=== PATIENT | female | born 1960 | race Caucasian/White ===

== ENCOUNTER → 2022-04-24 | Outpatient (CLI) | payer OTHER, SELFPAY ==
--- NOTE | 2022-04-24 14:03 | CT_ITS ---
EXAM: CT LEFT LOWER EXTREMITY WITHOUT INTRAVENOUS CONTRAST CLINICAL INDICATION: PREOP TECHNIQUE: Helically acquired images were obtained of the left lower extremity without intravenous contrast. 2-D reformats were performed by the technologist. CTDIvol = ( 18.76 ) mGy, DLP = ( 1151.41 ) mGycm This CT exam was performed using one or more of the following dose reduction techniques: automated exposure control, adjustment of the mA and/or kV according to patient size, and/or use of iterative reconstruction technique. This report was created using [employer] report [employer] technology. COMPARISON: None. FINDINGS: BONES/JOINTS: Moderate osteoarthrosis of the left hip joint. Small enthesophyte at the superior aspect of the greater trochanter. At least moderate tricompartmental osteoarthrosis of the knee, severe at the medial femorotibial compartment with 6 mm of lateral subluxation of the tibia relative to femur. Mild to moderate degenerative changes involving the hip joint. Large plantar posterior calcaneal enthesophytes. No acute or healing fracture or malalignment. No unusual lytic or sclerotic lesions of bone. SOFT TISSUES: Large suprapatellar joint effusion with note of a small intra-articular ossific body and note also a small Penaloza''s cyst. No soft tissue swelling or gas. No radiopaque foreign body. CT/Extremity Lower without Contra IMPRESSION: 1. Preoperative planning study. 2. At least moderate tricompartmental osteoarthrosis of the knee, severe at the medial femorotibial compartment with 6 mm of lateral subluxation of the tibia relative to femur. 3. Large suprapatellar joint effusion with note of a small intra-articular ossific body and note also a small Penaloza''s cyst. Electronically Signed: Yoel Saunders MD at 4:38 EST ,
== END | disposition home or self-care (01) ==
LOC: CT 14:01
PROVIDERS: PCP Family Medicine; Visit Provider Orthopaedic Surgery
DX: M17.12 Unilateral primary osteoarthritis, left knee (principal)
CPT/HCPCS: 73700

== ENCOUNTER 2022-05-04 15:08 | Observation (INO) | payer OTHER, SELFPAY ==
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
--- NOTE | 2022-04-24 14:00 | EKG12_ITS ---
Test Reason : PRE-OP Blood Pressure : / mmHG Vent. Rate : 086 BPM Atrial Rate : 086 BPM P-R Int : 178 ms QRS Dur : 090 ms QT Int : 368 ms P-R-T Axes : 048 -23 014 degrees QTc Int : 440 ms Normal sinus rhythm Inferior infarct , age undetermined Abnormal ECG Confirmed by SRINI REESE, KASIA ([id number]), makeup editor BONIFACIO GRACE ([id number]) on 04/27/2022 9:15:32 AM Referred By: VIPUL Confirmed By:KASIA MILLIGAN MD
[2022-04-24 16:03] LABS: Absolute Lymphocyte Count 1.77 X10^3/uL (0.83-4.51); Basophil# 0.04 X10^3/uL; Basophil% 0.6 % (0-1); Eosinophil# 0.14 X10^3/uL; Eosinophils% 2.2 % (0-5); Hematocrit 36.7 % (37-47); Hemoglobin 11.4 g/dL (12.0-15.0); Lymphocyte # 1.77 X10^3/ul (0.83-4.51); Lymphocyte % 27.4 % (19-41); Mean Corp Hgb Conc 31.1 g/dL (32-36); Mean Corpuscular Hgb 29.2 pg (27.0-32.0); Mean Corpuscular Volume 93.9 fL (81-99); Mean Platelet Vol. 10.4 fl (6.2-12.0); Monocyte% 7.7 % (0-10); NRBC Flagged by Analyzer 0 % (0-5); Neutrophil % 61.9 % (47-70); Platelet Count 236 K/mm3 (150-450); RBC Distribution Width SD 47.5 fl (35.1-43.9); Red Blood Count 3.91 M/mm3 (4.2-5.4); White Blood Count 6.5 K/mm3 (4.4-11.0)
[2022-04-24 16:27] LABS: Anion Gap 6 (5-15); BUN 16 mg/dL (7-18); BUN/Creat Ratio 17.1 RATIO (10-20); Calcium,Total 8.8 mg/dL (8.5-10.1); Chloride 107 mmol/L (98-107); Creatinine, Serum 0.93 mg/dL (0.55-1.02); EST Glomerular Filtration Rate 65 mL/min (>60); Est Glom Filt Rate - Afr Amer 78 mL/min (>60); Glucose 90 mg/dL (74-106); Potassium 3.8 mmol/L (3.5-5.1); Sodium Level 141 mmol/L (136-145)
[2022-04-24 16:40] LABS: Magnesium 1.9 mg/dL (1.6-2.6)
[2022-05-04] VITALS (13 sets, daily range): BP systolic 74–109; BP diastolic 44–64; PULSE 62–83; RESP 16–18; TEMP 36.2–37.2; O2SAT 93–99; BMI 35.0
--- NOTE | 2022-05-04 | KNEE_PTH ---
PATIENT: FREDERIC HERBERT LOC: MS3 U#:[id number] AGE/SX: 62/F ROOM: [facility] RE05/04/[address]: Dr. Madhav Grace DO : 1960 BED: 1 DIS: 05/06/2022 SPEC #: [id number] RECD: 05/04/22 13:43 STATUS: YNES REQ #: [id number] JONATHAN: 05/04/22 00:[address]: Madhav Grace DEPT: SURGICAL PATHOLOGY RECD BY: Ceasar Khoury ENTERED: 05/05/22 09:05 SP TYPE: TOTAL KNEE OTHR DR: Dr. Kate Espinoza, DO Tissues: Knee, NOS Procedures: Decalcification bone/plaque Surgery Specimen Level IV HEADER OPERATION: ERAS, total knee replacement robotic arm assist PRE-OP DIAGNOSIS: Severe left knee osteoarthritis with valgus deformity TISSUE SUBMITTED: Left knee bone and tissue MICROSCOPIC DIAGNOSIS Bone and soft tissue, left knee, total knee replacement/resection: Pieces of bone with degenerative osteoarthritic changes. Fibroadipose tissue, fibroconnective tissue and reactive synovial tissue. NILSON:silvana 05/08/2022 MICROSCOPIC DESCRIPTION Slides are reviewed. GROSS DESCRIPTION Received is one container designated bone and soft tissue left knee. The specimen consists of multiple fragments of sorenson-yellow bone measuring in aggregate 17 x 13 x 2 cm. Also in the specimen container are multiple fragments of yellow-white soft tissue measuring in aggregate 11 x 10 x 2.5 cm. A number of bony fragments contain articular surfaces consistent with tibial plateau and femoral condyle and displaying prominent osteophyte formation, eburnation, and bone erosion. Acid Cutter sections are submitted in two cassettes as follows: 1 - soft tissue, 2 - bone after decalcification. / AM:silvana 05/05/2022 TC:5 CPT: 96733, [id number]
[2022-05-04 06:55] LABS: Bedside Glucose 119 mg/dL (74-106)
[2022-05-04] MEDS: Ipratropium/Albuterol Sulfate 3 ML AMPUL.NEB INHALATION (07:06)
[2022-05-04] MEDS: Gabapentin 600 MG Tablet PO (07:24)
[2022-05-04] MEDS: Magnesium 2 GM for ERAS IV (07:24)
[2022-05-04] MEDS: Acetaminophen 500 MG Tablet 1000 MG PO ×3 (07:24→22:26)
[2022-05-04] MEDS: Lactated Ringers 1,000 ML 15 ML IV ×2 (07:40→09:31)
[2022-05-04] MEDS: Cefazolin 2 GM in 0.9% Normal Saline 100 ML IV (08:11)
[2022-05-04] MEDS: TXA 1000mg in NS100 100ml (IVPB at Closure) 660 MG IV (08:22)
[2022-05-04] MEDS: TXA 1000mg in NS100 100ml (IVPB at Incision) 660 MG IV (09:38)
--- NOTE | 2022-05-04 09:51 | PCM.OPRPT ---
Report of Operation Date of Procedure: 05/04/22 Pre-Operative Diagnosis: OA left knee Post-Operative Diagnosis: same Surgery/Procedure Performed:: L TKR Description of Surgical Findings:: Report of Operation Date of Procedure: 05/04/2022 Preoperative Diagnosis: [ left ] knee primary osteoarthritis Postoperative Diagnosis: [ left ] knee primary osteoarthritis Operation: Robotic Assisted Knee Total Arthroplasty, [left ] knee Surgeon: Dr Madhav Grace DO Lead Care Manager: Robbie Saleh PA-C Anesthesia: spinal Anesthesiologist: Franklin Kevin M.D. Findings: Stable knee with good patella tracking Specimen(s): Bony cuts Complications: No intraoperative complications Estimated Blood Loss: 20 cc IV Fluids: 1000 cc crystalloid Implants Used: 1. Dianna Triathlon press-fit CR size 3 femur 2. Nichols Triathlon size 4 tibia 3. 29 mm patella 4. 10 mm CS polyethylene Brief History Operative Indications: [ (62 y/o female) ] with history of [left ] knee osteoarthrosis with radiographic findings with loss of joint space, osteophyte formation and subchondral sclerosis. Failed conservative measures as mentioned in the H&P. Discussion of total knee arthroplasty as well as risk and benefits were discussed with the patient including but not limited to blood loss, DVTs, PEs, neurovascular damage, general risk of anesthesia including loss of life, and stiffness or instability were also discussed with the patient. Patient demonstrated understanding and was able to sign informed consent. Procedure: On the date of procedure, patient's [left ] lower extremity was marked in the preoperative area. The patient was then taken back to the operating room where that patient was placed on the table in the supine position. All bony prominences were identified and well-padded. Anesthesia assumed control of the C-spine and airway throughout the remainder of the procedure. A tourniquet was placed on the [left ] upper thigh and the leg was prepped in a sterile fashion. The surgeon then scrubbed at this time. Upon reentering the room, the [left ] lower extremity was draped in a standard orthopedic fashion. A timeout was then called and everyone agreed upon the side, the site, the procedure to be performed, patient's identity and antibiotics given. Esmarch bandage was used to exsanguinate the extremity and the tourniquet was placed up to 250 mmHg with the knee in flexion. A midline skin incision was made and a sharp dissection was taken down through skin, subcutaneous tissue and fat. The standard medial parapatellar incision was made and the patella was subluxed laterally. An appropriate deep MCL release was done and the fat pad was resected. Our attention was then directed to the patella. The patella was everted and a flat resection was made. The knee was then flexed up and 2 femoral pins were placed inside the incision and 2 tibial pins were placed outside the incision in the medial tibia bicortically. Once this was completed, the 2 checkpoints in the femur and tibia were placed. Knee was then flexed up and the bony landmarks were registered. Once the was completed, the knee taken through range of motion and manually stressed allowing us to plan for an appropriate tibial cut. The robotic arm was brought into the field sterilely and checkpoint and saw were registered. Based on the patient's deformity, the tibial cut was made in [neutral ]. At this time, the tensioner was then placed in the joint and ligament tension was checked at 90 degrees and full extension. Based on the patient's ligamentous tension, appropriate adjustments were made to the operative plan and ligament releases were done. Once we were happy with our operative plan with balanced flexion and extension gaps, our attention was directed to the femur. The robot was brought into the field sterilely and registered. Posterior condylar cuts, anterior chamfer cuts and anterior cuts were appropriately made for a [size 3 ] femur. When these were completed, the saws were switched out in the distal femoral and posterior chamfer cuts were made. Protecting the soft tissue throughout this time. A [ size 4 ] base plate was selected. The knee was flexed to 90 degrees and soft tissues and posterior osteophytes were removed from the joint. 40 cc of the periarticular injection was injected into the posterior medial corner of the joint. The appropriate trials were then placed on the femur and tibia. A trial polyethylene was trialed to ensure proper balancing and stability of the knee. The appropriate tibial internal rotation was then marked with a bovie. Our attention was then directed to the patella. The lug holes were drilled and the patella trial was placed. Patellar tracking was checked and deemed appropriate. Once we were happy, lug holes were drilled for the femur and trial components were removed. The tibia was subluxed and pinned into place and the keel was punched and drilled appropriately. Final components were verified and opened. The wound was copiously irrigated with normal saline. Cement was mixed under 3rd generation technique for cementation of the patella. The components were impacted into place with the tibia, and femur. Cement was applied to the patella. The patella was placed in the previously drilled holes. A patellar clamp was used to hold the patella in place until the cement cured. The trial poly component was placed and the knee was placed in full extension. The tracking, alignment and balance were verified and a [10 mm CS ] polyethylene component was placed. Once the final components were placed an Irrisept lavage was performed and the wound was copiously irrigated with normal saline solution and the periarticular injection was given. the wound was closed in a layer-mendoza fashion using #1 vicryl interrupted sutures for the arthrotomy, 2-0 interrupted vicryl suture for the subcuticular layer and leann for final skin closure. A sterile compressive dressing was then placed. The patient was then awakened from anesthesia, transferred to the [facility] and transferred to the PACU for recovery. My physician assistant chief nursing officer was a vital part of this case. He was important in appropriate retraction during the case, and protection of soft tissues during bony cuts. His intimate knowledge of the case and my steps aided in safe and expedient completion of the procedure as well as appropriate position of the leg during the case. He was also vital in assisting with closure under my direct supervision. Due to the complexity of this case, robotic arm was used to assist in the surgery to improve accuracy and clinical outcomes. Post-op Plan: DVT ppx; ASA 81 mg BID, thigh high compression stockings Follow up: in office in 2 weeks for wound check PT: to start POD #0 at hospital, outpatient PT should be arranged. Preoperative antibiotic: Ancef 2 grams IV Madhav Grace DO Surgeon: Madhav Grace pump servicer helper: Robbie Saleh Type of Anesthesia: Spinal Anesthesiologist: Franklin Kevin Estimated Blood Loss (mL): 20 cc Fluids Replaced: 1000 cc crystalloid Admit VTE Documentation VTE Present on Admission: No VTE Mechan Device Prophylaxis: SCD's and Thigh High YOSELIN Hose VTE Pharm Prophylaxis ordered?: Yes
--- NOTE | 2022-05-04 10:02 | RAD_ITS ---
STUDY: X-RAY - LEFT KNEE REASON FOR EXAM: Female, 62 years old. Post op -- AP and Lateral xray of operative knee in PACU TECHNIQUE: 2 view(s) of the knee. COMPARISON: None. FINDINGS: Normal visualized distal femur. Normal visualized proximal tibia and fibula. Normal proximal tibiofibular articulation. The patient is status post total knee replacement. There is good alignment. Postoperative soft tissue changes. RAD/Knee 1 or 2 Views IMPRESSION: Status post total knee replacement. There is good alignment. Postoperative soft tissue changes. Electronically Signed: Serafin Manrique MD at 11:20 EST ,
[2022-05-04] MEDS: Pantoprazole Sodium 40 MG Tablet PO (14:08)
[2022-05-04] MEDS: Venlafaxine XR 150 MG Capsule PO (14:09)
[2022-05-04] MEDS: oxyCODONE 5 MG Tablet PO ×2 (15:48→19:53)
[2022-05-04] MEDS: Cefazolin 1 GM/50 ML BAG IV (15:48)
[2022-05-04] MEDS: TICAGRELOR 90 MG TABLET PO (22:26)
[2022-05-04] MEDS: Zolpidem Tartrate 5 MG Tablet PO (22:26)
[2022-05-04] MEDS: traZODone 100 MG Tablet 150 MG PO (22:26)
[2022-05-04] MEDS: Atorvastatin Calcium 80 MG Tablet PO (22:27)
[2022-05-04] MEDS: Senna/Docusate Sodium 1 Tablet 2 TABLET PO (22:27)
[2022-05-05] MEDS: Cefazolin 1 GM/50 ML BAG IV (00:34)
[2022-05-05] MEDS: 0.9% NaCl Peripheral Flush Adult/Peds IV (00:34)
[2022-05-05 02:19] VITALS: BP 123/80; PULSE 81; RESP 18; TEMP 36.5; O2SAT 94
[2022-05-05] MEDS: oxyCODONE 5 MG Tablet PO ×5 (03:56→20:44)
[2022-05-05 04:51] LABS: Hematocrit 31.7 % (37-47); Hemoglobin 9.8 g/dL (12.0-15.0); Mean Corp Hgb Conc 30.9 g/dL (32-36); Mean Corpuscular Hgb 29.2 pg (27.0-32.0); Mean Corpuscular Volume 94.3 fL (81-99); Mean Platelet Vol. 10.3 fl (6.2-12.0); Platelet Count 180 K/mm3 (150-450); RBC Distribution Width CV 14.2 % (11.6-14.6); RBC Distribution Width SD 48.4 fl (35.1-43.9); Red Blood Count 3.36 M/mm3 (4.2-5.4); White Blood Count 4.6 K/mm3 (4.4-11.0)
[2022-05-05] MEDS: Acetaminophen 500 MG Tablet 1000 MG PO ×3 (05:06→22:35)
[2022-05-05 05:12] LABS: Anion Gap 9 (5-15); BUN 17 mg/dL (7-18); BUN/Creat Ratio 19.7 RATIO (10-20); Calcium,Total 8.5 mg/dL (8.5-10.1); Chloride 104 mmol/L (98-107); Creatinine, Serum 0.86 mg/dL (0.55-1.02); EST Glomerular Filtration Rate 71 mL/min (>60); Est Glom Filt Rate - Afr Amer 86 mL/min (>60); Estimated Creatinine Clearance 56.11 ml/min; Glucose 93 mg/dL (74-106); Potassium 4.1 mmol/L (3.5-5.1); Sodium Level 139 mmol/L (136-145)
--- NOTE | 2022-05-05 07:39 | PCM.PN.ORT ---
Subjective Subjective Patient sitting at the edge of bed. Is ambulating with his walker. Patient states pain has been well managed. Patient denies chest pain, shortness of breath, calf pain, nausea or vomiting. Patient states she would like to be admitted to [facility] for for rehab. Objective Data Objective Data Vital Signs: Vital Signs Temp Pulse Resp BP Pulse Ox O2 Del Method O2 Flow Rate 97.7 F L 81 18 123/80 H 94 Room Air 2 05/05/22 02:19 05/05/22 02:19 05/05/22 02:19 05/05/22 02:19 05/05/22 02:19 05/05/22 02:19 05/04/22 12:23 Oxygen Flow Rate (L/min) 2 Oxygen Delivery Method Room Air Weight: 92.1 kg Body Mass Index (BMI) 35.0 Intake & Output: Intake and Output for Last 24 Hours 05/03/22 05/04/22 05/05/22 23:59 23:59 23:59 Intake Total 2484 / 2484 1250 / 1250 Output Total 900 / 900 Balance 2484 / 2484 350 / 350 Lab / Micro Data Result Diagrams: 05/05/22 03:59 05/05/22 03:59 Labs: Laboratory Results - last 24 hr 05/05/22 03:59: WBC 4.6, RBC 3.36 L, Hgb 9.8 L, Hct 31.7 L, MCV 94.3, MCH 29.2, MCHC 30.9 L, RDW Std Deviation 48.4 H, RDW Coeff of Lory 14.2, Plt Count 180, MPV 10.3 05/05/22 03:59: Sodium 139, Potassium 4.1, Chloride 104, Carbon Dioxide 26.0, Anion Gap 9, BUN 17, Creatinine 0.86, Estim Creat Clear Calc 56.11, Est GFR (MDRD) Af Amer 86, Est GFR (MDRD) Non-Af 71, BUN/Creatinine Ratio 19.7, Glucose 93, Calcium 8.5 Micro: Microbiology 04/24/22 14:32 Swab (Method) Nasal Screen MRSA/MSSA - Final Radiography Diagnostic Testing: Radiology Impression Knee X-Ray 05/04/22 10:02 IMPRESSION: Status post total knee replacement. There is good alignment. Postoperative soft tissue changes. Electronically Signed: Serafin Manrique MD at 11:20 EST , Physical Exam Narrative Upon exam, I found patient sitting at the edge of the bed. Alert oriented. No respiratory distress, speaking in full sentences. Patient has full range of motion of the upper extremities with good muscle tone and strength. Dressing of the left knee is clean dry and intact. Patient has tenderness over the mid thigh in the area of the tourniquet. No calf tenderness. No pain with plantarflexion dorsiflexion of the foot. Strong posterior tibial and dorsalis pedis pulses. Neurovascular is otherwise intact. Const alert and oriented x3 General Appearance: cooperative HEENT normocephalic Eyes PERRL Resp normal respiratory effort Effort and Inspection: able to speak in complete sentences Extremity normal capillary refill Skin no rashes or lesions noted Neuro CN's II-XII intact bilaterally Motor Exam: strength 5/5 throughout Psych mental status grossly normal and affect normal Assessment & Plan Assessment/Plan (1) Status post total left knee replacement using cement: PLAN: 1. Continue all pain medications as prescribed 2. Continue aspirin 81 mg 1 p.o. every 12 hours x30 days for postop DVT prophylaxis 3. Continue physical therapy, weight-bear as tolerated with walker 4. Encourage incentive spirometry 5. Continue use of SCDs and bilateral thigh-high YOSELIN hose. 6. Polar Care to left knee when not ambulating 7. We will discharge and admit patient [facility] 4th floor rehab when approved.
[2022-05-05 08:26] VITALS: BP 96/66; PULSE 76; RESP 18; TEMP 36.8; O2SAT 94
[2022-05-05] MEDS: Senna/Docusate Sodium 1 Tablet 2 TABLET PO ×2 (08:34→22:35)
[2022-05-05] MEDS: Spironolactone 25 MG Tablet 12.5 MG PO (08:35)
[2022-05-05] MEDS: Allopurinol 100 MG Tablet 200 MG PO (08:35)
[2022-05-05] MEDS: Pantoprazole Sodium 40 MG Tablet PO (08:35)
[2022-05-05] MEDS: Venlafaxine XR 150 MG Capsule PO (08:35)
[2022-05-05] MEDS: Aspirin 81 MG TAB.CHEW PO (08:35)
[2022-05-05] MEDS: TICAGRELOR 90 MG TABLET PO ×2 (08:36→22:35)
[2022-05-05] MEDS: Isosorbide Mononitrate 30 MG Tablet PO (08:36)
--- NOTE | 2022-05-05 12:08 | CASEMGMT ---
Social Work Consult: Usp placement vs. Rehab Unit. Referral source: Ortho. This social welfare research worker met with patient in room. Introduced self and social welfare research worker role. Patient agreeable to speak with this social welfare research worker. This social welfare research worker broached topic of half-way placement for patient or a rehab unit, per PA note. Patient confirms to want to discharge to a rehab unit, specifically the Rehab Unit at [facility]. This social welfare research worker communicating that the Rehab Unit currently has no beds per a pervious conversation this social welfare research worker had with the community sports coordinator this morning. Patient inquired about TCU, this social welfare research worker communicating that TCU is also full. This social welfare research worker offered to provide patient with list of in-network nursing facilities that are local to patient geographical region, patient declined and request for this social welfare research worker to make a referral to the Transitional care Unit at [facility]. This social welfare research worker educating patient on pre-cert process with patient insurance and no guarantee of obtaining pre-cert but per therapy notes patient requires half-way placement, patient voiced understanding. This social welfare research worker sent referral to [facility] via [facility]. PLAN: residential facility pending acceptance and pre-cert. Social Work to continue to follow. Nigel Penaloza MSW, JONNY
[2022-05-05 12:41] VITALS: BP 117/62; PULSE 83; RESP 18; TEMP 37.3; O2SAT 94
[2022-05-05 12:42] VITALS: PULSE 83
[2022-05-05] MEDS: Metoprolol Tartrate 25 MG Tablet PO (12:42)
--- NOTE | 2022-05-05 13:25 | CASEMGMT ---
Addendum entered by Aliya Penaloza 05/05/22 13:30: Patient declined for this social services designee to speak with patient spouse and reports I am keeping him updated. Patient reports that plan will be for patient spouse to transport patient at time of discharge. Original Note: Social Work Updated via [facility] that patient has been accepted by [facility]. [facility] to start pre-cert. This social services designee updated patient on above information. Social Work to continue to follow. Nigel CORREA, NEERAJ-S
[2022-05-05 15:26] VITALS: BP 122/69; PULSE 72; RESP 18; TEMP 36.8; O2SAT 98
[2022-05-05 20:43] VITALS: BP 115/70; PULSE 76; RESP 18; TEMP 37.2; O2SAT 97
[2022-05-05] MEDS: Zolpidem Tartrate 5 MG Tablet PO (22:35)
[2022-05-05] MEDS: traZODone 100 MG Tablet 150 MG PO (22:35)
[2022-05-05] MEDS: Atorvastatin Calcium 80 MG Tablet PO (22:35)
[2022-05-06 03:00] VITALS: BP 109/75; PULSE 83; RESP 16; TEMP 36.9; O2SAT 96
[2022-05-06] MEDS: oxyCODONE 5 MG Tablet PO ×3 (03:34→13:01)
[2022-05-06 06:12] VITALS: BP 129/89; PULSE 85; RESP 18; TEMP 37.1; O2SAT 97
[2022-05-06] MEDS: 0.9% NaCl Peripheral Flush Adult/Peds IV (06:15)
[2022-05-06] MEDS: Acetaminophen 500 MG Tablet 1000 MG PO ×2 (06:17→13:01)
[2022-05-06 07:51] VITALS: BP 117/71; PULSE 86; RESP 18; TEMP 36.8; O2SAT 95
[2022-05-06] MEDS: Senna/Docusate Sodium 1 Tablet 2 TABLET PO (07:58)
[2022-05-06] MEDS: Spironolactone 25 MG Tablet 12.5 MG PO (07:58)
[2022-05-06] MEDS: Pantoprazole Sodium 40 MG Tablet PO (07:58)
[2022-05-06 07:59] VITALS: PULSE 86
[2022-05-06] MEDS: Allopurinol 100 MG Tablet 200 MG PO (07:59)
[2022-05-06] MEDS: Aspirin 81 MG TAB.CHEW PO (07:59)
[2022-05-06] MEDS: Metoprolol Tartrate 25 MG Tablet PO (07:59)
[2022-05-06] MEDS: Isosorbide Mononitrate 30 MG Tablet PO (07:59)
[2022-05-06] MEDS: Lisinopril 2.5 MG Tablet PO (07:59)
[2022-05-06] MEDS: TICAGRELOR 90 MG TABLET PO (08:00)
[2022-05-06] MEDS: Venlafaxine XR 150 MG Capsule PO (08:00)
--- NOTE | 2022-05-06 11:23 | NURSING ---
per Andreina Saleh, he states pt may perhaps be vaping in room. nurse to room, inquired as to if pt has a vape or is currently vaping- pt states that she is and is agreeable to have it locked in med drawer. states she understands risks/safety/medication interactions/goals.
--- NOTE | 2022-05-06 11:24 | PN.ORTHO_ITS ---
Subjective Subjective Patient sitting up in bed, states pain has been very well managed. Denies chest pain, shortness of breath, calf pain, nausea vomiting. Has no other complaints at this time. Patient states she is ready for discharge to the rehab center in [facility]. Objective Data Objective Data Vital Signs: Vital Signs Temp Pulse Resp BP Pulse Ox O2 Del Method O2 Flow Rate 98.2 F 86 18 117/71 95 Room Air 2 05/06/22 07:51 05/06/22 07:59 05/06/22 07:51 05/06/22 07:51 05/06/22 07:51 05/06/22 07:51 05/04/22 12:23 Oxygen Flow Rate (L/min) 2 Oxygen Delivery Method Room Air Weight: 92.1 kg Body Mass Index (BMI) 35.0 Intake & Output: Intake and Output for Last 24 Hours 05/04/22 05/05/22 05/06/22 23:59 23:59 23:59 Intake Total 2484 / 2484 1650 / 1650 200 / 200 Output Total 900 / 900 Balance 2484 / 2484 750 / 750 200 / 200 Lab / Micro Data Result Diagrams: 05/05/22 03:59 05/05/22 03:59 Micro: Microbiology 04/24/22 14:32 Swab (Method) Nasal Screen MRSA/MSSA - Final Physical Exam Narrative Upon exam I found patient sitting up in bed watching TV. Patient has no respiratory distress speaking in full sentences. Full range of motion of the upper extremities. Exam of the left knee, the dressing is dry, there is a small blood spot on the distal end of the dressing. The 2 stab incisions on the tibia the dressing is dry with 2 blood spots in the dressing. There is no calf tenderness. Patient was lacking 5 degrees full extension flexion to 90 degrees with reported pain. Neurovascular she is otherwise intact. Const alert and oriented x3 General Appearance: cooperative and well developed HEENT normocephalic Eyes PERRL Resp normal respiratory effort Effort and Inspection: able to speak in complete sentences Extremity normal capillary refill Skin no rashes or lesions noted Neuro CN's II-XII intact bilaterally Psych mental status grossly normal and affect normal Assessment & Plan Assessment/Plan (1) Status post total left knee replacement using cement: PLAN: 1. Continue all pain medications as prescribed 2. Continue aspirin 81 mg 1 p.o. every 12 hours x30 days for postop DVT prophylaxis 3. Continue physical therapy, weight-bear as tolerated with walker 4. Encourage incentive spirometry 5. Continue use of SCDs and bilateral thigh-high YOSELIN hose. 6. Polar Care to left knee when not ambulating 7. Change dressings on the knee arthroplasty incision, as well as stab incisions in midshaft tibia prior to discharge 8. Discharge to [facility] rehab center 9. Follow-up as scheduled in 2 weeks. 10. Shower on 05/08/2022
--- NOTE | 2022-05-06 11:30 | DCINST_ITS ---
Discharge Instructions Diet Discharge Diet: No restrictions Activity Discharge Activity: May Not Drive, May Not Shower and Use Walker May shower in (days): 3 May resume sexual activity in: No Restrictions Ice area for (Minutes): 30 Weight Bearing Status: Weight bearing as tolerated Keep extremity elevated above heart level: Operative Extremity Dressing / Incision Call your doctor if your incision/area has: Continuous Slow Oozing, Sudden Increased Bleeding, Increased Pain/ Swelling and Increased Redness Call your doctor if you observe: Fever of 101 or Higher Remove Dressing in: 1 week Additional Dressing/Incision Instructions:: Change dressing in 8 days, staple removal 05/26/2022 Follow Up Care Please Follow Up With: Robbie Saleh PA-C When: 2 weeks as scheduled Test Results: Test results from this visit will be discussed in further detail at your follow- up appointment, if applicable. Discharge Plan Admission Admit Date/Time: 05/04/22 15:08 Primary Reason for Your Visit: Left total knee arthroplasty Attending Provider: Madhav Grace Primary Care Provider: Kate Espinoza Discharge Orders/Prescriptions Prescriptions: New acetaminophen 500 mg Tablet 1,000 mg PO Q8 30 Days Qty: 180 0RF aspirin 81 mg Tablet,Chewable 81 mg PO Q12H 30 Days Qty: 60 0RF oxycodone 5 mg Tablet 5 - 10 mg PO Q4H PRN PRN (Reason: Pain Score 4-10) 7 Days Qty: 84 0RF sennosides-docusate sodium [Stool Softener-Stimulant Laxat] 8.6-50 mg Tablet 2 tab PO BID Qty: 20 0RF Continued celecoxib 200 mg capsule 200 mg PO DAILY Label Comments: TAKE 1 CAPSULE BY MOUTH DAILY WITH FOOD atorvastatin 80 mg tablet 80 mg PO QHS Label Comments: TAKE 1 TABLET BY MOUTH ONCE DAILY AT BEDTIME venlafaxine 75 mg capsule,extended release 24hr 75 mg PO DAILY Label Comments: Take 1 capsule by mouth once daily. Take with 150 mg capsule daily. isosorbide mononitrate 30 mg tablet extended release 24 hr 30 mg PO DAILY Label Comments: TAKE 1 TABLET BY MOUTH EVERY DAY venlafaxine 150 mg capsule,extended release 24hr 150 mg PO DAILY Label Comments: TAKE 1 CAPSULE BY MOUTH DAILY allopurinol 100 mg tablet 200 mg PO DAILY Label Comments: Take 2 tablets by mouth once daily. omeprazole 40 mg capsule,delayed release(DR/EC) 40 mg PO DAILY Label Comments: TAKE 1 CAPSULE BY MOUTH ONCE DAILY spironolactone 25 mg tablet 12.5 mg PO DAILY Label Comments: TAKE 1/2 (ONE-HALF) OF A TABLET BY MOUTH ONCE DAILY. trazodone 150 mg tablet 150 mg PO QHS Label Comments: Take 1 tablet by mouth daily at bedtime. zolpidem [Ambien] 5 mg tablet 5 mg PO QHS Label Comments: TAKE 1 TABLET BY MOUTH DAILY AT BEDTIME NEEDED lisinopril 2.5 mg tablet 2.5 mg PO DAILY Label Comments: Take 1 tablet by mouth once daily. metoprolol tartrate 25 mg tablet 25 mg PO DAILY Label Comments: Take 1 tablet by mouth twice daily. Brilinta 90 mg tablet 90 mg PO BID Label Comments: TAKE 1 TABLET BY MOUTH TWICE DAILY, LAST DOSE 5 DAYS PRIOR TO OR, 04/29/2022 Discontinued oxycodone-acetaminophen 5-325 mg tablet 1 tab PO BID Label Comments: TAKE 1 TABLET BY MOUTH up to TWICE DAILY NEEDED FOR PAIN aspirin 81 mg tablet,chewable 81 mg PO DAILY Label Comments: TAKE 1 TABLET BY MOUTH ONCE DAILY Referrals / Follow Up: Kate Espinzoa DO [Primary Care Provider] - Disposition Disposition (needs filled in before D/C Order can be placed): [facility]
--- NOTE | 2022-05-06 12:20 | CASEMGMT ---
Social Work Precert has been obtained. Physician updated and pt is ready for discharge today. Discharge orders and covid results sent to [facility] senior care via [facility]Port. SW met with pt and informed and she is agreeable to discharge to [facility] today. Pt states she will talk to her and he will provide transportation with [employer] picker around 4:30. [facility] and bedside nurse notified of discharge time. Disposition: [facility] SNF, skilled level of care JAIR Zhou
--- NOTE | 2022-05-06 12:24 | NURSING ---
attempted to call report to [facility] [phone] [facility]. facility unable to take nurse to nurse report at this time and requests said nurse phone back later.
--- NOTE | 2022-05-06 12:56 | CASEMGMT ---
Social Work Pt requesting to speak with SW. Pt stating spoke with and they do not feel pt can be transported by car and requesting transport be set up. SW explained cost of Wheelchair van and pt is agreeable. Transportation arranged with [facility] ambulance for [address] [employer] via Wheelchair van. Nursing, [facility] SNF and pt updated of discharge time. JAIR Zhou
[2022-05-06 13:00] VITALS: BP 107/68; PULSE 83; RESP 18; TEMP 36.8; O2SAT 94
== END 2022-05-06 13:55 | disposition skilled nursing facility (03) ==
LOC: SDC 15:14 → MS3 15:14
PROVIDERS: Anesthesiology; Admitting Provider Orthopaedic Surgery; PCP Family Medicine; Referring Provider Orthopaedic Surgery; Visit Provider Orthopaedic Surgery
PROC: 0SRD0JZ Replacement of Left Knee Joint with Synthetic Substitute, Open Approach (ICD-10-PCS; CPT 27447; principal; 2022-05-04 07:30)
DX: M17.12 Unilateral primary osteoarthritis, left knee (principal); J44.9 Chronic obstructive pulmonary disease, unspecified; M21.162 Varus deformity, not elsewhere classified, left knee; K21.9 Gastro-esophageal reflux disease without esophagitis; F17.210 Nicotine dependence, cigarettes, uncomplicated; G47.00 Insomnia, unspecified; Z79.82 Long term (current) use of aspirin; I25.2 Old myocardial infarction; Z79.899 Other long term (current) drug therapy
CPT/HCPCS: 27447; S2900; 01402; 64445; 36415; 73560; 80048; 82962; 83735; 85025; 85027; 87077; 87081; 87426; 88305; 88311; 93005; 94640; 94668; 96365; 96366; 97110; 97116; 97162; 97166; 97530; 97535; 99221; 99252; 99406; C1776; J7120; A4216; G0378; G0463; J2405; J3490

== ENCOUNTER → 2023-04-06 | Outpatient (CLI) | payer OTHER, SELFPAY ==
--- NOTE | 2023-04-06 14:25 | CT_ITS ---
CT RIGHT LOWER EXTREMITY WITH 3-D IMAGING CLINICAL INDICATION: OSTEOARTHRITIS OF RIGHT KNEE TECHNIQUE: Axial CT images of the right lower extremity (including right hip, right knee, and right ankle) was performed without IV contrast material. Coronal and sagittal reformats were provided. RADIATION DOSAGE (If Supplied By Facility): CTDIvol = ( 18.75 ) mGy, DLP = ( 1376.56 ) mGycm COMPARISON: No relevant prior comparison study available FINDINGS: Bones: Normal right hip joint. There is moderate tricompartment degenerative arthrosis with moderate joint space narrowing and marginal osteophyte formation. There are plantar and posterior calcaneal spurs. Osseous structures are otherwise normal without evidence of fracture or dislocation. No lytic or blastic osseous masses. Soft Tissues: There is a large right knee joint effusion. The deep soft tissue structures are unremarkable. The superficial soft tissues are unremarkable without evidence of edema, hematoma, or foreign body. CT/Extremity Lower without Contra IMPRESSION: Moderate tricompartment degenerative arthrosis. Large right knee joint effusion. Electronically Signed: Isai Lubin MD at 16:43 EST ,
== END | disposition home or self-care (01) ==
LOC: CT 14:07
PROVIDERS: PCP Family Medicine; Referring Provider Orthopaedic Surgery; Visit Provider Orthopaedic Surgery
DX: Z96.652 Presence of left artificial knee joint (principal)
CPT/HCPCS: 73700

== ENCOUNTER 2023-04-26 16:56 | Observation (INO) | payer OTHER, SELFPAY ==
--- NOTE | 2023-04-06 14:05 | EKG12_ITS ---
Test Reason : PRE OP Blood Pressure : / mmHG Vent. Rate : 078 BPM Atrial Rate : 078 BPM P-R Int : 178 ms QRS Dur : 096 ms QT Int : 406 ms P-R-T Axes : 051 -05 021 degrees QTc Int : 462 ms Normal sinus rhythm Inferior infarct , age undetermined Abnormal ECG Confirmed by SRINI REESE, KASIA ([id number]), editor at large BONIFACIO GRACE ([id number]) on 04/07/2023 5:56:08 AM Referred By: Madhav Grace Confirmed By:KASIA MILLIGAN MD
[2023-04-06 15:38] LABS: Absolute Lymphocyte Count 2.01 X10^3/uL (0.83-4.51); Absolute Neutrophil Count 1.9 X10^3/uL (2.0-7.7); Basophil# 0.05 X10^3/uL; Basophil% 1.1 % (0-1); Eosinophils% 2.2 % (0-5); Hematocrit 37.6 % (37-47); Hemoglobin 12.2 g/dL (12.0-15.0); Lymphocyte # 2.01 X10^3/ul (0.83-4.51); Lymphocyte % 44.8 % (19-41); Mean Corp Hgb Conc 32.4 g/dL (32-36); Mean Corpuscular Hgb 29.6 pg (27.0-32.0); Mean Corpuscular Volume 91.3 fL (81-99); Mean Platelet Vol. 9.8 fl (6.2-12.0); Monocyte# 0.38 X10^3/uL; Monocyte% 8.5 % (0-10); NRBC Flagged by Analyzer 0 % (0-5); Neutrophil # 1.94 X10^3/uL (2.7-7.7); Neutrophil % 43.2 % (47-70); Platelet Count 236 K/mm3 (150-450); RBC Distribution Width CV 14.5 % (11.6-14.6); RBC Distribution Width SD 48.9 fl (35.1-43.9); Red Blood Count 4.12 M/mm3 (4.2-5.4); White Blood Count 4.5 K/mm3 (4.4-11.0)
[2023-04-06 15:56] LABS: Hemoglobin A1c 5.3 % (3.8-5.6)
[2023-04-06 16:28] LABS: Magnesium 2.3 mg/dL (1.6-2.6)
[2023-04-06 16:32] LABS: Anion Gap 4 (5-15); BUN 19 mg/dL (7-18); BUN/Creat Ratio 23.8 RATIO (10-20); Calcium,Total 8.8 mg/dL (8.5-10.1); Chloride 108 mmol/L (98-107); EST Glomerular Filtration Rate 77 mL/min (>60); Est Glom Filt Rate - Afr Amer 93 mL/min (>60); Glucose 67 mg/dL (74-106); Potassium 3.7 mmol/L (3.5-5.1); Sodium Level 139 mmol/L (136-145)
[2023-04-26] VITALS (11 sets, daily range): BP systolic 106–150; BP diastolic 62–87; PULSE 48–77; RESP 12–20; TEMP 36.1–37.1; O2SAT 93–98; BMI 34.6
--- OUTSIDE RECORDS SUMMARY | 2023-04-26 08:33 | XMS RPT_ITS | CCD ---
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 ROOM ATTENDANT, Pennie Unavailable Sheets DOKate C Unavailable Knupp PT, Kush Unavailable Knupp PT, Kush Unavailable SHEETS, KATE C Primary Care Unavailable SHEETS, KATE C Attending Unavailable KNAPIC, JENNY S Referring Unavailable SHEETS, KATE C Primary Care Unavailable KNAPIC, JENNY S Referring Unavailable SHEETS, KATE C Primary Care Unavailable SHEETS, KATE C Primary Care Unavailable KNAPIC, JENNY S Referring Unavailable SHEETS, KATE C Primary Care Unavailable KNAPIC, JENNY S Referring Unavailable KNAPIC, JENNY S Referring Unavailable SHEETS, KATE C Primary Care Unavailable PRABHAKARANKOFI Admitting Unavaila ble HAZZI, RAMKaylie Attending Unavailable SHEETS, KATE C Primary Care Unavailable SHEETS, KATE C Primary Care Unavailable BRODIE GUEVARA Attending Unavailable KNAPIC, JENNY S Referring Unavailable SHEETS, KATE C Primary Care Unavailable SHEETS, KATE C Referring Unavailable SHEETS, KATE C Primary Care Unavailable SHEETS, KATE C Primary Care Unavailable SHEETS, KATE C Referring Unavailable SHEETS, KATE C Primary Care Unavailable SHEETS, KATE C Attending Unavailable SHEETS, KATE C Primary Care Unavailable KNAPIC, JENNY S Referring Unavailable SHEETS, KATE C Primary Care Unavailable HRHUGH GONZALEZ Attending Unavailable SHEETS, KATE JARA Primary Care Yuly AREN Antonio Attending Unavailable Medications Current Medications Medication Drug Class(es) Dates Sig (Normalized) Sig (Original) perflutren lipid microspheres 1.3 mL in NaCl (PF) 0.9% 10 mL injection (DEFINITY) (20 sources) Start: 04-09-2021 End: 07-09-2022 perflutren lipid microspheres 1.3 mL in NaCl (PF) 0.9% 10 mL injection (DEFINITY) Completed/Discontinued Medications Medication Drug Class(es) Dates Sig (Normalized) Sig (Original) acetaminophen 325 mg oral tablet (20 sources) Start: 03-26-2021 take 325-650 mg by mouth every six hours as needed acetaminophen (TYLENOL) 325 mg tablet Take 1-2 tablets by mouth every 6 hours as needed for pain. 30 tablet 0 03/26/2021 Active Problems Active Problems Problem Classification Problem Date Documented Da te Episodic/Chronic Acute and unspecified renal failure (11 sources) Acute injury of kidney; Translations: [Acute kidney failure, unspecified] Onset: 3 12-18-2022 Episodic Acute bronchitis (2 sources) Acute bronchitis, unspecified; Translations: [Acute bronchitis, unspecified] Onset: 3 Episodic Acute myocardial infarction (20 sources) Myocardial infarction; Translations: [ST elevation (STEMI) myocardial infarction involving right coronary artery] Onset: 1 02-08-2021 Chronic Congestive heart failure; nonhypertensive (20 sources) Acute systolic heart failure; Translations: [Acute systolic (congestive) heart failure] Onset: 3 Chronic Coronary atherosclerosis and other heart disease (20 sources) History of myocardial infarction; Translations: [Old myocardial infarction] Onset: 2 11-17-2018 Chronic Coronary atherosclerosis and other heart disease (1 source) Coronary angioplasty status; Translations: [Post PTCA] Onset: 3 Episodic Disorders of lipid metabolism (20 sources) Mixed hyperlipidemia; Translations: [Mixed hyperlipidemia] Onset: 2 04-09-2021 Chronic Esophageal disorders (20 sources) Gastroesophageal reflux disease without esophagitis; Translations: [Gastro-esophageal reflux disease without esophagitis] Onset: 7 08-21-2018 Chronic Essential hypertension (20 sources) Essential hypertension; Translations: [Essential (primary) hypertension] Onset: 2 04-09-2021 Chronic Fluid and electrolyte disorders (14 sources) Hypokalemia; Translations: [Hypokalemia] Onset: 3 12-18-2022 Episodic Genitourinary symptoms and ill-defined conditions (20 sources) Urge incontinence of urine; Translations: [Urge incontinence] Onset: 7 05-08-2016 Chronic Gout and other crystal arthropathies (20 sources) Chronic gouty arthritis; Translations: [Idiopathic chronic gout, unspecified ankle and foot, without tophus (tophi)] Onset: 9 11-17-2018 Chronic Inflammation; infection of eye (except that caused by tuberculosis or sexually transmitteddisease) (2 sources) Unspecified acute conjunctivitis, bilateral; Translations: [Unspecified acute conjunctivitis, bilateral] Onset: 3 Episodic Menopausal disorders (20 sources) Atrophy of vagina; Translations: [Postmenopausal atrophic vaginitis] Onset: 7 05-08-2016 Chronic Miscellaneous mental health disorders (20 sources) Primary insomnia; Translations: [Primary insomnia] Onset: 7 08-21-2018 Chronic Mood disorders (20 sources) Recurrent major depression in partial remission; Translations: [Major depressive disorder, recurrent, in partial remission] Onset: 7 05-08-2016 Chronic Nutritional deficiencies (20 sources) Malnutrition (calorie); Translations: [Moderate protein-calorie malnutrition] Onset: 3 05-08-2022 Chronic Osteoarthritis (20 sources) Degenerative joint disease involving multiple joints; Translations: [Polyosteoarthritis, unspecified] Onset: 8 08-21-2018 Chronic Other connective tissue disease (20 sources) History of total knee arthroplasty; Translations: [Presence of left artificial knee joint] Onset: 3 05-07-2022 Chronic Other connective tissue disease (4 sources) Presence of left artificial knee joint; Translations: [Presence of left artificial knee joint] Onset: 3 Chronic Other connective tissue disease (3 sources) H/O: gout; Translations: [Personal history of other diseases of the musculoskeletal system and connective tissue] Episodic Other female genital disorders (20 sources) Pain in female genitalia on intercourse; Translations: [Unspecified dyspareunia] Onset: 7 05-08-2016 Chronic Other gastrointestinal disorders (1 source) Diarrhea; Translations: [Diarrhea, unspecified] 12-18-2022 Episodic Other gastrointestinal disorders (2 sources) Diarrhea, unspecified; Translations: [Diarrhea, unspecified type] Onset: 3 Episodic Other nervous system disorders (1 source) Difficulty walking; Translations: [Difficulty in walking, not elsewhere classified] Chronic Other nervous system disorders (1 source) Difficulty in walking, not elsewhere classified; Translations: [Difficulty walking] Onset: 3 Chronic Other nervous system disorders (3 sources) Abnormal gait; Translations: [Unspecified abnormalities of gait and mobility] Episodic Other non-traumatic joint disorders (3 sources) Stiffness of left knee; Translations: [Stiffness of left knee, not elsewhere classified] Episodic Other nutritional; endocrine; and metabolic disorders (20 sources) Obese class II; Translations: [Obesity, unspecified] Onset: 9 04-18-2018 Chronic Other nutritional; endocrine; and metabolic disorders (20 sources) Body mass index 30+ - obesity; Translations: [Body mass index (BMI) 35.0-35.9, adult] Onset: 0 04-29-2019 Chronic Other nutritional; endocrine; and metabolic disorders (18 sources) Obese class I; Translations: [Obesity, unspecified] Onset: 3 Chronic Other nutritional; endocrine; and metabolic disorders (2 sources) Obesity, unspecified; Translations: [Obesity, Class I, BMI 30-34.9] Onset: 9 Chronic Other upper respiratory infections (2 sources) Bacterial sinusitis; Translations: [Chronic sinusitis, unspecified] Onset: 3 Chronic Lisbeth-; endo-; and myocarditis; cardiomyopathy (except that caused by tuberculosis or sexually transmitted disease) (1 source) Dilated cardiomyopathy; Translations: [Dilated cardiomyopathy] Chronic Residual codes; unclassified (1 source) Harmful pattern of use of nicotine; Translations: [Tobacco use] Episodic Substance-related disorders (20 sources) Tobacco user; Translations: [Nicotine dependence, unspecified, uncomplicated] Onset: 9 08-21-2018 Chronic Syncope (12 sources) Vasovagal syncope; Translations: [Syncope and collapse] Onset: 3 12-18-2022 Episodic Unclassified (1 source) Physical Therapy Onset: 3 Past or Other Problems Problem Classification Problem Date Documented Date Episodic/Chronic Allergic reactions (20 sources) Inflammatory dermatosis; Translations: [Dermatitis, unspecified] Onset: 10-19-2016 10-19-2016 Episodic Bacterial infection; unspecified site (1 source) Other specified bacterial agents as the cause of diseases classified elsewhere; Translations: [Bacterial sinusitis] Onset: 08-10-2022 Episodic Immunizations and screening for infectious disease (2 sources) Patient encounter status; Translations: [Encounter for immunization] Onset: 08-10-2022 Episodic Other aftercare (20 sources) Drug therapy finding; Translations: [Other superintendent [employer] (current) drug therapy] Onset: 07-09-2017 07-09-2017 Episodic Other aftercare (20 sources) Follow-up status; Translations: [Encounter for other specified aftercare] Onset: 05-06-2022 05-06-2022 Episodic Other nervous system disorders (1 source) Unspecified abnormalities of gait and mobility; Translations: [Abnormality of gait] Onset: 06-29-2022 Episodic Other non-traumatic joint disorders (1 source) Stiffness of left knee, not elsewhere classified; Translations: [Knee stiffness, left] Onset: 06-29-2022 Episodic Residual codes; unclassified (20 sources) Bilateral lower limb edema; Translations: [Localized edema] Onset: 06-11-2021 06-11-2021 Episodic Residual codes; unclassified (1 source) Tobacco use; Translations: [Nicotine abuse] Onset: 08-21-2018 Episodic Screening and history of mental health and substance abuse codes (20 sources) H/O: attempted suicide; Translations: [History of suicide attempt] Onset: 08-18-2018 11-17-2018 Episodic Results Test Name Value Interpretation Reference Range Facil ity Vital Signs Date Time Vital Sign Value Performing Clinician Tony fierro 01-06-2023 14:14-0400 Body height 162.6 cm Brodie Guevara MD Work Phone: [facility] 01-06-2023 14:14-0400 Body weight 93.44 kg Brodie Guevara MD Work Phone: [facility] 01-06-2023 14:14-0400 Diastolic blood pressure 72 mm[Hg] Brodie Guevara MD Work Phone: [facility] 01-06-2023 14:14-0400 Heart rate 83 /min Brodie Guevara MD Work Phone: [facility] 01-06-2023 14:14-0400 Respiratory rate 18 /min Brodie Guevara MD Work Phone: [facility] 01-06-2023 14:14-0400 SaO2% (BldA) [Mass fraction] 95 % Brodie Guevara MD Work Phone: [facility] 01-06-2023 14:14-0400 Systolic blood pressure 132 mm[Hg] Brodie Guevara MD Work Phone: [facility] 12-18-2022 09:52-0400 Body temperature 99.39 [degF] Kate Sheets DO Work Phone: [facility] 12-18-2022 09:52-0400 Body weight 89 kg Kate Sheets DO Work Phone: [facility] 12-18-2022 09:52-0400 Diastolic blood pressure 72 mm[Hg] Kate Sheets DO Work Phone: [facility] 12-18-2022 09:52-0400 Heart rate 85 /min Kate Sheets DO Work Phone: [facility] 12-18-2022 09:52-0400 Respiratory rate 16 /min Kate Sheets DO Work Phone: [facility] 12-18-2022 09:52-0400 SaO2% (BldA) [Mass fraction] 96 % Kate Sheets DO Work Phone: [facility] 12-18-2022 09:52-0400 Systolic blood pressure 114 mm[Hg] Kate Sheets DO Work Phone: [facility] 08-10-2022 13:50-0400 Body temperature 98.29 [degF] Kate Sheets DO Work Phone: [facility] 08-10-2022 13:50-0400 Body weight 87.18 kg Kate Sheets DO Work Phone: [facility] 08-10-2022 13:50-0400 Diastolic blood pressure 62 mm[Hg] Kate Sheets DO Work Phone: [facility] 08-10-2022 13:50-0400 Heart rate 96 /min Kate Sheets DO Work Phone: [facility] 08-10-2022 13:50-0400 Respiratory rate 16 /min Kate Sheets DO Work Phone: [facility] 08-10-2022 13:50-0400 SaO2% (BldA) [Mass fraction] 97 % Kate Sheets DO Work Phone: [facility] 08-10-2022 13:50-0400 Systolic blood pressure 110 mm[Hg] Ktae Sheets DO Work Phone: [facility] 05-29-2022 12:55-0500 Body temperature 97.5 [degF] Gonzales Blackert [employer] Work Phone: [facility] 05-29-2022 12:55-0500 Diastolic blood pressure 82 mm[Hg] Gonzales Blackert [employer] Work Phone: [facility] 05-29-2022 12:55-0500 Heart rate 88 /min Gonzales Blackert [employer] Work Phone: [facility] 05-29-2022 12:55-0500 Respiratory rate 17 /min Gonzales Blackert [employer] Work Phone: [facility] 05-29-2022 12:55-0500 SaO2% (BldA) [Mass fraction] 98 % Gonzales Blackert [employer] Work Phone: [facility] 05-29-2022 12:55-0500 Systolic blood pressure 120 mm[Hg] Gonzales Blackert [employer] Work Phone: [facility] 05-28-2022 13:41-0500 Body temperature 97.5 [degF] Gonzales Blackert [employer] Work Phone: [facility] 05-28-2022 13:41-0500 Diastolic blood pressure 80 mm[Hg] Gonzales Blackert [employer] Work Phone: [facility] 05-28-2022 13:41-0500 Heart rate 84 /min Gonzales Blackert [employer] Work Phone: [facility] 05-28-2022 13:41-0500 Respiratory rate 17 /min Gonzales Blackert [employer] Work Phone: [facility] 05-28-2022 13:41-0500 SaO2% (BldA) [Mass fraction] 96 % Gonzales Blackert [employer] Work Phone: [facility] 05-28-2022 13:41-0500 Systolic blood pressure 140 mm[Hg] Gonzales Blackert [employer] Work Phone: [facility] 05-22-2022 15:05-0500 Body temperature 97.59 [degF] Gonzales Blackert [employer] Work Phone: [facility] 05-22-2022 15:05-0500 Diastolic blood pressure 70 mm[Hg] Gonzales Blackert [employer] Work Phone: [facility] 05-22-2022 15:05-0500 Heart rate 53 /min Gonzales Blackert [employer] Work Phone: [facility] 05-22-2022 15:05-0500 Respiratory rate 17 /min Gonzales Blackert [employer] Work Phone: [facility] 05-22-2022 15:05-0500 SaO2% (BldA) [Mass fraction] 96 % Gonzales Blackert [employer] Work Phone: [facility] 05-22-2022 15:05-0500 Systolic blood pressure 118 mm[Hg] Gonzales Blackert [employer] Work Phone: [facility] 05-21-2022 08:14-0500 Body temperature 97.11 [degF] Gonzales Blackert [employer] Work Phone: [facility] 05-21-2022 08:14-0500 Diastolic blood pressure 80 mm[Hg] Gonzales Mnoroy [employer] Work Phone: [facility] 05-21-2022 08:14-0500 Heart rate 86 /min Gonzales Monroy [employer] Work Phone: [facility] 05-21-2022 08:14-0500 Respiratory rate 17 /min Gonzales Chairezert [employer] Work Phone: [facility] 05-21-2022 08:14-0500 SaO2% (BldA) [Mass fraction] 97 % Gonzales Monroy [employer] Work Phone: [facility] 05-21-2022 08:14-0500 Systolic blood pressure 126 mm[Hg] Gonzales Monroy [employer] Work Phone: [facility] 05-19-2022 13:19-0500 Body temperature 98.4 [degF] Toshia Iam OT/L Work Phone: [facility] 05-19-2022 13:19-0500 Body weight 86.18 kg Toshia Iam OT/L Work Phone: [facility] 05-19-2022 13:19-0500 Diastolic blood pressure 60 mm[Hg] Toshia Iam OT/L Work Phone: [facility] 05-19-2022 13:19-0500 Heart rate 52 /min Toshia Iam OT/L Work Phone: [facility] 05-19-2022 13:19-0500 Respiratory rate 18 /min Toshia Iam OT/L Work Phone: [facility] 05-19-2022 13:19-0500 SaO2% (BldA) [Mass fraction] 96 % Toshia Iam OT/L Work Phone: [facility] 05-19-2022 13:19-0500 Systolic blood pressure 98 mm[Hg] Toshia Iam OT/L Work Phone: [facility] 05-18-2022 15:36-0500 Body temperature 97.39 [degF] Ariela Muirton RN Work Phone: [facility] 05-18-2022 15:36-0500 Body weight 86.18 kg Ariela Guardado RN Work Phone: [facility] 05-18-2022 15:36-0500 Diastolic blood pressure 60 mm[Hg] Ariela [place] RN Work Phone: [facility] 05-18-2022 15:36-0500 Heart rate 76 /min Ariela [place] RN Work Phone: [facility] 05-18-2022 15:36-0500 Respiratory rate 18 /min Ariela [place] RN Work Phone: [facility] 05-18-2022 15:36-0500 SaO2% (BldA) [Mass fraction] 97 % Arielark MuirClarksville RN Work Phone: [facility] 05-18-2022 15:36-0500 Systolic blood pressure 96 mm[Hg] Ariela uMirton RN Work Phone: [facility] 05-18-2022 15:35-0500 Body temperature 97.39 [degF] Kush Knupp PT Work Phone: [facility] 05-18-2022 15:35-0500 Body weight 86.18 kg Kush Knupp PT Work Phone: [facility] 05-18-2022 15:35-0500 Diastolic blood pressure 60 mm[Hg] Kush Knupp PT Work Phone: [facility] 05-18-2022 15:35-0500 Heart rate 76 /min Kush Knupp PT Work Phone: [facility] 05-18-2022 15:35-0500 Respiratory rate 18 /min Kush Knupp PT Work Phone: [facility] 05-18-2022 15:35-0500 SaO2% (BldA) [Mass fraction] 97 % Kush Knupp PT Work Phone: [facility] 05-18-2022 15:35-0500 Systolic blood pressure 96 mm[Hg] Kush Knupp PT Work Phone: [facility] 12-31-2021 13:45-0400 Body height 162.6 cm Brodie Guevara MD Work Phone: [facility] 12-31-2021 13:45-0400 Body weight 96.16 kg Brodie Guevara MD Work Phone: [facility] 12-31-2021 13:45-0400 Diastolic blood pressure 73 mm[Hg] Brodie Guevara MD Work Phone: [facility] 12-31-2021 13:45-0400 Heart rate 90 /min Brodie Guevara MD Work Phone: [facility] 12-31-2021 13:45-0400 SaO2% (BldA) [Mass fraction] 97 % rBodie Guevara MD Work Phone: [facility] 12-31-2021 13:45-0400 Systolic blood pressure 110 mm[Hg] Brodie Guevara MD Work Phone: [facility] 07-18-2021 13:15-0400 Diastolic blood pressure 85 mm[Hg] Brodie Guevara MD Work Phone: [facility] 07-18-2021 13:15-0400 Heart rate 76 /min Brodie Guevara MD Work Phone: [facility] 07-18-2021 13:15-0400 Systolic blood pressure 127 mm[Hg] Brodie Guevara MD Work Phone: [facility] 07-18-2021 11:56-0400 Respiratory rate 13 /min Brodie Guevara MD Work Phone: [facility] 07-18-2021 08:14-0400 Body height 162.6 cm Brodie Guevara MD Work Phone: [facility] 07-18-2021 08:14-0400 Body temperature 97.9 [degF] Brodie Guevara MD Work Phone: [facility] 07-18-2021 08:14-0400 Body weight 99.16 kg Brodie Guevara MD Work Phone: [facility] 07-18-2021 08:14-0400 SaO2% (BldA) [Mass fraction] 96 % Brodie Guevara MD Work Phone: [facility] Encounters Encounter Date Encounter Type Care Provider Facility Start: 03-17-2023 Refill Kate Mendez She ets DO Work Phone: [facility] Procedures Date Procedure Procedure Detail Performing Clinician Start: 07-01-2021 Echo tthrc r-t 2d w/wom-mode compl spec&colr d Chelle Beasley APRN.DARK ROOM ATTENDANT Work Phone: Start: 04-21-2021 Lipid 1996 panel - S ernesto or Plasma Brodie Guevara MD Work Phone: Start: 02-13-2021 History of placement of stent for coronary artery disease Status post insertion of drug eluting coronary artery stent Chelle Beasley APRN.DARK ROOM ATTENDANT Work Phone: Start: 06-03-2016 Mammography Chelle nobles APRN.DARK ROOM ATTENDANT Work Phone: Start: 02-28-2009 [facility]oscopy [facility] Work Phone: History of placement of stent for coronary artery disease Status post insertion of drug eluting coronary artery stent Brodie Guevara MD Work Phone: Plan of Treatment Date Care Activity Detail Author Start: 04-21-2026 Lipid 1996 panel - S ernesto or Plasma Lipid Screening [facility] Start: 04-21-2026 Lipid panel Lipid Screening [facility] Start: 04-21-2026 LIPID SCREEN LIPID SCREEN [facility] Start: 12-25-2025 Diabetes Screening Diabetes Screenin [facility] Start: 12-17-2025 Diabetes Screening Diabetes Screenin [facility] Start: 05-08-2025 DIABETES SCREEN DIABETES SCREEN [facility] Start: 05-08-2025 Diabetes Screening Diabetes Screenin g [facility] Start: 06-30-2024 DIABETES SCREEN [facility]CRE[facility] Start: 06-23-2024 DIABETES SCREEN [facility]CRE[facility] Start: 12-19-2023 Annual PCP Team Sr. Manager Marketing jefferson Disease Visit Annual PCP Team Chronic Disease Visit [facility] Start: 12-19-2023 BP Controlled (<130/80) BP Controlle d (<130/80) [facility] Start: 08-11-2023 ANNUAL PCP TEAM HUMAN RESOURCES OPERATIONS COORDINATOR JEFFERSON DISEASE VISIT ANNUAL PCP TEAM CHRONIC DISEASE VISIT [facility] Start: 08-11-2023 BP CONTROLLED (<130/80) BP CONTROLLE D (<130/80) [facility] Start: 08-11-2023 COLORECTAL CANCER SCREENING COLORECTAL CANCER SCREENING [facility] Immunizations Immunization Date Immunization Notes Care Provider Padma portillo 08-10-2022 pneumococcal Conjuga te, unspecified formulation Kate Sheets DO Work Phone: [facility] Work Phone: 08-10-2022 pneumococcal (PCV20) vaccine, 20 valent (PREVNAR 20) Kate Sheets DO Work Phone: [facility] 08-10-2022 zoster RZV vaccine, PF, (SHINGRIX) 50 mcg/0.5 mL injection Kate Sheets DO Work Phone: [facility] Payers Date Payer Category Payer Unknown MMO MMO [employer] [id number] 2018-Present [phone] [address] [place] [address] PPO [id number] 2018 Unknown [id number] 2018 Unknown [id number] 1960 Unknown [id number] Social History Date Type Detail Facility Start: 03-29-1974 End: 12-31-2021 Tobacco smoking status NHIS Smokes tobacco daily [facility] Start: 03-29-1974 End: 05-04-2022 History of tobacco use Cigarette Smoker [facility] Start: 03-05-2020 End: 04-09-2021 Cigarettes smoked current (pack per day) - Reported 0.75 [facility] Start: 04-09-2021 End: 08-10-2022 Tobacco use and exposure [facility] Start: 06-11-2021 End: 01-06-2023 Alcohol intake Current drinker of alcohol (finding) [facility] Start: 08-18-2018 History SDOH Alcohol Comment occasionally (used to be daily) [facility] Start: 04-09-2021 Tobacco Comment 2 cigs a day [facility] Start: 1960 Sex Assigned At Not on file [facility] Start: 06-13-2021 End: 12-31-2021 Exposure to SARS-CoV-2 (event) Not sure [facility] Start: 05-07-2022 History SDOH Financial 4 [facility] Start: 05-07-2022 History SDOH Food Worry 1 [facility] Start: 05-07-2022 History SDOH Transpo rt Med 2 [facility] Start: 08-10-2022 Tobacco smoking stat us VTIS Ex-smoker [facility] Start: 03-29-1974 End: 05-04-2022 History of tobacco use Current smoker [facility] Start: 08-10-2022 Tobacco Comment Currently vapes [facility] Start: 03-05-2020 End: 08-10-2022 Tobacco use panel [facility] How hard is it for y ou to pay for the very basics like food, housing, medical care, and heating Not very hard [facility] Adult Depression Screening Assessment 0 [facility] (I/We) worried wheth er (my/our) food would run out before (I/we) got money to buy more. Never true [facility] In the past 12 month s, was there a time when you were not able to pay the mortgage or rent on time? No [facility] Clinical Notes 08-18-2018 to 03-18-2023 Telephone Encounter - Arabella Michaud MA - 03/18/2023 7:55 AM ESTTelephone Encounter - [place] Doherty MA - 02/15/2023 3:27 PM ESTTelephone Encounter - Arabella Michaud MA - 02/03/2023 3:39 PM EST Note Date & Type Note [facility] 03-18-2023 Miscellaneous Notes pharmacy electronically requesting refills as follows: Last seen 12/18/22 . Last refill 05/19/22 . Requested Prescriptions Pending Prescriptions Disp Refills lisinopril 2.5 mg tablet 90 tablet 0 Sig: take 1 tablet by mouth once daily Please review and advise. Arabella Michaud MA documented in this encounter [facility] 02-15-2023 Miscellaneous Notes Pharmacy requesting refills as follows: Last Office Visit 01/06/23. Last Refill 01/18/23. Requested Prescriptions Pending Prescriptions Disp Refills zolpidem (AMBIEN) 5 mg tablet [Pharmacy Med Name: zolpidem 5 mg tablet] 30 tablet 0 Sig: TAKE 1 TABLET BY MOUTH DAILY AT BEDTIME NEEDED Please review and advise. Serenity Doherty MA documented in this encounter [facility] 02-03-2023 Miscellaneous Notes pharmacy electronically requesting refills as follows: Last seen 12/18/22 . Last refill 12/01/22 . Requested Prescriptions Pending Prescriptions Disp Refills metoprolol tartrate, short acting, (LOPRESSOR) 25 mg tablet [Pharmacy Med Name: metoprolol tartrate 25 mg tablet] 30 tablet 0 Sig: take 1 tablet by mouth once daily. Please review and advise. Arabella Michaud MA documented in this encounter [facility] 01-20-2023 Miscellaneous Notes pharm requesting refills: Last office visit 12/18/22. Last refill 05/19/22. Requested Prescriptions Pending Prescriptions Disp Refills atorvastatin (LIPITOR) 80 mg tablet 90 tablet 0 Sig: Take 1 tablet by mouth daily at bedtime. Please review and advise. Kenna Cui MA documented in this encounter [facility] 01-18-2023 Miscellaneous Notes Pharmacy requesting refills as follows: Last Office Visit 12/18/22. Last Refill 12/21/22. Requested Prescriptions Pending Prescriptions Disp Refills zolpidem (AMBIEN) 5 mg tablet [Pharmacy Med Name: zolpidem 5 mg tablet] 30 tablet 0 Sig: TAKE 1 TABLET BY MOUTH DAILY AT BEDTIME NEEDED traZODone (DESYREL) 150 mg tablet [Pharmacy Med Name: trazodone 150 mg tablet] 30 tablet 3 Sig: Take 1 tablet by mouth daily at bedtime. Please review and advise. Serenity Doherty MA documented in this encounter [facility] 01-09-2023 Note HNO ID: [id number] Author: Note, Interface Service: ? Author Type: ? Type: Progress Notes Filed: 01/09/2023 2:58 AM Note Text: Epic Scheduled Downtime: 01/09/2023 1:00:00 AM to 01/09/2023 1:28:00 AM [facility] 01-06-2023 Note HNO ID: [id number] Author: Brodie Guevara MD Service: ? Author Type: Physician Type: Progress Notes Filed: 01/06/2023 2:42 PM Note Text: Brodie Guevaar MD Interventional Cardiology [address] [place] [id number] Chief Complaint Patient presents with: CARD Follow Up Annual: Yearly check up and clearance HISTORY OF PRESENT ILLNESS: Ms. Bain is a 63 year old female in my office today with prior history of coronary artery disease with acute ST segment elevation DE 2 years ago required drug-eluting stent to the distal right coronary artery Patient doing well from a cardiac point of view No Angina No symptoms or signs of congestive heart failure Tolerated medication very well Cardiac Risk Factors age (male over 45, female over 55), hyperlipidemia, hypertension, family history of CAD PAST MEDICAL HISTORY Diagnosis Date Coronary artery disease Depression Gout HLD (hyperlipidemia) Insomnia Left ventricular systolic dysfunction DE (myocardial infarction) (HCC) PMH - PAST MEDICAL HISTORY OF ULCER S/P drug eluting coronary stent placement 02/08/2021 RCA STEMI (ST elevation myocardial infarction) (HCC) PAST SURGICAL HISTORY Procedure Laterality Date ANKLE SURGERY HX Right DELIVERY ONLY , low cervical, X-3 LAPAROSCOPY SURG CHOLECYSTECTOMY Cholecystectomy, lap PAST SURGICAL HISTORY OF Abcess removed from finger. PAST SURGICAL HISTORY OF Heart Cath STENT PLACEMENT 02/08/2021 SAL RCA TONSILLECTOMY AND ADENOIDECTOMY HX TOTAL KNEE REPLACEMENT Left 04/2022 FAMILY HISTORY Problem Relation Age of Onset Thyroid Mother Heart Father COPD Father Cancer Other Paternal side of Family Social History Tobacco Use Smoking status: Former Packs/day: 0.25 Years: 40.00 Additional pack years: 0.00 Total pack years: 10.00 Types: Cigarettes Start date: 03/29/1974 Quit date: 05/04/2022 Years since quittin.6 Smokeless tobacco: Never Tobacco comments: Currently vapes Vaping Use Vaping Use: current everyday user Substances: Nicotine Substance Use Topics Alcohol use: Yes Comment: occasionally (used to be daily) Drug use: No ALLERGIES No Known Allergies Medications: Current Outpatient Medications Medication Sig Dispense Refill acetaminophen (TYLENOL) 325 mg tablet Take 1-2 tablets by mouth every 6 hours as needed for pain. 30 tablet 0 allopurinol (ZYLOPRIM) 100 mg tablet Take 2 tablets by mouth once daily. 60 tablet 1 aspirin 81 mg chewable tablet Take 1 tablet by mouth once daily. (Patient not taking: Reported on 12/18/2022) 90 tablet 3 atorvastatin (LIPITOR) 80 mg tablet TAKE 1 TABLET BY MOUTH ONCE DAILY AT BEDTIME 90 tablet 0 celecoxib (CELEBREX) 200 mg capsule Take 200 mg by mouth once daily. clobetasol (TEMOVATE) 0.05 % cream APPLY TO THE AFFECTED AREA(S) TWICE DAILY DIRECTED 15 g 2 diphenoxylate-atropine (LOMOTIL) 2.5-0.025 mg per tablet Take 1 tablet by mouth four times daily as needed for diarrhea for up to 5 days. 20 tablet 0 furosemide (LASIX) 20 mg tablet Take 1 tablet by mouth once daily. 90 tablet 3 HYDROcodone-acetaminophen (NORCO) 5-325 mg per tablet Take 1 tablet by mouth twice daily as needed for pain. isosorbide mononitrate ER (IMDUR) 30 mg 24 hr tablet Take 1 tablet by mouth once daily. 90 tablet 3 lisinopril 2.5 mg tablet Take 1 tablet by mouth once daily. 90 tablet 0 metoprolol tartrate, short acting, (LOPRESSOR) 25 mg tablet Take 1 tablet by mouth once daily. 30 tablet 0 omeprazole (PRILOSEC) 40 mg capsule Take 1 capsule by mouth once daily. 30 capsule 3 therapeutic multivitamin-minerals (THERA-M PLUS) 9 mg iron-400 mcg tablet Take 1 tablet by mouth once daily. 30 tablet 0 ticagrelor (BRILINTA) 90 mg tablet Take 1 tablet by mouth twice daily. 180 tablet 3 traZODone (DESYREL) 50 mg tablet take 2 tablets by mouth every day at bedtime 60 tablet 0 venlafaxine ER (EFFEXOR XR) 150 mg 24 hr capsule TAKE 1 CAPSULE BY MOUTH DAILY 30 capsule 1 venlafaxine ER (EFFEXOR XR) 75 mg 24 hr capsule Take 1 capsule by mouth once daily. Take with 150 mg capsule daily. 30 capsule 1 zolpidem (AMBIEN) 5 mg tablet TAKE 1 TABLET BY MOUTH EVERY DAY NEEDED AT BEDTIME 30 tablet 0 No current facility-administered medications for this visit. Review of Systems Constitutional: Negative for chills, diaphoresis, fever, malaise/fatigue and weight loss. HENT: Negative for congestion, ear discharge, ear pain, hearing loss, nosebleeds, sinus pain, sore throat and tinnitus. Eyes: Negative for blurred vision, double vision, photophobia, pain, discharge and redness. Respiratory: Negative for cough, hemoptysis, sputum production, shortness of breath, wheezing and stridor. Cardiovascular: Negative for chest pain, palpitations, orthopnea, claudication, leg swelling and PND. Gastrointestinal: Negative for abdominal pain, blood in stool, constipation, d (more content not included)... [facility] 01-06-2023 History of Presen t illness Narrative Images from the original note were not included. Brodie Guevara MD Interventional Cardiology [address] [place], [place] [id number] Chief Complaint Patient presents with: CARD Follow Up Annual: Yearly check up and clearance HISTORY OF PRESENT ILLNESS: Ms. Bain is a 63 year old female in my office today with prior history of coronary artery disease with acute ST segment elevation DE 2 years ago required drug-eluting stent to the distal right coronary artery Patient doing well from a cardiac point of view No Angina No symptoms or signs of congestive heart failure Tolerated medication very well Cardiac Risk Factors age (male over 45, female over 55), hyperlipidemia, hypertension, family history of CAD PAST MEDICAL HISTORY Diagnosis Date Coronary artery disease Depression Gout HLD (hyperlipidemia) Insomnia Left ventricular systolic dysfunction DE (myocardial infarction) (HCC) PMH - PAST MEDICAL HISTORY OF [facility]ER S/P drug eluting coronary stent placement 02/08/2021 RCA STEMI (ST elevation myocardial infarction) (HCC) PAST SURGICAL HISTORY Procedure Laterality Date ANKLE SURGERY HX Right DELIVERY ONLY , low cervical, X-3 LAPAROSCOPY SURG CHOLECYSTECTOMY Cholecystectomy, lap PAST SURGICAL HISTORY OF Abcess removed from finger. PAST SURGICAL HISTORY OF Heart Cath STENT PLACEMENT 02/08/2021 SAL RCA TONSILLECTOMY AND ADENOIDECTOMY HX TOTAL KNEE REPLACEMENT Left 04/2022 FAMILY HISTORY Problem Relation Age of Onset Thyroid Mother Heart Father COPD Father Cancer Other Paternal side of Family Social History Tobacco Use Smoking status: Former Packs/day: 0.25 Years: 40.00 Additional pack years: 0.00 Total pack years: 10.00 Types: Cigarettes Start date: 03/29/1974 Quit date: 05/04/2022 Years since quittin.6 Smokeless tobacco: Never Tobacco comments: Currently vapes Vaping Use Vaping Use: current everyday user Substances: Nicotine Substance Use Topics Alcohol use: Yes Comment: occasionally (used to be daily) Drug use: No ALLERGIES No Known Allergies Medications: Current Outpatient Medications Medication Sig Dispense Refill acetaminophen (TYLENOL) 325 mg tablet Take 1-2 tablets by mouth every 6 hours as needed for pain. 30 tablet 0 allopurinol (ZYLOPRIM) 100 mg tablet Take 2 tablets by mouth once daily. 60 tablet 1 aspirin 81 mg chewable tablet Take 1 tablet by mouth once daily. (Patient not taking: Reported on 12/18/2022) 90 tablet 3 atorvastatin (LIPITOR) 80 mg tablet TAKE 1 TABLET BY MOUTH ONCE DAILY AT BEDTIME 90 tablet 0 celecoxib (CELEBREX) 200 mg capsule Take 200 mg by mouth once daily. clobetasol (TEMOVATE) 0.05 % cream APPLY TO THE AFFECTED AREA(S) TWICE DAILY DIRECTED 15 g 2 diphenoxylate-atropine (LOMOTIL) 2.5-0.025 mg per tablet Take 1 tablet by mouth four times daily as needed for diarrhea for up to 5 days. 20 tablet 0 furosemide (LASIX) 20 mg tablet Take 1 tablet by mouth once daily. 90 tablet 3 HYDROcodone-acetaminophen (NORCO) 5-325 mg per tablet Take 1 tablet by mouth twice daily as needed for pain. isosorbide mononitrate ER (IMDUR) 30 mg 24 hr tablet Take 1 tablet by mouth once daily. 90 tablet 3 lisinopril 2.5 mg tablet Take 1 tablet by mouth once daily. 90 tablet 0 metoprolol tartrate, short acting, (LOPRESSOR) 25 mg tablet Take 1 tablet by mouth once daily. 30 tablet 0 omeprazole (PRILOSEC) 40 mg capsule Take 1 capsule by mouth once daily. 30 capsule 3 therapeutic multivitamin-minerals (THERA-M PLUS) 9 mg iron-400 mcg tablet Take 1 tablet by mouth once daily. 30 tablet 0 ticagrelor (BRILINTA) 90 mg tablet Take 1 tablet by mouth twice daily. 180 tablet 3 traZODone (DESYREL) 50 mg tablet take 2 tablets by mouth every day at bedtime 60 tablet 0 venlafaxine ER (EFFEXOR XR) 150 mg 24 hr capsule TAKE 1 CAPSULE BY MOUTH DAILY 30 capsule 1 venlafaxine ER (EFFEXOR XR) 75 mg 24 hr capsule Take 1 capsule by mouth once daily. Take with 150 mg capsule daily. 30 capsule 1 zolpidem (AMBIEN) 5 mg tablet TAKE 1 TABLET BY MOUTH EVERY DAY NEEDED AT BEDTIME 30 tablet 0 No current facility-administered medications for this visit. Review of Systems Constitutional: Negative for chills, diaphoresis, fever, malaise/fatigue and weight loss. HENT: Negative for congestion, ear discharge, ear pain, hearing loss, nosebleeds, sinus pain, sore throat and tinnitus. Eyes: Negative for blurred vision, double vision, photophobia, pain, discharge and redness. Respiratory: Negative for cough, hemoptysis, sputum production, shortness of breath, wheezing and stridor. Cardiovascular: Negative for chest pain, palpitations, orthopnea, claudication, leg swelling and PND. Gastrointestinal: Negative for abdominal pain, blood in stool, constipation, diarrhea, heartburn, melena, nausea and vomiting. Genitourinary: Negative for dysuria, flank pain, frequency, hematuria and urgency. Musculoskeletal: Negative for back pain, falls, joint pain, myalgias and neck pain. Skin: Negative for itching and rash. Neurological: Negative for dizziness, tingling, tremors, sensory change, speech change, focal weakness, seizures, loss of consciousness, weakness and headaches. Endo/Heme/Allergies: Negative for environmental allergies and polydipsia. Does not bruise/bleed easily. Psychiatric/Behavioral: Negative for depression, hallucinations, memory loss, substance abuse and suicidal ideas. The patient is not nervous/anxious and does not have insomnia. Physical Examination: Vitals:BP 132/72 Pulse 83 Resp 18 Ht 5' 4 (1.63m) Wt 206 lb (93.4kg) SpO2 95[room air]% LMP 03/29/2013 BMI 35.34 kg/(m^2). BP w/Orthostatic Vitals Date and Time Orthostatic BP Orthostatic Pulse BP Pulse BP Position BP Site BP Cuff Size 01/06/23 1414 -- -- 132/72 83 Sitting Left Arm Large Adult Peak Flow Date and Time PF Resp 01/06/23 1414 -- 18 Last 2 Encounter Wt Readings: Date: Wt: 01/06/2023 206 lb (93.4 kg) 12/18/2022 196 lb 3.2 oz (89 kg) Physical Exam Constitutional: General: She is not in acute distress. Appearance: She is not diaphoretic. HENT: Head: Normocephalic and atraumatic. Right Ear: External ear normal. Left Ear: External ear normal. Nose: Nose normal. Mouth/Throat: Pharynx: Oropharynx is clear. Eyes: General: Right eye: No discharge. Left eye: No discharge. Conjunctiva/sclera: Conjunctivae normal. Pupils: Pupils are equal, round, and reactive to light. Cardiovascular: Rate and Rhythm: Normal rate and regular rhythm. Heart sounds: Normal heart sounds, S1 normal and S2 normal. No murmur heard. No friction rub. No gallop. No S3 or S4 sounds. Pulmonary: Effort: Pulmonary effort is normal. No respiratory distress. Breath sounds: Normal breath sounds. No wheezing or rales. Chest: Chest wall: No tenderness. Musculoskeletal: General: Normal range of motion. Cervical back: Normal range of motion and neck supple. Skin: General: Skin is warm and dry. Neurological: Mental Status: She is alert and oriented to person, place, and time. Psychiatric: Mood and Affect: Mood normal. Thought Content: Thought content normal. Judgment: Judgment normal. Pertinent Labs: CBC: Hemoglobin (g/dL) Date Value 12/17/2022 12.3 02/08/2021 13.9 Hematocrit (%) Date Value 12/17/2022 36.6 02/08/2021 41.0 WBC (k/uL) Date Value 12/17/2022 4.70 02/08/2021 8.84 Platelet Count (k/uL) Date Value 12/17/2022 198 02/08/2021 306 BMP: Glucose (mg/dL) Date Value 12/25/2022 120 02/08/2021 153 Potassium (mmol/L) Date Value 12/25/2022 4.0 02/08/2021 3.9 Sodium (mmol/L) Date Value 12/25/2022 139 02/08/2021 139 Chloride (mmol/L) Date Value 12/25/2022 103 02/08/2021 102 CO2 (mmol/L) Date Value 12/25/2022 25 02/08/2021 23 Creatinine (mg/dL) Date Value 12/25/2022 0.88 02/08/2021 0.79 BUN (mg/dL) Date Value 12/25/2022 20 02/08/2021 25 Anion Gap (mmol/L) Date Value 12/25/2022 11 02/08/2021 14 Calcium (mg/dL) Date Value 02/08/2021 9.5 Calcium, Total (mg/dL) Date Value 12/25/2022 9.1 INR: Lipid Profile: Cholesterol, Total Date Value Ref Range Status 04/21/2021 165 <200 mg/dL Final Comment: <200 mg/dL, Desirable 200-239 mg/dL, Borderline high >239 mg/dL, High HDL Cholesterol Date Value Ref Range Status 04/21/2021 39 (L) >39 mg/dL Final Comment: 40-59 mg/dL, Acceptable >59 mg/dL, High: Negative risk factor for coronary heart disease <40 mg/dL, Low: Positive risk factor for coronary heart disease LDL Cholesterol Date Value Ref Range Status 04/21/2021 96 <100 mg/dL Final Comment: <100 mg/dL, Optimal 100-129 mg/dL, Near optimal/above optimal 130-159 mg/dL, Borderline high 160-189 mg/dL, High >189 mg/dL, Very high Secondary prevention optimal LDL Cholesterol levels are recommended to be < 70 mg/dL Triglyceride Date Value Ref Range Status 04/21/2021 149 <150 mg/dL Final Comment: <150 mg/dL, Normal 150-199 mg/dL, Borderline high 200-499 mg/dL, High >499 mg/dL, Very high Hemoglobin A1C: No results found for: HGBA1C TSH: TSH Date Value Ref Range Status 08/18/2018 2.030 0.358 - 3.740 uIU/mL Final Prior Cardiac Testing none Assessment and Plan: 63 years old female patient with mild LV systolic dysfunction status post RCA stent ASSESSMENT/PLAN: 1. Mixed hyperlipidemia - ICD9: 272.2, ICD10: E78.2 (primary diagnosis) - Controlled - Continue current medications - Counseled on healthy diet and regular exercise 2. Status post insertion of drug eluting coronary artery stent - ICD9: V45.82, ICD10: Z95.5 Echo with no angina continue same medical therapy 3. Primary hypertension - ICD9: 401.9, ICD10: I10 - Controlled - Continue current medications - Recommend home blood pressure monitoring, to bring results to next visit - Encouraged sodium restriction, DASH or Mediterranean diet - Recommend regular aerobic exercise 4. Preoperative clearance - ICD9: V72.84, ICD10: Z01.818 Cardiac condition stable she is cleared for her knee surgery with risk of cardiac events Brodie Guevara MD Follow up planning: One year Electronically signed by Brodie Guevara MD on January 06, 2023, 2:39 PM The above note was partially created using a dictation recognition software. A reasonable attempt has been made to correct any errors. documented in this encounter [facility] 01-06-2023 Nurse Note Patient denies any cardiac issues or symptoms. documented in this encounter [facility] 12-18-2022 Miscellaneous Notes Cherie Hansen Request for Surgery Clearance for Right total knee arthroplasty placed in Dr. Espinoza green folder to be signed. Arabella Michaud MA documented in this encounter [facility] 12-18-2022 Miscellaneous Notes The patient would like a work letter stating that she had an appointment today. She will need to take it in on Wednesday. Valerie Stuart documented in this encounter [facility] 12-18-2022 Note HNO ID: [id number] Author: Kate Espinoza, DO Service: ? Author Type: Physician Type: Progress Notes Filed: 01/03/2023 8:39 PM Note Text: Subjective Diarrhea Pertinent negatives include no chills, no headaches, no myalgias and no cough. 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 14 tablet 0 omeprazole (PRILOSEC) 40 mg capsule Take 1 capsule by mouth once daily. 30 capsule 3 clobetasol (TEMOVATE) 0.05 % cream APPLY TO THE AFFECTED AREA(S) TWICE DAILY DIRECTED 15 g 2 metoprolol tartrate, short acting, (LOPRESSOR) 25 mg tablet Take 1 tablet by mouth once daily. 30 tablet 0 traZODone (DESYREL) 50 mg tablet TAKE 2 TABLETS BY MOUTH EVERY DAY AT BEDTIME 60 tablet 0 zolpidem (AMBIEN) 5 mg tablet TAKE 1 TABLET BY MOUTH EVERY DAY NEEDED AT BEDTIME 30 tablet 0 venlafaxine ER (EFFEXOR XR) 150 mg 24 hr capsule TAKE 1 CAPSULE BY MOUTH DAILY 30 capsule 1 allopurinol (ZYLOPRIM) 100 mg tablet Take 2 tablets by mouth once daily. 60 tablet 1 celecoxib (CELEBREX) 200 mg capsule Take 200 mg by mouth once daily. venlafaxine ER (EFFEXOR XR) 75 mg 24 hr capsule Take 1 capsule by mouth once daily. Take with 150 mg capsule daily. 30 capsule 1 ticagrelor (BRILINTA) 90 mg tablet Take 1 tablet by mouth twice daily. 180 tablet 3 lisinopril 2.5 mg tablet Take 1 tablet by mouth once daily. 90 tablet 0 atorvastatin (LIPITOR) 80 mg tablet TAKE 1 TABLET BY MOUTH ONCE DAILY AT BEDTIME 90 tablet 0 HYDROcodone-acetaminophen (NORCO) 5-325 mg per tablet Take 1 tablet by mouth twice daily as needed for pain. therapeutic multivitamin-minerals (THERA-M PLUS) 9 mg iron-400 mcg tablet Take 1 tablet by mouth once daily. 30 tablet 0 isosorbide mononitrate ER (IMDUR) 30 mg 24 hr tablet Take 1 tablet by mouth once daily. 90 tablet 3 furosemide (LASIX) 20 mg tablet Take 1 tablet by mouth once daily. 90 tablet 3 acetaminophen (TYLENOL) 325 mg tablet Take 1-2 tablets by mouth every 6 hours as needed for pain. 30 tablet 0 aspirin, enteric coated (ASPIRIN, ENTERIC COATED) 81 mg EC tablet Take 81 mg by mouth once daily. (Patient not taking: Reported on 12/18/2022) pantoprazole DR (PROTONIX) 40 mg tablet Take 1 tablet by mouth DAILY (6 AM). (Patient not taking: Reported on 12/18/2022) 30 tablet 0 senna-docusate (SENNA-S) 8.6-50 mg per tablet Take 1 tablet by mouth twice daily. (Patient not taking: Reported on 08/10/2022) 60 tablet 0 lidocaine (LIDODERM) 5 % Apply 1 Patch as directed once daily. to affected area. Remove patch after 12 hours. (Patient not taking: Reported on 08/10/2022) 30 Patch 0 traZODone (DESYREL) 150 mg tablet Take 1 tablet by mouth daily at bedtime. (Patient not taking: Reported on 08/10/2022) 30 tablet 3 meloxicam (MOBIC) 15 mg tablet TAKE 1 TABLET BY MOUTH ONCE DAILY (Patient not taking: Reported on 08/10/2022) 30 tablet 3 spironolactone (ALDACTONE) 25 mg tablet Take 0.5 tablets by mouth once daily. (Patient not taking: Reported on 12/18/2022) 45 tablet 3 aspirin 81 mg chewable tablet Take 1 tablet by mouth once daily. (Patient not taking: Reported on 12/18/2022) 90 tablet 3 albuterol HFA (PROVENTIL HFA, VENTOLIN HFA) 90 mcg/actuation inhaler Inhale 2 Puffs as instructed every 4 hours as needed. (Patient not taking: Reported on 08/10/2022) 18 g 2 No current facility-administered medications for this visit. ACTIVE PROBLEM LIST Urge Incontinence of Urine Gastroesophageal Reflux Disease Without Esophagitis Female Dyspareunia Vaginal Atrophy Recurrent Major Depression in Partial Remission (Hcc) Primary Insomnia Dermatitis Primary Osteoarthritis Involving Multiple Joints On Tricyclic Antidepressant Therapy Obesity, Class II, Bmi 35-39.9 History of DE (Myocardial Infarction) History of Suicide Attempt Tobacco Use Disorder Chronic Gout of Foot Bmi 35.0-35.9,Adult Sun-Damaged Skin Stemi Involving Right Coronary Artery (Hcc) Status Post Insertion of Drug Eluting Coronary Artery Stent Mixed Hyperlipidemia Primary Hypertension Coronary Artery Disease Involving 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 Bilateral (more content not included)... [facility] 12-18-2022 Instructions Sheets, Kate Mendez DO - 12/18/2022 10:31 AM EDT BRAT DIET (may eat any of the following as tolerated) Bananas Applesauce [place] Saltine Crackers Animal Crackers Pretzels Oatmeal Unsweetened Dry Cereal (Rice Krispies, Cheerios) Plain Baked or Boiled Potato Plain White Rice Plain Noodles All clear liquid listed below CLEAR LIQUID DIET (need to drink 2 ounces total every half hour) Broth Jello Popsicles Pedialyte Gatorade NO Juices NO Milk NO Dairy Products Call if urine output is decreased or she develops dry mucous membranes, or lethargy. documented in this encounter [facility] 12-18-2022 History of Presen t illness Narrative Subjective Diarrhea Pertinent negatives include no chills, no headaches, no myalgias and no cough. 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 14 tablet 0 omeprazole (PRILOSEC) 40 mg capsule Take 1 capsule by mouth once daily. 30 capsule 3 clobetasol (TEMOVATE) 0.05 % cream APPLY TO THE AFFECTED AREA(S) TWICE DAILY DIRECTED 15 g 2 metoprolol tartrate, short acting, (LOPRESSOR) 25 mg tablet Take 1 tablet by mouth once daily. 30 tablet 0 traZODone (DESYREL) 50 mg tablet TAKE 2 TABLETS BY MOUTH EVERY DAY AT BEDTIME 60 tablet 0 zolpidem (AMBIEN) 5 mg tablet TAKE 1 TABLET BY MOUTH EVERY DAY NEEDED AT BEDTIME 30 tablet 0 venlafaxine ER (EFFEXOR XR) 150 mg 24 hr capsule TAKE 1 CAPSULE BY MOUTH DAILY 30 capsule 1 allopurinol (ZYLOPRIM) 100 mg tablet Take 2 tablets by mouth once daily. 60 tablet 1 celecoxib (CELEBREX) 200 mg capsule Take 200 mg by mouth once daily. venlafaxine ER (EFFEXOR XR) 75 mg 24 hr capsule Take 1 capsule by mouth once daily. Take with 150 mg capsule daily. 30 capsule 1 ticagrelor (BRILINTA) 90 mg tablet Take 1 tablet by mouth twice daily. 180 tablet 3 lisinopril 2.5 mg tablet Take 1 tablet by mouth once daily. 90 tablet 0 atorvastatin (LIPITOR) 80 mg tablet TAKE 1 TABLET BY MOUTH ONCE DAILY AT BEDTIME 90 tablet 0 HYDROcodone-acetaminophen (NORCO) 5-325 mg per tablet Take 1 tablet by mouth twice daily as needed for pain. therapeutic multivitamin-minerals (THERA-M PLUS) 9 mg iron-400 mcg tablet Take 1 tablet by mouth once daily. 30 tablet 0 isosorbide mononitrate ER (IMDUR) 30 mg 24 hr tablet Take 1 tablet by mouth once daily. 90 tablet 3 furosemide (LASIX) 20 mg tablet Take 1 tablet by mouth once daily. 90 tablet 3 acetaminophen (TYLENOL) 325 mg tablet Take 1-2 tablets by mouth every 6 hours as needed for pain. 30 tablet 0 aspirin, enteric coated (ASPIRIN, ENTERIC COATED) 81 mg EC tablet Take 81 mg by mouth once daily. (Patient not taking: Reported on 12/18/2022) pantoprazole DR (PROTONIX) 40 mg tablet Take 1 tablet by mouth DAILY (6 AM). (Patient not taking: Reported on 12/18/2022) 30 tablet 0 senna-docusate (SENNA-S) 8.6-50 mg per tablet Take 1 tablet by mouth twice daily. (Patient not taking: Reported on 08/10/2022) 60 tablet 0 lidocaine (LIDODERM) 5 % Apply 1 Patch as directed once daily. to affected area. Remove patch after 12 hours. (Patient not taking: Reported on 08/10/2022) 30 Patch 0 traZODone (DESYREL) 150 mg tablet Take 1 tablet by mouth daily at bedtime. (Patient not taking: Reported on 08/10/2022) 30 tablet 3 meloxicam (MOBIC) 15 mg tablet TAKE 1 TABLET BY MOUTH ONCE DAILY (Patient not taking: Reported on 08/10/2022) 30 tablet 3 spironolactone (ALDACTONE) 25 mg tablet Take 0.5 tablets by mouth once daily. (Patient not taking: Reported on 12/18/2022) 45 tablet 3 aspirin 81 mg chewable tablet Take 1 tablet by mouth once daily. (Patient not taking: Reported on 12/18/2022) 90 tablet 3 albuterol HFA (PROVENTIL HFA, VENTOLIN HFA) 90 mcg/actuation inhaler Inhale 2 Puffs as instructed every 4 hours as needed. (Patient not taking: Reported on 08/10/2022) 18 g 2 No current facility-administered medications for this visit. ACTIVE PROBLEM LIST Urge Incontinence of Urine Gastroesophageal Reflux Disease Without Esophagitis Female Dyspareunia Vaginal Atrophy Recurrent Major Depression in Partial Remission (Hcc) Primary Insomnia Dermatitis Primary Osteoarthritis Involving Multiple Joints On Tricyclic Antidepressant Therapy Obesity, Class II, Bmi 35-39.9 History of DE (Myocardial Infarction) History of Suicide Attempt Tobacco Use Disorder Chronic Gout of Foot Bmi 35.0-35.9,Adult Sun-Damaged Skin Stemi Involving Right Coronary Artery (Hcc) Status Post Insertion of Drug Eluting Coronary Artery Stent Mixed Hyperlipidemia Primary Hypertension Coronary Artery Disease Involving 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 Bilateral Leg Edema Aftercare Chronic Systolic Congestive Heart Failure (Hcc) S/P Total Knee Replacement, Left Malnutrition of Moderate Degree (Hcc) Obesity, Class I, Bmi 30-34.9 Social History Tobacco Use Smoking status: Former Packs/day: 0.25 Years: 40.00 Additional pack years: 0.00 Total pack years: 10.00 Types: Cigarettes Start date: 03/29/1974 Quit date: 05/04/2022 Years since quittin.6 Smokeless tobacco: Never Tobacco comments: Currently vapes Vaping Use Vaping Use: current everyday user Substances: Nicotine Substance Use Topics Alcohol use: Yes Comment: occasionally (used to be daily) Drug use: No Family History Problem Relation Age of Onset Thyroid Mother Heart Father COPD Father Cancer Other Paternal side of Family Reviewed past medical history, family history and surgeries. All medications and supplements were reviewed with the patient. ' Review of Systems Constitutional: Negative for chills, diaphoresis, fever, malaise/fatigue and weight loss. HENT: Negative for ear pain and hearing loss. Eyes: Negative for blurred vision and double vision. Respiratory: Negative for cough and shortness of breath. Cardiovascular: Negative for chest pain, palpitations and leg swelling. Gastrointestinal: Positive for diarrhea. Negative for constipation and heartburn. Genitourinary: Negative for dysuria and frequency. Musculoskeletal: Negative for back pain, falls, joint pain and myalgias. Skin: Negative for itching and rash. Neurological: Negative for dizziness, weakness and headaches. Endo/Heme/Allergies: Does not bruise/bleed easily. Psychiatric/Behavioral: Negative for depression and substance abuse. The patient does not have insomnia. Objective BP 114/72 Pulse 85 Temp 37.4 C (99.4 F) Resp 16 Wt 89 kg (196 lb 3.2 oz) LMP 03/29/2013 SpO2 96% BMI 34.76 kg/m Physical Exam Constitutional: Appearance: Normal appearance. She is obese. HENT: Head: Normocephalic and atraumatic. Nose: Nose normal. Mouth/Throat: Mouth: Mucous membranes are moist. Dentition: Normal dentition. Eyes: General: Lids are normal. Extraocular Movements: Extraocular movements intact. Conjunctiva/sclera: Conjunctivae normal. Pupils: Pupils are equal, round, and reactive to light. Neck: Thyroid: No thyroid mass or thyromegaly. Vascular: No carotid bruit. Trachea: Phonation normal. Cardiovascular: Rate and Rhythm: Normal rate and regular rhythm. Heart sounds: Normal heart sounds. No murmur heard. No friction rub. No gallop. Pulmonary: Effort: Pulmonary effort is normal. Breath sounds: Normal breath sounds. No wheezing or rales. Abdominal: General: Bowel sounds are normal. There is no distension. Palpations: Abdomen is soft. There is no mass. Tenderness: There is no abdominal tenderness. Musculoskeletal: General: No swelling or tenderness. Normal range of motion. Cervical back: Normal range of motion and neck supple. No edema. Lymphadenopathy: Cervical: No cervical adenopathy. Skin: General: Skin is warm and dry. Findings: No erythema or rash. Nails: There is no clubbing. Neurological: Mental Status: She is alert and oriented to person, place, and time. Cranial Nerves: No cranial nerve deficit. Motor: Motor function is intact. Coordination: Coordination normal. Gait: Gait is intact. Psychiatric: Attention and Perception: Attention normal. Mood and Affect: Mood and affect normal. Speech: Speech normal. Behavior: Behavior normal. Behavior is cooperative. Thought Content: Thought content normal. Cognition and Memory: Cognition and memory normal. Judgment: Judgment normal. ASSESSMENT/PLAN: 1. Diarrhea, unspecified type - ICD9: 787.91, ICD10: R19.7 (primary diagnosis) - CRYPTOSPORIDIUM AND GIARDIA ANTIGENS BY EIA - STOOL CULTURE/EIA - C. DIFFICILE PCR - DIPHENOXYLATE-ATROPINE 2.5 MG-0.025 MG TABLET 2. Vasovagal syncope - ICD9: 780.2, ICD10: R55 resolved 3. LISA (acute kidney injury) (HCC) - ICD9: 584.9, ICD10: N17.9 resolved 4. Hypokalemia - ICD9: 276.8, ICD10: E87.6 - BASIC METABOLIC PNL 5. Dehydration - ICD9: 276.51, ICD10: E86.0 resolved 6. 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 Obesity, Class I, BMI 30-34.9 - ICD9: 278.00, ICD10: E66.9 Lifestyle modification recommended Kate Espinoza DO PDMP website checked and validated. All prescriptions have been APPROPRIATELY filled. No suspicious activity was identified. 12/18/2022 by Kate Espinoza DO documented in this encounter [facility] 12-16-2022 Miscellaneous Notes Cardiac clearance received from [facility] for r total knee arthroplasty, date TBD. Clearance scanned in for shanique w/ Dr. Guevara on 01/06/23 @2 pm in [place]. Cass Avalos December 16, 2022 10:24 AM documented in this encounter [facility] 12-01-2022 Miscellaneous Notes pharmacy faxes requesting refills as follows: Last seen 08/10/22 . Last refill 05/16/22 . Requested Prescriptions Pending Prescriptions Disp Refills metoprolol tartrate, short acting, (LOPRESSOR) 25 mg tablet 30 tablet 0 Sig: Take 1 tablet by mouth once daily. Please review and advise. Arabella Michaud MA documented in this encounter [facility] 11-27-2022 Miscellaneous Notes This was D/C 05/15/22, patient now has pantoprazole on current med list. Arabella Michaud MA documented in this encounter [facility] 11-20-2022 Miscellaneous Notes pharmacy electronically requesting refills as follows: Last seen 08/10/22 . Last refill both 10/20/22 . Requested Prescriptions Pending Prescriptions Disp Refills traZODone (DESYREL) 50 mg tablet [Pharmacy Med Name: trazodone 50 mg tablet] 60 tablet 0 Sig: TAKE 2 TABLETS BY MOUTH EVERY DAY AT BEDTIME zolpidem (AMBIEN) 5 mg tablet [Pharmacy Med Name: zolpidem 5 mg tablet] 30 tablet 0 Sig: TAKE 1 TABLET BY MOUTH EVERY DAY NEEDED AT BEDTIME Please review and advise. Arabella Michaud MA documented in this encounter [facility] 11-18-2022 Miscellaneous Notes Medication clearance received from [facility] to hold Brilinta for a pain management procedure, date TBD. Clearance scanned in and in Chelle Beasley's box to be reviewed. Cass Avalos November 18, 2022 9:44 AM documented in this encounter [facility] 09-21-2022 Miscellaneous Notes pharmacy electronically requesting refills as follows: Last seen 08/10/22 . Last refill trazodone, zolpidem 08/21/22, allopurinol 01/22/22. Requested Prescriptions Pending Prescriptions Disp Refills traZODone (DESYREL) 50 mg tablet [Pharmacy Med Name: trazodone 50 mg tablet] 60 tablet 0 Sig: TAKE 2 TABLETS BY MOUTH EVERY DAY AT BEDTIME zolpidem (AMBIEN) 5 mg tablet [Pharmacy Med Name: zolpidem 5 mg tablet] 30 tablet 0 Sig: TAKE 1 TABLET BY MOUTH EVERY DAY NEEDED AT BEDTIME allopurinol (ZYLOPRIM) 100 mg tablet [Pharmacy Med Name: allopurinol 100 mg tablet] 60 tablet 1 Sig: Take 2 tablets by mouth once daily. Please review and advise. Arabella Michaud MA documented in this encounter [facility] 08-10-2022 Note HNO ID: [id number] Author: Kate Espinoza, DO Service: ? Author Type: Physician Type: Progress Notes Filed: 08/24/2022 8:44 PM Note Text: Subjective HPI Pt is here for f/u for insomnia She has not been seen in over one year She had left knee replacement surgery on 05/04/22 She has had cough and sinus drainage for 3 weeks She has green sinus drainage and is coughing up green sputum She vapes, quit smoking on 05/04/22 ALLERGIES No Known Allergies Current Outpatient Medications Medication Sig Dispense Refill celecoxib (CELEBREX) 200 mg capsule Take 200 mg by mouth once daily. zolpidem (AMBIEN) 5 mg tablet TAKE 1 TABLET BY MOUTH ONCE DAILY AT BEDTIME NEEDED 30 tablet 0 traZODone (DESYREL) 50 mg tablet TAKE 2 TABLETS BY MOUTH ONCE DAILY AT BEDTIME 60 tablet 0 venlafaxine ER (EFFEXOR XR) 75 mg 24 hr capsule Take 1 capsule by mouth once daily. Take with 150 mg capsule daily. 30 capsule 1 venlafaxine ER (EFFEXOR XR) 150 mg 24 hr capsule TAKE 1 CAPSULE BY MOUTH DAILY 30 capsule 1 ticagrelor (BRILINTA) 90 mg tablet Take 1 tablet by mouth twice daily. 180 tablet 3 lisinopril 2.5 mg tablet Take 1 tablet by mouth once daily. 90 tablet 0 atorvastatin (LIPITOR) 80 mg tablet TAKE 1 TABLET BY MOUTH ONCE DAILY AT BEDTIME 90 tablet 0 HYDROcodone-acetaminophen (NORCO) 5-325 mg per tablet Take 1 tablet by mouth twice daily as needed for pain. aspirin, enteric coated (ASPIRIN, ENTERIC COATED) 81 mg EC tablet Take 81 mg by mouth once daily. metoprolol tartrate, short acting, (LOPRESSOR) 25 mg tablet Take 1 tablet by mouth once daily. [address] (PROTONIX) 40 mg tablet Take 1 tablet by mouth DAILY (6 AM). 30 tablet 0 therapeutic multivitamin-minerals (THERA-M PLUS) 9 mg iron-400 mcg tablet Take 1 tablet by mouth once daily. 30 tablet 0 isosorbide mononitrate ER (IMDUR) 30 mg 24 hr tablet Take 1 tablet by mouth once daily. 90 tablet 3 allopurinol (ZYLOPRIM) 100 mg tablet Take 2 tablets by mouth once daily. 60 tablet 1 furosemide (LASIX) 20 mg tablet Take 1 tablet by mouth once daily. 90 tablet 3 spironolactone (ALDACTONE) 25 mg tablet Take 0.5 tablets by mouth once daily. 45 tablet 3 aspirin 81 mg chewable tablet Take 1 tablet by mouth once daily. 90 tablet 3 acetaminophen (TYLENOL) 325 mg tablet Take 1-2 tablets by mouth every 6 hours as needed for pain. 30 tablet 0 zoster RZV vaccine, PF, (SHINGRIX) 50 mcg/0.5 mL injection Inject 0.5 mL intramuscularly one time only. Repeat 2nd dose in 2-6 months. senna-docusate (SENNA-S) 8.6-50 mg per tablet Take 1 tablet by mouth twice daily. (Patient not taking: Reported on 08/10/2022) 60 tablet 0 lidocaine (LIDODERM) 5 % Apply 1 Patch as directed once daily. to affected area. Remove patch after 12 hours. (Patient not taking: Reported on 08/10/2022) 30 Patch 0 traZODone (DESYREL) 150 mg tablet Take 1 tablet by mouth daily at bedtime. (Patient not taking: Reported on 08/10/2022) 30 tablet 3 meloxicam (MOBIC) 15 mg tablet TAKE 1 TABLET BY MOUTH ONCE DAILY (Patient not taking: Reported on 08/10/2022) 30 tablet 3 albuterol HFA (PROVENTIL HFA, VENTOLIN HFA) 90 mcg/actuation inhaler Inhale 2 Puffs as instructed every 4 hours as needed. (Patient not taking: Reported on 08/10/2022) 18 g 2 No current facility-administered medications for this visit. ACTIVE PROBLEM LIST Urge Incontinence of Urine Gastroesophageal Reflux Disease Without Esophagitis Female Dyspareunia Vaginal Atrophy Recurrent Major Depression in Partial Remission (Hcc) Primary Insomnia Dermatitis Primary Osteoarthritis Involving Multiple Joints On Tricyclic Antidepressant Therapy Obesity, Class II, Bmi 35-39.9 History of DE (Myocardial Infarction) History of Suicide Attempt Tobacco Use Disorder Chronic Gout of Foot Bmi 35.0-35.9,Adult Sun-Damaged Skin Stemi Involving Right Coronary Artery (Hcc) Status Post Insertion of Drug Eluting Coronary Artery Stent Mixed Hyperlipidemia Primary Hypertension Coronary Artery Disease Involving 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 Bilateral Leg Edema Aftercare Chronic Systolic Congestive Heart Failure (Hcc) S/P Total Knee Replacement, Left Malnutrition of Moderate Degree (Hcc) Social History Tobacco Use Smoking status: Former Packs/day: 0.25 Years: 40.00 Pack years: 10.00 Types: Cigarettes Start date: 03/29/1974 Quit date: 05/04/2022 Years since quittin.2 Smokeless tobacco: Never Tobacco comments: Currently vapes Vaping Use Vaping Use: current everyday user Substances: Nicotine Substance Use Topics Alcohol use: Yes Comment: occasionally (used to be daily) Drug use: No Family History Problem Relation Age of Onset Thyroid Mother Heart Father COPD Father Cancer Other Paternal side of Family Reviewed past medical history, family history and surgeries. All medications and supplements were reviewed with the patient. Max (more content not included)... [facility] 08-10-2022 Nurse Note Immunizations were given as ordered. Vaccination information sheet(s) given. Arabella Michaud MA documented in this encounter [facility] 08-10-2022 History of Presen t illness Narrative Subjective HPI Pt is here for f/u for insomnia She has not been seen in over one year She had left knee replacement surgery on 05/04/22 She has had cough and sinus drainage for 3 weeks She has green sinus drainage and is coughing up green sputum She vapes, quit smoking on 05/04/22 ALLERGIES No Known Allergies Current Outpatient Medications Medication Sig Dispense Refill celecoxib (CELEBREX) 200 mg capsule Take 200 mg by mouth once daily. zolpidem (AMBIEN) 5 mg tablet TAKE 1 TABLET BY MOUTH ONCE DAILY AT BEDTIME NEEDED 30 tablet 0 traZODone (DESYREL) 50 mg tablet TAKE 2 TABLETS BY MOUTH ONCE DAILY AT BEDTIME 60 tablet 0 venlafaxine ER (EFFEXOR XR) 75 mg 24 hr capsule Take 1 capsule by mouth once daily. Take with 150 mg capsule daily. 30 capsule 1 venlafaxine ER (EFFEXOR XR) 150 mg 24 hr capsule TAKE 1 CAPSULE BY MOUTH DAILY 30 capsule 1 ticagrelor (BRILINTA) 90 mg tablet Take 1 tablet by mouth twice daily. 180 tablet 3 lisinopril 2.5 mg tablet Take 1 tablet by mouth once daily. 90 tablet 0 atorvastatin (LIPITOR) 80 mg tablet TAKE 1 TABLET BY MOUTH ONCE DAILY AT BEDTIME 90 tablet 0 HYDROcodone-acetaminophen (NORCO) 5-325 mg per tablet Take 1 tablet by mouth twice daily as needed for pain. aspirin, enteric coated (ASPIRIN, ENTERIC COATED) 81 mg EC tablet Take 81 mg by mouth once daily. metoprolol tartrate, short acting, (LOPRESSOR) 25 mg tablet Take 1 tablet by mouth once daily. [address] (PROTONIX) 40 mg tablet Take 1 tablet by mouth DAILY (6 AM). 30 tablet 0 therapeutic multivitamin-minerals (THERA-M PLUS) 9 mg iron-400 mcg tablet Take 1 tablet by mouth once daily. 30 tablet 0 isosorbide mononitrate ER (IMDUR) 30 mg 24 hr tablet Take 1 tablet by mouth once daily. 90 tablet 3 allopurinol (ZYLOPRIM) 100 mg tablet Take 2 tablets by mouth once daily. 60 tablet 1 furosemide (LASIX) 20 mg tablet Take 1 tablet by mouth once daily. 90 tablet 3 spironolactone (ALDACTONE) 25 mg tablet Take 0.5 tablets by mouth once daily. 45 tablet 3 aspirin 81 mg chewable tablet Take 1 tablet by mouth once daily. 90 tablet 3 acetaminophen (TYLENOL) 325 mg tablet Take 1-2 tablets by mouth every 6 hours as needed for pain. 30 tablet 0 zoster RZV vaccine, PF, (SHINGRIX) 50 mcg/0.5 mL injection Inject 0.5 mL intramuscularly one time only. Repeat 2nd dose in 2-6 months. senna-docusate (SENNA-S) 8.6-50 mg per tablet Take 1 tablet by mouth twice daily. (Patient not taking: Reported on 08/10/2022) 60 tablet 0 lidocaine (LIDODERM) 5 % Apply 1 Patch as directed once daily. to affected area. Remove patch after 12 hours. (Patient not taking: Reported on 08/10/2022) 30 Patch 0 traZODone (DESYREL) 150 mg tablet Take 1 tablet by mouth daily at bedtime. (Patient not taking: Reported on 08/10/2022) 30 tablet 3 meloxicam (MOBIC) 15 mg tablet TAKE 1 TABLET BY MOUTH ONCE DAILY (Patient not taking: Reported on 08/10/2022) 30 tablet 3 albuterol HFA (PROVENTIL HFA, VENTOLIN HFA) 90 mcg/actuation inhaler Inhale 2 Puffs as instructed every 4 hours as needed. (Patient not taking: Reported on 08/10/2022) 18 g 2 No current facility-administered medications for this visit. ACTIVE PROBLEM LIST Urge Incontinence of Urine Gastroesophageal Reflux Disease Without Esophagitis Female Dyspareunia Vaginal Atrophy Recurrent Major Depression in Partial Remission (Hcc) Primary Insomnia Dermatitis Primary Osteoarthritis Involving Multiple Joints On Tricyclic Antidepressant Therapy Obesity, Class II, Bmi 35-39.9 History of DE (Myocardial Infarction) History of Suicide Attempt Tobacco Use Disorder Chronic Gout of Foot Bmi 35.0-35.9,Adult Sun-Damaged Skin Stemi Involving Right Coronary Artery (Hcc) Status Post Insertion of Drug Eluting Coronary Artery Stent Mixed Hyperlipidemia Primary Hypertension Coronary Artery Disease Involving 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 Bilateral Leg Edema Aftercare Chronic Systolic Congestive Heart Failure (Hcc) S/P Total Knee Replacement, Left Malnutrition of Moderate Degree (Hcc) Social History Tobacco Use Smoking status: Former Packs/day: 0.25 Years: 40.00 Pack years: 10.00 Types: Cigarettes Start date: 03/29/1974 Quit date: 05/04/2022 Years since quittin.2 Smokeless tobacco: Never Tobacco comments: Currently vapes Vaping Use Vaping Use: current everyday user Substances: Nicotine Substance Use Topics Alcohol use: Yes Comment: occasionally (used to be daily) Drug use: No Family History Problem Relation Age of Onset Thyroid Mother Heart Father COPD Father Cancer Other Paternal side of Family Reviewed past medical history, family history and surgeries. All medications and supplements were reviewed with the patient. Review of Systems Constitutional: Negative for chills, diaphoresis, fever, malaise/fatigue and weight loss. HENT: Positive for congestion. Negative for ear pain and hearing loss. Eyes: Negative for blurred vision and double vision. Respiratory: Positive for cough and sputum production. Negative for shortness of breath. Cardiovascular: Negative for chest pain, palpitations and leg swelling. Gastrointestinal: Negative for constipation, diarrhea and heartburn. Genitourinary: Negative for dysuria and frequency. Musculoskeletal: Negative for back pain, falls, joint pain and myalgias. Skin: Negative for itching and rash. Neurological: Negative for dizziness, weakness and headaches. Endo/Heme/Allergies: Does not bruise/bleed easily. Psychiatric/Behavioral: Negative for depression and substance abuse. The patient has insomnia. Objective BP 110/62 Pulse 96 Temp 36.8 C (98.3 F) Resp 16 Wt 87.2 kg (192 lb 3.2 oz) LMP 03/29/2013 SpO2 97% BMI 34.05 kg/m Physical Exam Constitutional: Appearance: Normal appearance. She is obese. HENT: Head: Normocephalic and atraumatic. Right Ear: Tympanic membrane, ear canal and external ear normal. There is no impacted cerumen. Left Ear: Tympanic membrane, ear canal and external ear normal. There is no impacted cerumen. Nose: Rhinorrhea present. Mouth/Throat: Mouth: Mucous membranes are moist. Dentition: Normal dentition. Eyes: General: Lids are normal. Extraocular Movements: Extraocular movements intact. Conjunctiva/sclera: Conjunctivae normal. Pupils: Pupils are equal, round, and reactive to light. Neck: Thyroid: No thyroid mass or thyromegaly. Vascular: No carotid bruit. Trachea: Phonation normal. Cardiovascular: Rate and Rhythm: Normal rate and regular rhythm. Heart sounds: Normal heart sounds. No murmur heard. No friction rub. No gallop. Pulmonary: Effort: Pulmonary effort is normal. Breath sounds: No rales. Wheezes: faint wheeze in bases b/l on expiration. Abdominal: General: Bowel sounds are normal. There is no distension. Palpations: Abdomen is soft. There is no mass. Tenderness: There is no abdominal tenderness. Musculoskeletal: General: No swelling or tenderness. Normal range of motion. Cervical back: Normal range of motion and neck supple. No edema. Lymphadenopathy: Cervical: No cervical adenopathy. Skin: General: Skin is warm and dry. Findings: No erythema or rash. Nails: There is no clubbing. Neurological: Mental Status: She is alert and oriented to person, place, and time. Cranial Nerves: No cranial nerve deficit. Motor: Motor function is intact. Coordination: Coordination normal. Gait: Gait is intact. Psychiatric: Attention and Perception: Attention normal. Mood and Affect: Mood and affect normal. Speech: Speech normal. Behavior: Behavior normal. Behavior is cooperative. Thought Content: Thought content normal. Cognition and Memory: Cognition and memory normal. Judgment: Judgment normal. ASSESSMENT/PLAN: 1. Primary insomnia - ICD9: 307.42, ICD10: F51.01 (primary diagnosis) Continue ambien as needed 2. Bacterial sinusitis - ICD9: 473.9, 041.9, ICD10: J32.9, B96. - Will begin treatment with Amoxicillin for 10 days 3. Primary hypertension - ICD9: 401.9, ICD10: I10 - good control - Recommended regular aerobic exercise. - Recommend home blood pressure monitoring, to bring results in on next visit - Goal of BP <130/80 4. Mixed hyperlipidemia - ICD9: 272.2, ICD10: E78.2 - good control - Continue current medication. - LIPID PANEL BASIC 5. S/P total knee replacement, left - ICD9: V43.65, ICD10: Z96.652 6. Nicotine abuse - ICD9: 305.1, ICD10: Z72.0 - Cessation encouraged. - Physiologic and physical aspects of tobacco addiction as well as strategies for quitting were discussed. - Counseling was given focusing on the harmful effects of this addiction especially given the patient's medical condition(s) which will be worsened because of the chemicals in tobacco. 7. Obesity, Class II, BMI 35-39.9 - ICD9: 278.00, ICD10: E66.9 Lifestyle modification recommended 8. Encounter for immunization - ICD9: V03.89, ICD10: Z23 - PNEUMOCOCCAL VACCINE (PREVNAR 20) - IMADM PRQ ID SUBQ/IM NJXS 1 VACC - VARICELLA-ZOSTER GLYCOE VACC-AS01B ADJ(PF) 50 MCG/0.5 ML IM SUSP, KIT Kate Espinoza DO PDMP website checked and validated. All prescriptions have been APPROPRIATELY filled. No suspicious activity was identified. 08/22/2022 by Kate Espinoza DO documented in this encounter [facility] 07-27-2022 Note HNO ID: [id number] Author: Harvey Rivera PT Service: ? Author Type: Physical Therapist Type: Progress Notes Filed: 07/27/2022 5:12 PM Note Text: Episode Visit Count: 6 Therapist That Will Accept/Oversee The Plan Of Care: Vanessa Gomez Start of Care Date: 06/12/22 Onset Date: 05/04/22 (for DOS, ~ 10 years for onset of pain) Patient Identified by Name and Date of : Yes REHABILITATION AND SPORTS THERAPY PHYSICAL THERAPY DISCONTINUANCE OF CARE PLAN OF CARE UPDATE: Assessment: Nusrat Bain is discontinued from Physical Therapy services due to maximal benefit.. Patient was seen for 6 visits from Start of Care Date: 06/12/22 to 07/27/2022 and treatment included: Therapeutic exercise, Manual therapy, and Gait training. Pt is now back to work and able to work. The R knee is actually more limiting to the patient at this time and she is ready to be done with therapy. Goals for Episode of Care: created on 06/12/22 through 08/11/22 [place] in home exercise program.M Patient will decrease pain rating by 2 points to meet minimal clinical important difference for numeric pain rating scale.M Patient will increase active ROM of L knee to 0-125 degrees to allow pt to to improve postural alignment, to improve performance of ADLs, and to improve gait mechanics / gait pattern .PM Patient will demonstrate increase in B LE strength to 5/5 during manual muscle testing in order to improve function for prior functional tasks and work tasks.PM Patient will Improve Timed Up and Go to 7 seconds to demonstrate decreased risk of falling.PM Patient will improve 5 time sit to stand to demonstrate improvement in functional lower extremity strength.M Normal gait.M Reciprocal stair negotiation.M Patient Goals: relieve pain, decrease stiffness M=Met PM=Partially Met SUBJECTIVE: Patient Reason for Visit: Pt was doing well then last week the patient started having Knee pain when she lays down the knee from the knee to foot starts to throb. Pt no known reason.. Pt has met or is really close to meeting all of her goals at this time. She is not currently having any pain in the knee except for when she lies down which is most likely coming from her back and not the knee. Pain: Pain Pain Level: 4 Pain Location: Knee - Left Description: Sore PROMIS Scales T-scores: mean of general population = 50. 5 points is clinically meaningfully difference Percentiles provide an indication of how the patient's score ranks in relation to the general population. Higher percentile rankings indicate better function/quality of life. 50th percentile is the average of the general population and indicates half of respondents had a worse score. OBJECTIVE MEASURES WITH LEVEL OF FUNCTION: LE AROM L Knee Extension: -3 Degrees L Knee Flexion: 122 Degrees LE Strength R Ankle Plantar Flexion: 4+/5 L Hip Extension: 4+/5 L Hip Flexion (L2): 4+/5 L Hip ABduction: 4-/5 L Knee Extension (L3): 4+/5 L Knee Flexion: 4+/5 L Ankle Plantar Flexion: 4+/5 Gait Gait Deviations: Right Lower Extremity Gait Deviations Right Lower Extremity: Push off during terminal stance decreased Stairs: 2 flight reciprocal up one step coming down leading with L due to L knee pain. Pt now using R to descend stairs because it is stronger than L. Functional Performance Test Results 5 Times Sit to Stand Test : 10.65 sec Timed Up and Go (sec): 10.18 sec TREATMENT: Therapeutic Exercise: 1: supine knee flexion 2: *prone SLR 3: *prone Hip ABD 4: Supine SLR 6: Suggested pt being consistent with HEP for at least another month Skilled Intervention: Patient was educated in proper exercise technique and purpose for exercises. Reviewed and educated patient on additions/changes for home exercise program as above (*). Skilled judgment was provided in selection of appropriate interventions. Gait Trainin: Taped the R foot to help with gait and improve push off Skilled Intervention: Facilitated proper gait cycle with the use of tape to the R foot to help with decreasing toe out on R for correction of gait deviations identified in the objective section above. Billing Therapeutic Exercise Treatment Minutes: 30 Gait Training Treatment Minutes: 10 Total Treatment Time Minutes (timed/untimed): 40 Harvey Rivera PT [facility] 07-27-2022 History of Presen t illness Narrative Episode Visit Count: 6 Therapist That Will Accept/Oversee The Plan Of Care: Vanessa Gomez Start of Care Date: 06/12/22 Onset Date: 05/04/22 (for DOS, ~ 10 years for onset of pain) Patient Identified by Name and Date of : Yes REHABILITATION AND SPORTS THERAPY PHYSICAL THERAPY DISCONTINUANCE OF CARE PLAN OF CARE UPDATE: Assessment: Nusrat Bain is discontinued from Physical Therapy services due to maximal benefit.. Patient was seen for 6 visits from Start of Care Date: 06/12/22 to 07/27/2022 and treatment included: Therapeutic exercise, Manual therapy, and Gait training. Pt is now back to work and able to work. The R knee is actually more limiting to the patient at this time and she is ready to be done with therapy. Goals for Episode of Care: created on 06/12/22 through 08/11/22 [place] in home exercise program.M Patient will decrease pain rating by 2 points to meet minimal clinical important difference for numeric pain rating scale.M Patient will increase active ROM of L knee to 0-125 degrees to allow pt to to improve postural alignment, to improve performance of ADLs, and to improve gait mechanics / gait pattern .PM Patient will demonstrate increase in B LE strength to 5/5 during manual muscle testing in order to improve function for prior functional tasks and work tasks.PM Patient will Improve Timed Up and Go to 7 seconds to demonstrate decreased risk of falling.PM Patient will improve 5 time sit to stand to demonstrate improvement in functional lower extremity strength.M Normal gait.M Reciprocal stair negotiation.M Patient Goals: relieve pain, decrease stiffness M=Met PM=Partially Met SUBJECTIVE: Patient Reason for Visit: Pt was doing well then last week the patient started having Knee pain when she lays down the knee from the knee to foot starts to throb. Pt no known reason.. Pt has met or is really close to meeting all of her goals at this time. She is not currently having any pain in the knee except for when she lies down which is most likely coming from her back and not the knee. Pain: Pain Pain Level: 4 Pain Location: Knee - Left Description: Sore PROMIS Scales T-scores: mean of general population = 50. 5 points is clinically meaningfully difference Percentiles provide an indication of how the patient's score ranks in relation to the general population. Higher percentile rankings indicate better function/quality of life. 50th percentile is the average of the general population and indicates half of respondents had a worse score. OBJECTIVE MEASURES WITH LEVEL OF FUNCTION: LE AROM L Knee Extension: -3 Degrees L Knee Flexion: 122 Degrees LE Strength R Ankle Plantar Flexion: 4+/5 L Hip Extension: 4+/5 L Hip Flexion (L2): 4+/5 L Hip ABduction: 4-/5 L Knee Extension (L3): 4+/5 L Knee Flexion: 4+/5 L Ankle Plantar Flexion: 4+/5 Gait Gait Deviations: Right Lower Extremity Gait Deviations Right Lower Extremity: Push off during terminal stance decreased Stairs: 2 flight reciprocal up one step coming down leading with L due to L knee pain. Pt now using R to descend stairs because it is stronger than L. Functional Performance Test Results 5 Times Sit to Stand Test : 10.65 sec Timed Up and Go (sec): 10.18 sec TREATMENT: Therapeutic Exercise: 1: supine knee flexion 2: *prone SLR 3: *prone Hip ABD 4: Supine SLR 6: Suggested pt being consistent with HEP for at least another month Skilled Intervention: Patient was educated in proper exercise technique and purpose for exercises. Reviewed and educated patient on additions/changes for home exercise program as above (*). Skilled judgment was provided in selection of appropriate interventions. Gait Trainin: Taped the R foot to help with gait and improve push off Skilled Intervention: Facilitated proper gait cycle with the use of tape to the R foot to help with decreasing toe out on R for correction of gait deviations identified in the objective section above. Billing Therapeutic Exercise Treatment Minutes: 30 Gait Training Treatment Minutes: 10 Total Treatment Time Minutes (timed/untimed): 40 Harvey Rivera PT documented in this encounter [facility] 07-23-2022 Miscellaneous Notes Patient has appointment scheduled for 08/10/22. Arabella Michaud MA Pt due for appt Kate Espinoza DO pharmacy electronically requesting refills as follows: Last seen 06/26/21 . Last refill both 06/22/22 . Patient informed she is due for office visit and transferred to schedule. Requested Prescriptions Pending Prescriptions Disp Refills zolpidem (AMBIEN) 5 mg tablet [Pharmacy Med Name: zolpidem 5 mg tablet] 30 tablet 0 Sig: TAKE 1 TABLET BY MOUTH ONCE DAILY AT BEDTIME NEEDED traZODone (DESYREL) 50 mg tablet [Pharmacy Med Name: trazodone 50 mg tablet] 60 tablet 0 Sig: TAKE 2 TABLETS BY MOUTH ONCE DAILY AT BEDTIME Please review and advise. Arabella Michaud MA documented in this encounter [facility] 07-08-2022 Miscellaneous Notes Clearance form received from [facility]. Form placed in Dr. Guevara's door box. Lizzie Mcfadden RN documented in this encounter [facility] 06-29-2022 Note HNO ID: [id number] Author: Kelli Gomez PT Service: ? Author Type: Physical Therapist Type: Progress Notes Filed: 06/29/2022 5:41 PM Note Text: Episode Visit Count: 5 Therapist That Will Accept/Oversee The Plan Of Care: Vanessa Gomez Start of Care Date: 06/12/22 Onset Date: 05/04/22 (for DOS, ~ 10 years for onset of pain) REHABILITATION AND SPORTS THERAPY PHYSICAL THERAPY TREATMENT NOTE ASSESSMENT: Nusrat Bain tolerated the session with fatigue (coming into PT after work). She demonstrated improvements in gait and activity tolerance, difficulty with reciprocal stair descent due to R knee pain. The patient will continue to benefit from ongoing skilled physical therapy to progress toward set goals. PLAN FOR NEXT VISIT: continue 1x/wk to progress R knee ROM AND LE strength - do leg press on shuttle SUBJECTIVE: Patient Reason for Visit: doing ok. RTW is getting a little easier. has been having some hip pain/discomfort with standing more at work along with LBP - sees her spine/pain management Dr tomorrow Pt reports issues with R knee pain/OA, says Dr wouldn't do both knees at same time and her insurance wouldn't pay for it either. She thinks she's almost ready to be done with PT. Pain: Pain Pain Level: 4 Pain Location: Knee - Left Description: Sore OBJECTIVE MEASURES WITH LEVEL OF FUNCTION: LE AROM L Knee Extension: -3 Degrees L Knee Flexion: 120 Degrees Gait Stairs: 10 steps with 1 HR: reciprocal ascent, non-reciprocal descent leading with R (non-operative LE) d/t R knee pain TREATMENT: Therapeutic Exercise: 1: Bike L pedal 115, L2x10' seat 4-1 2: B calf stretch on slant board x1' 3: supine heel slides 10xAROM 4: supine HS stretch Skilled Intervention: Patient was educated in proper exercise technique and purpose for exercises. Skilled judgment was provided in selection of appropriate interventions. Correct performance of therapeutic exercises was facilitated with verbal, visual, and tactile cuing. Education in use of heat and ice and parameters for each. Patient education as noted. Manual Therapy: 1: patella mobilization, scar tissue massage 2: STM to HS AND calf in prone Skilled Intervention: Manual skills to improve joint mobility, ROM, and decrease pain. Utilized anatomy knowledge of the therapist, and assessment of patient's response to intervention. Gait Training: Stair Trainin steps with 1 HR: reciprocal ascent, non-reciprocal descent leading with R LE 1: gait activities Skilled Intervention: Patient was provided supervision, independence during pre-gait/gait training to prevent falls and insure safety. Education provided to patient regarding the proper sequence for stair negotiation. Billing Therapeutic Exercise Treatment Minutes: 20 Manual TherapyTreatment Minutes: 10 Gait Training Treatment Minutes: 10 Total Treatment Time Minutes (timed/untimed): 40 Kelli Gomez, PT [facility] 06-29-2022 History of Presen t illness Narrative Episode Visit Count: 5 Therapist That Will Accept/Oversee The Plan Of Care: Vanessa Gomez Start of Care Date: 06/12/22 Onset Date: 05/04/22 (for DOS, ~ 10 years for onset of pain) REHABILITATION AND SPORTS THERAPY PHYSICAL THERAPY TREATMENT NOTE ASSESSMENT: Nusrat Bain tolerated the session with fatigue (coming into PT after work). She demonstrated improvements in gait and activity tolerance, difficulty with reciprocal stair descent due to R knee pain. The patient will continue to benefit from ongoing skilled physical therapy to progress toward set goals. PLAN FOR NEXT VISIT: continue 1x/wk to progress R knee ROM & LE strength - do leg press on shuttle SUBJECTIVE: Patient Reason for Visit: doing ok. RTW is getting a little easier. has been having some hip pain/discomfort with standing more at work along with LBP - sees her spine/pain management Dr tomorrow Pt reports issues with R knee pain/OA, says Dr wouldn't do both knees at same time and her insurance wouldn't pay for it either. She thinks she's almost ready to be done with PT. Pain: Pain Pain Level: 4 Pain Location: Knee - Left Description: Sore OBJECTIVE MEASURES WITH LEVEL OF FUNCTION: LE AROM L Knee Extension: -3 Degrees L Knee Flexion: 120 Degrees Gait Stairs: 10 steps with 1 HR: reciprocal ascent, non-reciprocal descent leading with R (non-operative LE) d/t R knee pain TREATMENT: Therapeutic Exercise: 1: Bike L pedal 115, L2x10' seat 4-1 2: B calf stretch on slant board x1' 3: supine heel slides 10xAROM 4: supine HS stretch Skilled Intervention: Patient was educated in proper exercise technique and purpose for exercises. Skilled judgment was provided in selection of appropriate interventions. Correct performance of therapeutic exercises was facilitated with verbal, visual, and tactile cuing. Education in use of heat and ice and parameters for each. Patient education as noted. Manual Therapy: 1: patella mobilization, scar tissue massage 2: STM to HS & calf in prone Skilled Intervention: Manual skills to improve joint mobility, ROM, and decrease pain. Utilized anatomy knowledge of the therapist, and assessment of patient's response to intervention. Gait Training: Stair Trainin steps with 1 HR: reciprocal ascent, non-reciprocal descent leading with R LE 1: gait activities Skilled Intervention: Patient was provided supervision, independence during pre-gait/gait training to prevent falls and insure safety. Education provided to patient regarding the proper sequence for stair negotiation. Billing Therapeutic Exercise Treatment Minutes: 20 Manual TherapyTreatment Minutes: 10 Gait Training Treatment Minutes: 10 Total Treatment Time Minutes (timed/untimed): 40 Kelli Gomez PT documented in this encounter [facility] 06-23-2022 Note HNO ID: [id number] Author: Mert Queen PTA Service: ? Author Type: Irrigation Flume Layer Type: Progress Notes Filed: 06/23/2022 5:54 PM Note Text: Episode Visit Count: 4 Therapist That Will Accept/Oversee The Plan Of Care: Vanessa Gomez Start of Care Date: 06/12/22 Onset Date: 05/04/22 (for DOS, ~ 10 years for onset of pain) Patient Identified by Name and Date of : Yes REHABILITATION AND SPORTS THERAPY PHYSICAL THERAPY TREATMENT NOTE ASSESSMENT: Nusrat Bain tolerated the session with fatigue and expected muscle soreness. She demonstrated difficulty with ROM left knee flexion due to increased swelling left knee, and improvements in left swing phase of gait due to decreased swelling left knee post game ready . The patient will continue to benefit from ongoing skilled physical therapy to progress toward set goals. PLAN FOR NEXT VISIT: assess use of game ready , progress strength in left gluts, and check calf strength SUBJECTIVE: Patient Reason for Visit: patient reports soreness in left knee laterally and anterior, return to work has been a little tough Pain: Pain Pain Level: 5 Pain Location: Knee - Left Description: Sore (hot) Frequency: Continuous Post Treatment Pain Post Treatment Pain Level: 4 Post Treatment Pain Location: Knee - Left OBJECTIVE MEASURES WITH LEVEL OF FUNCTION: TREATMENT: Therapeutic Exercise: 1: nu step seat 9 level 2 7 min 2: supine AAROM left knee and hip flexion 10 x 2 3: supine EOB left hip flexor stretch , 2 min 4: right sidelying , left slr 10 x Skilled Intervention: Patient was educated in proper exercise technique and purpose for exercises. Skilled judgment was provided in selection of appropriate interventions. Manual Therapy: 1: seated a/p, p/a of proximal left fibula , followed by self mobs of left proximal fibula Skilled Intervention: Manual skills to improve joint mobility, ROM, and decrease pain. Utilized anatomy knowledge of the therapist, and assessment of patient's response to intervention. Modalities: Vasopneumatic Treatment Body Region Treated - Vasopneumatic Treatment: left le Patient Position: supine with legs elevated on wedge Compression mmHg: medium Cycle: continuous Minutes: 10 Skilled Intervention: Proper administration and selection of modality based on clinical presentation, deficits, and needs. Patient response monitored throughout treatment. Billing Therapeutic Exercise Treatment Minutes: 25 Manual TherapyTreatment Minutes: 10 * Vasopneumatic Treatment: 1 unit Total Treatment Time Minutes (timed/untimed): 45 Mert QueenSOSA [facility] 06-23-2022 History of Presen t illness Narrative Episode Visit Count: 4 Therapist That Will Accept/Oversee The Plan Of Care: Vanessa Gomez Start of Care Date: 06/12/22 Onset Date: 05/04/22 (for DOS, ~ 10 years for onset of pain) Patient Identified by Name and Date of : Yes REHABILITATION AND SPORTS THERAPY PHYSICAL THERAPY TREATMENT NOTE ASSESSMENT: Nusrat Bain tolerated the session with fatigue and expected muscle soreness. She demonstrated difficulty with ROM left knee flexion due to increased swelling left knee, and improvements in left swing phase of gait due to decreased swelling left knee post game ready . The patient will continue to benefit from ongoing skilled physical therapy to progress toward set goals. PLAN FOR NEXT VISIT: assess use of game ready , progress strength in left gluts, and check calf strength SUBJECTIVE: Patient Reason for Visit: patient reports soreness in left knee laterally and anterior, return to work has been a little tough Pain: Pain Pain Level: 5 Pain Location: Knee - Left Description: Sore (hot) Frequency: Continuous Post Treatment Pain Post Treatment Pain Level: 4 Post Treatment Pain Location: Knee - Left OBJECTIVE MEASURES WITH LEVEL OF FUNCTION: TREATMENT: Therapeutic Exercise: 1: nu step seat 9 level 2 7 min 2: supine AAROM left knee and hip flexion 10 x 2 3: supine EOB left hip flexor stretch , 2 min 4: right sidelying , left slr 10 x Skilled Intervention: Patient was educated in proper exercise technique and purpose for exercises. Skilled judgment was provided in selection of appropriate interventions. Manual Therapy: 1: seated a/p, p/a of proximal left fibula , followed by self mobs of left proximal fibula Skilled Intervention: Manual skills to improve joint mobility, ROM, and decrease pain. Utilized anatomy knowledge of the therapist, and assessment of patient's response to intervention. Modalities: Vasopneumatic Treatment Body Region Treated - Vasopneumatic Treatment: left le Patient Position: supine with legs elevated on wedge Compression mmHg: medium Cycle: continuous Minutes: 10 Skilled Intervention: Proper administration and selection of modality based on clinical presentation, deficits, and needs. Patient response monitored throughout treatment. Billing Therapeutic Exercise Treatment Minutes: 25 Manual TherapyTreatment Minutes: 10 * Vasopneumatic Treatment: 1 unit Total Treatment Time Minutes (timed/untimed): 45 Mert Queen PTA documented in this encounter [facility] 06-22-2022 Miscellaneous Notes pharmacy electronically requesting refills as follows: Last seen 06/26/21 . Last refill both 05/25/22 . No future appointments. Requested Prescriptions Pending Prescriptions Disp Refills zolpidem (AMBIEN) 5 mg tablet [Pharmacy Med Name: zolpidem 5 mg tablet] 30 tablet 0 Sig: TAKE 1 TABLET BY MOUTH ONCE DAILY AT BEDTIME NEEDED traZODone (DESYREL) 50 mg tablet [Pharmacy Med Name: trazodone 50 mg tablet] 60 tablet 0 Sig: TAKE 2 TABLETS BY MOUTH ONCE DAILY AT BEDTIME Please review and advise. Arabella Michaud MA documented in this encounter [facility] 06-17-2022 Note HNO ID: [id number] Author: Mert Queen PTA Service: ? Author Type: Irrigation Flume Layer Type: Progress Notes Filed: 06/17/2022 11:40 AM Note Text: Episode Visit Count: 3 Therapist That Will Accept/Oversee The Plan Of Care: Vanessa Gomez Start of Care Date: 06/12/22 Onset Date: 05/04/22 (for DOS, ~ 10 years for onset of pain) Patient Identified by Name and Date of : Yes REHABILITATION AND SPORTS THERAPY PHYSICAL THERAPY TREATMENT NOTE ASSESSMENT: Nusrat Bain tolerated the session with decreased symptoms and expected muscle soreness. She demonstrated improvements in AROM left knee flexion and extension and terminal knee and hip extension left stance. The patient will continue to benefit from ongoing skilled physical therapy to progress toward set goals. PLAN FOR NEXT VISIT: assess RTW , progress left hip and knee extension address left knee ROM and progress gait with increase left hip and knee extension SUBJECTIVE: Patient Reason for Visit: patient taking norco and tylenol for pain relief for back but it does help left knee, Pain: Pain Pain Level: 4 Pain Location: Knee - Left Description: Aching Frequency: Continuous Post Treatment Pain Post Treatment Pain Level: Better Post Treatment Pain Location: Knee - Left Post Treatment Pain Description: (looser) OBJECTIVE MEASURES WITH LEVEL OF FUNCTION: LE AROM L Knee Extension: -3 Degrees L Knee Flexion: 117 Degrees TREATMENT: Therapeutic Exercise: 1: nu step seat 8 level 3 6 min 2: bike pedals 80 dewgrees level 2 7 min 3: semi reclined heel slides 10 x 4: semireclined EOB left hip flexor stretch 2 min 5: long sitting left quad set 5 second hold x 5 x 2 6: hooklying bridging 10 x 7: *prone leg hang 5 min with stm of medial and lateral hamstring and medial left calf 8: prone LAQ green tb 10 x 2 9: *standing left hip extension pink tb 10 x 2 , followed by right slr pink tb10 x 2 10: educated patient on how left quad and left hip extnsor straighten left leg in left stance Skilled Intervention: Patient was educated in proper exercise technique and purpose for exercises. Reviewed and educated patient on additions/changes for home exercise program as above (*). Skilled judgment was provided in selection of appropriate interventions. Provided written instruction for home exercise program to facilitate proper performance and compliance. Patient education as noted. Manual Therapy: 1: stm with cupping device, distal left scar , followed by inferior patellar glides Skilled Intervention: Manual skills to improve joint mobility, ROM, and decrease pain. Utilized anatomy knowledge of the therapist, and assessment of patient's response to intervention. Gait Trainin: gait without assistive device to ncrease right stride and heel strike to improve left hip extension and knee extension Skilled Intervention: verbal cues for heel strike right Billing Therapeutic Exercise Treatment Minutes: 45 Manual TherapyTreatment Minutes: 10 Gait Training Treatment Minutes: 6 Total Treatment Time Minutes (timed/untimed): 61 Mert Queen PTA [facility] 06-17-2022 History of Presen t illness Narrative Episode Visit Count: 3 Therapist That Will Accept/Oversee The Plan Of Care: Vanessa Gomez Start of Care Date: 06/12/22 Onset Date: 05/04/22 (for DOS, ~ 10 years for onset of pain) Patient Identified by Name and Date of : Yes REHABILITATION AND SPORTS THERAPY PHYSICAL THERAPY TREATMENT NOTE ASSESSMENT: Nusrat Bain tolerated the session with decreased symptoms and expected muscle soreness. She demonstrated improvements in AROM left knee flexion and extension and terminal knee and hip extension left stance. The patient will continue to benefit from ongoing skilled physical therapy to progress toward set goals. PLAN FOR NEXT VISIT: assess RTW , progress left hip and knee extension address left knee ROM and progress gait with increase left hip and knee extension SUBJECTIVE: Patient Reason for Visit: patient taking norco and tylenol for pain relief for back but it does help left knee, Pain: Pain Pain Level: 4 Pain Location: Knee - Left Description: Aching Frequency: Continuous Post Treatment Pain Post Treatment Pain Level: Better Post Treatment Pain Location: Knee - Left Post Treatment Pain Description: (looser) OBJECTIVE MEASURES WITH LEVEL OF FUNCTION: LE AROM L Knee Extension: -3 Degrees L Knee Flexion: 117 Degrees TREATMENT: Therapeutic Exercise: 1: nu step seat 8 level 3 6 min 2: bike pedals 80 dewgrees level 2 7 min 3: semi reclined heel slides 10 x 4: semireclined EOB left hip flexor stretch 2 min 5: long sitting left quad set 5 second hold x 5 x 2 6: hooklying bridging 10 x 7: *prone leg hang 5 min with stm of medial and lateral hamstring and medial left calf 8: prone LAQ green tb 10 x 2 9: *standing left hip extension pink tb 10 x 2 , followed by right slr pink tb10 x 2 10: educated patient on how left quad and left hip extnsor straighten left leg in left stance Skilled Intervention: Patient was educated in proper exercise technique and purpose for exercises. Reviewed and educated patient on additions/changes for home exercise program as above (*). Skilled judgment was provided in selection of appropriate interventions. Provided written instruction for home exercise program to facilitate proper performance and compliance. Patient education as noted. Manual Therapy: 1: stm with cupping device, distal left scar , followed by inferior patellar glides Skilled Intervention: Manual skills to improve joint mobility, ROM, and decrease pain. Utilized anatomy knowledge of the therapist, and assessment of patient's response to intervention. Gait Trainin: gait without assistive device to ncrease right stride and heel strike to improve left hip extension and knee extension Skilled Intervention: verbal cues for heel strike right Billing Therapeutic Exercise Treatment Minutes: 45 Manual TherapyTreatment Minutes: 10 Gait Training Treatment Minutes: 6 Total Treatment Time Minutes (timed/untimed): 61 Mert Queen PTA documented in this encounter [facility] 06-15-2022 Note HNO ID: [id number] Author: Kelli Gomez, PT Service: ? Author Type: Physical Therapist Type: Progress Notes Filed: 06/15/2022 12:25 PM Note Text: Episode Visit Count: 2 Therapist That Will Accept/Oversee The Plan Of Care: Vanessa Gomez Start of Care Date: 06/12/22 Onset Date: 05/04/22 (for DOS, ~ 10 years for onset of pain) REHABILITATION AND SPORTS THERAPY PHYSICAL THERAPY TREATMENT NOTE ASSESSMENT: Nusrat Bain tolerated the session with no issues. She demonstrated difficulty with knee pain AND stiffness as well as current LLD (L LE longer) which likely contributes to L knee lacking TKE, thus pt may benefit from lift in R shoe. The patient will continue to benefit from ongoing skilled physical therapy to progress toward set goals. PLAN FOR NEXT VISIT: progress R knee ROM, LE strength AND activity tolerance SUBJECTIVE: Patient Reason for Visit: reports L knee pain AND stiffness. says R knee hurts a little too but not that bad. she plans to RTW next Wednesday - she's gonna try it AND see how it goes Pain: Pain Pain Level: 5 Pain Location: Knee - Left Description: Aching, Sore OBJECTIVE MEASURES WITH LEVEL OF FUNCTION: Posture / Alignment Lumbo - Pelvic Alignment: L IC elevated in stance LE Observations: L knee flexed in stance, lacking TKE TREATMENT: Therapeutic Exercise: 1: Bike L pedal 80 L3x12' seat 4-1 2: shuttle leg press [id number], SL [id number], [id number] 3: shuttle heel raises [id number], [id number] 4: B calf stretch on slant board x1' 5: *standing TKE with blue TB 10x2 6: *retro TKE stretch with blue TB x1' 7: *demonstrated/recommended prone leg hang 8: HS stretch long-sit Skilled Intervention: Patient was educated in proper exercise technique and purpose for exercises. Reviewed and educated patient on additions/changes for home exercise program as above (*). Correct performance of therapeutic exercises was facilitated with verbal, visual, and tactile cuing. Educated patient on rationale for performing exercises in regards to increase ease of ADL and ROM and function. Patient education as noted. Billing Therapeutic Exercise Treatment Minutes: 45 Total Treatment Time Minutes (timed/untimed): 45 Kelli Gomez PT [facility] 06-12-2022 Note HNO ID: [id number] Author: Kelli Gomez PT Service: ? Author Type: Physical Therapist Type: Progress Notes Filed: 06/12/2022 9:13 AM Note Text: Episode Visit Count: 1 Therapist That Will Accept/Oversee The Plan Of Care: Vanessa Gomez Start of Care Date: 06/12/22 Onset Date: 05/04/22 (for DOS, ~ 10 years for onset of pain) Patient Identified by Name and Date of : Yes Rehab Precautions: TKR Precaution/Activity Restriction Comments: L TKA/ WBAT, fall risk Current Surgical Procedure : L TKA Current Surgical Procedure Date: 05/04/22 Mechanism of Injury: Disease Process REHABILITATION AND SPORTS THERAPY PHYSICAL THERAPY EVALUATION PLAN OF CARE: Assessment: Nusrat Bain presents 6 weeks s/p L TKA with post-op deficits of pain, swelling AND stiffness that interferes with stair negotiation, sleeping, physical activities, recreational activities . She presents with impairments in ADL's, edema management, flexibility, gait, independence in exercise, joint mobility, overall function, range of motion, soft tissue healing, and strength. Patient did not complete the PROMIS? (Patient Reported Outcome Measures Information System). Prognosis for therapy is Good due to: current objective clinical presentation, good overall health status, acuteness of condition, positive past response to therapy, good support system/ coping skills . Pt had inpatient rehab here for 1 week then HH PT for 2-3 weeks. She will benefit from skilled therapy services to meet the goals established for this plan of care as noted below. Goals for Episode of Care: created on 06/12/22 through 08/11/22 [place] in home exercise program. Patient will decrease pain rating by 2 points to meet minimal clinical important difference for numeric pain rating scale. Patient will increase active ROM of L knee to 0-125 degrees to allow pt to to improve postural alignment, to improve performance of ADLs, and to improve gait mechanics / gait pattern . Patient will demonstrate increase in B LE strength to 5/5 during manual muscle testing in order to improve function for prior functional tasks and work tasks. Patient will Improve Timed Up and Go to 7 seconds to demonstrate decreased risk of falling. Patient will improve 5 time sit to stand to demonstrate improvement in functional lower extremity strength. Normal gait. Reciprocal stair negotiation. Patient Goals: relieve pain, decrease stiffness Planned Interventions, Frequency, and Duration: Current Frequency: 2x/week Duration: 8 weeks Total Number of Visits Planned: 12 Planned Treatment Interventions: Therapeutic exercise (27967), Manual therapy (18639), Therapeutic activities (99932), Neuromuscular re-education (73028), Gait Training (28340), Patient/Family/Caregiver Education, Body Mechanics Training PLAN FOR NEXT VISIT: address L knee ROM, gait Patient demonstrates good understanding of plan of care and treatment. The above goals and plan of care were discussed and agreed upon by patient/family. SUBJECTIVE: Nusrat Bain is a 62 year old female seen today for PT eval for post-op rehab s/p L TKA. pt reports R knee pain/OA as well, will likely need R TKA also. Pt takes hydrocodone for back issues, taking tylenol AND/or aleve for knee prn and using ice ~ 2x/day. She initially used WW after surgery then progressed to cane now walking without AD again. Pt says she had been limping for awhile prior to surgery. 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 Home Environment Patient Lives With: Spouse Assistance Available: Part-Time Equipment Owned: Shower Chair, Walker- Wheeled, Grab Bars- Shower, Elevated Toilet Seat, Cane Intake Information: Prescription present Previous Treatment: Injections , Surgery , Heat , Ice , Home Therapy Falls Interview: No positive findings with falls interview Pain: Pain Pain Level: 5 Pain Location: Knee - Left Description: Aching, Sore, Stiffness, Sharp Frequency: Continuous, Intermittent Detailed Pain Score: Yes Worst Pain Level: 6 Best Pain Level: 3 Post Treatment Pain Post Treatment Pain Level: No Change OBJECTIVE MEASURES WITH LEVEL OF FUNCTION: Posture / Alignment Lumbo - Pelvic Alignment: L IC elevated in stance LE Observations: L LE lacking TKE Leg Length Discrepency: L LE longer in supine Knee Observations L Knee Presents with: Swelling, Warmth, Incision L Incision: closed AND healed L Knee Palpation Tenderness: Medial Hamstring, Lateral Hamstring Sensation - Lower Extremity LE Light Touch Sensation: Grossly Intact (more content not included)... [facility] 06-12-2022 History of Presen t illness Narrative Episode Visit Count: 1 Therapist That Will Accept/Oversee The Plan Of Care: Vanessa Gomez Start of Care Date: 06/12/22 Onset Date: 05/04/22 (for DOS, ~ 10 years for onset of pain) Patient Identified by Name and Date of : Yes Rehab Precautions: TKR Precaution/Activity Restriction Comments: L TKA/ WBAT, fall risk Current Surgical Procedure : L TKA Current Surgical Procedure Date: 05/04/22 Mechanism of Injury: Disease Process REHABILITATION AND SPORTS THERAPY PHYSICAL THERAPY EVALUATION PLAN OF CARE: Assessment: Nusrat Bain presents 6 weeks s/p L TKA with post-op deficits of pain, swelling & stiffness that interferes with stair negotiation, sleeping, physical activities, recreational activities . She presents with impairments in ADL's, edema management, flexibility, gait, independence in exercise, joint mobility, overall function, range of motion, soft tissue healing, and strength. Patient did not complete the PROMIS (Patient Reported Outcome Measures Information System). Prognosis for therapy is Good due to: current objective clinical presentation, good overall health status, acuteness of condition, positive past response to therapy, good support system/ coping skills . Pt had inpatient rehab here for 1 week then HH PT for 2-3 weeks. She will benefit from skilled therapy services to meet the goals established for this plan of care as noted below. Goals for Episode of Care: created on 06/12/22 through 08/11/22 [place] in home exercise program. Patient will decrease pain rating by 2 points to meet minimal clinical important difference for numeric pain rating scale. Patient will increase active ROM of L knee to 0-125 degrees to allow pt to to improve postural alignment, to improve performance of ADLs, and to improve gait mechanics / gait pattern . Patient will demonstrate increase in B LE strength to 5/5 during manual muscle testing in order to improve function for prior functional tasks and work tasks. Patient will Improve Timed Up and Go to 7 seconds to demonstrate decreased risk of falling. Patient will improve 5 time sit to stand to demonstrate improvement in functional lower extremity strength. Normal gait. Reciprocal stair negotiation. Patient Goals: relieve pain, decrease stiffness Planned Interventions, Frequency, and Duration: Current Frequency: 2x/week Duration: 8 weeks Total Number of Visits Planned: 12 Planned Treatment Interventions: Therapeutic exercise (29727), Manual therapy (53664), Therapeutic activities (96330), Neuromuscular re-education (11703), Gait Training (80235), Patient/Family/Caregiver Education, Body Mechanics Training PLAN FOR NEXT VISIT: address L knee ROM, gait Patient demonstrates good understanding of plan of care and treatment. The above goals and plan of care were discussed and agreed upon by patient/family. SUBJECTIVE: Nusrat Bain is a 62 year old female seen today for PT eval for post-op rehab s/p L TKA. pt reports R knee pain/OA as well, will likely need R TKA also. Pt takes hydrocodone for back issues, taking tylenol &/or aleve for knee prn and using ice ~ 2x/day. She initially used WW after surgery then progressed to cane now walking without AD again. Pt says she had been limping for awhile prior to surgery. 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 Home Environment Patient Lives With: Spouse Assistance Available: Part-Time Equipment Owned: Shower Chair, Walker- Wheeled, Grab Bars- Shower, Elevated Toilet Seat, Cane Intake Information: Prescription present Previous Treatment: Injections , Surgery , Heat , Ice , Home Therapy Falls Interview: No positive findings with falls interview Pain: Pain Pain Level: 5 Pain Location: Knee - Left Description: Aching, Sore, Stiffness, Sharp Frequency: Continuous, Intermittent Detailed Pain Score: Yes Worst Pain Level: 6 Best Pain Level: 3 Post Treatment Pain Post Treatment Pain Level: No Change OBJECTIVE MEASURES WITH LEVEL OF FUNCTION: Posture / Alignment Lumbo - Pelvic Alignment: L IC elevated in stance LE Observations: L LE lacking TKE Leg Length Discrepency: L LE longer in supine Knee Observations L Knee Presents with: Swelling, Warmth, Incision L Incision: closed & healed L Knee Palpation Tenderness: Medial Hamstring, Lateral Hamstring Sensation - Lower Extremity LE Light Touch Sensation: Grossly Intact LE AROM R Knee Extension: -1 Degrees R Knee Flexion: 135 Degrees L Knee Extension: -6 Degrees L Knee Flexion: 110 Degrees LE Flexibility Flexibility: Hamstring Flexibility L Hamstring Flexibility: palpable tightness espt distal HS tendons LE Joint Mobility R Patellar Mobility: Hypomobile L Patellar Mobility: Hypomobile LE Strength R LE Strength: grossly 4+ to 5/5 except calf weakness as noted below R Ankle Plantar Flexion: 3-/5 (increased weakness R vs L, pt reports previous R Achilles issues) L Hip Extension: 4+/5 L Hip Flexion (L2): 4/5 L Hip ABduction: 4+/5 L Knee Extension (L3): 4/5 L Knee Flexion: 4+/5 L Ankle Dorsiflexion (L4): 5/5 L Ankle Plantar Flexion: 3+/5 Gait Gait: Independent Gait Device: None Gait Deviations: Left Lower Extremity Gait Deviations Left Lower Extremity: Lacks full knee extension during terminal swing, Knee flexion during stance increased Gait Observation: mild antalgia d/t L LE lacking TKE Stairs: Supervision Stairs: 10 steps with 1 HR mostly non-reciprocal: ascends with R or L, usually descends with L (operative leg) (able to do reciprocal ascent, but non-reciprocal descent) Functional Performance Test Results Assistive Device: None 5 Times Sit to Stand Test : 14 sec (from 17 chair with UE assist) Timed Up and Go (sec): 12 sec Education: Education Barriers: None Learning/educational needs: Procedure / Surgery, Home exercise program, Plan of Care, Gait Training Education Provided: Yes, see treatment interventions for education provided Education Provided To: Patient Education Mode/Type: Demonstration, Explanation/Discussion, Performance Response to Education/Teach Back: States/Identifies, Return Demonstration, Requires Review/Additional Education TREATMENT: PT Treatment Interventions: Therapeutic Exercise, Manual Therapy, Gait Training Evaluation Therapeutic Exercise: 1: *QS long-sit 10xB 2: *HS stretch long-sit/standing L 3: *L calf stretch standing 4: Nu-step L4x5' seat 10-8 Skilled Intervention: Patient was educated in proper exercise technique and purpose for exercises. Reviewed and educated patient on additions/changes for home exercise program as above (*). Skilled judgment was provided in selection of appropriate interventions. Correct performance of therapeutic exercises was facilitated with verbal, visual, and tactile cuing. Education in use of heat and ice and parameters for each. Educated patient on rationale for performing exercises in regards to increase ease of ADL and ROM and function . Patient education as noted. Manual Therapy: 1: patella mobilization, scar tissue massage 2: STM/DTM to distal HS in prone Skilled Intervention: Manual skills to improve joint mobility, ROM, and decrease pain. Utilized anatomy knowledge of the therapist, and assessment of patient's response to intervention. Gait Training: Stair Trainin steps with 1 HR: able to do reciprocal ascent, mostly non-reciprocal descent leads with R LE 1: gait activities without AD. recommended using SPC prn for alot of walking d/t lacking TKE. discussed possible need for heel/shoe lift on R Skilled Intervention: Facilitated proper gait cycle with the use of verbal and visual cues for correction of gait deviations identified in the objective section above. Skilled judgment used to assess selection of assistive device. Education provided to patient regarding the proper sequence for stair negotiation. Billing * Evaluation Low Complexity: 1 Unit Therapeutic Exercise Treatment Minutes: 20 Manual TherapyTreatment Minutes: 5 Gait Training Treatment Minutes: 5 Total Treatment Time Minutes (timed/untimed): 50 Kelli Gomez PT documented in this encounter [facility] 05-29-2022 Miscellaneous Notes SITUATION: MOLDER PUNCH routine visit. only patient present during today's visit. patient reports the following since the last homecare visit: medications/allergies--no changes, no fall. patient reports cont'd back pain. BACKGROUND: Diagnoses (reason for Home Care): L TKA Weight Bearing/Precaution Changes: no changes ASSESSMENT: Pt reports cont'd back pain during today's PT tx. Pt's incision appears clean, dry, and intact with no S/S of infection. L Knee ROM: 0 to 114 degrees Focus of visit: Improve knee strength and ROM. Plan of care, goals, and visit frequency reviewed and agreed upon with patient and/or caregiver. Current Discharge Plan: outpatient rehab Anticipate discharge by 06/03/22 RECOMMENDATION: Pt is scheduled for PT re-eval on 06/03/22. Pt status and D/C plans discussed with pt and PT ( Keyonna ). See intervention summary for intervention/education details. documented in this encounter [facility] 05-28-2022 Miscellaneous Notes SITUATION: MOL[facility] [place]UNCH routine visit. only patient present during today's visit. patient reports the following since the last homecare visit: medications/allergies--no changes, no fall. patient reports [place] I've had had back issues for years and my back more of an issue now then my knee. I'm going to take care of my back issues next. BACKGROUND: Diagnoses (reason for Home Care): L TKA Weight Bearing/Precaution Changes: no changes ASSESSMENT: Pt reports increased back pain. Pt's incision appears clean, dry, and intact with no S/S of infection. L Knee ROM: 2 to 113 degrees Focus of visit: Improve knee strength and ROM. Plan of care, goals, and visit frequency reviewed and agreed upon with patient and/or caregiver. Current Discharge Plan: outpatient rehab Anticipate discharge by 05/29/22 RECOMMENDATION: Pt would cont to benefit from further PT tx to improve knee strength/ ROM and balance in order to improve mobility/ stability so pt can safely ambulate through out her home and in the community. Next visit to focus on: Improve knee strength and ROM. See intervention summary for intervention/education details. documented in this encounter [facility] 05-25-2022 Miscellaneous Notes pharmacy electronically requesting refills as follows: Last seen 06/26/21 . Last refill trazodone 01/20/22, zolpidem 04/24/22 . Requested Prescriptions Pending Prescriptions Disp Refills traZODone (DESYREL) 50 mg tablet [Pharmacy Med Name: trazodone 50 mg tablet] 60 tablet 0 Sig: TAKE 2 TABLETS BY MOUTH ONCE DAILY AT BEDTIME zolpidem (AMBIEN) 5 mg tablet [Pharmacy Med Name: zolpidem 5 mg tablet] 30 tablet 0 Sig: TAKE 1 TABLET BY MOUTH ONCE DAILY AT BEDTIME NEEDED Please review and advise. Arabella Michaud MA documented in this encounter [facility] 05-25-2022 Miscellaneous Notes 05/25/22 10:31 AM - 10:33 AM TOB[employer]HER called the pt. regarding if she received the Living Will and Medical POA forms in the mail. She stated that someone has to go to the [employer] for her and she only gets her mail so often. The pt. to call TOBAC[employer] WEIGHER if she does not receive the Advanced Directive foirms in the mail. documented in this encounter [facility] 05-22-2022 Miscellaneous Notes SITUATION: MOLDER PUNCH routine visit. only patient present during today's visit. patient reports the following since the last homecare visit: medications/allergies--no changes, no fall. patient reports BACKGROUND: Diagnoses (reason for Home Care): L TKA Weight Bearing/Precaution Changes: no changes ASSESSMENT: Pt reports no increased pain during today's PT tx. Pt's incision appears clean, dry, and intact with no S/S of infection. L Knee ROM: 4 to 106 degrees Focus of visit: Stair training Plan of care, goals, and visit frequency reviewed and agreed upon with patient and/or caregiver. Current Discharge Plan: outpatient rehab Anticipate discharge by 06/03/22 RECOMMENDATION: Pt would cont to benefit from further PT tx to improve knee strength/ ROM and balance in order to improve mobility/ stability so pt can safely ambulate through out her home and in the community. Next visit to focus on: LE/ UE ther ex and stretching program. See intervention summary for intervention/education details. documented in this encounter [facility] 05-21-2022 Miscellaneous Notes SITUATION: MOLDER PUNCH routine visit. only patient present during today's visit. patient reports the following since the last homecare visit: medications/allergies--no changes, no fall. patient reports BACKGROUND: Diagnoses (reason for Home Care): L TKA Weight Bearing/Precaution Changes: no changes ASSESSMENT: Pt reports no increased pain during today's PT tx. Pt's incision appears clean, dry, and intact with no S/S of infection. L Knee ROM: Focus of visit: Improve knee strength and ROM. Plan of care, goals, and visit frequency reviewed and agreed upon with patient and/or caregiver. Current Discharge Plan: outpatient rehab Anticipate discharge by 06/03/22 RECOMMENDATION: Pt would cont to benefit from further PT tx to improve knee strength/ ROM and balance in order to improve mobility/ stability so pt can safely ambulate through out her home and in the community. Next visit to focus on: Improve knee strength and ROM. See intervention summary for intervention/education details. documented in this encounter [facility] 05-19-2022 Miscellaneous Notes Patient informed of fasting blood work order, she states it will be awhile before she is able to come up since she just had her left knee replaced. Arabella Michaud MA Please notify pt she is due for fasting lipid panel - order attached Kate Espinoza DO Pharmacy requesting refills: Last office visit 06/26/2021. Last refill lisinopril last filled 05/13/2021 atorvastatin last filled 04/25/2021 nov none Requested Prescriptions Pending Prescriptions Disp Refills lisinopril 2.5 mg tablet 90 tablet 3 Sig: Take 1 tablet by mouth once daily. atorvastatin (LIPITOR) 80 mg tablet [Pharmacy Med Name: atorvastatin 80 mg tablet] 90 tablet 3 Sig: TAKE 1 TABLET BY MOUTH ONCE DAILY AT BEDTIME Please review and advise. Kenna Cui MA documented in this encounter [facility] 05-19-2022 Miscellaneous Notes SITUATION: OT evaluation only patient present during today's visit. patient reports the following since the last homecare visit: medications/allergies--no changes, no fall. BACKGROUND: Diagnoses (reason for Home Care): Aftercare following joint replacement surgery Unilateral primary osteoarthritis, left knee Chronic sys tolic (congestive) heart failure Past Medical History: Gastroesophageal Reflux Disease Without Esophagitis Recurrent Major Depression in Partial Remission (Hcc) Primary Insomnia Primary Osteoarthritis Involving Multiple Joints On Tricyclic Antidepressant The rapy Obesity, Class II, Bmi 35-39.9 History of DE (Myocardial Infarction) History of Suicide Attempt Tobacco Use Disorder Chronic Gout of Foot Bmi 35.0-35.9,Adult Status Post Insertion of Drug Eluting Coronary Artery Stent Mixed Hyperlipidemia Primary Hypertension Coronary Artery Disease Involving 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 Weight Bearing or Surgical Precautions: WBAT, fall risk ASSESSMENT: Patient evaluated by [facility] occupational therapy. Reviewed and explained homecare services. Plan of care, goals and visit frequency developed, reviewed, and agreed upon with patient and/or caregiver. Current Discharge Plan:remain in community with/without caregiver support. Anticipate discharge by 05/19/22 RECOMMENDATION: See intervention summary for intervention/education details. documented in this encounter [facility] 05-18-2022 Miscellaneous Notes SITUATION: Halfway Eval completed today. PT also present during today's visit. The patient reports the following: Allergies--reviewed Medications--Full medication reconciliation completed and Accurate medication list present in home Falls--none DME-Reviewed and changes added to chart BACKGROUND: Reason for SN eval: Staple/suture removal ASSESSMENT: SN greeted at door by patient yelling for SN to enter home. Patient is alert and oriented x4. Patient appears in no acute distress. Patient lives at home with . Home environment is clean and uncluttered. Patient/CG concerns verbalized today: Feeling nervious, anxious about staple removal today Vitals (see flow sheet for details):stable SN findings today: Pt sitting up in recliner chair, cooperative for visit. Pt verbalized having decreased appetite since surgery - SN educated pt regarding nutrition - protein intake, small/frequent meals, staying hydrated. BP low this visit but pt denies dizziness. Pt reports she has been sleeping on the couch currently and needs SBA for transfers. Using rollator to ambulate throughout home, verbalizes compliance. LSCOA. Edema noted to LLE, encouraged use of ice. Pt reports 7/10 pain relieved by rest/medications. L knee incision leann removed per orders and sutures removed in LLE without issues or concerns. Steristrips applied to L knee incision. Minimal drainage noted. SN educated regarding s/s infection and when to report, pt verbalized understanding. She does require assistance with transfers/dressing/bathing. installed grab bar in shower and she has shower chair. SN educated pt not to shower unless someone is home with her, she verbalized understanding. SN discussed plan of care with pt and agree only necessary for 1w1. See intervention summary for education details. SN Plan of Care developed and reviewed with patient and agreed with plan of care. Patient demonstrated a need for further skilled SN services for chronic disease management & education, medication education, wound/skin care and safety. RECOMMENDATION: Visit Frequency: 1w1 Patient has need for additional services: PT referrals discussed with patient/caregiver andpatient/caregiver agreeable and referral added to POC. Additional concerns to be followed up on: none Next visit to focus on (be specific): n/a EVAL only documented in this encounter [facility] 05-18-2022 Note HNO ID: [id number] Author: Estephania Crawford LPN Service: ? Author Type: LICENSED NURSE Type: Progress Notes Filed: 05/19/2022 12:39 PM Note Text: TRANSITIONAL CARE MANAGEMENT (TCM) COMMUNITY MONITORING PROGRAM - [place] Provider Action/FYI: SUMMARY: Pt discharged from [facility] on 05/15/2022. Admitted for: Total L knee Risk score: 15 Contact made with patient: No - 2nd unsuccessful attempt - end outreach and close encounter Outreach ended Unable to contact patient via telephone. Outreach ended. Estephania Crawford LPN TRANSITIONAL CARE MANAGEMENT (TCM) COMMUNITY MONITORING PROGRAM - [place] Provider Action/FYI: SUMMARY: [facility] from [facility]. Admitted for: Total L knee Risk score: 15 Contact made with patient: No - next outreach attempt will be on next business day Outreach ended Next attempt will be made on 05/19/2022. Estephania Crawford LPN [facility] 05-18-2022 Note Patient Outreach (AG INTMLW) NUSRAT BAIN ([id number]) 1960 F Date Time Provider Department 05/18/22 ESTEPHANIA CRAWFORD AGINTMLW During your visit today, we recorded the following information about you: Estephania Crawford LPN 05/19/2022 12:39 PM Signed TRANSITIONAL CARE MANAGEMENT (TCM) COMMUNITY MONITORING PROGRAM - [place] Provider Action/FYI: SUMMARY: Pt discharged from [facility] on 05[facility]2022. Admitted for: Total L knee Risk score: 15 Contact made with patient: No - 2nd unsuccessful attempt - end outreach and close encounter Outreach ended Unable to contact patient via telephone. Outreach ended. Estephania Crawford LPN TRANSITIONAL CARE MANAGEMENT (TCM) COMMUNITY MONITORING PROGRAM - [place] Provider Action/FYI: SUMMARY: Pt discharged from [facility] on 05[facility]22. Admitted for: Total L knee Risk score: 15 Contact made with patient: No - next outreach attempt will be on next business day Outreach ended Next attempt will be made on 05/19/2022. Estephania Crawford LPN Allergies As of Date: 05/18/2022 (No Known Allergies) Date Reviewed: 05/15/2022 Reviewed by: Ashley Roy RN - Fully Assessed Reason for Visit: Transition Of Care [4074] Cmt: [facility] discharge 05/15/2022 TCM encounter Prescriptions as of 05/19/2022 - HYDROcodone-acetaminophen (NORCO) 5-325 mg per tablet Take 1 tablet by mouth twice daily as needed for pain. - atorvastatin (LIPITOR) 80 mg tablet Take 80 mg by mouth once daily. - aspirin, enteric coated (ASPIR-LOW) 81 mg EC tablet Take 81 mg by mouth once daily. - lisinopril (ZESTRIL) 2.5 mg tablet Take 2.5 mg by mouth once daily. - ticagrelor (BRILINTA) 90 mg tablet Take 90 mg by mouth once daily. - metoprolol tartrate, short acting, (LOPRESSOR) 25 mg tablet Take 1 tablet by mouth once daily. - pantoprazole DR (PROTONIX) 40 mg tablet Take 1 tablet by mouth DAILY (6 AM). - senna-docusate (SENNA-S) 8.6-50 mg per tablet Take 1 tablet by mouth twice daily. - therapeutic multivitamin-minerals (THERA-M PLUS) 9 mg iron-400 mcg tablet Take 1 tablet by mouth once daily. - lidocaine (LIDODERM) 5 % Apply 1 Patch as directed once daily. to affected area. Remove patch after 12 hours. - zolpidem (AMBIEN) 5 mg tablet TAKE 1 TABLET BY MOUTH DAILY AT BEDTIME NEEDED - isosorbide mononitrate ER (IMDUR) 30 mg 24 hr tablet Take 1 tablet by mouth once daily. - allopurinol (ZYLOPRIM) 100 mg tablet Take 2 tablets by mouth once daily. - traZODone (DESYREL) 150 mg tablet Take 1 tablet by mouth daily at bedtime. - venlafaxine ER (EFFEXOR XR) 150 mg 24 hr capsule Take 1 capsule by mouth once daily. - venlafaxine ER (EFFEXOR XR) 75 mg 24 hr capsule Take 1 capsule by mouth once daily. Take with 150 mg capsule daily. - meloxicam (MOBIC) 15 mg tablet TAKE 1 TABLET BY MOUTH ONCE DAILY - furosemide (LASIX) 20 mg tablet Take 1 tablet by mouth once daily. - spironolactone (ALDACTONE) 25 mg tablet Take 0.5 tablets by mouth once daily. - lisinopril 2.5 mg tablet Take 1 tablet by mouth once daily. - atorvastatin (LIPITOR) 80 mg tablet Take 1 tablet by mouth daily at bedtime. - aspirin 81 mg chewable tablet Take 1 tablet by mouth once daily. - acetaminophen (TYLENOL) 325 mg tablet Take 1-2 tablets by mouth every 6 hours as needed for pain. - ticagrelor (BRILINTA) 90 mg tablet Take 1 tablet by mouth twice daily. - albuterol HFA (PROVENTIL HFA, VENTOLIN HFA) 90 mcg/actuation inhaler Inhale 2 Puffs as instructed every 4 hours as needed. Facility-Administered Medications as of 05/19/2022 - perflutren lipid microspheres 1.3 mL in NaCl (PF) 0.9% 10 mL injection (DEFINITY) - sodium chloride 0.9 % (flush) 10 mL (BD POSIFLUSH) Meds Comments as of 02/25/2007: All medications have been reviewed todayFebruary 02, 2007 Maria A Bell Lpn All medications have been reviewed today/February 25, 2007 Maria A eBll Lpn Problem List As Of Date 05/18/2022 Noted Resolved Urge incontinence of urine [N39.41] 05/08/2016 Gastroesophageal reflux disease without esophag*05/08/2016 Female dyspareunia [N94.10] 05/08/2016 Vaginal atrophy [N95.2] 05/08/2016 Recurrent major depression in partial remission*05/08/2016 Primary insomnia [F51.01] 05/08/2016 Dermatitis [L30.9] 10/19/2016 Primary osteoarthritis involving multiple joint*04/26/2017 On tricyclic antidepressant therapy [Z79.899] 07/09/2017 Obesity, Class II, BMI 35-39.9 [E66.9] 04/18/2018 History of DE (myocardial infarction) [I25.2] Polysubstance overdose [T50.901A] 08/18/2018 08/20/2018 History of suicide attempt [Z91.51] 08/18/2018 Altered mental status [R41.82] 08/18/2018 08/20/2018 Alcohol intoxication (HCC) [F10.929] 08/18/2018 08/20/2018 Tobacco use disorder [F17.200] 08/21/2018 Chronic gout of foot [M1A.0790] 11/17/2018 BMI 35.0-35.9,adult [Z68.35] 04/29/2019 Sun-damaged skin [L57. (more content not included)... [facility] 05-18-2022 History of Presen t illness Narrative TRANSITIONAL CARE MANAGEMENT (TCM) COMMUNITY MONITORING PROGRAM - [place] Provider Action/FYI: SUMMARY: Pt discharged from [facility] on 05/15/2022. Admitted for: Total L knee Risk score: 15 Contact made with patient: No - 2nd unsuccessful attempt - end outreach and close encounter Outreach ended Unable to contact patient via telephone. Outreach ended. Estephania Crawford LPN TRANSITIONAL CARE MANAGEMENT (TCM) COMMUNITY MONITORING PROGRAM - [facility] Provider Action/FYI: SUMMARY: Pt discharged from [facility] on 05/15/2022. Admitted for: Total L knee Risk score: 15 Contact made with patient: No - next outreach attempt will be on next business day Outreach ended Next attempt will be made on 05/19/2022. Estephania Crawford LPN documented in this encounter [facility] 05-18-2022 Miscellaneous Notes 05/18/22 TOBACCO WEIGHER spoke to the patient today regarding wanting Living Will and Medical POA forms mailed to her. TOBACCO WEIGHER discussed with the patient how she was managing and regarding more help in the home. She stated she was managing and did not need more assist. TOBACCO WEIGHER mailed the patient the Living Will and Medical POA forms and About Advanced Directives pamphlet. TOBACCO WEIGHER provided the patient with her name and phone number and attached my card with information mailed. Thank You, documented in this encounter [facility] 05-18-2022 Miscellaneous Notes 05/18/22 In Ryanne Newby PT - Patient requesting living will and DPOA packet mailed to her. 05/18/22 10:22 AM - 10:25 AM TOBACCO WEIGHER called the pt. regarding wanting the Living Will and Medical POA forms mailed to her and she stated that she did. TOBACCO WEIGHER asked the pt. how she was managing and regarding if more help needed in the home. She stated she was doing fine. TOBACCO WEIGHER provided the pt. with her name and phone number. TOBACCO WEIGHER informed the pt. TOBACCO WEIGHER will attach her card with information mailed to her. 05/18/22 TOBACCO WEIGHER mailed the patient the Living Will and Medical POA forms and About Advanced Directives pamphlet. TOBACCO WEIGHER attached her card with information mailed. 05/18/[address] Kate Espinoza - TOBACCO WEIGHER spoke to the patient today regarding wanting Living Will and Medical POA forms mailed to her. TOBACCO WEIGHER discussed with the patient how she was managing and regarding more help in the home. She stated she was managing and did not need more assist. TOBACCO WEIGHER mailed the patient the Living Will and Medical POA forms and About Advanced Directives pamphlet. TOBACCO WEIGHER provided the patient with her name and phone number and attached my card with information mailed. Thank You, documented in this encounter [facility] 05-15-2022 Miscellaneous Notes Welcome Home Call: a. Date and Time: 8:46 AM 05/15/2022 b. Contact name/relationship: NUSRAT BAIN PATIENT c. Have you been active with any Home Care company in the last 60 days(such as help with bathing, filling medications, checking your blood pressure) ? No. d. Was patient given Flu shot this Season (After Nov,): Yes: Location: [facility] , Date received: 02/17 e. [facility] will be providing your care, are you agreeable to starting these services? YES (yes or no) f. Do you have any upcoming appointments in the next few days, or restrictions to your schedule? NO g. Caregiver: Patient is able to manage care independently h. Confirmed Visited Location and preferred #: YES Please keep our your medications both over the counter and prescribed out for the home care to review, your hospital discharge instructions and write down any questions you might have. In order to maintain a safe environment for our caregivers, [facility] requires any animals or weapons present in the home be located in a secured location. Our clinicians will call you the night before or the morning of the appointment. Their # may come up restricted but they'll leave a VM for you. In case you have any questions or concerns in the meantime, our # is [phone], option 5 Thank you for your time and have a great day. Lara Francois, Route [employer] documented in this encounter [facility] 05-12-2022 Note HNO ID: [id number] Author: John Rivera APRN.DARK ROOM ATTENDANT Service: Hospital Medicine Author Type: Nurse Practitioner Type: Progress Notes Filed: 05/12/2022 11:29 AM Note Text: DEPARTMENT OF HOSPITAL MEDICINE PROGRESS NOTE SERVICE DATE: 05/12/2022 SERVICE TIME: 11:01 AM Hospital Medicine/Primary Attending: Kofi Batista, * NIGHT AND WEEKEND COVERAGE: [facility] medicine coverage Subjective INTERVAL HPI: Patient seen at bedside. Just completed working with physical therapy. She is still surprised by how much pain she is in. Post op dressing removed. Incision clean, dry, intact with leann in place. Plan for staple removal 10 days post op per ortho recs. Current Facility-Administered Medications Medication Dose Route Frequency acetaminophen 1,000 mg tab(s) (TYLENOL) 1,000 mg ORAL q 8 H allopurinol 200 mg tab(s) (ZYLOPRIM) 200 mg ORAL DAILY aspirin 81 mg chewable tab(s) 81 mg ORAL DAILY atorvastatin 80 mg tab(s) (LIPITOR) 80 mg ORAL AT BEDTIME isosorbide mononitrate ER 30 mg tab(s) (IMDUR) 30 mg ORAL DAILY lisinopril 2.5 mg tab(s) (ZESTRIL, PRINIVIL) 2.5 mg ORAL DAILY metoprolol tartrate (short acting) 25 mg tab(s) (LOPRESSOR) 25 mg ORAL DAILY ondansetron orally disintegrating 4 mg tab(s) (ZOFRAN ODT) 4 mg ORAL q 6 H PRN oxyCODONE IR 5-10 mg tab(s) (ROXICODONE) 5-10 mg ORAL q [address] 40 mg tab(s) (PROTONIX) 40 mg ORAL DAILY (6 AM) senna-docusate 8.6-50 mg 1 tablet (SENNA-S) 1 tablet ORAL BID spironolactone 12.5 mg tab(s) (ALDACTONE) 12.5 mg ORAL DAILY ticagrelor 90 mg tab(s) (BRILINTA) 90 mg ORAL BID traZODone 150 mg tab(s) (DESYREL) 150 mg ORAL AT BEDTIME venlafaxine ER 150 mg cap(s) (EFFEXOR XR) 150 mg ORAL DAILY WITH BREAKFAST zolpidem 5 mg tab(s) (AMBIEN) 5 mg ORAL AT BEDTIME PRN therapeutic multivitamin-minerals tablet (THERA-M PLUS) 1 tablet ORAL DAILY Objective PHYSICAL EXAM: BP 103/70 Pulse 98 Temp (Src) 98.4 (Oral) Resp 16 Ht 5' 3 (1.60m) Wt 205 lb 3.2 oz (93.1kg) SpO2 97% LMP 03/29/2013 BMI 36.36 kg/(m2). O2 Therapy: Room Air Physical Exam Performed GENERAL: Alert, no distress, cooperative. Sitting up in chair eating SKIN: Skin color, texture, turgor normal. No rashes or lesions. HEAD/SINUSES: No significant findings. AT/NC EYES: Anicteric sclera, EOMI OROPHARYNX: MMM LUNGS: Lungs clear to auscultation, good diaphragmatic excursion CARDIAC: Normal S1 and S2; no rubs, murmurs, or gallops ABDOMEN: Abdomen soft, non-tender, BS present EXTREMITIES: Left knee with incision clean dry and leann intact. There is generalized edema to the LLE. Good neurovascular check Lines, Drains, and Airways None Patient does not currently have any lines, drains or airways. DATA: Diagnostic tests reviewed for today's visit: Most recent labs Most recent imaging Assessment/Plan Problem List Aftercare POA: Yes History of suicide attempt POA: Yes Gastroesophageal reflux disease without esophagitis POA: Yes History of DE (myocardial infarction) POA: Yes STEMI involving right coronary artery (HCC) POA: Yes Status post insertion of drug eluting coronary artery stent POA: Yes Primary hypertension POA: Yes Coronary artery disease involving false pass coronary artery of false pass heart without angina pectoris POA: Yes Chronic systolic congestive heart failure (HCC) POA: Yes S/P total knee replacement, left POA: Yes Malnutrition of moderate degree (HCC) POA: Yes HOSPITAL COURSE: Nusrat Bain is a 62 year old female with a past medical history of HTN, HLD, CAD s/p ASL in 2020, HFrEF of 43%, GERD, anxiety/depression, and left knee osteoarthritis who presented to [facility] following hospitalization at [facility] for left TKA Problem List: Aftercare - Discharged from [facility] on 05/06/22 following left TKA - Hospital course uncomplicated - At [facility] for rehab - Consult PT/OT - Case management for discharge planning - Nutrition consult - Pain control - DVT prevention with ASA, Brillinta, compression stockings and early ambulation Osteoarthritis of the left knee S/P total knee replacement, left - Continue to progress PT/OT - TTWB to LLE - Pain control with scheduled Tylenol and PRN oxycodone - DVT prevention with ASA, Brillinta, compression stockings and early ambulation - Ice machine to L knee - Follow up with Ortho outpatient as scheduled in may History of CAD/STEMI - Status post insertion of drug eluting coronary artery stent in January 2021 - Denies chest pain or exertional dyspnea - Continue ASA, Brillinta, BB, imdur, and statin Chronic systolic congestive heart failure - TTE June 2021 with EF 43% - Appears compensated on exam - Continue guideline directed therapy - Monitor volume status - Follow up with cardiology as scheduled Primary hypertension - Stable on Lisinopril, metoprolol and spironolactone - Continue and monitor Gastroesophageal reflux disease (more content not included)... [facility] 05-06-2022 Note HNO ID: [id number] Author: Bhumika Black RN Service: Nursing Author Type: Registered Nurse Type: Nursing Progress Note Filed: 05/06/2022 5:57 PM Note Text: Himanshu Jaeger APRN.CNP made aware of moderate risk on suicide assessment. [facility] 05-06-2022 Note HNO ID: [id number] Author: Pennie Jaeger APRN.CNP Service: Hospital Medicine Author Type: Nurse Practitioner Type: Plan of Care Filed: 05/06/2022 3:22 PM Note Text: DEPARTMENT OF HOSPITAL MEDICINE PLAN OF CARE NOTE SERVICE DATE: 05/06/2022 SERVICE TIME: 3:19 PM Hospital Medicine/Primary Attending: Kofi Batista, * NIGHT AND WEEKEND COVERAGE: Sounds physician after 1900 Transferred to [facility] from [facility] for aftercare following L TKA Full HANDP to follow Aftercare - Discharge facility: [facility] - Diagnosis: OA s/p L TKA - PT/OT consult - Nutrition consult - manager information for discharge disposition - Pain management - DVT prophylaxis SIGNATURE: Pennie Jaeger APRN.JANET PATIENT NAME: Nusrat Bain DATE: May 06, 2022 TIME: 3:19 PM [facility] 04-24-2022 Miscellaneous Notes Pharmacy requesting refills as follows: Last Office Visit 06/26/21. Last Refill 03/24/22. Requested Prescriptions Pending Prescriptions Disp Refills zolpidem (AMBIEN) 5 mg tablet [Pharmacy Med Name: zolpidem 5 mg tablet] 30 tablet 0 Sig: TAKE 1 TABLET BY MOUTH DAILY AT BEDTIME NEEDED Please review and advise. Serenity Doherty MA documented in this encounter [facility] 04-03-2022 Miscellaneous Notes Cardiac clearance form received from [facility]. Placed in Chelle Beasley APRN door box. Maria D Mcmillan RN documented in this encounter [facility] 03-24-2022 Miscellaneous Notes Pharmacy requesting refills: Last office visit 06/26/2021. Last refill ambien last filled 02/23/2022 omeprazole last filled 10/10/2021 nov none Requested Prescriptions Pending Prescriptions Disp Refills zolpidem (AMBIEN) 5 mg tablet [Pharmacy Med Name: zolpidem 5 mg tablet] 30 tablet 0 Sig: TAKE 1 TABLET BY MOUTH DAILY AT BEDTIME NEEDED omeprazole (PRILOSEC) 40 mg capsule [Pharmacy Med Name: omeprazole 40 mg capsule,delayed release] 30 capsule 3 Sig: TAKE 1 CAPSULE BY MOUTH ONCE DAILY Please review and advise. Kenna Cui MA ph documented in this encounter [facility] 03-11-2022 Miscellaneous Notes Patient's request for medication is as follows: Requested Prescriptions Pending Prescriptions Disp Refills isosorbide mononitrate ER (IMDUR) 30 mg 24 hr tablet 90 tablet 3 Sig: Take 1 tablet by mouth once daily. Last seen 12/31/2021. Next visit 01/06/2023. Prescription(s) as above. Please process accordingly. Alana Avalos LPN documented in this encounter [facility] 02-23-2022 Miscellaneous Notes Pharmacy requesting refills as follows: Last Office Visit 06/26/21. Last Refill 01/20/22. Requested Prescriptions Pending Prescriptions Disp Refills zolpidem (AMBIEN) 5 mg tablet [Pharmacy Med Name: zolpidem 5 mg tablet] 30 tablet 0 Sig: TAKE 1 TABLET BY MOUTH DAILY AT BEDTIME NEEDED Please review and advise. Serenity Doherty MA documented in this encounter [facility] 02-16-2022 Miscellaneous Notes Received a form from [facility] to hold the brilinta. Placed in Chelle Gale's door box for completion. Maria D Mcmillan RN documented in this encounter [facility] 01-22-2022 Miscellaneous Notes pharm requesting refills: Last office visit 06/26/2021. Last refill 09/16/2021 nov none Requested Prescriptions Pending Prescriptions Disp Refills allopurinol (ZYLOPRIM) 100 mg tablet [Pharmacy Med Name: allopurinol 100 mg tablet] 60 tablet 1 Sig: Take 2 tablets by mouth once daily. Please review and advise. Kenna Cui MA documented in this [facility] [facility] Miscellaneous Notes pharmacy electronically requesting refills as follows: Last seen 06/26/21 . Last refill trazodone 09/03/21, zolpidem 12/23/21 . Requested Prescriptions Pending Prescriptions Disp Refills zolpidem (AMBIEN) 5 mg tablet [Pharmacy Med Name: zolpidem 5 mg tablet] 30 tablet 0 Sig: TAKE 1 TABLET BY MOUTH DAILY AT BEDTIME NEEDED traZODone (DESYREL) 150 mg tablet [Pharmacy Med Name: trazodone 150 mg tablet] 30 tablet 3 Sig: Take 1 tablet by mouth daily at bedtime. Please review and advise. Arabella Michaud MA documented in this encounter [facility] 01-15-2022 Miscellaneous Notes pharmacy faxes requesting refills as follows: Last seen 06/26/21 . Last refill 08/05/21 . Requested Prescriptions Pending Prescriptions Disp Refills venlafaxine ER (EFFEXOR XR) 150 mg 24 hr capsule 30 capsule 1 Sig: Take 1 capsule by mouth once daily. Please review and advise. Arabella Michaud MA documented in this encounter [facility] 01-02-2022 Miscellaneous Notes Clearance form received from [facility], [facility]. Requesting patient stop Brilinta 5 days prior to pain management procedure. Form placed in Chelle Beasley APRN.DARK ROOM ATTENDANT door box, form also scanned in. Alana Avalos LPN documented in this encounter [facility] 12-31-2021 History of Presen t illness Narrative Images from the original note were not included. Brodie Guevara MD Interventional Cardiology [address] [place], [place] [id number] Chief Complaint Patient presents with: CARD Follow Up 6 Month: Chronic heart failure HISTORY OF PRESENT ILLNESS: Ms. Bain is a 61 year old female seen in my office today for assessment management of coronary artery disease patient had prior history of drug-eluting stent to the proximal right coronary artery with diffuse mild coronary artery disease. And mild LVD Patient had repeat cardiac catheterization shows false pass vessels both stents are open mild diffuse coronary artery disease She still experiencing few episodes of chest pain not exertional Cardiac Risk Factors age (male over 45, female over 55), hyperlipidemia, history of smoking, hypertension, family history of CAD PAST MEDICAL HISTORY Diagnosis Date Coronary artery disease Depression Gout HLD (hyperlipidemia) Insomnia Left ventricular systolic dysfunction DE (myocardial infarction) (HCC) PMH - PAST MEDICAL HISTORY OF ULCER S/P drug eluting coronary stent placement 02/08/2021 RCA STEMI (ST elevation myocardial infarction) [facility] PAST SURGICAL HISTORY Procedure Laterality Date ANKLE SURGERY HX Right DELIVERY ONLY , low cervical, X-3 LAPAROSCOPY SURG CHOLECYSTECTOMY Cholecystectomy, lap PAST SURGICAL HISTORY OF Abcess removed from finger. PAST SURGICAL HISTORY OF Heart Cath STENT PLACEMENT 02/08/2021 SAL RCA TONSILLECTOMY AND ADENOIDECTOMY HX FAMILY HISTORY Problem Relation Age of Onset Thyroid Mother Heart Father COPD Father Cancer Other Paternal side of Family Social History Tobacco Use Smoking status: Every Day Packs/day: 0.25 Years: 40.00 Pack years: 10.00 Types: Cigarettes Start date: 03/29/1974 Smokeless tobacco: Never Substance Use Topics Alcohol use: Yes Comment: occasionally (used to be daily) Drug use: No ALLERGIES No Known Allergies Medications: Current Outpatient Medications Medication Sig Dispense Refill zolpidem (AMBIEN) 5 mg tablet TAKE 1 TABLET BY MOUTH ONCE DAILY AT BEDTIME NEEDED 30 tablet 0 venlafaxine ER (EFFEXOR XR) 75 mg 24 hr capsule Take 1 capsule by mouth once daily. Take with 150 mg capsule daily. 30 capsule 1 omeprazole (PRILOSEC) 40 mg capsule TAKE 1 CAPSULE BY MOUTH ONCE DAILY 30 capsule 3 meloxicam (MOBIC) 15 mg tablet TAKE 1 TABLET BY MOUTH ONCE DAILY 30 tablet 3 allopurinol (ZYLOPRIM) 100 mg tablet Take 2 tablets by mouth once daily. 60 tablet 1 traZODone (DESYREL) 150 mg tablet Take 1 tablet by mouth daily at bedtime. 30 tablet 3 venlafaxine ER (EFFEXOR XR) 150 mg 24 hr capsule Take 1 capsule by mouth once daily. 30 capsule 1 doxycycline (VIBRA-TABS) 100 mg tablet Take 1 tablet by mouth twice daily. 20 tablet 0 celecoxib (CELEBREX) 200 mg capsule Take 200 mg by mouth once daily. spironolactone (ALDACTONE) 25 mg tablet Take 0.5 tablets by mouth once daily. 45 tablet 3 benzonatate (TESSALON PERLES) 100 mg capsule Take 1 capsule by mouth three times daily as needed. 21 capsule 0 clobetasol (TEMOVATE) 0.05 % cream APPLY TO THE AFFECTED AREA(S) TWICE DAILY DIRECTED 15 g 2 metoprolol tartrate, short acting, (LOPRESSOR) 25 mg tablet Take 1 tablet by mouth twice daily. 180 tablet 3 lisinopril 2.5 mg tablet Take 1 tablet by mouth once daily. 90 tablet 3 atorvastatin (LIPITOR) 80 mg tablet Take 1 tablet by mouth daily at bedtime. 90 tablet 3 aspirin 81 mg chewable tablet Take 1 tablet by mouth once daily. 90 tablet 3 acetaminophen (TYLENOL) 325 mg tablet Take 1-2 tablets by mouth every 6 hours as needed for pain. 30 tablet 0 ticagrelor (BRILINTA) 90 mg tablet Take 1 tablet by mouth twice daily. 180 tablet 3 albuterol HFA (PROVENTIL HFA, VENTOLIN HFA) 90 mcg/actuation inhaler Inhale 2 Puffs as instructed every 4 hours as needed. 18 g 2 gabapentin (NEURONTIN) 300 mg capsule Take 300 mg by mouth three times daily. HYDROcodone-acetaminophen (NORCO) 5-325 mg per tablet TAKE 1 TABLET BY MOUTH TWICE DAILY to THREE TIMES DAILY NEEDED FOR PAIN isosorbide mononitrate ER (IMDUR) 30 mg 24 hr tablet Take 1 tablet by mouth once daily. 30 tablet 1 zoster vaccine, recombinant, adjuvanted, (SHINGRIX) 50 mcg/0.5 mL injection Repeat 2nd dose in 2-6 months. 1 Each 0 predniSONE (DELTASONE) 20 mg tablet Take 3 pills by mouth daily for 3 days, then 2 pills by mouth daily for 3 days, then 1 pill by mouth daily for 3 days 18 tablet 0 furosemide (LASIX) 20 mg tablet Take 1 tablet by mouth once daily. 90 tablet 3 traMADol (ULTRAM) 50 mg tablet Take 1 tablet by mouth twice daily as needed for pain. (Patient not taking: Reported on 06/26/2021) 60 tablet 0 varenicline (CHANTIX) 1 mg tablet Take 1 tablet by mouth twice daily. (Patient not taking: Reported on 06/25/2021 ) 60 tablet 2 Current Facility-Administered Medications Medication Dose Route Frequency Provider Last Rate Last Admin perflutren lipid microspheres 1.3 mL in NaCl (PF) 0.9% 10 mL injection (DEFINITY) INTRAVENOUS DIRECTED PRN Chelle Beasley APRN.DARK ROOM ATTENDANT sodium chloride 0.9 % (flush) 10 mL (BD POSIFLUSH) 10 mL INTRAVENOUS DIRECTED PRN Chelle Beasley APRN.DARK ROOM ATTENDANT perflutren lipid microspheres 1.3 mL in NaCl (PF) 0.9% 10 mL injection (DEFINITY) INTRAVENOUS DIRECTED PRN Kiley Joes MD sodium chloride 0.9 % (flush) 10 mL (BD POSIFLUSH) 10 mL INTRAVENOUS DIRECTED PRN Kiley Jose MD Review of Systems Constitutional: Negative for chills, diaphoresis, fever, malaise/fatigue and weight loss. HENT: Negative for congestion, ear discharge, ear pain, hearing loss, nosebleeds, sinus pain, sore throat and tinnitus. Eyes: Negative for blurred vision, double vision, photophobia, pain, discharge and redness. Respiratory: Negative for cough, hemoptysis, sputum production, shortness of breath, wheezing and stridor. Cardiovascular: Negative for chest pain, palpitations, orthopnea, claudication, leg swelling and PND. Gastrointestinal: Negative for abdominal pain, blood in stool, constipation, diarrhea, heartburn, melena, nausea and vomiting. Genitourinary: Negative for dysuria, flank pain, frequency, hematuria and urgency. Musculoskeletal: Negative for back pain, falls, joint pain, myalgias and neck pain. Skin: Negative for itching and rash. Neurological: Negative for dizziness, tingling, tremors, sensory change, speech change, focal weakness, seizures, loss of consciousness, weakness and headaches. Endo/Heme/Allergies: Negative for environmental allergies and polydipsia. Does not bruise/bleed easily. Psychiatric/Behavioral: Negative for depression, hallucinations, memory loss, substance abuse and suicidal ideas. The patient is not nervous/anxious and does not have insomnia. Physical Examination: Vitals:BP 110/73 Pulse 90 Ht 5' 4 (1.63m) Wt 212 lb (96.2kg) SpO2 97% LMP 03/29/2013 BMI 36.37 kg/(m^2). BP w/Orthostatic Vitals Date and Time Orthostatic BP Orthostatic Pulse BP Pulse BP Position BP Site BP Cuff Size 12/31/21 1345 -- -- 110/73 90 Sitting Left Arm Regular Adult Last 2 Encounter Wt Readings: Date: Wt: 12/31/2021 212 lb (96.2 kg) 07/02/2021 218 lb 9.6 oz (99.2 kg) Physical Exam Constitutional: General: She is not in acute distress. Appearance: She is not diaphoretic. HENT: Head: Normocephalic and atraumatic. Right Ear: External ear normal. Left Ear: External ear normal. Nose: Nose normal. Eyes: General: Right eye: No discharge. Left eye: No discharge. Conjunctiva/sclera: Conjunctivae normal. Pupils: Pupils are equal, round, and reactive to light. Cardiovascular: Rate and Rhythm: Normal rate and regular rhythm. Heart sounds: Normal heart sounds, S1 normal and S2 normal. No murmur heard. No friction rub. No gallop. No S3 or S4 sounds. Pulmonary: Effort: Pulmonary effort is normal. No respiratory distress. Breath sounds: Normal breath sounds. No wheezing or rales. Chest: Chest wall: No tenderness. Musculoskeletal: General: Normal range of motion. Cervical back: Normal range of motion and neck supple. Skin: General: Skin is warm and dry. Neurological: Mental Status: She is alert and oriented to person, place, and time. Psychiatric: Mood and Affect: Mood normal. Thought Content: Thought content normal. Judgment: Judgment normal. Pertinent Labs: CBC: Hemoglobin (g/dL) Date Value 07/03/2021 11.9 02/08/2021 13.9 Hematocrit (%) Date Value 07/03/2021 37.7 02/08/2021 41.0 WBC (k/uL) Date Value 07/03/2021 7.63 02/08/2021 8.84 Platelet Count (k/uL) Date Value 07/03/2021 272 02/08/2021 306 BMP: Glucose (mg/dL) Date Value 06/30/2021 130 02/08/2021 153 Potassium (mmol/L) Date Value 06/30/2021 4.0 02/08/2021 3.9 Sodium (mmol/L) Date Value 06/30/2021 137 02/08/2021 139 Chloride (mmol/L) Date Value 06/30/2021 102 02/08/2021 102 CO2 (mmol/L) Date Value 06/30/2021 22 02/08/2021 23 Creatinine (mg/dL) Date Value 06/30/2021 0.94 02/08/2021 0.79 BUN (mg/dL) Date Value 06/30/2021 26 02/08/2021 25 Anion Gap (mmol/L) Date Value 06/30/2021 13 02/08/2021 14 Calcium (mg/dL) Date Value 02/08/2021 9.5 Calcium, Total (mg/dL) Date Value 06/30/2021 9.6 INR: Lipid Profile: Cholesterol, Total Date Value Ref Range Status 04/21/2021 165 <200 mg/dL Final Comment: <200 mg/dL, Desirable 200-239 mg/dL, Borderline high >239 mg/dL, High HDL Cholesterol Date Value Ref Range Status 04/21/2021 39 (L) >39 mg/dL Final Comment: 40-59 mg/dL, Acceptable >59 mg/dL, High: Negative risk factor for coronary heart disease <40 mg/dL, Low: Positive risk factor for coronary heart disease LDL Cholesterol Date Value Ref Range Status 04/21/2021 96 <100 mg/dL Final Comment: <100 mg/dL, Optimal 100-129 mg/dL, Near optimal/above optimal 130-159 mg/dL, Borderline high 160-189 mg/dL, High >189 mg/dL, Very high Secondary prevention optimal LDL Cholesterol levels are recommended to be < 70 mg/dL Triglyceride Date Value Ref Range Status 04/21/2021 149 <150 mg/dL Final Comment: <150 mg/dL, Normal 150-199 mg/dL, Borderline high 200-499 mg/dL, High >499 mg/dL, Very high Hemoglobin A1C: No results found for: HGBA1C TSH: TSH Date Value Ref Range Status 08/18/2018 2.030 0.358 - 3.740 uIU/mL Final Prior Cardiac Testing none Assessment and Plan: 61 years old female patient one -vessel angioplasty with drug-eluting stent doing well from the cardiac point of view we will get add Imdur to her regimen Follow-up on yearly basis Follow up planning: One year Electronically signed by Brodie Guevara MD on December 31, 2021, 3:42 PM The above note was partially created using a dictation recognition software. A reasonable attempt has been made to correct any errors. documented in this encounter [facility] 12-31-2021 Nurse Note No cardiac concerns today documented in this encounter [facility] 12-23-2021 Miscellaneous Notes pharm requesting refills: Last office visit 06/26/2021. Last refill 11/24/2021 nov none Requested Prescriptions Pending Prescriptions Disp Refills zolpidem (AMBIEN) 5 mg tablet [Pharmacy Med Name: zolpidem 5 mg tablet] 30 tablet 0 Sig: TAKE 1 TABLET BY MOUTH ONCE DAILY AT BEDTIME NEEDED Please review and advise. Kenna Cui MA documented in this encounter [facility] 11-28-2021 Miscellaneous Notes Clearance form received from [facility] [place]. Form placed in Chelle Beasley APRN.[facility] door box. Alana Avalos LPN documented in this encounter [facility] 11-24-2021 Miscellaneous Notes pharmacy electronically requesting refills as follows: Last seen 06/26/21 . Last refill 10/23/21 . Requested Prescriptions Pending Prescriptions Disp Refills zolpidem (AMBIEN) 5 mg tablet [Pharmacy Med Name: zolpidem 5 mg tablet] 30 tablet 0 Sig: TAKE 1 TABLET BY MOUTH ONCE DAILY AT BEDTIME NEEDED Please review and advise. Arabella Michaud MA documented in this encounter [facility] 10-28-2021 Miscellaneous Notes Clearance form received from [facility] [place], [facility]. Form placed in Chelle Beasley APRN.DARK ROOM ATTENDANT door box. Alana Avalos LPN documented in this encounter [facility] 10-23-2021 Miscellaneous Notes pharmacy electronically requesting refills as follows: Last seen 06/26/21 . Last refill venlafaxine 08/05/21, zolpidem 09/23/21 . Pending Prescriptions Disp Refills VENLAFAXINE ER 75 MG CAPSULE,EXTENDED RELEASE 24 HR 30 capsule 1 Sig: Take 1 capsule by mouth once daily. Take with 150 mg capsule daily. CLEO: Yes ZOLPIDEM 5 MG TABLET 30 tablet 0 Sig: TAKE 1 TABLET BY MOUTH ONCE DAILY AT BEDTIME NEEDED JAMEY Class: C-IV CLEO: Yes Please review and advise. Arabella Michaud MA documented in this encounter [facility] 10-15-2021 Miscellaneous Notes Images from the original note were not included. Spoke with patient, notified of Chelle's message and recommendations. Patient did confirm she is taking the aldactone as well. Will repeat labs in one week. CLARA Brasher APRN.DARK ROOM ATTENDANT You 8 minutes ago (10:19 AM) She should restart 20 mg of lasix. Please make sure she is taking 12.5 of aldactone as well. Please ask her to have BMP and BNP drawn in 1 week. Thank you! Message text Received a call from patient who is stated her legs are bilaterally swollen to the point her toes are bruised. Has been eating processed foods lately. Stopped taking the Lasix since she was doing better. Has a prescription for the Lasix 20 mg and 40 mg patient is asking for your recommendations regarding should she take it daily and if so, what does. Did ask patient to start weighing herself each morning. Maria D Mcmillan RN documented in this encounter [facility] 10-10-2021 Miscellaneous Notes Pharmacy requesting refills: Last office visit 06/26/2021. Last refill omeprazole last filled 04/03/2021 meloxciam last filled 05/29/2021 nov none Pending Prescriptions Disp Refills OMEPRAZOLE 40 MG CAPSULE,DELAYED RELEASE 30 capsule 3 Sig: TAKE 1 CAPSULE BY MOUTH ONCE DAILY CLEO: Yes MELOXICAM 15 MG TABLET 30 tablet 3 Sig: TAKE 1 TABLET BY MOUTH ONCE DAILY CLEO: Yes Please review and advise. REMI Leso documented in this encounter [facility] 09-23-2021 Miscellaneous Notes pharmacy electronically requesting refills as follows: Last seen 06/26/21 . Last refill 08/22/21 . Pending Prescriptions Disp Refills ZOLPIDEM 5 MG TABLET 30 tablet 0 Sig: TAKE 1 TABLET BY MOUTH ONCE DAILY AT BEDTIME NEEDED JAMEY Class: C-IV CLEO: Yes Please review and advise. Arabella Michaud MA documented in this encounter [facility] 09-16-2021 Miscellaneous Notes Pharmacy requesting refills as follows: Last Office Visit 06/26/21. Last Refill 06/16/21. Pending Prescriptions Disp Refills ALLOPURINOL 100 MG TABLET 60 tablet 1 Sig: Take 2 tablets by mouth once daily. CLEO: Yes Please review and advise. Serenity Doherty MA documented in this encounter [facility] 09-08-2021 Miscellaneous Notes Clearance form received from [facility]. Form placed in Chelle Beasley's door box. Alana Avalos LPN documented in this encounter [facility] 09-03-2021 Miscellaneous Notes Pharmacy requesting refills: Last office visit 06/26/2021. Last refill 04/03/2021 nov none Pending Prescriptions Disp Refills TRAZODONE 150 MG TABLET 30 tablet 3 Sig: Take 1 tablet by mouth daily at bedtime. CLEO: Yes Please review and advise. Kenna Cui MA documented in this encounter [facility] 08-22-2021 Miscellaneous Notes pharmacy electronically requesting refills as follows: Last seen 06/26/21 . Last refill 07/25/21 . Pending Prescriptions Disp Refills ZOLPIDEM 5 MG TABLET 30 tablet 0 Sig: TAKE 1 TABLET BY MOUTH ONCE DAILY AT BEDTIME NEEDED. JAMEY Class: C-IV CLEO: Yes Please review and advise. Arabella Michaud MA documented in this encounter [facility] 08-05-2021 Miscellaneous Notes Pharmacy requesting refills as follows: Last Office Visit 06/26/21. Last Refill 04/03/21. Pending Prescriptions Disp Refills VENLAFAXINE ER 150 MG CAPSULE,EXTENDED RELEASE 24 HR 30 capsule 1 Sig: Take 1 capsule by mouth once daily. CLEO: Yes Please review and advise. Eryn Vallejo MA documented in this encounter [facility] 08-04-2021 Miscellaneous Notes Patient informed and transferred to schedule appointment. Arabella Michaud MA Images from the original note were not included. Ktae Espinoza, DO You 6 days ago Pt will need office visit with one of the java consultant, since I will not be in for a while Kate Espinoza DO Message text [facility] Request for Surgery Clearance for left knee replacement placed in Dr. Alexis romero folder to be filled out. Last office visit 06/26/21. Placed in Dr. Espinoza green folder to be filled out. Please advise if patient needs an office visit for the surgery clearance. Arabella Michaud MA documented in this encounter [facility] 07-29-2021 Miscellaneous Notes Clearance form received from [facility]. Form placed in Dr. Guevara's door box. Micaela Veloz LPN documented in this encounter [facility] 07-25-2021 Miscellaneous Notes pharmacy requesting refills as follows: Last Office Visit 06/26/2021. Last Refill 06/26/21. Pending Prescriptions Disp Refills ZOLPIDEM 5 MG TABLET 30 tablet 0 Sig: TAKE 1 TABLET BY MOUTH ONCE DAILY AT BEDTIME NEEDED JAMEY Class: C-IV CLEO: Yes Please review and advise. Eryn Vallejo MA documented in this encounter [facility] 07-18-2021 Nurse Note Nursing Progress Note Patient Name: Nusrat Bain Patient [place] ____ When patient went to the restroom she began to bleed on right wrist, pressure held for 5 minutes. Site dry and no hematoma present. This note was completed by: Teresa Carney Nursing Progress Note Patient Name: Nusrat Bain Patient Location: [place] ____ Radial band removed and no hematoma noted dressing applied.Discharged to home. This note was completed by: Teresa Carney documented in this encounter [facility] 07-18-2021 Procedure note LEFT HEART CATHETERIZATION PROCEDURE NOTE Surgery/Procedure Date: 07/18/2021 Referring Physician: Paola Clinical History: This is a 61 year old female with coronary artery disease with cardiomyopathy for coronary angiography. Consent: Informed consent was obtained after the risks, benefits, and alternatives to and of this procedure were discussed in detail with the patient. Procedure in Detail: The patient was brought to the cardiac catheterization laboratory, prepped and draped in the usual sterile fashion. Anxiolysis was achieved with intravenous and intravenous benadryl. Local anesthesia was achieved over the Wrist with 1% lidocaine. A pre-flushed 6-Upper Sorbian sheath was inserted into the Right radial artery via the Seldinger technique without complications. Retrograde percutaneous diagnostic coronary angiography and left ventriculography were performed using a Brandie left 4 catheter, a 3-D RC catheter, and an angled pigtail catheter. There were no complications of the procedure. Findings: Angiography: LEFT MAIN: Normal. LEFT CIRCUMFLEX: Normal . LEFT ANTERIOR DESCENDING: Mild LAD segment disease. RIGHT CORONARY ARTERY: Large dominant with patent Stents to PDA and PLB. LEFT VENTRICULOGRAPHY: Normal LV with Mild LV systolic dysfunction LVEF= 45% Impression: 1. Patent RCA Stents . 2. Mild LV systolic dysfunction LVEF= 45%. At this point, the procedure was terminated. All diagnostic wires and catheters were removed. Recommendations: 1. Daily aspirin indefinitely 2. Medical therapy. 3. Statin use 4. Secondary cardiac prevention measures. SIGNATURE: Brodie Guevara MD PATIENT NAME: Nusrat Bain DATE: July 18, 2021 TIME: 11:49 AM documented in this encounter [facility] 07-18-2021 History and physical note UPDATED H&P PRE-CARDIAC CATHETERIZATION SERVICE DATE: 07/18/2021 SERVICE TIME: 10:57 PHYSICAL EXAM MUST BE COMPLETED ON ADMISSION The History and Physical (completed in the past 30 days) has been reviewed and the patient has been examined. The contents accurately reflect the patient's condition with the following additions or revisions since the H&P was completed. Examination indicates no changes. Planned Procedure: Right and Left Heart Cath + Possible PCI Primary Indication for Procedure: Angina Equivalent High Risk Features: History of Prior CABG: No History of Prior PCI: Yes: > 12 months Cardiomyopathy: Yes Anti-ischemic Meds in Past 2 Weeks: Beta blockers Ejection Fraction: 40% from Previous Echo Risk Appropriateness: Angina Class in Past 2 Weeks: Class III - Marked limitation of ordinary physical activity Cardiogenic Shock: NoHeart Failure: None Stress Test Performed: None EKG Assessment: Normal Family History of Premature CAD: Father, age 60 Evaluation for Preop Clearance: Non-Cardiac Surgery, Functional Capacity; >= 4 METS with symptoms, Surgical Risk; Low HISTORY OF BLEEDING: No This H&P can be found in the attached. SIGNATURE: Brodie Guevara MD PATIENT NAME: Nusrat Bain DATE: July 18, 2021 TIME: 10:57 AM documented in this encounter [facility] 07-04-2021 Miscellaneous Notes Clearance form received from [facility] [place], [facility]. Form placed in Chelle Beasley's door box. Alana Avalos LPN documented in this encounter [facility] 07-02-2021 Miscellaneous Notes Attempted to call pt and spouse. Both lines ring busy. Lizzie Mcfadden RN Echocardiogram reveals a decrease in EF. Reviewed with Dr. Guevara he would like a left and right cath for further evaluation. Attempted to call patents listed number and spouse. Call not going through. Please let the patient know our recommendations and let me know if she is agreeable. I can talk to her in detail if there is another number provided. Thank you! Chelle Beasley APRN.DARK ROOM ATTENDANT documented in this encounter [facility] 06-24-2021 Miscellaneous Notes Spoke with pt about test results and medication recommendations. Verbalizes understanding and is agreeable. Phone number for centralized scheduling provided to schedule echo. Alana Avalos LPN Left message on voicemail requesting return call regarding Chelle's recommendations. Office phone number provided. Maria D Mcmillan RN ----- Message from Chelle Beasley APRN.DARK ROOM ATTENDANT sent at 06/24/2021 10:34 AM EDT ----- Please call patient and notify her BNP elevated suggesting volume overload. Potassium is below normal limits at 3.2. Decrease lasix to 20 mg and ask her to start 12.5 of aldactone once daily in addition to her 20 mg of lasix. Please provider her central scheduling # to schedule pending echo. I see her in office tomorrow. Thank you! documented in this encounter [facility] documented as of this encounter (statuses as of 06/24/2021) [facility] History of Past illness Narrative* Problem Noted Date Resolved Date Polysubstance overdose 08/18/2018 9 Altered mental status 08/18/2018 08/20/2018 Alcohol intoxication 08/18/2018 08/20/2018 documented as of this encounter (statuses as of 07/02/2021) [facility] History of Past illness Narrative* Problem Noted Date Resolved Date Polysubstance overdose 08/18/2018 9 Altered mental status 08/18/2018 08/20/2018 Alcohol intoxication 08/18/2018 08/20/2018 documented as of this encounter (statuses as of 07/02/2021) [facility] History of Past illness Narrative* Problem Noted Date Resolved Date Polysubstance overdose 08/18/2018 9 Altered mental status 08/18/2018 08/20/2018 Alcohol intoxication 08/18/2018 08/20/2018 documented as of this encounter (statuses as of 07/04/2021) [facility] History of Past illness Narrative* Problem Noted Date Resolved Date Polysubstance overdose 08/18/2018 9 Altered mental status 08/18/2018 08/20/2018 Alcohol intoxication 08/18/2018 08/20/2018 documented as of this encounter (statuses as of 07/19/2021) [facility] History of Past illness Narrative* Problem Noted Date Resolved Date Polysubstance overdose 08/18/2018 9 Altered mental status 08/18/2018 08/20/2018 Alcohol intoxication 08/18/2018 08/20/2018 documented as of this encounter (statuses as of 07/25/2021) [facility] History of Past illness Narrative* Problem Noted Date Resolved Date Polysubstance overdose 08/18/2018 9 Altered mental status 08/18/2018 08/20/2018 Alcohol intoxication 08/18/2018 08/20/2018 documented as of this encounter (statuses as of 07/29/2021) [facility] History of Past illness Narrative* Problem Noted Date Resolved Date Polysubstance overdose 08/18/2018 9 Altered mental status 08/18/2018 08/20/2018 Alcohol intoxication 08/18/2018 08/20/2018 documented as of this encounter (statuses as of 08/04/2021) [facility] History of Past illness Narrative* Problem Noted Date Resolved Date Polysubstance overdose 08/18/2018 9 Altered mental status 08/18/2018 08/20/2018 Alcohol intoxication 08/18/2018 08/20/2018 documented as of this encounter (statuses as of 08/05/2021) [facility] History of Past illness Narrative* Problem Noted Date Resolved Date Polysubstance overdose 08/18/2018 9 Altered mental status 08/18/2018 08/20/2018 Alcohol intoxication 08/18/2018 08/20/2018 documented as of this encounter (statuses as of 08/20/2021) [facility] History of Past illness Narrative* Problem Noted Date Resolved Date Polysubstance overdose 08/18/2018 9 Altered mental status 08/18/2018 08/20/2018 Alcohol intoxication 08/18/2018 08/20/2018 documented as of this encounter (statuses as of 08/22/2021) [facility] History of Past illness Narrative* Problem Noted Date Resolved Date Polysubstance overdose 08/18/2018 9 Altered mental status 08/18/2018 08/20/2018 Alcohol intoxication 08/18/2018 08/20/2018 documented as of this encounter (statuses as of 09/03/2021) [facility] History of Past illness Narrative* Problem Noted Date Resolved Date Polysubstance overdose 08/18/2018 9 Altered mental status 08/18/2018 08/20/2018 Alcohol intoxication 08/18/2018 08/20/2018 documented as of this encounter (statuses as of 09/08/2021) [facility] History of Past illness Narrative* Problem Noted Date Resolved Date Polysubstance overdose 08/18/2018 9 Altered mental status 08/18/2018 08/20/2018 Alcohol intoxication 08/18/2018 08/20/2018 documented as of this encounter (statuses as of 09/16/2021) [facility] History of Past illness Narrative* Problem Noted Date Resolved Date Polysubstance overdose 08/18/2018 9 Altered mental status 08/18/2018 08/20/2018 Alcohol intoxication 08/18/2018 08/20/2018 documented as of this encounter (statuses as of 09/23/2021) [facility] History of Past illness Narrative* Problem Noted Date Resolved Date Polysubstance overdose 08/18/2018 9 Altered mental status 08/18/2018 08/20/2018 Alcohol intoxication 08/18/2018 08/20/2018 documented as of this encounter (statuses as of 10/10/2021) [facility] History of Past illness Narrative* Problem Noted Date Resolved Date Polysubstance overdose 08/18/2018 9 Altered mental status 08/18/2018 08/20/2018 Alcohol intoxication 08/18/2018 08/20/2018 documented as of this encounter (statuses as of 10/15/2021) [facility] History of Past illness Narrative* Problem Noted Date Resolved Date Polysubstance overdose 08/18/2018 9 Altered mental status 08/18/2018 08/20/2018 Alcohol intoxication 08/18/2018 08/20/2018 documented as of this encounter (statuses as of 10/23/2021) [facility] History of Past illness Narrative* Problem Noted Date Resolved Date Polysubstance overdose 08/18/2018 9 Altered mental status 08/18/2018 08/20/2018 Alcohol intoxication 08/18/2018 08/20/2018 documented as of this encounter (statuses as of 10/28/2021) [facility] History of Past illness Narrative* Problem Noted Date Resolved Date Polysubstance overdose 08/18/2018 9 Altered mental status 08/18/2018 08/20/2018 Alcohol intoxication 08/18/2018 08/20/2018 documented as of this encounter (statuses as of 11/24/2021) [facility] History of Past illness Narrative* Problem Noted Date Resolved Date Polysubstance overdose 08/18/2018 9 Altered mental status 08/18/2018 08/20/2018 Alcohol intoxication 08/18/2018 08/20/2018 documented as of this encounter (statuses as of 11/28/2021) [facility] History of Past illness Narrative* Problem Noted Date Resolved Date Polysubstance overdose 08/18/2018 9 Altered mental status 08/18/2018 08/20/2018 Alcohol intoxication 08/18/2018 08/20/2018 documented as of this encounter (statuses as of 12/24/2021) [facility] History of Past illness Narrative* Problem Noted Date Resolved Date Polysubstance overdose 08/18/2018 9 Altered mental status 08/18/2018 08/20/2018 Alcohol intoxication 08/18/2018 08/20/2018 documented as of this encounter (statuses as of 12/31/2021) [facility] History of Past illness Narrative* Problem Noted Date Resolved Date Polysubstance overdose 08/18/2018 9 Altered mental status 08/18/2018 08/20/2018 Alcohol intoxication 08/18/2018 08/20/2018 documented as of this encounter (statuses as of 01/02/2022) [facility] History of Past illness Narrative* Problem Noted Date Resolved Date Polysubstance overdose 08/18/2018 9 Altered mental status 08/18/2018 08/20/2018 Alcohol intoxication 08/18/2018 08/20/2018 documented as of this encounter (statuses as of 01/15/2022) [facility] History of Past illness Narrative* Problem Noted Date Resolved Date Polysubstance overdose 08/18/2018 9 Altered mental status 08/18/2018 08/20/2018 Alcohol intoxication 08/18/2018 08/20/2018 documented as of this encounter (statuses as of 01/20/2022) [facility] History of Past illness Narrative* Problem Noted Date Resolved Date Polysubstance overdose 08/18/2018 9 Altered mental status 08/18/2018 08/20/2018 Alcohol intoxication 08/18/2018 08/20/2018 documented as of this encounter (statuses as of 01/22/2022) [facility] History of Past illness Narrative* Problem Noted Date Resolved Date Polysubstance overdose 08/18/2018 9 Altered mental status 08/18/2018 08/20/2018 Alcohol intoxication 08/18/2018 08/20/2018 documented as of this encounter (statuses as of 02/16/2022) [facility] History of Past illness Narrative* Problem Noted Date Resolved Date Polysubstance overdose 08/18/2018 9 Altered mental status 08/18/2018 08/20/2018 Alcohol intoxication 08/18/2018 08/20/2018 documented as of this encounter (statuses as of 02/23/2022) [facility] History of Past illness Narrative* Problem Noted Date Resolved Date Polysubstance overdose 08/18/2018 9 Altered mental status 08/18/2018 08/20/2018 Alcohol intoxication 08/18/2018 08/20/2018 documented as of this encounter (statuses as of 03/16/2022) [facility] History of Past illness Narrative* Problem Noted Date Resolved Date Polysubstance overdose 08/18/2018 9 Altered mental status 08/18/2018 08/20/2018 Alcohol intoxication 08/18/2018 08/20/2018 documented as of this encounter (statuses as of 03/30/2022) [facility] History of Past illness Narrative* Problem Noted Date Resolved Date Polysubstance overdose 08/18/2018 9 Altered mental status 08/18/2018 08/20/2018 Alcohol intoxication 08/18/2018 08/20/2018 documented as of this encounter (statuses as of 04/03/2022) [facility] History of Past illness Narrative* Problem Noted Date Resolved Date Polysubstance overdose 08/18/2018 9 Altered mental status 08/18/2018 08/20/2018 Alcohol intoxication 08/18/2018 08/20/2018 documented as of this encounter (statuses as of 04/24/2022) [facility] History of Past illness Narrative* Problem Noted Date Resolved Date Polysubstance overdose 08/18/2018 9 Altered mental status 08/18/2018 08/20/2018 Alcohol intoxication 08/18/2018 08/20/2018 documented as of this encounter (statuses as of 05/15/2022) [facility] History of Past illness Narrative* Problem Noted Date Resolved Date Polysubstance overdose 08/18/2018 9 Altered mental status 08/18/2018 08/20/2018 Alcohol intoxication 08/18/2018 08/20/2018 documented as of this encounter (statuses as of 05/18/2022) [facility] History of Past illness Narrative* Problem Noted Date Resolved Date Polysubstance overdose 08/18/2018 9 Altered mental status 08/18/2018 08/20/2018 Alcohol intoxication 08/18/2018 08/20/2018 documented as of this encounter (statuses as of 05/18/2022) [facility] History of Past illness Narrative* Problem Noted Date Resolved Date Polysubstance overdose 08/18/2018 9 Altered mental status 08/18/2018 08/20/2018 Alcohol intoxication 08/18/2018 08/20/2018 documented as of this encounter (statuses as of 05/19/2022) [facility] History of Past illness Narrative* Problem Noted Date Resolved Date Polysubstance overdose 08/18/2018 9 Altered mental status 08/18/2018 08/20/2018 Alcohol intoxication 08/18/2018 08/20/2018 documented as of this encounter (statuses as of 05/19/2022) [facility] History of Past illness Narrative* Problem Noted Date Resolved Date Polysubstance overdose 08/18/2018 9 Altered mental status 08/18/2018 08/20/2018 Alcohol intoxication 08/18/2018 08/20/2018 documented as of this encounter (statuses as of 05/19/2022) [facility] History of Past illness Narrative* Problem Noted Date Resolved Date Polysubstance overdose 08/18/2018 9 Altered mental status 08/18/2018 08/20/2018 Alcohol intoxication 08/18/2018 08/20/2018 documented as of this encounter (statuses as of 05/21/2022) [facility] History of Past illness Narrative* Problem Noted Date Resolved Date Polysubstance overdose 08/18/2018 9 Altered mental status 08/18/2018 08/20/2018 Alcohol intoxication 08/18/2018 08/20/2018 documented as of this encounter (statuses as of 05/22/2022) [facility] History of Past illness Narrative* Problem Noted Date Resolved Date Polysubstance overdose 08/18/2018 9 Altered mental status 08/18/2018 08/20/2018 Alcohol intoxication 08/18/2018 08/20/2018 documented as of this encounter (statuses as of 05/25/2022) [facility] History of Past illness Narrative* Problem Noted Date Resolved Date Polysubstance overdose 08/18/2018 9 Altered mental status 08/18/2018 08/20/2018 Alcohol intoxication 08/18/2018 08/20/2018 documented as of this encounter (statuses as of 05/25/2022) [facility] History of Past illness Narrative* Problem Noted Date Resolved Date Polysubstance overdose 08/18/2018 9 Altered mental status 08/18/2018 08/20/2018 Alcohol intoxication 08/18/2018 08/20/2018 documented as of this encounter (statuses as of 05/29/2022) [facility] History of Past illness Narrative* Problem Noted Date Resolved Date Polysubstance overdose 08/18/2018 9 Altered mental status 08/18/2018 08/20/2018 Alcohol intoxication 08/18/2018 08/20/2018 documented as of this encounter (statuses as of 05/29/2022) [facility] History of Past illness Narrative* Problem Noted Date Resolved Date Polysubstance overdose 08/18/2018 9 Altered mental status 08/18/2018 08/20/2018 Alcohol intoxication 08/18/2018 08/20/2018 documented as of this encounter (statuses as of 06/12/2022) [facility] History of Past illness Narrative* Problem Noted Date Resolved Date Polysubstance overdose 08/18/2018 9 Altered mental status 08/18/2018 08/20/2018 Alcohol intoxication 08/18/2018 08/20/2018 documented as of this encounter (statuses as of 06/17/2022) [facility] History of Past illness Narrative* Problem Noted Date Resolved Date Polysubstance overdose 08/18/2018 9 Altered mental status 08/18/2018 08/20/2018 Alcohol intoxication 08/18/2018 08/20/2018 documented as of this encounter (statuses as of 06/22/2022) [facility] History of Past illness Narrative* Problem Noted Date Resolved Date Polysubstance overdose 08/18/2018 9 Altered mental status 08/18/2018 08/20/2018 Alcohol intoxication 08/18/2018 08/20/2018 documented as of this encounter (statuses as of 06/24/2022) [facility] History of Past illness Narrative* Problem Noted Date Resolved Date Polysubstance overdose 08/18/2018 9 Altered mental status 08/18/2018 08/20/2018 Alcohol intoxication 08/18/2018 08/20/2018 documented as of this encounter (statuses as of 06/30/2022) [facility] History of Past illness Narrative* Problem Noted Date Resolved Date Polysubstance overdose 08/18/2018 9 Altered mental status 08/18/2018 08/20/2018 Alcohol intoxication 08/18/2018 08/20/2018 documented as of this encounter (statuses as of 07/09/2022) [facility] History of Past illness Narrative* Problem Noted Date Resolved Date Polysubstance overdose 08/18/2018 9 Altered mental status 08/18/2018 08/20/2018 Alcohol intoxication 08/18/2018 08/20/2018 documented as of this encounter (statuses as of 07/23/2022) [facility] History of Past illness Narrative* Problem Noted Date Resolved Date Polysubstance overdose 08/18/2018 9 Altered mental status 08/18/2018 08/20/2018 Alcohol intoxication 08/18/2018 08/20/2018 documented as of this encounter (statuses as of 07/28/2022) [facility] History of Past illness Narrative* Problem Noted Date Resolved Date Polysubstance overdose 08/18/2018 9 Altered mental status 08/18/2018 08/20/2018 Alcohol intoxication 08/18/2018 08/20/2018 documented as of this encounter (statuses as of 08/25/2022) [facility] History of Past illness Narrative* Problem Noted Date Resolved Date Polysubstance overdose 08/18/2018 9 Altered mental status 08/18/2018 08/20/2018 Alcohol intoxication 08/18/2018 08/20/2018 documented as of this encounter (statuses as of 09/22/2022) [facility] History of Past illness Narrative* Problem Noted Date Diagnosed Date Resolved Date Polysubstance overdose 08/18/201808/20 Altered mental status 08/18/20182018 Alcohol intoxication 08/18/2018 019 documented as of this encounter (statuses as of 11/18/2022) [facility] History of Past illness Narrative* Problem Noted Date Diagnosed Date Resolved Date Polysubstance overdose 08/18/201808/20 Altered mental status 08/18/20182018 Alcohol intoxication 08/18/2018 019 documented as of this encounter (statuses as of 11/20/2022) [facility] History of Past illness Narrative* Problem Noted Date Diagnosed Date Resolved Date Polysubstance overdose 08/18/201808/20 Altered mental status 08/18/20182018 Alcohol intoxication 08/18/2018 019 documented as of this encounter (statuses as of 11/27/2022) [facility] History of Past illness Narrative* Problem Noted Date Diagnosed Date Resolved Date Polysubstance overdose 08/18/201808/20 Altered mental status 08/18/20182018 Alcohol intoxication 08/18/2018 019 documented as of this encounter (statuses as of 12/01/2022) [facility] History [facility] Past illness Narrative* Problem Noted Date Diagnosed Date Resolved Date Polysubstance overdose 08/18/201808/20 Altered mental status 08/18/20182018 Alcohol intoxication 08/18/2018 019 documented as of this encounter (statuses as of 12/16/2022) [facility] History [facility] Past illness Narrative* Problem Noted Date Diagnosed Date Resolved Date Polysubstance overdose 08/18/201808/20 Altered mental status 08/18/20182018 Alcohol intoxication 08/18/2018 019 documented as of this encounter (statuses as of 12/18/2022) [facility] Past [facility] Narrative* Problem Noted Date Diagnosed Date Resolved Date Polysubstance overdose 08/18/201808/20 Altered mental status 08/18/20182018 Alcohol intoxication 08/18/2018 019 documented as of this encounter (statuses as of 12/19/2022) [facility] Past [facility]arrative* Problem Noted Date Diagnosed Date Resolved Date Polysubstance overdose 08/18/201808/20 Altered mental status 08/18/20182018 Alcohol intoxication 08/18/2018 019 documented as of this encounter (statuses as of 2023) [facility] Past [facility]arrative* Problem Noted Date Diagnosed Date Resolved Date Polysubstance overdose 08/18/201808/20 Altered mental status 08/18/20182018 Alcohol intoxication 08/18/2018 019 documented as of this encounter (statuses as of 01/06/2023) [facility] Past [facility]arrative* Problem Noted Date Diagnosed Date Resolved Date Polysubstance overdose 08/18/201808/20 Altered mental status 08/18/20182018 Alcohol intoxication 08/18/2018 019 documented as of this encounter (statuses as of 01/19/2023) [facility] Past [facility]arrative* Problem Noted Date Diagnosed Date Resolved Date Polysubstance overdose 08/18/201808/20 Altered mental status 08/18/20182018 Alcohol intoxication 08/18/2018 019 documented as of this encounter (statuses as of 01/20/2023) [facility]arrative* Problem Noted Date Diagnosed Date Resolved Date Polysubstance overdose 08/18/201808/20 Altered mental status 08/18/20182018 Alcohol intoxication 08/18/2018 019 documented as of this encounter (statuses as of 02/04/2023) [facility] Past [facility]arrative* Problem Noted Date Diagnosed Date Resolved Date Polysubstance overdose 08/18/201808/20 Altered mental status 08/18/20182018 Alcohol intoxication 08/18/2018 019 documented as of this encounter (statuses as of 02/16/2023) [facility] History [facility] Past illness Narrative* Problem Noted Date Diagnosed Date Resolved Date Polysubstance overdose 08/18/201808/20 Altered mental status 08/18/20182018 Alcohol intoxication 08/18/2018 019 documented as of this encounter (statuses as of 03/19/2023) [facility] Diagnosis Coronary artery disease involving false pass coronary artery of false pass heart without angina pectoris [facility] Diagnosis Acute systolic CHF (congestive heart failure) (HCC)- Primary Acute systolic heart failure Coronary artery disease involving false pass coronary artery of false pass heart, unspecified whether angina present Acute systolic CHF (congestive heart failure) (HCC) Acute systolic heart failure Coronary artery disease involving false pass coronary artery of false pass heart, unspecified whether angina present [facility] Dilated [facility] (H[facility]) Other primary cardiomyopathies [facility] Diagnosis Primary insomnia Persistent disorder of initiating or maintaining sleep [facility] Diagnosis Recurrent major depression in partial remission (HCC) Major depressive disorder, recurrent episode, in partial or unspecified remission [facility] Diagnosis Primary insomnia Persistent disorder of initiating or maintaining sleep [facility] Diagnosis Primary insomnia Persistent disorder of initiating or maintaining sleep [facility] Diagnosis History of gout Personal history of other endocrine, metabolic, and immunity disorders [facility] Primary insomnia Persistent disorder of initiating or maintaining sleep [facility] Diagnosis Gastroesophageal reflux disease without esophagitis Esophageal reflux Primary osteoarthritis involving multiple joints [facility] Diagnosis Chronic diastolic congestive heart failure (HCC)- Primary Chronic diastolic heart failure [facility] Diagnosis Major depressive disorder, recurrent, in partial remission (HCC) Major depressive disorder, recurrent episode, in partial or unspecified remission Primary insomnia Persistent disorder of initiating or maintaining sleep [facility] Diagnosis Primary insomnia Persistent disorder of initiating or maintaining sleep [facility] Diagnosis STEMI involving right coronary artery (HCC)- Primary History of DE (myocardial infarction) Old myocardial infarction Mixed hyperlipidemia Coronary artery disease involving false pass coronary artery of false pass heart without angina pectoris [facility] Diagnosis Recurrent major depression in partial remission (HCC) Major depressive disorder, recurrent episode, in partial or unspecified remission [facility] Diagnosis Primary insomnia Persistent disorder of initiating or maintaining sleep [facility] Diagnosis Primary insomnia Persistent disorder of initiating or maintaining sleep [facility] Diagnosis Primary insomnia Persistent disorder of initiating or maintaining sleep Gastroesophageal reflux disease without esophagitis Esophageal reflux [facility] Diagnosis Primary insomnia Persistent disorder of initiating or maintaining sleep documented in this encounter [facility]* Diagnosis Mixed hyperlipidemia- Primary Primary hypertension Unspecified essential hypertension documented in this encounter [facility] note* Diagnosis Primary insomnia Persistent disorder of initiating or maintaining sleep documented in this encounter [facility] note* Diagnosis S/P total knee arthroplasty, left- Primary Knee stiffness, left Abnormality of gait documented in this encounter [facility] note* Diagnosis S/P total knee arthroplasty, left- Primary Abnormality of gait documented in this encounter [facility] note* Diagnosis Primary insomnia Persistent disorder of initiating or maintaining sleep documented in this encounter [facility] note* Diagnosis S/P total knee arthroplasty, left- Primary Knee stiffness, left documented in this encounter [facility] note* Diagnosis S/P total knee arthroplasty, left- Primary Knee stiffness, left Abnormality of gait documented in this encounter [facility] note* Diagnosis Primary insomnia Persistent disorder of initiating or maintaining sleep documented in this encounter [facility] note* Diagnosis Total knee replacement status, left- Primary Difficulty walking Difficulty in walking documented in this encounter [facility] note* Diagnosis Primary insomnia- Primary Persistent disorder of initiating or maintaining sleep Bacterial sinusitis Unspecified sinusitis (chronic) Primary hypertension Unspecified essential hypertension Mixed hyperlipidemia S/P total knee replacement, left Nicotine abuse Tobacco use disorder Obesity, Class II, BMI 35-39.9 Obesity, unspecified Encounter for immunization Need for other specified prophylactic vaccination against single bacterial disease Obesity, Class I, BMI 30-34.9 Obesity, unspecified documented in this encounter [facility] note* Diagnosis Primary insomnia Persistent disorder of initiating or maintaining sleep History of gout Personal history of other endocrine, metabolic, and immunity disorders documented in this encounter [facility] note* Diagnosis Gastroesophageal reflux disease without esophagitis Esophageal reflux [facility] Diagnosis Diarrhea, unspecified type- Primary Vasovagal syncope Syncope and collapse LISA (acute kidney injury) (HCC) Acute kidney failure, unspecified Hypokalemia Hypopotassemia Dehydration Primary osteoarthritis of right knee Primary localized osteoarthrosis, lower leg Obesity, Class I, BMI 30-34.9 Obesity, unspecified [facility] Diagnosis Mixed hyperlipidemia- Primary Status post insertion of drug eluting coronary artery stent Postsurgical percutaneous transluminal coronary angioplasty status Primary hypertension Unspecified essential hypertension Preoperative clearance Preoperative examination, unspecified [facility] Mixed [facility] Diagnosis Primary hypertension Unspecified essential hypertension documented in this encounter [facility] home Plan of care note* Visit Details Visit Type -SN EVAL Discipline -Halfway Problems Problem Description Start Date Status Goals Interve ntions Medication Education Disciplines: Skilled Services 05/16/2022 Active 1 goal linked to scheduled/document ed intervention 1 goal intervention scheduled/document ed in this visit Sepsis Disciplines: Skilled Services 05/16/2022 Active 1 goal linked to scheduled/document ed intervention 1 goal intervention scheduled/document ed in this visit Physician Specific Parameters Disciplines: Skilled Services 05/16/2022 Active 1 goal linked to scheduled/document ed intervention 2 goal interventions scheduled/document ed in this visit Pain Disciplines: Skilled Services 05/16/2022 Active 1 goal linked to scheduled/document ed intervention 1 goal intervention scheduled/document ed in this visit High Risk Medications Disciplines: Skilled Services 05/16/2022 Active 1 goal linked to scheduled/document ed intervention 1 goal intervention scheduled/document ed in this visit SN Referral Disciplines: Skilled Services 05/18/2022 Resolved on 05/18/2022 1 goal linked to scheduled/document ed intervention 1 goal intervention scheduled/document ed in this visit SN Integumentary/ Wounds Disciplines: SN 05/18/2022 Active 1 goal linked to scheduled/document ed intervention 2 goal interventions scheduled/document ed in this visit Goals Goal Associated Problem Outcome Goal Met? Visit Notes Patient/caregiver will demonstrate ability to obtain, store, identify and administer ordered medications, keep accurate medication list in home, and adhere to medication schedule Description: Patient/caregiver will demonstrate ability to obtain, store, identify and administer ordered medications, keep accurate medication list in home, and adhere to medication schedule by 06/06/22. Medication Education No Patient/caregiver will be able to identify and report symptoms of sepsis Description: Patient/caregiver will be able to identify signs/symptoms of sepsis infection and will verbalize actions to take if suspected by 06/06/22. Sepsis No Patient to maintain parameters within physician-specified ranges throughout certification period Physician Specific Parameters No Manage Pain Description: Patient/caregiver will verbalize knowledge and understanding of appropriate techniques to control pain, including non-pharmacological techniques. Patient will verbalize or demonstrate an acceptable level of pain as evidenced by a pain score of 0-2/10 and improvement in ability to perform activities of daily living to be achieved by 06/06/22. Pain No Patient/caregiver will teach back high risk medication side effect and precaution education High Risk Medications No Patient will be referred to additional discipline as needed SN Referral No Patient/Caregiver will have improved healing and be free of signs and symptoms of complications Description: Patient/caregiver will verbalize management strategies to promote wound healing & prevent complications as evidenced by improved healing & no complications by 05/18/22. SN Integumentary/Wounds No Interventions Intervention Associated Problem/Goal Status Variance Visit Notes Medication Education Description: Evaluate/instruct patient/caregiver on obtaining, storing, identifying and administering ordered medications as well as keeping accurate medication list in the home and adhereing to medication schedule Problem:Medication Education Goal:Patient/caregive r will demonstrate ability to obtain, store, identify and administer ordered medications, keep accurate medication list in home, and adhere to medication schedule Completed Patient instructed on importance of keeping accurate medication list in home and adhering to medication schedule. Risk of Sepsis Description: Patient is at risk for sepsis. Monitor closely for s/s of sepsis. Problem:Sepsis Goal:Patient/caregive r will be able to identify and report symptoms of sepsis Completed Weight Description: Notify Dr. Espinoza of weight change of 3lbs overnight or 5 lbs in two days. Problem:Physician Specific Parameters Goal:Patient to maintain parameters within physician-specified ranges throughout certification period Completed SPO2 Description: Notify Dr. Espinoza if pulse ox is <92% at rest. Problem:Physician Specific Parameters Goal:Patient to maintain parameters within physician-specified ranges throughout certification period Completed Instruct on pain and instruct on strategies to control pain Problem:Pain Goal:Manage Pain Completed patient and caregiver instructed on techniques to control pain including Pharmacological measures and Non-Pharmacological measures; rest, distraction and breathing/relaxation. Opioids- educated on high risk medication Problem:High Risk Medications Goal:Patient/caregive r will teach back high risk medication side effect and precaution education Completed patient educated on taking medication(s) as prescribed by provider. Do not stop medication or alter doses without speaking with your provider. Discuss medication effectiveness or side effect concerns with your provider and home care team. Only take opioids as prescribed, do not share your medications, and take proper precautions in storing and properly disposing of opioids once no longer needed. Possible side effects of opioid medication including sedation, decreased rate of breathing, and constipation. Report over sedation to prescribing provider and practice deep breathing techniques every hour while awake. Prevent constipation by increasing water and fiber intake, increasing activity as tolerated, and use stool softener(s) as prescribed. SN evaluation and treatment Description: Evaluate and treat for wound/skin management & education. Problem:SN Referral Goal:Patient will be referred to additional discipline as needed Completed Remove sutures as ordered by physician Description: Remove sutures from LLE on 05/18/22. Apply steri-strips to incision, if needed. Problem:SN Integumentary/Wounds Goal:Patient/Caregive r will have improved healing and be free of signs and symptoms of complications Completed Completed. Patient did tolerate well. Remove leann as ordered by physician Description: Remove all leann from L knee incision on 05/18/22. Apply steri-strips to incision. Problem:SN Integumentary/Wounds Goal:Patient/Caregive r will have improved healing and be free of signs and symptoms of complications Completed Completed. Patient did tolerate well. documented in this encounter [facility] home Plan of care note* Visit Details Visit Type -PT ROUTINE Discipline -Physical Therapy Problems Problem Description Start Date Status Goals Interve ntions Medication Education Disciplines: Skilled Services 05/16/2022 Active 1 goal linked to scheduled/document ed intervention 1 goal intervention scheduled/documen mj in this visit Sepsis Disciplines: Skilled Services 05/16/2022 Active 1 goal linked to scheduled/document ed intervention 1 goal intervention scheduled/documen mj in this visit Physician Specific Parameters Disciplines: Skilled Services 05/16/2022 Active 1 goal linked to scheduled/document ed intervention 2 goal interventions scheduled/documen mj in this visit Risk for Falls Disciplines: Skilled Services 05/16/2022 Active 1 goal linked to scheduled/document ed intervention 1 goal intervention scheduled/documen mj in this visit Pain Disciplines: Skilled Services 05/16/2022 Active 1 goal linked to scheduled/document ed intervention 1 goal intervention scheduled/documen mj in this visit High Risk Medications Disciplines: Skilled Services 05/16/2022 Active 1 goal linked to scheduled/document ed intervention 1 goal intervention scheduled/documen mj in this visit Discharge Disciplines: Skilled Services 05/16/2022 Active 1 goal linked to scheduled/document ed intervention 1 goal intervention scheduled/documen mj in this visit PT Impaired Aerobic Capacity Disciplines: PT 05/16/2022 Active 1 goal linked to scheduled/document ed intervention 1 goal intervention scheduled/documen mj in this visit PT Impaired muscle performance and/or ROM Disciplines: PT 05/16/2022 Active 1 goal linked to scheduled/document ed intervention 1 goal intervention scheduled/documen mj in this visit PT Impaired mobility Disciplines: PT 05/16/2022 Active 2 goals linked to scheduled/document ed interventions 2 goal interventions scheduled/documen mj in this visit PT Impaired gait Disciplines: PT 05/16/2022 Active 1 goal linked to scheduled/document ed intervention 1 goal intervention scheduled/documen mj in this visit PT Impaired balance Disciplines: PT 05/16/2022 Active 1 goal linked to scheduled/document ed intervention 1 goal intervention scheduled/documen mj in this visit PT Orthopedic Condition Disciplines: PT 05/16/2022 Active 1 goal linked to scheduled/document ed intervention 3 goal interventions scheduled/documen mj in this visit PT Learning Assessment Disciplines: PT 05/16/2022 Active 1 goal linked to scheduled/document ed intervention 1 goal intervention scheduled/documen mj in this visit PT Cardiovascular Disease Disciplines: PT 05/16/2022 Active 2 goals linked to scheduled/document ed interventions 2 goal interventions scheduled/documen mj in this visit Goals Goal Associated Problem Outcome Goal Met? Visit Notes Patient/caregiver will demonstrate ability to obtain, store, identify and administer ordered medications, keep accurate medication list in home, and adhere to medication schedule Description: Patient/caregiver will demonstrate ability to obtain, store, identify and administer ordered medications, keep accurate medication list in home, and adhere to medication schedule by 06/06/22. Medication Education No Patient/caregiver will be able to identify and report symptoms of sepsis Description: Patient/caregiver will be able to identify signs/symptoms of sepsis infection and will verbalize actions to take if suspected by 06/06/22. Sepsis No Patient to maintain parameters within physician-specified ranges throughout certification period Physician Specific Parameters No Manage Risk for falls Description: Patient/caregiver will verbalize knowledge of individualized fall prevention strategies by 06/06/22. Risk for Falls No Manage Pain Description: Patient/caregiver will verbalize knowledge and understanding of appropriate techniques to control pain, including non-pharmacological techniques. Patient will verbalize or demonstrate an acceptable level of pain as evidenced by a pain score of 0-2/10 and improvement in ability to perform activities of daily living to be achieved by 06/06/22. Pain No Patient/caregiver will teach back high risk medication side effect and precaution education High Risk Medications No Manage discharge planning Description: Patient/caregiver will verbalize understanding of ongoing discharge plan provided related to disease management, arrangements for outpatient and/or community services, obtaining medications, supplies, and DME, as needed throughout certification period. Discharge No Improved Aerobic Capacity Description: LTG: Patient will demonstrate improved aerobic capacity to meet functional goals as evidenced by Rate of Percieved Exertion (RPE) of 0-2/10 during standing activity, to be achieved by 06/06/22. PT Impaired Aerobic Capacity No Improved Muscle Performance and/or ROM Description: LTG: Patient will demonstrate improved muscle performance to meet functional goals as evidenced by ability to tolerate 8 mins of standing activity, to be achieved by 06/06/22. LTG: Patient and/or caregiver will verbalize/demonstrate independence with home exercise program, to improve functional mobility, to be achieved by 06/06/22. LTG: Patient will demonstrate improved left knee passive range of motion to 0-100 degrees, to meet functional goals, to be achieved by 06/06/22. PT Impaired muscle performance and/or ROM No Improved Transfers Description: LTG: Patient will demonstrate safe transfers to/from bed, chair and toilet independently with AD, to be achieved by 06/06/22. PT Impaired mobility No Improved Bed Mobility Description: STG: Patient will demonstrate improved ability to position self independently to be achieved by 05/30/22. PT Impaired mobility No Improved Gait Description: LTG: Patient will demonstrate improved gait ability as evidenced by ambulation 200 feet with front wheeled walker independently, to return to safe household ambulation, in order to reach car in the driveway, to be achieved by 06/06/22. PT Impaired gait No Improved Balance Description: LTG: Patient will demonstrate improved standing balance to meet functional goals as evidenced by TUG score of 20 to be achieved by 06/06/22. PT Impaired balance No Manage Orthopedic Condition Description: Improve patient and/or caregiver understanding of post surgical and/or non-surgical orthopedic intervention management as evidenced by patient and/or caregiver able to verbalize, demonstrate, and teach back instruction, to be achieved by 06/06/22. PT Orthopedic Condition No Demonstrate understanding of education Description: Patient and/or caregiver will understand educational instruction to be achieved by 06/06/22. PT Learning Assessment No Manage Secondary Cardiovascular disease Description: Improve patient and/or caregiver understanding of secondary cardiovascular disease management as evidenced by patient and/or caregiver able to verbalize, demonstrate, and teach back instruction, to be achieved by 06/06/22. PT Cardiovascular Disease No Manage Primary Cardiovascular Disease Description: Improve patient and/or caregiver understanding of primary cardiovascular disease management as evidenced by patient and/or caregiver able to verbalize, demonstrate, and teach back instruction, to be achieved by 06/06/22. PT Cardiovascular Disease No Interventions Intervention Associated Problem/Goal Status Variance Visit Notes Medication Education Description: Evaluate/instruct patient/caregiver on obtaining, storing, identifying and administering ordered medications as well as keeping accurate medication list in the home and adhereing to medication schedule Problem:Medication Education Goal:Patient/caregiver will demonstrate ability to obtain, store, identify and administer ordered medications, keep accurate medication list in home, and adhere to medication schedule Completed Patient instructed on importance of keeping accurate medication list in home. Risk of Sepsis Description: Patient is at risk for sepsis. Monitor closely for s/s of sepsis. Problem:Sepsis Goal:Patient/caregiver will be able to identify and report symptoms of sepsis Completed Weight Description: Notify Dr. Espinoza of weight change of 3lbs overnight or 5 lbs in two days. Problem:Physician Specific Parameters Goal:Patient to maintain parameters within physician-specified ranges throughout certification period Completed SPO2 Description: Notify Dr. Espinoza if pulse ox is <92% at rest. Problem:Physician Specific Parameters Goal:Patient to maintain parameters within physician-specified ranges throughout certification period Completed Instruct on individual fall risk factors and strategies to prevent falls and injuries caused by falls. Problem:Risk for Falls Goal:Manage Risk for falls Completed PT: Patient instructed on Managing Impaired Functional Mobility: Use assistive device(s): rollator walker Managing Pain Instruct on pain and instruct on strategies to control pain Problem:Pain Goal:Manage Pain Completed patient instructed on techniques to control pain including Non-Pharmacological measures; rest, positioning/elevatio n and mobility/therapeutic exercise. Opioids- educated on high risk medication Problem:High Risk Medications Goal:Patient/caregiver will teach back high risk medication side effect and precaution education Completed patient educated on taking medication(s) as prescribed by provider. Do not stop medication or alter doses without speaking with your provider. Discuss medication effectiveness or side effect concerns with your provider and home care team. Only take opioids as prescribed, do not share your medications, and take proper precautions in storing and properly disposing of opioids once no longer needed. Possible side effects of opioid medication including sedation, decreased rate of breathing, and constipation. Report over sedation to prescribing provider and practice deep breathing techniques every hour while awake. Prevent constipation by increasing water and fiber intake, increasing activity as tolerated, and use stool softener(s) as prescribed. Instruct on ongoing discharge plan Problem:Discharge Goal:Manage discharge planning Completed Ongoing Discharge plan: Discharge plan discussed with patient including frequency and duration for home PT and plan for transition to: outpatient therapy. Physical Therapy Aerobic Capacity Training Problem:PT Impaired Aerobic Capacity Goal:Improved Aerobic Capacity Completed patient instructed on utilization of the Rate of Percieved Exertion (RPE) scale, to not exceed 3-6/10 indicating moderate to heavy intensity of activity. Developed, implemented, and instructed patient on physical therapy interventions completing 5 minutes of continuous activity. Physical Therapy Therapeutic Exercises Problem:PT Impaired muscle performance and/or ROM Goal:Improved Muscle Performance and/or ROM Completed patient instructed on strengthening and range of motion exercises including ankle pumps, quad sets, glut sets, slr, heel slides horizontal hip abd, seated chair scoots with verbal cues for sequence. patient instructed to perform home exercise program twice a day Physical Therapy Transfer Training Problem:PT Impaired mobility Goal:Improved Transfers Completed Transfer training and instruction to patient on safe transfers to and from bed, chair and toilet with supervision and verbal cues for sequence. Physical Therapy Bed Mobility Training Problem:PT Impaired mobility Goal:Improved Bed Mobility Completed Bed mobility training and instruction to patient, including rolling, supine<>sit and repositioning self with supervision and verbal cues for sequence. Physical Therapy Gait Training Problem:PT Impaired gait Goal:Improved Gait Completed Gait training and instruction to patient on safe ambulation with rollator walker for 75 feet with supervision, with verbal cues for corrections of gait deviations including lateral lean, unsteady on feet. Physical Therapy Balance Training Problem:PT Impaired balance Goal:Improved Balance Completed Developed, implemented, and instructed patient on standing balance exercises including ambulation with rollator. Instruct on orthopedic precautions and weight bearing restrictions Description: Orthopedic precautions including left total knee: no knee flexed over pillow at rest, no kneeling, no squatting and no twisting. Weight bearing restrictions include: WBAT of involved extremity. Problem:PT Orthopedic Condition Goal:Manage Orthopedic Condition Completed patient instructed on orthopedic precautions and weight bearing restrictions. Instruct on management of edema Problem:PT Orthopedic Condition Goal:Manage Orthopedic Condition Completed Instruct patient on management of edema including elevation of bilat LE above the level of the heart. Instruct on self-management of post surgical and/or non-surgical orthopedic intervention Problem:PT Orthopedic Condition Goal:Manage Orthopedic Condition Completed patient instructed on managagement of orthopedic condition, eating foods with high protein, signs and symptoms of infection, signs and symptoms of DVT/PE and follow provider guidance for showering . Instruct and educate on knowledge deficits Problem:PT Learning Assessment Goal:Demonstrate understanding of education Completed patient verbalize and/or demonstrate understanding of physical therapy education including orthopedic condition management, weight bearing precautions, surgical precautions, pain management, fall prevention strategies, home safety, functional activity and home exercise program. Education methods include: verbal cues. Further education required to improve knowledge and compliance with surgical precautions, pain management, fall prevention strategies, home safety, functional activity and home exercise program. Instruct on signs, symptoms, and management of secondary cardiovascular disease Problem:PT Cardiovascular Disease Goal:Manage Secondary Cardiovascular disease Completed Instructed patient on use of zone sheet and use of RPE. Instruct on signs, symptoms, and management of primary cardiovascular disease Problem:PT Cardiovascular Disease Goal:Manage Primary Cardiovascular Disease Completed Instructed patient on use of RPE. documented in this encounter [facility] home Plan of care note* Visit Details Visit Type -OT EVAL Discipline -Occupational Therapy Problems Problem Description Start Date Status Goals Interve ntions OT Referral Disciplines: Skilled Services 05/16/2022 Resolved on 05/19/2022 1 goal linked to scheduled/document ed intervention 1 goal intervention scheduled/document ed in this visit Physician Specific Parameters Disciplines: Skilled Services 05/16/2022 Active 1 goal linked to scheduled/document ed intervention 2 goal interventions scheduled/document ed in this visit Pain Disciplines: Skilled Services 05/16/2022 Active 1 goal linked to scheduled/document ed intervention 1 goal intervention scheduled/document ed in this visit Discharge Disciplines: Skilled Services 05/16/2022 Active 1 goal linked to scheduled/document ed intervention 1 goal intervention scheduled/document ed in this visit OT Learning Assessment Disciplines: OT 05/19/2022 Resolved on 05/19/2022 1 goal linked to scheduled/document ed intervention 1 goal intervention scheduled/document ed in this visit Goals Goal Associated Problem Outcome Goal Met? Visit Notes Patient will be referred to additional discipline as needed OT Referral Completed Yes ot eval completed Patient to maintain parameters within physician-specified ranges throughout certification period Physician Specific Parameters No Manage Pain Description: Patient/caregiver will verbalize knowledge and understanding of appropriate techniques to control pain, including non-pharmacological techniques. Patient will verbalize or demonstrate an acceptable level of pain as evidenced by a pain score of 0-2/10 and improvement in ability to perform activities of daily living to be achieved by 06/06/22. Pain No Manage discharge planning Description: Patient/caregiver will verbalize understanding of ongoing discharge plan provided related to disease management, arrangements for outpatient and/or community services, obtaining medications, supplies, and DME, as needed throughout certification period. Discharge No Demonstrate understanding of education Description: Patient and/or caregiver will understand educational instruction to be achieved by 05/19/22. OT Learning Assessment Completed Yes goal met Interventions Intervention Associated Problem/Goal Status Variance Visit Notes OT evaluation and treatment Description: Evaluate and treat for the assessment of functional deficits and establishment of appropriate interventions and education to address: I/ADL training, functional transfers, DME/adaptive equipment recommendations, safety awareness, energy conservation and home safety and falls prevention recommendations. Problem:OT Referral Goal:Patient will be referred to additional discipline as needed Completed Weight Description: Notify Dr. Espinoza of weight change of 3lbs overnight or 5 lbs in two days. Problem:Physician Specific Parameters Goal:Patient to maintain parameters within physician-specified ranges throughout certification period Completed SPO2 Description: Notify Dr. Espinoza if pulse ox is <92% at rest. Problem:Physician Specific Parameters Goal:Patient to maintain parameters within physician-specified ranges throughout certification period Completed Instruct on pain and instruct on strategies to control pain Problem:Pain Goal:Manage Pain Completed patient instructed on techniques to control pain including Pharmacological measures and Non-Pharmacological measures; rest and positioning/elevation. Instruct on ongoing discharge plan Problem:Discharge Goal:Manage discharge planning Completed Ongoing Discharge plan: Discharge plan discussed with patient including frequency and duration for home OT and plan for transition to: live independently at home without ongoing services. pt in agreement with OT dc on eval Instruct and educate on knowledge deficits Problem:OT Learning Assessment Goal:Demonstrate understanding of education Completed Education methods include: verbal cues. Patient/Caregiver require further education to improve knowledge and compliance with fall prevention strategies, pain management and post surgical precautions. [facility] Visit Details Visit Type -[facility] ROUTINE Discipline -Physical Therapy Problems Problem Description Start Date Status Goals Interve ntions Physician Specific Parameters Disciplines: Skilled Services 05/16/2022 Active 1 goal linked to scheduled/document ed intervention 1 goal intervention scheduled/document ed in this visit Risk for Falls Disciplines: Skilled Services 05/16/2022 Active 1 goal linked to scheduled/document ed intervention 1 goal intervention scheduled/document ed in this visit Pain Disciplines: Skilled Services 05/16/2022 Active 1 goal linked to scheduled/document ed intervention 1 goal intervention scheduled/document ed in this visit PT Impaired Aerobic Capacity Disciplines: PT 05/16/2022 Active 1 goal linked to scheduled/document ed intervention 1 goal intervention scheduled/document ed in this visit PT Impaired muscle performance and/or ROM Disciplines: PT 05/16/2022 Active 1 goal linked to scheduled/document ed intervention 1 goal intervention scheduled/document ed in this visit PT Impaired mobility Disciplines: PT 05/16/2022 Active 1 goal linked to scheduled/document ed intervention 1 goal intervention scheduled/document ed in this visit PT Impaired gait Disciplines: PT 05/16/2022 Active 1 goal linked to scheduled/document ed intervention 1 goal intervention scheduled/document ed in this visit PT Orthopedic Condition Disciplines: PT 05/16/2022 Active 1 goal linked to scheduled/document ed intervention 2 goal interventions scheduled/document ed in this visit Goals Goal Associated Problem Outcome Goal Met? Visit Notes Patient to maintain parameters within physician-specified ranges throughout certification period Physician Specific Parameters No Manage Risk for falls Description: Patient/caregiver will verbalize knowledge of individualized fall prevention strategies by 06/06/22. Risk for Falls No Manage Pain Description: Patient/caregiver will verbalize knowledge and understanding of appropriate techniques to control pain, including non-pharmacological techniques. Patient will verbalize or demonstrate an acceptable level of pain as evidenced by a pain score of 0-2/10 and improvement in ability to perform activities of daily living to be achieved by 06/06/22. Pain No Improved Aerobic Capacity Description: LTG: Patient will demonstrate improved aerobic capacity to meet functional goals as evidenced by Rate of Percieved Exertion (RPE) of 0-2/10 during standing activity, to be achieved by 06/06/22. PT Impaired Aerobic Capacity No Improved Muscle Performance and/or ROM Description: LTG: Patient will demonstrate improved muscle performance to meet functional goals as evidenced by ability to tolerate 8 mins of standing activity, to be achieved by 06/06/22. LTG: Patient and/or caregiver will verbalize/demonstrate independence with home exercise program, to improve functional mobility, to be achieved by 06/06/22. LTG: Patient will demonstrate improved left knee passive range of motion to 0-100 degrees, to meet functional goals, to be achieved by 06/06/22. PT Impaired muscle performance and/or ROM No Improved Transfers Description: LTG: Patient will demonstrate safe transfers to/from bed, chair and toilet independently with AD, to be achieved by 06/06/22. PT Impaired mobility No Improved Gait Description: LTG: Patient will demonstrate improved gait ability as evidenced by ambulation 200 feet with front wheeled walker independently, to return to safe household ambulation, in order to reach car in the driveway, to be achieved by 06/06/22. PT Impaired gait No Manage Orthopedic Condition Description: Improve patient and/or caregiver understanding of post surgical and/or non-surgical orthopedic intervention management as evidenced by patient and/or caregiver able to verbalize, demonstrate, and teach back instruction, to be achieved by 06/06/22. PT Orthopedic Condition No Interventions Intervention Associated Problem/Goal Status Variance Visit Notes SPO2 Description: Notify Dr. Espinoza if pulse ox is <92% at rest. Problem:Physician Specific Parameters Goal:Patient to maintain parameters within physician-specified ranges throughout certification period Completed Instruct on individual fall risk factors and strategies to prevent falls and injuries caused by falls. Problem:Risk for Falls Goal:Manage Risk for falls Completed PT: Patient instructed on Managing Impaired Functional Mobility: Use assistive device(s): front wheeled walker and Caregiver to provide assist with: Ambulation, Steps, Transfers and ADL/IADLs Managing Pain Instruct on pain and instruct on strategies to control pain Problem:Pain Goal:Manage Pain Completed patient instructed on techniques to control pain including Pharmacological measures and Non-Pharmacological measures; positioning/elevation, mobility/therapeutic exercise, distraction, use of DME/assistive devices and use of thermal modalities, apply ice to affected area. Physical Therapy Aerobic Capacity Training Problem:PT Impaired Aerobic Capacity Goal:Improved Aerobic Capacity Completed patient instructed on utilization of the Rate of Percieved Exertion (RPE) scale, to not exceed 3-6/10 indicating moderate to heavy intensity of activity. Developed, implemented, and instructed patient on physical therapy interventions completing: Pt advised to follow LE HEP ( 2-3 x a day ) and walking program ( Hourly walking during the day ). Physical Therapy Therapeutic Exercises Problem:PT Impaired muscle performance and/or ROM Goal:Improved Muscle Performance and/or ROM Completed patient instructed on strengthening and range of motion exercises including: L LE ex's ( heel slides, hip abd/ add, gluet sets, quad sets, SAQ, SLR, LAQ, seated knee flexion ) with verbal and visual cues Physical Therapy Transfer Training Problem:PT Impaired mobility Goal:Improved Transfers Completed Transfer training and instruction to patient on safe transfers to and from bed and chair with supervision. Physical Therapy Gait Training Problem:PT Impaired gait Goal:Improved Gait Completed Gait training and instruction to patient on safe ambulation with front wheeled walker for 100 feet with supervision, with verbal cues to facilitate improved heel to toe gt pattern. Instruct on management of edema Problem:PT Orthopedic Condition Goal:Manage Orthopedic Condition Completed Instruct patient on management of edema including elevation of L LE above the level of the heart, ice and benefits of activity. Instruct on self-management of post surgical and/or non-surgical orthopedic intervention Problem:PT Orthopedic Condition Goal:Manage Orthopedic Condition Completed patient instructed on signs and symptoms of infection, signs and symptoms of DVT/PE, instructed on when to call provider and instructed on when to call 911. [facility] Visit Details Visit Type -[facility] ROUTINE Discipline -Physical Therapy Problems Problem Description Start Date Status Goals Interve ntions Physician Specific Parameters Disciplines: Skilled Services 05/16/2022 Active 1 goal linked to scheduled/document ed intervention 1 goal intervention scheduled/document ed in this visit Risk for Falls Disciplines: Skilled Services 05/16/2022 Active 1 goal linked to scheduled/document ed intervention 1 goal intervention scheduled/document ed in this visit Pain Disciplines: Skilled Services 05/16/2022 Active 1 goal linked to scheduled/document ed intervention 1 goal intervention scheduled/document ed in this visit PT Impaired Aerobic Capacity Disciplines: PT 05/16/2022 Active 1 goal linked to scheduled/document ed intervention 1 goal intervention scheduled/document ed in this visit PT Impaired muscle performance and/or ROM Disciplines: PT 05/16/2022 Active 1 goal linked to scheduled/document ed intervention 1 goal intervention scheduled/document ed in this visit PT Impaired mobility Disciplines: PT 05/16/2022 Active 1 goal linked to scheduled/document ed intervention 1 goal intervention scheduled/document ed in this visit PT Impaired gait Disciplines: PT 05/16/2022 Active 2 goals linked to scheduled/document ed interventions 2 goal interventions scheduled/document ed in this visit PT Orthopedic Condition Disciplines: PT 05/16/2022 Active 1 goal linked to scheduled/document ed intervention 1 goal intervention scheduled/document ed in this visit Goals Goal Associated Problem Outcome Goal Met? Visit Notes Patient to maintain parameters within physician-specified ranges throughout certification period Physician Specific Parameters No Manage Risk for falls Description: Patient/caregiver will verbalize knowledge of individualized fall prevention strategies by 06/06/22. Risk for Falls No Manage Pain Description: Patient/caregiver will verbalize knowledge and understanding of appropriate techniques to control pain, including non-pharmacological techniques. Patient will verbalize or demonstrate an acceptable level of pain as evidenced by a pain score of 0-2/10 and improvement in ability to perform activities of daily living to be achieved by 06/06/22. Pain No Improved Aerobic Capacity Description: LTG: Patient will demonstrate improved aerobic capacity to meet functional goals as evidenced by Rate of Percieved Exertion (RPE) of 0-2/10 during standing activity, to be achieved by 06/06/22. PT Impaired Aerobic Capacity No Improved Muscle Performance and/or ROM Description: LTG: Patient will demonstrate improved muscle performance to meet functional goals as evidenced by ability to tolerate 8 mins of standing activity, to be achieved by 06/06/22. LTG: Patient and/or caregiver will verbalize/demonstrate independence with home exercise program, to improve functional mobility, to be achieved by 06/06/22. LTG: Patient will demonstrate improved left knee passive range of motion to 0-100 degrees, to meet functional goals, to be achieved by 06/06/22. PT Impaired muscle performance and/or ROM No Improved Transfers Description: LTG: Patient will demonstrate safe transfers to/from bed, chair and toilet independently with AD, to be achieved by 06/06/22. PT Impaired mobility No Improved Stair Climbing Description: LTG: Patient will demonstrate improved stair negotiation as evidenced by ascend/descend 13 steps with railing independently, to safely access all areas of the home, to be achieved by 06/06/22. PT Impaired gait No Improved Gait Description: LTG: Patient will demonstrate improved gait ability as evidenced by ambulation 200 feet with front wheeled walker independently, to return to safe household ambulation, in order to reach car in the driveway, to be achieved by 06/06/22. PT Impaired gait No Manage Orthopedic Condition Description: Improve patient and/or caregiver understanding of post surgical and/or non-surgical orthopedic intervention management as evidenced by patient and/or caregiver able to verbalize, demonstrate, and teach back instruction, to be achieved by 06/06/22. PT Orthopedic Condition No Interventions Intervention Associated Problem/Goal Status Variance Visit Notes SPO2 Description: Notify Dr. Espinoza if pulse ox is <92% at rest. Problem:Physician Specific Parameters Goal:Patient to maintain parameters within physician-specified ranges throughout certification period Completed Instruct on individual fall risk factors and strategies to prevent falls and injuries caused by falls. Problem:Risk for Falls Goal:Manage Risk for falls Completed PT: Patient instructed on Managing Impaired Functional Mobility: Use assistive device(s): front wheeled walker and single point cane and Caregiver to provide assist with: Ambulation and Steps Managing Pain Instruct on pain and instruct on strategies to control pain Problem:Pain Goal:Manage Pain Completed patient instructed on techniques to control pain including Non-Pharmacological measures; positioning/elevation , mobility/therapeutic exercise, distraction, use of DME/assistive devices and use of thermal modalities, apply ice to affected area. Physical Therapy Aerobic Capacity Training Problem:PT Impaired Aerobic Capacity Goal:Improved Aerobic Capacity Completed patient instructed on utilization of the Rate of Percieved Exertion (RPE) scale, to not exceed 3-6/10 indicating moderate to heavy intensity of activity. Developed, implemented, and instructed patient on physical therapy interventions completing: Pt advised to follow LE HEP ( 2-3 x a day ) and walking program ( Hourly walking during the day ). Physical Therapy Therapeutic Exercises Problem:PT Impaired muscle performance and/or ROM Goal:Improved Muscle Performance and/or ROM Completed patient instructed on strengthening and range of motion exercises including: LE ex's ( heel slides, hip abd/ add, gluet sets, quad sets, SAQ, SLR, LAQ, seated knee flexion ) x 15/ 1 set. Vc's to slow down and to facilitate full ROM. patient instructed to perform home exercise program twice a day which included Above exercises. Physical Therapy Transfer Training Problem:PT Impaired mobility Goal:Improved Transfers Completed Transfer training and instruction to patient on safe transfers to and from chair independent. Physical Therapy Stair Training Problem:PT Impaired gait Goal:Improved Stair Climbing Completed Stair training and instruction to patient on safe stair climbing, ascend/descend 4 steps, with railing and with std cane with stand by assist and verbal cues for sequencing. Physical Therapy Gait Training Problem:PT Impaired gait Goal:Improved Gait Completed Gait training and instruction to patient on safe ambulation with front wheeled walker for 200 feet independent. Pt also amb with std cane up to 50 ft x 2 with SBA with verbal and visual cues for sequencing. Instruct on self-management of post surgical and/or non-surgical orthopedic intervention Problem:PT Orthopedic Condition Goal:Manage Orthopedic Condition Completed patient instructed on eating foods with high protein, signs and symptoms of infection, signs and symptoms of DVT/PE, instructed on when to call provider and instructed on when to call 911. documented in this encounter [facility] Plan of care note* Visit Details Visit Type -[facility] ROUTINE Discipline -Physical Therapy Problems Problem Description Start Date Status Goals Interve ntions Physician Specific Parameters Disciplines: Skilled Services 05/16/2022 Active 1 goal linked to scheduled/document ed intervention 1 goal intervention scheduled/document ed in this visit PT Impaired muscle performance and/or ROM Disciplines: PT 05/16/2022 Active 1 goal linked to scheduled/document ed intervention 1 goal intervention scheduled/document ed in this visit PT Impaired gait Disciplines: PT 05/16/2022 Active 1 goal linked to scheduled/document ed intervention 1 goal intervention scheduled/document ed in this visit PT Orthopedic Condition Disciplines: PT 05/16/2022 Active 1 goal linked to scheduled/document ed intervention 1 goal intervention scheduled/document ed in this visit Goals Goal Associated Problem Outcome Goal Met? Visit Notes Patient to maintain parameters within physician-specified ranges throughout certification period Physician Specific Parameters No Improved Muscle Performance and/or ROM Description: LTG: Patient will demonstrate improved muscle performance to meet functional goals as evidenced by ability to tolerate 8 mins of standing activity, to be achieved by 06/06/22. LTG: Patient and/or caregiver will verbalize/demonstrate independence with home exercise program, to improve functional mobility, to be achieved by 06/06/22. LTG: Patient will demonstrate improved left knee passive range of motion to 0-100 degrees, to meet functional goals, to be achieved by 06/06/22. PT Impaired muscle performance and/or ROM No Improved Gait Description: LTG: Patient will demonstrate improved gait ability as evidenced by ambulation 200 feet with front wheeled walker independently, to return to safe household ambulation, in order to reach car in the driveway, to be achieved by 06/06/22. PT Impaired gait No Manage Orthopedic Condition Description: Improve patient and/or caregiver understanding of post surgical and/or non-surgical orthopedic intervention management as evidenced by patient and/or caregiver able to verbalize, demonstrate, and teach back instruction, to be achieved by 06/06/22. PT Orthopedic Condition No Interventions Intervention Associated Problem/Goal Status Variance Visit Notes SPO2 Description: Notify Dr. Espinoza if pulse ox is <92% at rest. Problem:Physician Specific Parameters Goal:Patient to maintain parameters within physician-specified ranges throughout certification period Completed Physical Therapy Therapeutic Exercises Problem:PT Impaired muscle performance and/or ROM Goal:Improved Muscle Performance and/or ROM Completed patient instructed on strengthening and range of motion exercises including: L LE ex's ( heel slides, hip abd/ add, gluet sets, quad sets, SAQ, SLR, LAQ, seated knee flexion ) x 15/ 1 set. with verbal cues to slow down . patient instructed to perform home exercise program twice a day which included: Above exercises. Physical Therapy Gait Training Problem:PT Impaired gait Goal:Improved Gait Completed Gait training and instruction to patient on safe ambulation with rollator walker for 100 feet with supervision, with verbal cues to facilitate upright posture and improved heel to toe Gt pattern. Instruct on self-management of post surgical and/or non-surgical orthopedic intervention Problem:PT Orthopedic Condition Goal:Manage Orthopedic Condition Completed patient instructed on signs and symptoms of infection, signs and symptoms of DVT/PE, instructed on when to call provider and instructed on when to call 911. [facility] Visit Details Visit Type -[facility] ROUTINE Discipline -Physical Therapy Problems Problem Description Start Date Status Goals Interve ntions Physician Specific Parameters Disciplines: Skilled Services 05/16/2022 Active 1 goal linked to scheduled/document ed intervention 1 goal intervention scheduled/document ed in this visit Risk for Falls Disciplines: Skilled Services 05/16/2022 Active 1 goal linked to scheduled/document ed intervention 1 goal intervention scheduled/document ed in this visit Pain Disciplines: Skilled Services 05/16/2022 Active 1 goal linked to scheduled/document ed intervention 1 goal intervention scheduled/document ed in this visit PT Impaired muscle performance and/or ROM Disciplines: PT 05/16/2022 Active 1 goal linked to scheduled/document ed intervention 1 goal intervention scheduled/document ed in this visit PT Impaired gait Disciplines: PT 05/16/2022 Active 1 goal linked to scheduled/document ed intervention 1 goal intervention scheduled/document ed in this visit Goals Goal Associated Problem Outcome Goal Met? Visit Notes Patient to maintain parameters within physician-specified ranges throughout certification period Physician Specific Parameters No Manage Risk for falls Description: Patient/caregiver will verbalize knowledge of individualized fall prevention strategies by 06/06/22. Risk for Falls No Manage Pain Description: Patient/caregiver will verbalize knowledge and understanding of appropriate techniques to control pain, including non-pharmacological techniques. Patient will verbalize or demonstrate an acceptable level of pain as evidenced by a pain score of 0-2/10 and improvement in ability to perform activities of daily living to be achieved by 06/06/22. Pain No Improved Muscle Performance and/or ROM Description: LTG: Patient will demonstrate improved muscle performance to meet functional goals as evidenced by ability to tolerate 8 mins of standing activity, to be achieved by 06/06/22. LTG: Patient and/or caregiver will verbalize/demonstrate independence with home exercise program, to improve functional mobility, to be achieved by 06/06/22. LTG: Patient will demonstrate improved left knee passive range of motion to 0-100 degrees, to meet functional goals, to be achieved by 06/06/22. PT Impaired muscle performance and/or ROM No Improved Gait Description: LTG: Patient will demonstrate improved gait ability as evidenced by ambulation 200 feet with front wheeled walker independently, to return to safe household ambulation, in order to reach car in the driveway, to be achieved by 06/06/22. PT Impaired gait No Interventions Intervention Associated Problem/Goal Status Variance Visit Notes SPO2 Description: Notify Dr. Espinoza if pulse ox is <92% at rest. Problem:Physician Specific Parameters Goal:Patient to maintain parameters within physician-specified ranges throughout certification period Completed Instruct on individual fall risk factors and strategies to prevent falls and injuries caused by falls. Problem:Risk for Falls Goal:Manage Risk for falls Completed PT: Patient instructed on Managing Impaired Functional Mobility: Use assistive device(s): rollator walker and Caregiver to provide assist with: Ambulation and Steps Managing Pain Instruct on pain and instruct on strategies to control pain Problem:Pain Goal:Manage Pain Completed patient instructed on techniques to control pain including Non-Pharmacological measures; positioning/elevation , mobility/therapeutic exercise, distraction, use of DME/assistive devices and use of thermal modalities, apply ice to affected area. Physical Therapy Therapeutic Exercises Problem:PT Impaired muscle performance and/or ROM Goal:Improved Muscle Performance and/or ROM Completed patient instructed on strengthening and range of motion exercises including: LE ex's ( heel slides, hip abd/ add, gluet sets, quad sets, SAQ, SLR, LAQ, seated knee flexion ) x 15/ 1 set. Vc's to slow down and to facilitate full ROM. patient instructed to perform home exercise program twice a day which included: Above exercises. Physical Therapy Gait Training Problem:PT Impaired gait Goal:Improved Gait Completed Gait training and instruction to patient on safe ambulation with rollator walker Independent. Pt also amb with out AD 50 feet x 2 with supervision with verbal cues to facilitate improved heel to toe Gt pattern. documented in this encounter [facility] for referral (narrative)* Outpatient Procedure (Routine) - Closed Specialty Diagnoses / Procedures Referred By Steven davis Referred To Contact [facility] Diagnoses Coronary artery disease involving false pass coronary artery of false pass heart without angina pectoris Procedures ECHO TTE W/DOPPLER, Chelle Sung APRN.CNP [address] [place] [address] Fax: [facility] [place] [address] [place] [address] Referral ID Status Reason Start Date Expiration Date V isits Requested Visits Authorized Closed Auto-Generate d Referral 05/10/2021 04/09/2022 1 1 [facility] for visit Narrative* Outpatient Procedure (Routine) - Closed Specialty Diagnoses / Procedures Referred By Contherson davis Referred To Contact [facility] Diagnoses Coronary artery disease involving false pass coronary artery of false pass heart without angina pectoris Procedures ECHO TTE W/DOPPLER, Chelle Sung APRN.CNP [address] [place] [address] Fax: [facility] [address] [place] [address] Referral ID Status Reason Start Date Expiration Date V isits Requested Visits Authorized [id number] Closed Auto-Generate d Referral 05/10/2021 04/09/2022 [facility]Cert Specialty Diagnoses / Procedures Referred By Steven t Referred To Contact Diagnoses Acute systolic CHF (congestive heart failure) (HCC) Coronary artery disease involving false pass coronary artery of false pass heart, unspecified whether angina present Procedures R & L HRT CATH WINJX HRT ART& L VENTR IMG CORONARY CATH RIGHT/LEFT HEART ANGIO INTRAPROCEDURAL INJECT IMAGING SUPERVISIO/INTERPRETATION [address] [employer] [place] [address] Referral ID Status Reason Start Date Expiration Date Visits Re quested Visits Authorized [id number] 1 1 [facility] Summary Purpose Family History No Family History Records FoundNo Family History Records FoundNo Family History Records FoundNo Family History Records FoundNo Family History Records FoundNo Family History Records FoundNo Family History Records Found Advance Directives Documents on File Type Date Recorded 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 Advance Directive(s) 03/26/2021 9:50 AM Advance Directive(s) 02/08/2021 6:56 AM Advance Directive(s) 08/19/2018 12:33 PM Advance Directive(s) 08/18/2018 1:44 PM Advance Directive(s) 07/25/2018 12:36 PM Documents on File Type Date Recorded 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 Advance Directive(s) 03/26/2021 9:50 AM Advance Directive(s) 02/08/2021 6:56 AM Advance Directive(s) 08/19/2018 12:33 PM Advance Directive(s) 08/18/2018 1:44 PM Advance Directive(s) 07/25/2018 12:36 PM Documents on File Type Date Recorded 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 Advance Directive(s) 07/18/2021 7:51 AM Advance Directive(s) 03/26/2021 9:50 AM Advance Directive(s) 02/08/2021 6:56 AM Advance Directive(s) 08/19/2018 12:33 PM Advance Directive(s) 08/18/2018 1:44 PM Advance Directive(s) 07/25/2018 12:36 PM Documents on File Type Date 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 Advance Directive(s) 07/18/2021 7:51 AM Advance Directive(s) 03/26/2021 9:50 AM Advance Directive(s) 02/08/2021 6:56 AM Advance Directive(s) 08/19/2018 12:33 PM Advance Directive(s) 08/18/2018 1:44 PM Advance Directive(s) 07/25/2018 12:36 PM Latest Code Status on File Code Status Date Activated Date Inactivated Comments Full Code 05/16/2022 11:52 AM Latest Code Status on File Code Status Date Activated Date Inactivated Comments Full Code 05/16/2022 11:52 AM Latest Code Status on File Code Status Date Activated Date Inactivated Comments Full Code 05/16/2022 11:52 AM 12/17/2022 11:34 AM Medications Administered Section Inactive Administered Medications - up to 3 most recent administrations Medication Order MAR Action Action Date Dose Rate Site fentaNYL 50 mcg/mL injection (SUBLIMAZE) INTRAVENOUS, NEEDED, Starting on Wed07/18/21 at 1124, Until 07/19/21 at 0303 Given 07/18/2021 11:24 AM EDT 25 mcg heparin 1,000 Units in D5W 250 mL 1,000 Units, INTRA-ARTERIAL, ONE TIME, 1 dose, Starting on Wed07/18/21 at 0800, Until 07/19/21 at 0303, NOW (EMERGENT PROCEDURE) FOR RN LPN LVN USE ONLY, Intraprocedure heparin 3,000 Units in NaCl 0.9% 500 mL irrigation 3,000 Units, IRRIGATION, ONE TIME, 1 dose, Starting on Wed07/18/21 at 0800, Until 07/19/21 at 0303, NOW (EMERGENT PROCEDURE) FOR RN LPN LVN USE ONLY For Irrigation Use Only, Intraprocedure midazolam (PF) injection (VERSED) INTRAVENOUS, NEEDED, Starting on Wed07/18/21 at 1124, Until 07/19/21 at 0303 Given 07/18/2021 11:24 AM EDT 1 mg Additional Source Comments INFORMATION SOURCE (unrecogn ized section and content) DATE CREATED AUTHOR AUTHOR'S ORGANIZ ATION 12/01/2019 [facility] DATE CREATED AUTHOR AUTHOR'S ORGANIZ ATION 04/06/2020 [facility] DATE CREATED AUTHOR AUTHOR'S ORGANIZ ATION 09/04/2022 [facility] DATE CREATED AUTHOR AUTHOR'S ORGANIZ ATION 01/08/2023 [facility] DATE CREATED AUTHOR AUTHOR'S ORGANIZ ATION 01/10/2023 [facility] DATE CREATED AUTHOR AUTHOR'S ORGANIZ ATION 03/05/2023 [facility] Source Comments (unrecognize d section and content) In the event this informatio n is protected by the Federal Confidentiality of Alcohol and Drug Abuse Patient Records regulations: The Federal rules restrict any use of the information to criminally investigate or prosecute any alcohol or drug abuse patient.[facility] the event this information is protected by the Federal Confidentiality of Alcohol and Drug Abuse Patient Records regulations: The Federal rules restrict any use of the information to criminally investigate or prosecute any alcohol or drug abuse patient.[facility] the event this information is protected by the Federal Confidentiality of Alcohol and Drug Abuse Patient Records regulations: The Federal rules restrict any use of the information to criminally investigate or prosecute any alcohol or drug abuse patient.[facility] the event this information is protected by the Federal Confidentiality of Alcohol and Drug Abuse Patient Records regulations: The Federal rules restrict any use of the information to criminally investigate or prosecute any alcohol or drug abuse patient.[facility] the event this information is protected by the Federal Confidentiality of Alcohol and Drug Abuse Patient Records regulations: The Federal rules restrict any use of the information to criminally investigate or prosecute any alcohol or drug abuse patient.[facility] the event this information is protected by the Federal Confidentiality of Alcohol and Drug Abuse Patient Records regulations: The Federal rules restrict any use of the information to criminally investigate or prosecute any alcohol or drug abuse patient.[facility]In the event this information is protected by the Federal Confidentiality of Alcohol and Drug Abuse Patient Records regulations: The Federal rules restrict any use of the information to criminally investigate or prosecute any alcohol or drug abuse patient.[facility] the event this information is protected by the Federal Confidentiality of Alcohol and Drug Abuse Patient Records regulations: The Federal rules restrict any use of the information to criminally investigate or prosecute any alcohol or drug abuse patient.[facility] the event this information is protected by the Federal Confidentiality of Alcohol and Drug Abuse Patient Records regulations: The Federal rules restrict any use of the information to criminally investigate or prosecute any alcohol or drug abuse patient.[facility] the event this information is protected by the Federal Confidentiality of Alcohol and Drug Abuse Patient Records regulations: The Federal rules restrict any use of the information to criminally investigate or prosecute any alcohol or drug abuse patient.[facility] the event this information is protected by the Federal Confidentiality of Alcohol and Drug Abuse Patient Records regulations: The Federal rules restrict any use of the information to criminally investigate or prosecute any alcohol or drug abuse patient.[facility] the event this information is protected by the Federal Confidentiality of Alcohol and Drug Abuse Patient Records regulations: The Federal rules restrict any use of the information to criminally investigate or prosecute any alcohol or drug abuse patient.[facility]In the event this information is protected by the Federal Confidentiality of Alcohol and Drug Abuse Patient Records regulations: The Federal rules restrict any use of the information to criminally investigate or prosecute any alcohol or drug abuse patient.[facility]In the event this information is protected by the Federal Confidentiality of Alcohol and Drug Abuse Patient Records regulations: The Federal rules restrict any use of the information to criminally investigate or prosecute any alcohol or drug abuse patient.[facility]In the event this information is protected by the Federal Confidentiality of Alcohol and Drug Abuse Patient Records regulations: The Federal rules restrict any use of the information to criminally investigate or prosecute any alcohol or drug abuse patient.[facility]In the event this information is protected by the Federal Confidentiality of Alcohol and Drug Abuse Patient Records regulations: The Federal rules restrict any use of the information to criminally investigate or prosecute any alcohol or drug abuse patient.[facility]In the event this information is protected by the Federal Confidentiality of Alcohol and Drug Abuse Patient Records regulations: The Federal rules restrict any use of the information to criminally investigate or prosecute any alcohol or drug abuse patient.[facility]In the event this information is protected by the Federal Confidentiality of Alcohol and Drug Abuse Patient Records regulations: The Federal rules restrict any use of the information to criminally investigate or prosecute any alcohol or drug abuse patient.[facility]In the event this information is protected by the Federal Confidentiality of Alcohol and Drug Abuse Patient Records regulations: The Federal rules restrict any use of the information to criminally investigate or prosecute any alcohol or drug abuse patient.[facility]In the event this information is protected by the Federal Confidentiality of Alcohol and Drug Abuse Patient Records regulations: The Federal rules restrict any use of the information to criminally investigate or prosecute any alcohol or drug abuse patient.[facility] HospitalIn the event this information is protected by the Federal Confidentiality of Alcohol and Drug Abuse Patient Records regulations: The Federal rules restrict any use of the information to criminally investigate or prosecute any alcohol or drug abuse patient.[facility] HospitalIn the event this information is protected by the Federal Confidentiality of Alcohol and Drug Abuse Patient Records regulations: The Federal rules restrict any use of the information to criminally investigate or prosecute any alcohol or drug abuse patient.[facility]In the event this information is protected by the Federal Confidentiality of Alcohol and Drug Abuse Patient Records regulations: The Federal rules restrict any use of the information to criminally investigate or prosecute any alcohol or drug abuse patient.[facility] HospitalIn the event this information is protected by the Federal Confidentiality of Alcohol and Drug Abuse Patient Records regulations: The Federal rules restrict any use of the information to criminally investigate or prosecute any alcohol or drug abuse patient.[facility] HospitalIn the event this information is protected by the Federal Confidentiality of Alcohol and Drug Abuse Patient Records regulations: The Federal rules restrict any use of the information to criminally investigate or prosecute any alcohol or drug abuse patient.[facility] HospitalIn the event this information is protected by the Federal Confidentiality of Alcohol and Drug Abuse Patient Records regulations: The Federal rules restrict any use of the information to criminally investigate or prosecute any alcohol or drug abuse patient.[facility]In the event this information is protected by the Federal Confidentiality of Alcohol and Drug Abuse Patient Records regulations: The Federal rules restrict any use of the information to criminally investigate or prosecute any alcohol or drug abuse patient.[facility]In the event this information is protected by the Federal Confidentiality of Alcohol and Drug Abuse Patient Records regulations: The Federal rules restrict any use of the information to criminally investigate or prosecute any alcohol or drug abuse patient.[facility]In the event this information is protected by the Federal Confidentiality of Alcohol and Drug Abuse Patient Records regulations: The Federal rules restrict any use of the information to criminally investigate or prosecute any alcohol or drug abuse patient.[facility]In the event this information is protected by the Federal Confidentiality of Alcohol and Drug Abuse Patient Records regulations: The Federal rules restrict any use of the information to criminally investigate or prosecute any alcohol or drug abuse patient.[facility]In the event this information is protected by the Federal Confidentiality of Alcohol and Drug Abuse Patient Records regulations: The Federal rules restrict any use of the information to criminally investigate or prosecute any alcohol or drug abuse patient.[facility]In the event this information is protected by the Federal Confidentiality of Alcohol and Drug Abuse Patient Records regulations: The Federal rules restrict any use of the information to criminally investigate or prosecute any alcohol or drug abuse patient.[facility]In the event this information is protected by the Federal Confidentiality of Alcohol and Drug Abuse Patient Records regulations: The Federal rules restrict any use of the information to criminally investigate or prosecute any alcohol or drug abuse patient.[facility]In the event this information is protected by the Federal Confidentiality of Alcohol and Drug Abuse Patient Records regulations: The Federal rules restrict any use of the information to criminally investigate or prosecute any alcohol or drug abuse patient.[facility]In the event this information is protected by the Federal Confidentiality of Alcohol and Drug Abuse Patient Records regulations: The Federal rules restrict any use of the information to criminally investigate or prosecute any alcohol or drug abuse patient.[facility]In the event this information is protected by the Federal Confidentiality of Alcohol and Drug Abuse Patient Records regulations: The Federal rules restrict any use of the information to criminally investigate or prosecute any alcohol or drug abuse patient.[facility]In the event this information is protected by the Federal Confidentiality of Alcohol and Drug Abuse Patient Records regulations: The Federal rules restrict any use of the information to criminally investigate or prosecute any alcohol or drug abuse patient.[facility]In the event this information is protected by the Federal Confidentiality of Alcohol and Drug Abuse Patient Records regulations: The Federal rules restrict any use of the information to criminally investigate or prosecute any alcohol or drug abuse patient.[facility]In the event this information is protected by the Federal Confidentiality of Alcohol and Drug Abuse Patient Records regulations: The Federal rules restrict any use of the information to criminally investigate or prosecute any alcohol or drug abuse patient.[facility]In the event this information is protected by the Federal Confidentiality of Alcohol and Drug Abuse Patient Records regulations: The Federal rules restrict any use of the information to criminally investigate or prosecute any alcohol or drug abuse patient.[facility] HospitalIn the event this information is protected by the Federal Confidentiality of Alcohol and Drug Abuse Patient Records regulations: The Federal rules restrict any use of the information to criminally investigate or prosecute any alcohol or drug abuse patient.[facility] HospitalIn the event this information is protected by the Federal Confidentiality of Alcohol and Drug Abuse Patient Records regulations: The Federal rules restrict any use of the information to criminally investigate or prosecute any alcohol or drug abuse patient.[facility] HospitalIn the event this information is protected by the Federal Confidentiality of Alcohol and Drug Abuse Patient Records regulations: The Federal rules restrict any use of the information to criminally investigate or prosecute any alcohol or drug abuse patient.[facility]In the event this information is protected by the Federal Confidentiality of Alcohol and Drug Abuse Patient Records regulations: The Federal rules restrict any use of the information to criminally investigate or prosecute any alcohol or drug abuse patient.[facility]In the event this information is protected by the Federal Confidentiality of Alcohol and Drug Abuse Patient Records regulations: The Federal rules restrict any use of the information to criminally investigate or prosecute any alcohol or drug abuse patient.[facility] HospitalIn the event this information is protected by the Federal Confidentiality of Alcohol and Drug Abuse Patient Records regulations: The Federal rules restrict any use of the information to criminally investigate or prosecute any alcohol or drug abuse patient.[facility] HospitalIn the event this information is protected by the Federal Confidentiality of Alcohol and Drug Abuse Patient Records regulations: The Federal rules restrict any use of the information to criminally investigate or prosecute any alcohol or drug abuse patient.[facility] HospitalIn the event this information is protected by the Federal Confidentiality of Alcohol and Drug Abuse Patient Records regulations: The Federal rules restrict any use of the information to criminally investigate or prosecute any alcohol or drug abuse patient.[facility] HospitalIn the event this information is protected by the Federal Confidentiality of Alcohol and Drug Abuse Patient Records regulations: The Federal rules restrict any use of the information to criminally investigate or prosecute any alcohol or drug abuse patient.[facility]In the event this information is protected by the Federal Confidentiality of Alcohol and Drug Abuse Patient Records regulations: The Federal rules restrict any use of the information to criminally investigate or prosecute any alcohol or drug abuse patient.[facility]In the event this information is protected by the Federal Confidentiality of Alcohol and Drug Abuse Patient Records regulations: The Federal rules restrict any use of the information to criminally investigate or prosecute any alcohol or drug abuse patient.[facility]In the event this information is protected by the Federal Confidentiality of Alcohol and Drug Abuse Patient Records regulations: The Federal rules restrict any use of the information to criminally investigate or prosecute any alcohol or drug abuse patient.[facility]In the event this information is protected by the Federal Confidentiality of Alcohol and Drug Abuse Patient Records regulations: The Federal rules restrict any use of the information to criminally investigate or prosecute any alcohol or drug abuse patient.[facility]In the event this information is protected by the Federal Confidentiality of Alcohol and Drug Abuse Patient Records regulations: The Federal rules restrict any use of the information to criminally investigate or prosecute any alcohol or drug abuse patient.[facility]In the event this information is protected by the Federal Confidentiality of Alcohol and Drug Abuse Patient Records regulations: The Federal rules restrict any use of the information to criminally investigate or prosecute any alcohol or drug abuse patient.[facility]In the event this information is protected by the Federal Confidentiality of Alcohol and Drug Abuse Patient Records regulations: The Federal rules restrict any use of the information to criminally investigate or prosecute any alcohol or drug abuse patient.[facility]In the event this information is protected by the Federal Confidentiality of Alcohol and Drug Abuse Patient Records regulations: The Federal rules restrict any use of the information to criminally investigate or prosecute any alcohol or drug abuse patient.[facility] HospitalIn the event this information is protected by the Federal Confidentiality of Alcohol and Drug Abuse Patient Records regulations: The Federal rules restrict any use of the information to criminally investigate or prosecute any alcohol or drug abuse patient.[facility] the event this information is protected by the Federal Confidentiality of Alcohol and Drug Abuse Patient Records regulations: The Federal rules restrict any use of the information to criminally investigate or prosecute any alcohol or drug abuse patient.[facility] HospitalIn the event this information is protected by the Federal Confidentiality of Alcohol and Drug Abuse Patient Records regulations: The Federal rules restrict any use of the information to criminally investigate or prosecute any alcohol or drug abuse patient.[facility] HospitalIn the event this information is protected by the Federal Confidentiality of Alcohol and Drug Abuse Patient Records regulations: The Federal rules restrict any use of the information to criminally investigate or prosecute any alcohol or drug abuse patient.[facility] HospitalIn the event this information is protected by the Federal Confidentiality of Alcohol and Drug Abuse Patient Records regulations: The Federal rules restrict any use of the information to criminally investigate or prosecute any alcohol or drug abuse patient.[facility] HospitalIn the event this information is protected by the Federal Confidentiality of Alcohol and Drug Abuse Patient Records regulations: The Federal rules restrict any use of the information to criminally investigate or prosecute any alcohol or drug abuse patient.[facility] HospitalIn the event this information is protected by the Federal Confidentiality of Alcohol and Drug Abuse Patient Records regulations: The Federal rules restrict any use of the information to criminally investigate or prosecute any alcohol or drug abuse patient.[facility] HospitalIn the event this information is protected by the Federal Confidentiality of Alcohol and Drug Abuse Patient Records regulations: The Federal rules restrict any use of the information to criminally investigate or prosecute any alcohol or drug abuse patient.[facility] HospitalIn the event this information is protected by the Federal Confidentiality of Alcohol and Drug Abuse Patient Records regulations: The Federal rules restrict any use of the information to criminally investigate or prosecute any alcohol or drug abuse patient.[facility] HospitalIn the event this information is protected by the Federal Confidentiality of Alcohol and Drug Abuse Patient Records regulations: The Federal rules restrict any use of the information to criminally investigate or prosecute any alcohol or drug abuse patient.[facility] HospitalIn the event this information is protected by the Federal Confidentiality of Alcohol and Drug Abuse Patient Records regulations: The Federal rules restrict any use of the information to criminally investigate or prosecute any alcohol or drug abuse patient.[facility] HospitalIn the event this information is protected by the Federal Confidentiality of Alcohol and Drug Abuse Patient Records regulations: The Federal rules restrict any use of the information to criminally investigate or prosecute any alcohol or drug abuse patient.[facility] HospitalIn the event this information is protected by the Federal Confidentiality of Alcohol and Drug Abuse Patient Records regulations: The Federal rules restrict any use of the information to criminally investigate or prosecute any alcohol or drug abuse patient.[facility] HospitalIn the event this information is protected by the Federal Confidentiality of Alcohol and Drug Abuse Patient Records regulations: The Federal rules restrict any use of the information to criminally investigate or prosecute any alcohol or drug abuse patient.[facility] Reason for Visit (unrecogniz ed section and content) Specialty Diagnoses / Procedures Referred By Steven davis Referred To Contact Physical Therapy / PHYSICAL THERAPY Diagnoses Lt TKR Procedures NEW RS PT ORTH Jenny Bangura [address] [facility] [address] [place] [address] Kelli Gomez, PT [address] [place] [address] Referral ID Status Reason Start Date Expiration Date V isits Requested Visits Authorized [id number] Authorized 06/12/2022 03/28/2023 40 Reason Comments Physical Therapy Reason Comments Results Reason Onset Date Comments Results 07/02/2021 Reason Comments Cardiac Clearance Reason Comments Refill Request Reason Comments Forms [facility] Request for Surgery Clearance for left knee replacement Reason Comments Patient Update Reason Comments CARD Follow Up 6 Month Chronic heart moon lure Reason Onset Date Comments Refill Request 01/15/2022 Reason Comments Statistics Intern - Other Clearance form to hold the brilinta. Reason Onset Date Comments Refill Request 03/11/2022 Reason Comments Statistics Intern - Other Cardiac clearan ce Reason Comments Home Care Confirmation call Reason Comments Home Care Reason Onset Date Comments Transition Of Care 05/18/2022 [facility] disc harge 05/15/2022 TCM encounter Reason Comments PT Eval Reason Comments Rx Refills Runny nose, producti ve cough with green mucous for the last 3 weeks Reason Onset Date Comments Refill Request 12/01/2022 Reason Comments Letter Work note for appoin tment today. Reason Comments Forms [facility] Re[facility] t for Surgery Clearance for Right total knee arthroplasty Reason Comments Diarrhea Dizzy and syncope ye sterday, was in ER in [place] and told her it was not a seizure she had yesterday BP was 60/34. Has not had anymore episodes since the ER. Is still having diarrhea has had it for the last 3 days and has lost 6 pounds. States before her episode yesterday she would get really hot and sweaty. Reason Comments CARD Follow Up Annual Yearly check up an d clearance Reason Onset Date Comments Refill Request 01/20/2023 Care Teams (unrecognized sec tion and content) Corporation Secretary Relationship Specialty Start Date End Date Kate Espinoza DO PCP - General 02/02/07 Corporation Secretary Relationship Specialty Start Date End Date Kate Espinoza DO PCP - General 02/02/07 Corporation Secretary Relationship Specialty Start Date End Date Kate Espinoza DO PCP - General 02/02/07 Corporation Secretary Relationship Specialty Start Date End Date Kate Espinoza DO PCP - General 02/02/07 Corporation Secretary Relationship Specialty Start Date End Date Kate Espinoza DO PCP - General 02/02/07 Corporation Secretary Relationship Specialty Start Date End Date Kate Espinoza DO PCP - General 02/02/07 Corporation Secretary Relationship Specialty Start Date End Date Sheets, Kate Mendez, DO PCP - General 02/02/07 Corporation Secretary Relationship Specialty Start Date End Date Sheets, Kate Mendez, DO PCP - General 02/02/07 Corporation Secretary Relationship Specialty Start Date End Date Sheets, Kate Mendez, DO PCP - General 02/02/07 Corporation Secretary Relationship Specialty Start Date End Date Sheets, Kate Mendez, DO PCP - General 02/02/07 Corporation Secretary Relationship Specialty Start Date End Date Sheets, Kate Mendez, DO PCP - General 02/02/07 Corporation Secretary Relationship Specialty Start Date End Date Sheets, Kate Mendez, DO PCP - General 02/02/07 Corporation Secretary Relationship Specialty Start Date End Date Sheets, Kate Mendez, DO PCP - General 02/02/07 Corporation Secretary Relationship Specialty Start Date End Date Sheets, Kate Mendez, DO PCP - General 02/02/07 Corporation Secretary Relationship Specialty Start Date End Date Sheets, Kate Mendez, DO PCP - General 02/02/07 Pennie Jaeger, METAL CASTING TRADES WORKER.DARK ROOM ATTENDANT [address] [place] [address] Referring Admitting 05/15/22 Corporation Secretary Relationship Specialty Start Date End Date Sheets, Kate Mendez DO PCP - General 02/02/07 Pennie Jaeger APRN.DARK ROOM ATTENDANT [address] [place] [address] Referring Admitting 05/15/22 Kate Espinoza, DO [address] [facility] [place] [address] Home Care Provider Family Medicine 05/15/22 Kush Newby, PT [address] [place] [address] Vending Technician Post Acute Care 05/15/22 Corporation Secretary Relationship Specialty Start Date End Date Kate Espinoza DO PCP - General 02/02/07 Pennie Jaeger APRN.DARK ROOM ATTENDANT [address] [place] [address] Referring Admitting 05/15/22 Kate Espinoza DO [address] [place] [address] Home Care Provider Family Medicine 05/15/22 Kush Newby, PT [address] [place] [address] Vending Technician Post Acute Care 05/15/22 Corporation Secretary Relationship Specialty Start Date End Date Kate Espinoza DO PCP - General 02/02/07 Pennie Jaeger APRN.DARK ROOM ATTENDANT [address] [place] [address] Referring Admitting 05/15/22 Kate Espinoza, DO [address] [facility] [place] [address] Home Care Provider Family Medicine 05/15/22 Kush Newby, PT [address] [place] [address] Vending Technician Post Acute Care 05/15/22 Corporation Secretary Relationship Specialty Start Date End Date Kate Espinoza DO PCP - General 02/02/07 Pennie Jaeger APRN.DARK ROOM ATTENDANT [address] [place] [address] Referring Admitting 05/15/22 Kate Espinoza, DO [address] [place] [address] Home Care Provider Family Medicine 05/15/22 Kush Newby, PT [address] [place] [address] Vending Technician Post Acute Care 05/15/22 Corporation Secretary Relationship Specialty Start Date End Date Kate Espinoza DO PCP - General 02/02/07 Pennie Jaeger APRN.DARK ROOM ATTENDANT [address] [place] [address] Referring Admitting 05/15/22 Kate Espinoza DO [address] [place] [address] Home Care Provider Family Medicine 05/15/22 Kush Newby, PT [address] [place] [address] Vending Technician Post Acute Care 05/15/22 Corporation Secretary Relationship Specialty Start Date End Date Kate Espinoza DO PCP - General 02/02/07 Pennie Jaeger, RUIZ.DARK ROOM ATTENDANT [address] [place] [address] Referring Admitting 05/15/22 Kate Espinoza, DO [address] [place] [address] Home Care Provider Family Medicine 05/15/22 Kush Newby, PT [address] [place] [address] Vending Technician Post Acute Care 05/15/22 Corporation Secretary Relationship Specialty Start Date End Date Kate Espinoza DO PCP - General 02/02/07 Pennie Jaeger, METAL CASTING TRADES WORKER.DARK ROOM ATTENDANT [address] [place] [address] Referring Admitting 05/15/22 Kate Espinoza DO [address] [place] [address] Home Care Provider Family Medicine 05/15/22 Kush Newby, PT [address] [place] [address] Vending Technician Post Acute Care 05/15/22 Corporation Secretary Relationship Specialty Start Date End Date Kate Espinoza DO PCP - General 02/02/07 Pennie Jaeger, METAL CASTING TRADES WORKER.DARK ROOM ATTENDANT [address] [place] [address] Referring Admitting 05/15/22 Kate Espinoza, DO [address] [place] [address] Home Care Provider Family Medicine 05/15/22 Kush Newby, PT [address] [place] [address] Vending Technician Post Acute Care 05/15/22 Corporation Secretary Relationship Specialty Start Date End Date Kate Espinoza DO PCP - General 02/02/07 Pennie Jaeger, METAL CASTING TRADES WORKER.DARK ROOM ATTENDANT [address] [place] [address] Referring Admitting 05/15/22 Kate Espinoza, DO [address] [place] [address] Home Care Provider Family Medicine 05/15/22 Kush Newby, PT [address] [place] [address] Vending Technician Post Acute Care 05/15/22 Corporation Secretary Relationship Specialty Start Date End Date Kate Espinoza DO PCP - General 02/02/07 Pennie Jaeger, METAL CASTING TRADES WORKER.DARK ROOM ATTENDANT [address] [place] [address] Referring Admitting 05/15/22 Kate Espinoza, DO [address] [place] [address] Home Care Provider Family Medicine 05/15/22 Kush Newby, PT [address] [place] [address] Vending Technician Post Acute Care 05/15/22 Corporation Secretary Relationship Specialty Start Date End Date Kate Espinoza DO PCP - General 02/02/07 Pennie Jaeger, METAL CASTING TRADES WORKER.DARK ROOM ATTENDANT [address] [place] [address] Referring Admitting 05/15/22 Kate Espinoza, DO [address] [place] [address] Home Care Provider Family Medicine 05/15/22 Kush Newby, PT [address] [place] [address] Vending Technician Post Acute Care 05/15/22 Corporation Secretary Relationship Specialty Start Date End Date Kate Espinoza DO PCP - General 02/02/07 Pennie Jaeger APRN.DARK ROOM ATTENDANT [address] [place] [address] Referring Admitting 05/15/22 Kate Espinoza, DO [address] [place] [address] Home Care Provider Family Medicine 05/15/22 Kush Newby, PT [address] [place] [address] Vending Technician Post Acute Care 05/15/22 Corporation Secretary Relationship Specialty Start Date End Date Kate Espinoza DO PCP - General 02/02/07 Pennie Jaeger APRN.DARK ROOM ATTENDANT [address] [place] [address] Referring Admitting 05/15/22 Kate Espinoza, DO [address] [place] [address] Home Care Provider Family Medicine 05/15/22 Kush Newby, PT [address] [place] [address] Vending Technician Post Acute Care 05/15/22 Corporation Secretary Relationship Specialty Start Date End Date Kate Espinoza DO PCP - General 02/02/07 Pennie Jaeger APRN.DARK ROOM ATTENDANT [address] [place] [address] Referring Admitting 05/15/22 Kate Espinoza DO [address] [place] [address] Home Care Provider Family Medicine 05/15/22 Kush Newby, PT [address] [place] [address] Vending Technician Post Acute Care 05/15/22 Corporation Secretary Relationship Specialty Start Date End Date Kate Espinoza DO PCP - General 02/02/07 Pennie Jaeger, METAL CASTING TRADES WORKER.DARK ROOM ATTENDANT [address] [place] [address] Referring Admitting 05/15/22 Kate Espinoza DO [address] [place] [address] Home Care Provider Family Medicine 05/15/22 Kush Newby, PT [address] [place] [address] Vending Technician Post Acute Care 05/15/22 Corporation Secretary Relationship Specialty Start Date End Date Kate Espinoza DO PCP - General 02/02/07 Pennie Jaeger, METAL CASTING TRADES WORKER.DARK ROOM ATTENDANT [address] [place] [address] Referring Admitting 05/15/22 Kate Espinoza DO [address] [place] [address] Home Care Provider Family Medicine 05/15/22 Kush Newby, PT [address] [place] [address] Vending Technician Post Acute Care 05/15/22 Corporation Secretary Relationship Specialty Start Date End Date Kate Espinoza DO PCP - General 02/02/07 Pennie Jaeger APRN.DARK ROOM ATTENDANT [address] [place] [address] Referring Admitting 05/15/22 Kate Espinoza DO [address] [place] [address] Home Care Provider Family Medicine 05/15/22 Kush Newby, PT [address] [place] [address] Vending Technician Post Acute Care 05/15/22 Corporation Secretary Relationship Specialty Start Date End Date Kate Espinoza DO PCP - General 02/02/07 Pennie Jaeger APRN.DARK ROOM ATTENDANT [address] [place] [address] Referring Admitting 05/15/22 Kate Espinoza DO [address] [place] [address] Home Care Provider Family Medicine 05/15/22 Kush Newby, PT [address] [place] [address] Vending Technician Post Acute Care 05/15/22 Corporation Secretary Relationship Specialty Start Date End Date Kate Espinoza DO PCP - General 02/02/07 Pennie Jaeger APRN.DARK ROOM ATTENDANT [address] [place] [address] Referring Admitting 05/15/22 Kate Espinoza DO [address] [place] [address] Home Care Provider Family Medicine 05/15/22 Kush Newby, PT [address] [place] [address] Vending Technician Post Acute Care 05/15/22 Corporation Secretary Relationship Specialty Start Date End Date Kate Espinoza DO PCP - General 02/02/07 Pennie Jaeger, RUIZ.DARK ROOM ATTENDANT [address] [place] [address] Referring Admitting 05/15/22 Kate Espinoza DO [address] [place] [address] Home Care Provider Family Medicine 05/15/22 Kush Newby, PT [address] [place] [address] Vending Technician Post Acute Care 05/15/22 Corporation Secretary Relationship Specialty Start Date End Date Kate Espinoza DO PCP - General 02/02/07 Pennie Jaeger, METAL CASTING TRADES WORKER.DARK ROOM ATTENDANT [address] [place] [address] Referring Admitting 05/15/22 Kate Espinoza DO [address] [place] [address] Home Care Provider Family Medicine 05/15/22 Kush Newby, PT [address] [facility], [place] [id number] Vending Technician Post Acute Care 05/15/22 Corporation Secretary Relationship Specialty Start Date End Date Kate Espinoza DO PCP - General 02/02/07 Pennie Jaeger, METAL CASTING TRADES WORKER.DARK ROOM ATTENDANT [address] [place] [address] Referring Admitting 05/15/22 Kate Espinoza DO [address] [place] [address] Home Care Provider Family Medicine 05/15/22 Kush Newby, PT [address] [place] [address] Vending Technician Post Acute Care 05/15/22 Corporation Secretary Relationship Specialty Start Date End Date Kate Espinoza DO PCP - General 02/02/07 Pennie Jaeger, METAL CASTING TRADES WORKER.DARK ROOM ATTENDANT [address] [place] [address] Referring Admitting 05/15/22 Kate Espinoza DO [address] [place] [address] Home Care Provider Family Medicine 05/15/22 Kush Newby, PT [address] [facility], [place] [address] Vending Technician Post Acute Care 05/15/22 Scheduled Active and Recently Administ ered Medications (unrecognized section and content) PRN Medication Order 07/16/2021 07/17/2021 07/18/2021 fentaNYL 50 mcg/mL injection (SUBLIMAZE) INTRAVENOUS, NEEDED, Starting on 07/18/21 at 1124, Until 07/19/21 at 0303 1124 (Given - Provid er: Steffanie Sanchez RN) midazolam (PF) injection (VERSED) INTRAVENOUS, NEEDED, Starting on 07/18/21 at 1124, Until 07/19/21 at 0303 1124 (Given - Provid er: Steffanie Sanchez RN) FOR RECORDS PERTAINING TO PATIENTS WHO ARE OR HAVE BEEN ENROLLED IN A CHEMICAL DEPENDENCY/SUBSTANCEABUSE PROGRAM, SOME INFORMATION MAY BE OMITTED. This clinical summary was aggregated from multiple sources. Caution should be exercised in using it in the provision of clinical care. This summary normalizes information from multiple sources, and as a consequence, information in this document may materially change the coding, format and clinical context of patient data. In addition, data may be omitted in some cases. CLINICAL DECISIONS SHOULD BE BASED ON THE PRIMARY CLINICAL RECORDS. [employer] [facility]. provides no warranty or guarantee of the accuracy or completeness of information in this document.
[2023-04-26] MEDS: Lactated Ringers 1,000 ML 999 ML IV ×2 (08:42→12:43)
[2023-04-26] MEDS: Magnesium 1 GM over 15 mins IV (08:43)
[2023-04-26] MEDS: Gabapentin 600 MG Tablet PO (08:56)
[2023-04-26] MEDS: Acetaminophen 500 MG Tablet 1000 MG PO ×2 (08:56→21:04)
[2023-04-26 09:16] LABS: Bedside Glucose 105 mg/dL (74-106)
--- NOTE | 2023-04-26 10:45 | KNEE_PTH ---
PATHOLOGY RESULTS PATIENT: FREDERIC HERBERT LOC: MS3 U#:[id number] AGE/SX: 63/F ROOM: NY314 RE04/26/[address]: Dr. Madhav Grace DO : 1960 BED: 1 DIS: 04/28/2023 SPEC #: [id number] RECD: 04/26/23 14:51 STATUS: YNES REShaun #: [id number] JONATHAN: 04/26/23 10:[address]: Madhav Grace DEPT: SURGICAL PATHOLOGY RECD BY: Camelia Abad ENTERED: 04/27/23 11:58 SP TYPE: TOTAL KNEE OTHR DR: Dr. Kate Espinoza, DO Tissues: Knee, NOS Procedures: Decalcification bone/plaque Surgery Specimen Level IV HEADER OPERATION: BRITTANI, robotic assisted right total knee arthroplasty PRE-OP DIAGNOSIS: Osteoarthritis right knee TISSUE SUBMITTED: Debrided bone and tissue right knee MICROSCOPIC DIAGNOSIS Bone and tissue, right knee, total knee replacement/resection: Pieces of bone with degenerative osteoarthritic changes. Fibroadipose tissue and fibroconnective tissue. NILSON:silvana 04/29/2023 MICROSCOPIC DESCRIPTION Slides are reviewed. GROSS DESCRIPTION Received is one container designated bone and soft tissue right knee. The specimen consists of multiple fragments of sorenson-yellow bone measuring in aggregate 9.0 x 7.5 x 3.0 cm. A piece of soft tissue is noted attached to the piece of bone measuring 4.0 x 3.0 x 0.5 cm. A number of bony fragments contain articular surfaces consistent with tibial plateau and femoral condyle and displaying prominent osteophyte formation, eburnation and bone erosion. Cathode Ray Tube Assembler sections are submitted in two cassettes as follows: 1 - soft tissue, 2 - bone after decalcification. / NILSON:silvana 04/27/2023 :5 [facility]: [id number], [id number]
[2023-04-26] MEDS: Cefazolin 2 GM in 0.9% Normal Saline (100mL Bag) 100 ML IV (10:50)
[2023-04-26] MEDS: JPS (Morphine 10mg/ml) OPERA.SITE (11:45)
--- NOTE | 2023-04-26 11:52 | PCM.OPRPT ---
Report of Operation Date of Procedure: 04/26/23 Pre-Operative Diagnosis: OA Right knee Post-Operative Diagnosis: same Surgery/Procedure Performed:: Right TKR Description of Surgical Findings:: Report of Operation Date of Procedure: 04/23/2023 Preoperative Diagnosis: [ Right ] knee primary osteoarthritis Postoperative Diagnosis: [Right ] knee primary osteoarthritis Operation: Robotic Assisted Knee Total Arthroplasty, [Right ] knee Surgeon: Dr Madhav Grace DO Machine Shorthand Reporter: Robbie Saleh PA-C Anesthesia: spinal Anesthesiologist: Franklin Kevin M.D. Findings: Stable knee with good patella tracking Specimen(s): Bony cuts Complications: No intraoperative complications Estimated Blood Loss: 20 cc IV Fluids: 1000 cc crystalloid Implants Used: 1. [employer]ianna Triathlon press fit CR size 3 femur 2. [place] Tri[employer] size 3 tibia 3. 29 mm patella 4. 9 mm CS polyethylene Brief History Operative Indications: [ (63 y/o female) ] with history of [ right ] knee osteoarthrosis with radiographic findings with loss of joint space, osteophyte formation and subchondral sclerosis. Failed conservative measures as mentioned in the H&P. Discussion of total knee arthroplasty as well as risk and benefits were discussed with the patient including but not limited to blood loss, DVTs, PEs, neurovascular damage, general risk of anesthesia including loss of life, and stiffness or instability were also discussed with the patient. Patient demonstrated understanding and was able to sign informed consent. Procedure: On the date of procedure, patient's [ right ] lower extremity was marked in the preoperative area. The patient was then taken back to the operating room where that patient was placed on the table in the supine position. All bony prominences were identified and well-padded. Anesthesia assumed control of the C-spine and airway throughout the remainder of the procedure. A tourniquet was placed on the [ right ] upper thigh and the leg was prepped in a sterile fashion. The surgeon then scrubbed at this time. Upon reentering the room, the [ right ] lower extremity was draped in a standard orthopedic fashion. A timeout was then called and everyone agreed upon the side, the site, the procedure to be performed, patient's identity and antibiotics given. Esmarch bandage was used to exsanguinate the extremity and the tourniquet was placed up to 250 mmHg with the knee in flexion. A midline skin incision was made and a sharp dissection was taken down through skin, subcutaneous tissue and fat. The standard medial parapatellar incision was made and the patella was subluxed laterally. An appropriate deep MCL release was done and the fat pad was resected. Our attention was then directed to the patella. The patella was everted and a flat resection was made. The knee was then flexed up and 2 femoral pins were placed inside the incision and 2 tibial pins were placed outside the incision in the medial tibia bicortically. Once this was completed, the 2 checkpoints in the femur and tibia were placed. Knee was then flexed up and the bony landmarks were registered. Once the was completed, the knee taken through range of motion and manually stressed allowing us to plan for an appropriate tibial cut. The robotic arm was brought into the field sterilely and checkpoint and saw were registered. Based on the patient's deformity, the tibial cut was made in [neutral ]. At this time, the tensioner was then placed in the joint and ligament tension was checked at 90 degrees and full extension. Based on the patient's ligamentous tension, appropriate adjustments were made to the operative plan and ligament releases were done. Once we were happy with our operative plan with balanced flexion and extension gaps, our attention was directed to the femur. The robot was brought into the field sterilely and registered. Posterior condylar cuts, anterior chamfer cuts and anterior cuts were appropriately made for a [size 3 ] femur. When these were completed, the saws were switched out in the distal femoral and posterior chamfer cuts were made. Protecting the soft tissue throughout this time. A [ size 3 ] base plate was selected. The knee was flexed to 90 degrees and soft tissues and posterior osteophytes were removed from the joint. 40 cc of the periarticular injection was injected into the posterior medial corner of the joint. The appropriate trials were then placed on the femur and tibia. A trial polyethylene was trialed to ensure proper balancing and stability of the knee. The appropriate tibial internal rotation was then marked with a bovie. Our attention was then directed to the patella. The lug holes were drilled and the patella trial was placed. Patellar tracking was checked and deemed appropriate. Once we were happy, lug holes were drilled for the femur and trial components were removed. The tibia was subluxed and pinned into place and the keel was punched and drilled appropriately. Final components were verified and opened. The wound was copiously irrigated with normal saline. The components were impacted into place with the tibia, femur and finally the patella. The trial poly component was placed and the knee was placed in full extension. The tracking, alignment and balance were verified and a [ 9 mm CS ] polyethylene component was placed. Once the final components were placed an Irrisept lavage was performed and the wound was copiously irrigated with normal saline solution and the periarticular injection was given. the wound was closed in a layer-mendoza fashion using #1 vicryl interrupted sutures for the arthrotomy, 2-0 interrupted vicryl suture for the subcuticular layer and leann for final skin closure. A sterile compressive dressing was then placed. The patient was then awakened from anesthesia, transferred to the ralma and transferred to the PACU for recovery. My physician mortgage loan assistant was a vital part of this case. He was important in appropriate retraction during the case, and protection of soft tissues during bony cuts. His intimate knowledge of the case and my steps aided in safe and expedient completion of the procedure as well as appropriate position of the leg during the case. He was also vital in assisting with closure under my direct supervision. Due to the complexity of this case, robotic arm was used to assist in the surgery to improve accuracy and clinical outcomes. Post-op Plan: DVT ppx; ASA 81 mg BID, thigh high compression stockings Follow up: in office in 2 weeks for wound check PT: to start POD #0 at hospital, outpatient PT should be arranged. Preoperative antibiotic: Ancef 2 grams IV Madhav Grace DO Surgeon: Madhav Grace scholastic aptitude test grader: Robbie Saleh Type of Anesthesia: Spinal Anesthesiologist: Franklin Kevin Estimated Blood Loss (mL): 20 cc Fluids Replaced: 1000 cc crystalloid Admit VTE Documentation VTE Present on Admission: No VTE Mechan Device Prophylaxis: SCD's and Thigh High YOSELIN Hose VTE Pharm Prophylaxis ordered?: Yes
[2023-04-26] MEDS: TXA in NS 100ml (Placed in Wound) OPERA.SITE (11:57)
--- NOTE | 2023-04-26 12:50 | RAD_ITS ---
STUDY: X-RAY - RIGHT KNEE REASON FOR EXAM: Female, 63 years old. Post op -- AP and Lateral x-ray of operative knee in PACU TECHNIQUE: 2 view(s) of the knee. COMPARISON: None. FINDINGS: Normal visualized distal femur. Normal visualized proximal tibia and fibula. Normal proximal tibiofibular articulation. The patient is status post total knee replacement. There is good alignment. Postoperative soft tissue changes. RAD/Knee 1 or 2 Views IMPRESSION: Status post total knee replacement. Postoperative soft tissue changes. Electronically Signed: Serafin Manrique MD at 13:48 EST ,
[2023-04-26] MEDS: Lactated Ringers 1,000 ML 125 ML IV (13:05)
[2023-04-26] MEDS: oxyCODONE 5 MG Tablet PO ×2 (16:36→21:04)
[2023-04-26] MEDS: Allopurinol 100 MG Tablet 200 MG PO (17:07)
[2023-04-26] MEDS: Senna/Docusate Sodium 1 Tablet 2 TABLET PO ×2 (17:07→21:03)
--- OUTSIDE RECORDS SUMMARY | 2023-04-26 17:30 | XMS RPT_ITS | CCD ---
Author Name Unknown Address [address] [place] [address] Organization [facility] Care Team Providers Care Sanitary Landfill Operator Name Role Phone Sheets DOKate C Primary Care Provider [phone] Sheets DOKate C Primary Care Provider Mil EMERGENCY SERVICE RESTORER.MEDIA SPECIALIST, Pennie Unavailable Sheets DOKate C Unavailable Knupp [...] Unavailable SHEETS, KATE C Primary Care Unavailable HRUHGH GONZALEZ Attending Unavailable SHEETS, KATE JARA Primary [...] (20 sources) Drug therapy finding; Translations: [Other long term care pharmacist (current) drug therapy] Onset: 07-09-2017 07-09-2017 Episodic [...] 162.6 cm Brodie Guevara MD Work Phone: [facility] 01-06-2023 14:14-0400 Body weight 93.44 kg Brodie Guevara MD Work Phone: [facility] 01-06-2023 14:14-0400 Diastolic blood pressure 72 mm[Hg] Brodie Guevara MD Work Phone: [facility] 01-06-2023 14:14-0400 Heart rate 83 /min Brodie Guevara MD Work Phone: [facility] 01-06-2023 14:14-0400 Respiratory rate 18 /min Brodie Guevara MD Work Phone: [facility] 01-06-2023 14:14-0400 SaO2% (BldA) [Mass fraction] 95 % Brodie Guevara MD Work Phone: [facility] 01-06-2023 14:14-0400 Systolic blood pressure 132 mm[Hg] Brodie Guevara MD Work Phone: [facility] 12-18-2022 09:52-0400 Body temperature 99.39 [degF] Kate Sheets DO Work Phone: [facility] 12-18-2022 09:52-0400 Body weight 89 kg Kate Sheets DO Work Phone: [facility] 12-18-2022 09:52-0400 Diastolic blood pressure 72 mm[Hg] Kate Sheets DO Work Phone: [facility] 12-18-2022 09:52-0400 Heart rate 85 /min Kate Sheets DO Work Phone: [facility] 12-18-2022 09:52-0400 Respiratory rate 16 /min Kate Sheets DO Work Phone: [facility] 12-18-2022 09:52-0400 SaO2% (BldA) [Mass fraction] 96 % Kate Sheets DO Work Phone: [facility] 12-18-2022 09:52-0400 Systolic blood pressure 114 mm[Hg] Kate Sheets DO Work Phone: [facility] 08-10-2022 13:50-0400 Body temperature 98.29 [degF] Kate Sheets DO Work Phone: [facility] 08-10-2022 13:50-0400 Body weight 87.18 kg Kate Sheets DO Work Phone: [facility] 08-10-2022 13:50-0400 Diastolic blood pressure 62 mm[Hg] Kate Sheets DO Work Phone: [facility] 08-10-2022 13:50-0400 Heart rate 96 /min Kate Sheets DO Work Phone: [facility] 08-10-2022 13:50-0400 Respiratory rate 16 /min Kate Sheets DO Work Phone: [facility] 08-10-2022 13:50-0400 SaO2% (BldA) [Mass fraction] 97 % Kate Sheets DO Work Phone: [facility] 08-10-2022 13:50-0400 Systolic blood pressure 110 mm[Hg] Kate Sheets DO Work Phone: [facility] 05-29-2022 12:55-0500 Body temperature 97.5 [degF] Gonzales Blackert ASSET PROTECTION PROFESSIONAL Work Phone: [facility] 05-29-2022 12:55-0500 Diastolic blood pressure 82 mm[Hg] Gonzales Blackert ASSET PROTECTION PROFESSIONAL Work Phone: [facility] 05-29-2022 12:55-0500 Heart rate 88 /min Gonzales Blackert ASSET PROTECTION PROFESSIONAL Work Phone: [facility] 05-29-2022 12:55-0500 Respiratory rate 17 /min Gonzales Blackert ASSET PROTECTION PROFESSIONAL Work Phone: [facility] 05-29-2022 12:55-0500 SaO2% (BldA) [Mass fraction] 98 % Gonzales Blackert ASSET PROTECTION PROFESSIONAL Work Phone: [facility] 05-29-2022 12:55-0500 Systolic blood pressure 120 mm[Hg] Gonzales Blackert ASSET PROTECTION PROFESSIONAL Work Phone: [facility] 05-28-2022 13:41-0500 Body temperature 97.5 [degF] Gonzales Blackert ASSET PROTECTION PROFESSIONAL Work Phone: [facility] 05-28-2022 13:41-0500 Diastolic blood pressure 80 mm[Hg] Gonzales Blackert ASSET PROTECTION PROFESSIONAL Work Phone: [facility] 05-28-2022 13:41-0500 Heart rate 84 /min Gonzales Blackert ASSET PROTECTION PROFESSIONAL Work Phone: [facility] 05-28-2022 13:41-0500 Respiratory rate 17 /min Gonzales Blackert ASSET PROTECTION PROFESSIONAL Work Phone: [facility] 05-28-2022 13:41-0500 SaO2% (BldA) [Mass fraction] 96 % Gonzales Blackert ASSET PROTECTION PROFESSIONAL Work Phone: [facility] 05-28-2022 13:41-0500 Systolic blood pressure 140 mm[Hg] Gonzales Blackert ASSET PROTECTION PROFESSIONAL Work Phone: [facility] 05-22-2022 15:05-0500 Body temperature 97.59 [degF] Gonzales Blackert ASSET PROTECTION PROFESSIONAL Work Phone: [facility] 05-22-2022 15:05-0500 Diastolic blood pressure 70 mm[Hg] Gonzales Blackert ASSET PROTECTION PROFESSIONAL Work Phone: [facility] 05-22-2022 15:05-0500 Heart rate 53 /min Gonzales Blackert ASSET PROTECTION PROFESSIONAL Work Phone: [facility] 05-22-2022 15:05-0500 Respiratory rate 17 /min Gonzales Blackert ASSET PROTECTION PROFESSIONAL Work Phone: [facility] 05-22-2022 15:05-0500 SaO2% (BldA) [Mass fraction] 96 % Gonzales Blackert ASSET PROTECTION PROFESSIONAL Work Phone: [facility] 05-22-2022 15:05-0500 Systolic blood pressure 118 mm[Hg] Gonzales Blackert ASSET PROTECTION PROFESSIONAL Work Phone: [facility] 05-21-2022 08:14-0500 Body temperature 97.11 [degF] Gonzales Blackert ASSET PROTECTION PROFESSIONAL Work Phone: [facility] 05-21-2022 08:14-0500 Diastolic blood pressure 80 mm[Hg] Gonzales Monroy ASSET PROTECTION PROFESSIONAL Work Phone: [facility] 05-21-2022 08:14-0500 Heart rate 86 /min Gonzales Monroy ASSET PROTECTION PROFESSIONAL Work Phone: [facility] 05-21-2022 08:14-0500 Respiratory rate 17 /min Gonzales Chairezert ASSET PROTECTION PROFESSIONAL Work Phone: [facility] 05-21-2022 08:14-0500 SaO2% (BldA) [Mass fraction] 97 % Gonzales Monroy ASSET PROTECTION PROFESSIONAL Work Phone: [facility] 05-21-2022 08:14-0500 Systolic blood pressure 126 mm[Hg] Gonzales Monroy ASSET PROTECTION PROFESSIONAL Work Phone: [facility] 05-19-2022 13:19-0500 Body temperature 98.4 [degF] Toshia Iam OT/L Work Phone: [facility] 05-19-2022 13:19-0500 Body weight 86.18 kg Toshia Iam OT/L Work Phone: [facility] 05-19-2022 13:19-0500 Diastolic blood pressure 60 mm[Hg] Toshia Iam OT/L Work Phone: [facility] 05-19-2022 13:19-0500 Heart rate 52 /min Toshia Iam OT/L Work Phone: [facility] 05-19-2022 13:19-0500 Respiratory rate 18 /min Toshia Iam OT/L Work Phone: [facility] 05-19-2022 13:19-0500 SaO2% (BldA) [Mass fraction] 96 % Toshia Iam OT/L Work Phone: [facility] 05-19-2022 13:19-0500 Systolic blood pressure 98 mm[Hg] Toshia Iam OT/L Work Phone: [facility] 05-18-2022 15:36-0500 Body temperature 97.39 [degF] Ariela Muirton RN Work Phone: [facility] 05-18-2022 15:36-0500 Body weight 86.18 kg Ariela Guardado RN Work Phone: [facility] 05-18-2022 15:36-0500 Diastolic blood pressure 60 mm[Hg] Ariela Redmond RN Work Phone: [facility] 05-18-2022 15:36-0500 Heart rate 76 /min Ariela Redmond RN Work Phone: [facility] 05-18-2022 15:36-0500 Respiratory rate 18 /min Ariela Redmond RN Work Phone: [facility] 05-18-2022 15:36-0500 SaO2% (BldA) [Mass fraction] 97 % Arielark MuirRedmond RN Work Phone: [facility] 05-18-2022 15:36-0500 Systolic blood pressure 96 mm[Hg] Ariela Muirton RN Work Phone: [facility] 05-18-2022 15:35-0500 Body temperature 97.39 [degF] Kush Knupp PT Work Phone: [facility] 05-18-2022 15:35-0500 Body weight 86.18 kg Kush Knupp PT Work Phone: [facility] 05-18-2022 15:35-0500 Diastolic blood pressure 60 mm[Hg] Kush Knupp PT Work Phone: [facility] 05-18-2022 15:35-0500 Heart rate 76 /min Kush Knupp PT Work Phone: [facility] 05-18-2022 15:35-0500 Respiratory rate 18 /min Kush Knupp PT Work Phone: [facility] 05-18-2022 15:35-0500 SaO2% (BldA) [Mass fraction] 97 % Kush Knupp PT Work Phone: [facility] 05-18-2022 15:35-0500 Systolic blood pressure 96 mm[Hg] Kush Knupp PT Work Phone: [facility] 12-31-2021 13:45-0400 Body height 162.6 cm Brodie Guevara MD Work Phone: [facility] 12-31-2021 13:45-0400 Body weight 96.16 kg Brodie Guevara MD Work Phone: [facility] 12-31-2021 13:45-0400 Diastolic blood pressure 73 mm[Hg] Brodie Guevara MD Work Phone: [facility] 12-31-2021 13:45-0400 Heart rate 90 /min Brodie Guevara MD Work Phone: [facility] 12-31-2021 13:45-0400 SaO2% (BldA) [Mass fraction] 97 % Brodie Guevara MD Work Phone: [facility] 12-31-2021 13:45-0400 Systolic blood pressure 110 mm[Hg] Brodie Guevara MD Work Phone: [facility] 07-18-2021 13:15-0400 Diastolic blood pressure 85 mm[Hg] Brodie Guevara MD Work Phone: [facility] 07-18-2021 13:15-0400 Heart rate 76 /min Brodie Guevara MD Work Phone: [facility] 07-18-2021 13:15-0400 Systolic blood pressure 127 mm[Hg] Brodie Guevara MD Work Phone: [facility] 07-18-2021 11:56-0400 Respiratory rate 13 /min Brodie Guevara MD Work Phone: [facility] 07-18-2021 08:14-0400 Body height 162.6 cm Brodie Guevara MD Work Phone: [facility] 07-18-2021 08:14-0400 Body temperature 97.9 [degF] Brodie Guevara MD Work Phone: [facility] 07-18-2021 08:14-0400 Body weight 99.16 kg Brodie Guevara MD Work Phone: [facility] 07-18-2021 08:14-0400 SaO2% (BldA) [Mass fraction] 96 % Brodie Guevara MD Work Phone: [facility] Encounters Encounter Date Encounter Type Care Provider Facility Start: 03-17-2023 Refill Kate Mendez She ets DO Work Phone: [facility] [place] Procedures Date Procedure Procedure Detail Performing Clinician Start: 07-01-2021 Echo tthrc r-t 2d w/wom-mode compl spec&colr d Chelle Beasley APRN.MEDIA SPECIALIST Work Phone: Start: 04-21-2021 Lipid 1996 panel - S ernesto or Plasma Brodie Guevara MD Work Phone: Start: 02-13-2021 History of placement of stent for coronary artery disease Status post insertion of drug eluting coronary artery stent Chelle Beasley APRN.MEDIA SPECIALIST Work Phone: Start: 06-03-2016 Mammography Chelle nobles APRN.MEDIA SPECIALIST Work Phone: Start: 02-28-2009 [facility]oscopy [facility] Work Phone: History of placement of stent for coronary artery disease Status post insertion of drug eluting coronary artery stent Brodie Guevara MD Work Phone: Plan of Treatment Date Care Activity Detail Author Start: 04-21-2026 Lipid 1996 panel - S ernseto or Plasma Lipid Screening [facility] Start: 04-21-2026 Lipid panel Lipid Screening [facility] Start: 04-21-2026 LIPID SCREEN LIPID SCREEN [facility] Start: 12-25-2025 Diabetes Screening Diabetes Screenin [facility] Start: 12-17-2025 Diabetes Screening Diabetes Screenin [facility] Start: 05-08-2025 DIABETES SCREEN DIABETES SCREEN [facility] Start: 05-08-2025 Diabetes Screening Diabetes Screenin g [facility] Start: 06-30-2024 [facility] Start: 06-23-2024 DIABETES SCREEN [facility] Start: 12-19-2023 Annual PCP Team Utility Engineer jefferson Disease Visit Annual PCP Team Chronic Disease Visit [facility] Start: 12-19-2023 BP Controlled (<130/80) BP Controlle d (<130/80) [facility] Start: 08-11-2023 ANNUAL PCP TEAM DRILLING FIELD PROFESSIONAL JEFFERSON DISEASE VISIT ANNUAL PCP TEAM CHRONIC DISEASE VISIT [facility] Start: 08-11-2023 BP CONTROLLED (<130/80) BP CONTROLLE D (<130/80) [facility] Start: 08-11-2023 COLORECTAL CANCER SCREENING COLORECTAL CANCER SCREENING [facility] Immunizations Immunization Date Immunization Notes Care Provider Padma portillo 08-10-2022 pneumococcal Conjuga te, unspecified formulation Kate Sheets DO Work Phone: [facility] Work Phone: 08-10-2022 pneumococcal (PCV20) vaccine, 20 valent (PREVNAR 20) Kate Sheets DO Work Phone: [facility] 08-10-2022 zoster RZV vaccine, PF, (SHINGRIX) 50 mcg/0.5 mL injection Kate Sheets DO Work Phone: [facility] Payers Date Payer Category Payer Unknown MMO MMO [employer] [id number] 2018-Present [phone] [address] [place] [address] PPO [id number] 2018 Unknown [id number] 2018 Unknown [id number] 1960 Unknown [id number] Social History Date Type Detail Facility Start: 03-29-1974 End: 12-31-2021 Tobacco smoking status NHIS Smokes tobacco daily [facility] Start: 03-29-1974 End: 05-04-2022 History of tobacco use Cigarette Smoker [facility] Start: 03-05-2020 End: 04-09-2021 Cigarettes smoked current (pack per day) - Reported 0.75 [facility] Start: 04-09-2021 End: 08-10-2022 Tobacco use and exposure [facility] Start: 06-11-2021 End: 01-06-2023 Alcohol intake Current drinker of alcohol (finding) [facility] Start: 08-18-2018 History SDOH Alcohol Comment occasionally (used to be daily) [facility] Start: 04-09-2021 Tobacco Comment 2 cigs a day [facility] Start: 1960 Sex Assigned At Not on file C [facility] Start: 06-13-2021 End: 12-31-2021 Exposure to SARS-CoV-2 (event) Not sure [facility] Start: 05-07-2022 History SDOH Financial 4 [facility] Start: 05-07-2022 History SDOH Food Worry 1 [facility] Start: 05-07-2022 History SDOH Transpo rt Med 2 [facility] Start: 08-10-2022 Tobacco smoking stat us NVIS Ex-smoker [facility] Start: 03-29-1974 End: 05-04-2022 History of tobacco use Current smoker [facility] Start: 08-10-2022 Tobacco Comment Currently vapes [facility] Start: 03-05-2020 End: 08-10-2022 Tobacco use panel [facility] How hard is it for y ou to pay for the very basics like food, housing, medical care, and heating Not very hard [facility] Adult Depression Screening Assessment 0 [facility] (I/We) worried wheth er (my/our) food would run out before (I/we) got money to buy more. Never true [facility] In the past 12 month s, was there a time when you were not able to pay the mortgage or rent on time? No [facility] Clinical Notes 08-18-2018 to 03-18-2023 Telephone Encounter - Arabella Michaud MA - 03/18/2023 7:55 AM ESTTelephone Encounter - Serenity Doherty MA - 02/15/2023 3:27 PM ESTTelephone Encounter - Arabella Michaud MA - 02/03/2023 3:39 PM EST Note Date & Type Note [facility] 03-18-2023 Miscellaneous Notes pharmacy electronically requesting refills as follows: Last seen 12/18/22 . Last refill 05/19/22 . Requested Prescriptions Pending Prescriptions Disp Refills lisinopril 2.5 mg tablet 90 tablet 0 Sig: take 1 tablet by mouth once daily Please review and advise. Arabella Michaud MA documented in this encounter [facility] 02-15-2023 Miscellaneous Notes Pharmacy requesting refills as follows: Last Office Visit 01/06/23. Last Refill 01/18/23. Requested Prescriptions Pending Prescriptions Disp Refills zolpidem (AMBIEN) 5 mg tablet [Pharmacy Med Name: zolpidem 5 mg tablet] 30 tablet 0 Sig: TAKE 1 TABLET BY MOUTH DAILY AT BEDTIME NEEDED Please review and advise. Serenity Doherty MA documented in this encounter [facility] 02-03-2023 Miscellaneous Notes pharmacy electronically requesting refills as follows: Last seen 12/18/22 . Last refill 12/01/22 . Requested Prescriptions Pending Prescriptions Disp Refills metoprolol tartrate, short acting, (LOPRESSOR) 25 mg tablet [Pharmacy Med Name: metoprolol tartrate 25 mg tablet] 30 tablet 0 Sig: take 1 tablet by mouth once daily. Please review and advise. Arabella Michaud MA documented in this encounter [facility] 01-20-2023 Miscellaneous Notes pharm requesting refills: Last office visit 12/18/22. Last refill 05/19/22. Requested Prescriptions Pending Prescriptions Disp Refills atorvastatin (LIPITOR) 80 mg tablet 90 tablet 0 Sig: Take 1 tablet by mouth daily at bedtime. Please review and advise. Kenna Cui MA documented in this encounter [facility] 01-18-2023 Miscellaneous Notes Pharmacy requesting refills [...] Serenity Doherty MA documented in this encounter [facility] 01-09-2023 Note HNO ID: [id number] Author: Note, Interface Service: ? Author Type: ? Type: Progress Notes Filed: 01/09/2023 2:58 AM Note Text: Epic Scheduled Downtime: 01/09/2023 1:00:00 AM to 01/09/2023 1:28:00 AM [facility] 01-06-2023 Note HNO ID: [id number] Author: Brodie Guevara MD Service: ? Author Type: Physician Type: Progress Notes Filed: 01/06/2023 2:42 PM Note Text: Brodie Guevara MD Interventional Cardiology [address] [place] [id number] Chief Complaint Patient presents with: CARD Follow Up Annual: Yearly check up and clearance HISTORY OF PRESENT ILLNESS: Ms. Bain is a 63 year old female in my office today with prior history of coronary artery disease with acute ST segment elevation ND 2 years ago required drug-eluting stent to [...] HLD (hyperlipidemia) Insomnia Left ventricular systolic dysfunction ND (myocardial infarction) (HCC) PMH - PAST MEDICAL [...] constipation, d (more content not included)... [facility] 01-06-2023 History of Presen t illness Narrative Images from the original note were not included. Brodie Guevara MD Interventional Cardiology [address] [place], [place] [id number] Chief Complaint Patient presents with: CARD Follow Up Annual: Yearly check up and clearance HISTORY OF PRESENT ILLNESS: Ms. Bain is a 63 year old female in my office today with prior history of coronary artery disease with acute ST segment elevation ND 2 years ago required drug-eluting stent to [...] HLD (hyperlipidemia) Insomnia Left ventricular systolic dysfunction ND (myocardial infarction) (HCC) PMH - PAST MEDICAL [...] correct any errors. documented in this encounter [facility] 01-06-2023 Nurse Note Patient denies any cardiac issues or symptoms. documented in this encounter [facility] 12-18-2022 Miscellaneous Notes Cherie Hansen Request for Surgery Clearance for Right total knee arthroplasty placed in Dr. Espinoza green folder to be signed. Arabella Michaud MA documented in this encounter [facility] 12-18-2022 Miscellaneous Notes The patient would like a work letter stating that she had an appointment today. She will need to take it in on Wednesday. Valerie Stuart documented in this encounter [facility] 12-18-2022 Note HNO ID: [id number] Author: Kate Espinoza, DO Service: ? 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 [facility] 12-18-2022 Instructions Sheets, Kate Mendez DO - 12/18/2022 10:31 AM EDT BRAT DIET (may eat any of the following as tolerated) Bananas Applesauce Nichols Saltine Crackers Animal Crackers Pretzels Oatmeal Unsweetened [...] membranes, or lethargy. 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 Obesity, Class I, BMI 30-34.9 - ICD9: 278.00, ICD10: E66.9 Lifestyle modification recommended Kate Espinoza DO PDMP website checked and validated. All prescriptions have been APPROPRIATELY filled. No suspicious activity was identified. 12/18/2022 by Kate Espinoza DO documented in this encounter [facility] 12-16-2022 Miscellaneous Notes Cardiac clearance received from [facility] for r total knee arthroplasty, date TBD. Clearance scanned in for shanique w/ Dr. Guevara on 01/06/23 @2 pm in [place]. Cass Avalos December 16, 2022 10:24 AM documented in this encounter [facility] 12-01-2022 Miscellaneous Notes pharmacy faxes requesting refills as follows: Last seen 08/10/22 . Last refill 05/16/22 . Requested Prescriptions Pending Prescriptions Disp Refills metoprolol tartrate, short acting, (LOPRESSOR) 25 mg tablet 30 tablet 0 Sig: Take 1 tablet by mouth once daily. Please review and advise. Arabella Michaud MA documented in this encounter [facility] 11-27-2022 Miscellaneous Notes This was D/C 05/15/22, patient now has pantoprazole on current med list. Arabella Michaud MA documented in this encounter [facility] 11-20-2022 Miscellaneous Notes pharmacy electronically requesting [...] Arabella Michaud MA documented in this encounter [facility] 11-18-2022 Miscellaneous Notes Medication clearance received from [facility] to hold Brilinta for a pain management procedure, date TBD. Clearance scanned in and in Chelle Beasley's box to be reviewed. Cass Avalos November 18, 2022 9:44 AM documented in this encounter [facility] 09-21-2022 Miscellaneous Notes pharmacy electronically requesting [...] Arabella Michaud MA documented in this encounter [facility] 08-10-2022 Note HNO ID: [id number] Author: Kate Espinoza, DO Service: ? 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 Max (more content not included)... [facility] 08-10-2022 Nurse Note Immunizations were given as ordered. Vaccination information sheet(s) given. 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 Author [...] of Care: created on 06/12/22 through 08/11/22 [place] in home exercise program.M Patient will decrease [...] Minutes (timed/untimed): 40 Harvey Rivera PT [facility] 07-27-2022 History of Presen [...] of Care: created on 06/12/22 through 08/11/22 [place] in home exercise program.M Patient will decrease [...] Harvey Rivera PT documented in this encounter [facility] 07-23-2022 Miscellaneous Notes Patient has appointment [...] Arabella Michaud MA documented in this encounter [facility] 07-08-2022 Miscellaneous Notes Clearance form received from [facility]. Form placed in Dr. Guevara's door box. Lizzie Mcfadden RN documented in this encounter [facility] 06-29-2022 Note HNO ID: [id number] Author: Kelli Gomez PT Service: ? Author [...] Minutes (timed/untimed): 40 Kelli Gomez, PT [facility] 06-29-2022 History of Presen [...] Kelli Gomez PT documented in this encounter [facility] 06-23-2022 Note HNO ID: [id number] Author: Mert Queen PTA Service: ? Author Type: Shell Reprint Operator Type: Progress Notes Filed: 06/23/2022 5:54 PM [...] Time Minutes (timed/untimed): 45 Mert QueenSOSA [facility] 06-23-2022 History of Presen [...] Mert Queen PTA documented in this encounter [facility] 06-22-2022 Miscellaneous Notes pharmacy electronically requesting [...] Arabella Michaud MA documented in this encounter [facility] 06-17-2022 Note HNO ID: [id number] Author: Mert Queen PTA Service: ? Author Type: Shell Reprint Operator Type: Progress Notes Filed: 06/17/2022 11:40 AM [...] Minutes (timed/untimed): 61 Mert Queen PTA [facility] 06-17-2022 History of Presen [...] Mert Queen PTA documented in this encounter [facility] 06-15-2022 Note HNO ID: [id number] Author: Kelli Gomez, PT Service: ? Author [...] L3x12' seat 4-1 2: shuttle leg press [id number], SL [id number], 1ssrbsT46x2 3: shuttle heel raises 1lwigpV6k, 7hwgugD73k 4: B calf stretch on slant board [...] Minutes (timed/untimed): 45 Kelli Gomez PT [facility] 06-12-2022 Note HNO ID: [id number] Author: Kelli Gomez PT Service: ? Author [...] of Care: created on 06/12/22 through 08/11/22 [place] in home exercise program. 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 [facility] 06-12-2022 History of Presen [...] of Care: created on 06/12/22 through 08/11/22 [place] in home exercise program. 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 only patient present during today's [...] for intervention/education details. documented in this encounter [facility] 05-28-2022 Miscellaneous Notes SITUATION: ASSET PROTECTION PROFESSIONAL routine visit. only patient present during today's [...] for intervention/education details. documented in this encounter [facility] 05-25-2022 Miscellaneous Notes pharmacy electronically requesting [...] Arabella Michaud MA documented in this encounter [facility] 05-25-2022 Miscellaneous Notes 05/25/22 10:31 AM - 10:33 AM ABRASIVE WHEEL MOLDER called the pt. regarding if she received the Living Will and Medical POA forms in the mail. She stated that someone has to go to the Post Office for her and she only gets her mail so often. The pt. to call ABRASIVE WHEEL MOLDER if she does not receive the Advanced Directive foirms in the mail. documented in this encounter [facility] 05-22-2022 Miscellaneous Notes SITUATION: ASSET PROTECTION PROFESSIONAL routine visit. only patient present during today's [...] for intervention/education details. documented in this encounter [facility] 05-21-2022 Miscellaneous Notes SITUATION: ASSET PROTECTION PROFESSIONAL routine visit. only patient present during today's [...] for intervention/education details. documented in this encounter [facility] 05-19-2022 Miscellaneous Notes Patient informed of [...] Kenna Cui MA documented in this encounter [facility] 05-19-2022 Miscellaneous Notes SITUATION: OT evaluation [...] Obesity, Class II, Bmi 35-39.9 History of ND (Myocardial Infarction) History of Suicide Attempt Tobacco Use Disorder Chronic Gout of Foot Bmi 35.0-35.9,Adult Status Post Insertion of Drug Eluting Coronary Artery Stent Mixed Hyperlipidemia Primary Hypertension Coronary Artery Disease Involving [place] Coronary Artery of [place] Heart Without Angina Pectoris Weight Bearing or Surgical Precautions: WBAT, fall risk ASSESSMENT: Patient evaluated by [facility] occupational therapy. Reviewed and explained homecare services. Plan of care, goals and visit frequency developed, reviewed, and agreed upon with patient and/or caregiver. Current Discharge Plan:remain in community with/without caregiver support. Anticipate discharge by 05/19/22 RECOMMENDATION: See intervention summary for intervention/education details. documented in this encounter [facility] 05-18-2022 Miscellaneous Notes SITUATION: Senior Care Eval completed today. PT also present during [...] n/a EVAL only documented in this encounter [facility] 05-18-2022 Note HNO ID: [id number] Author: Estephania Crawford LPN Service: ? Author Type: LICENSED NURSE Type: Progress Notes Filed: 05/19/2022 12:39 PM Note Text: TRANSITIONAL CARE MANAGEMENT (TCM) COMMUNITY MONITORING PROGRAM - [place] Provider Action/FYI: SUMMARY: Pt discharged from [facility] on 05/15/2022. Admitted for: Total L knee Risk score: 15 Contact made with patient: No - 2nd unsuccessful attempt - end outreach and close encounter Outreach ended Unable to contact patient via telephone. Outreach ended. Estephania Crawford LPN TRANSITIONAL CARE MANAGEMENT (TCM) COMMUNITY MONITORING PROGRAM - [place] Provider Action/FYI: SUMMARY: [facility]. Admitted for: Total L knee Risk score: 15 Contact made with patient: No - next outreach attempt will be on next business day Outreach ended Next attempt will be made on 05/19/2022. Estephania Crawford LPN [facility] 05-18-2022 Note Patient Outreach (AG INTMLW) NUSRAT BAIN ([id number]) 1960 F Date Time Provider Department 05/18/22 ESTEPHANIA CRAWFORD AGINTMLW During your visit today, we recorded the following information about you: Estephania Crawford LPN 05/19/2022 12:39 PM Signed TRANSITIONAL CARE MANAGEMENT (TCM) COMMUNITY MONITORING PROGRAM - [place] Provider Action/FYI: SUMMARY: [facility]. Admitted for: Total L knee Risk score: 15 Contact made with patient: No - 2nd unsuccessful attempt - end outreach and close encounter Outreach ended Unable to contact patient via telephone. Outreach ended. Estephania Crawford LPN TRANSITIONAL CARE MANAGEMENT (TCM) COMMUNITY MONITORING PROGRAM - [place] Provider Action/FYI: SUMMARY: [facility]. Admitted for: Total L [...] for Visit: Transition Of Care [4074] Cmt: [facility] discharge 05/15/2022 TCM encounter Prescriptions as [...] been reviewed today/February 25, 2007 Maria A Bell Lpn Problem List As Of Date 05/18/2022 Noted Resolved Urge incontinence of urine [N39.41] 05/08/2016 Gastroesophageal reflux disease without esophag*05/08/2016 Female dyspareunia [N94.10] 05/08/2016 Vaginal atrophy [N95.2] 05/08/2016 Recurrent major depression in partial remission*05/08/2016 Primary insomnia [F51.01] 05/08/2016 Dermatitis [L30.9] 10/19/2016 Primary osteoarthritis involving multiple joint*04/26/2017 On tricyclic antidepressant therapy [Z79.899] 07/09/2017 Obesity, Class II, BMI 35-39.9 [E66.9] 04/18/2018 History of ND (myocardial infarction) [I25.2] Polysubstance overdose [T50.901A] 08/18/2018 08/20/2018 History of suicide attempt [Z91.51] 08/18/2018 Altered mental status [R41.82] 08/18/2018 08/20/2018 Alcohol intoxication (HCC) [F10.929] 08/18/2018 08/20/2018 Tobacco use disorder [F17.200] 08/21/2018 Chronic gout of foot [M1A.0790] 11/17/2018 BMI 35.0-35.9,adult [Z68.35] 04/29/2019 Sun-damaged skin [L57. (more content not included)... [facility] 05-18-2022 History of Presen t illness Narrative TRANSITIONAL CARE MANAGEMENT (TCM) COMMUNITY MONITORING PROGRAM - [place] Provider Action/FYI: SUMMARY: Pt discharged from [facility] on 05/15/2022. Admitted for: Total L knee Risk score: 15 Contact made with patient: No - 2nd unsuccessful attempt - end outreach and close encounter Outreach ended Unable to contact patient via telephone. Outreach ended. Estephania Crawford LPN TRANSITIONAL CARE MANAGEMENT (TCM) COMMUNITY MONITORING PROGRAM - [place] Provider Action/FYI: SUMMARY: Pt discharged from [facility] on 05/15/2022. Admitted for: Total L knee Risk score: 15 Contact made with patient: No - next outreach attempt will be on next business day Outreach ended Next attempt will be made on 05/19/2022. Estephania Crawford LPN documented in this encounter [facility] 05-18-2022 Miscellaneous Notes 05/18/22 ABRASIVE WHEEL MOLDER spoke to the patient today regarding wanting Living Will and Medical POA forms mailed to her. ABRASIVE WHEEL MOLDER discussed with the patient how she was managing and regarding more help in the home. She stated she was managing and did not need more assist. ABRASIVE WHEEL MOLDER mailed the patient the Living Will and Medical POA forms and About Advanced Directives pamphlet. ABRASIVE WHEEL MOLDER provided the patient with her name and phone number and attached my card with information mailed. Thank You, documented in this encounter [facility] 05-18-2022 Miscellaneous Notes 05/18/22 In Ryanne Newby PT - Patient requesting living will and DPOA packet mailed to her. 05/18/22 10:22 AM - 10:25 AM ABRASIVE WHEEL MOLDER called the pt. regarding wanting the Living Will and Medical POA forms mailed to her and she stated that she did. ABRASIVE WHEEL MOLDER asked the pt. how she was managing and regarding if more help needed in the home. She stated she was doing fine. ABRASIVE WHEEL MOLDER provided the pt. with her name and phone number. ABRASIVE WHEEL MOLDER informed the pt. ABRASIVE WHEEL MOLDER will attach her card with information mailed to her. 05/18/22 ABRASIVE WHEEL MOLDER mailed the patient the Living Will and Medical POA forms and About Advanced Directives pamphlet. ABRASIVE WHEEL MOLDER attached her card with information mailed. 05/18/[address]BRAS[address] WHEEL M[address]DER [address] Kate Espinoza - ABRASIVE WHEEL MOLDER spoke to the patient today regarding wanting Living Will and Medical POA forms mailed to her. ABRASIVE WHEEL MOLDER discussed with the patient how she was managing and regarding more help in the home. She stated she was managing and did not need more assist. ABRASIVE WHEEL MOLDER mailed the patient the Living Will and Medical POA forms and About Advanced Directives pamphlet. ABRASIVE WHEEL MOLDER provided the patient with her name and phone number and attached my card with information mailed. Thank You, documented in this encounter [facility] 05-15-2022 Miscellaneous Notes Welcome Home Call: a. Date and Time: 8:46 AM 05/15/2022 b. Contact name/relationship: NUSRAT BAIN PATIENT c. Have you been active with any Home Care company in the last 60 days(such as help with bathing, filling medications, checking your blood pressure) ? No. d. Was patient given Flu shot this Season (After Nov,): Yes: Location: [facility] , Date received: 02/17 e. [facility] will be providing your [...] maintain a safe environment for our caregivers, [facility] requires any animals or weapons present in the home be located in a secured location. Our clinicians will call you the night before or the morning of the appointment. Their # may come up restricted but they'll leave a VM for you. In case you have any questions or concerns in the meantime, our # is [phone], option [phone] Thank you for your time and have a great day. Lara Francois, Packer Operator Automatic documented in this encounter [facility] 05-12-2022 Note HNO ID: [id number] Author: John Rivera APRN.MEDIA SPECIALIST Service: Hospital Medicine Author Type: Nurse Practitioner Type: Progress Notes Filed: 05/12/2022 11:29 AM Note Text: DEPARTMENT OF HOSPITAL MEDICINE PROGRESS NOTE SERVICE DATE: 05/12/2022 SERVICE TIME: 11:01 AM Hospital Medicine/Primary Attending: Kofi Batista, * NIGHT AND WEEKEND COVERAGE: [facility] medicine coverage Subjective INTERVAL HPI: Patient seen [...] disease without esophagitis POA: Yes History of ND (myocardial infarction) POA: Yes STEMI involving right coronary artery (HCC) POA: Yes Status post insertion of drug eluting coronary artery stent POA: Yes Primary hypertension POA: Yes Coronary artery disease involving [place] coronary artery of [place] heart without angina pectoris POA: Yes Chronic systolic congestive heart failure (HCC) POA: Yes S/P total knee replacement, left POA: Yes Malnutrition of moderate degree (HCC) POA: Yes HOSPITAL COURSE: Nusrat Bain is a 62 year old female with a past medical history of HTN, HLD, CAD s/p SAL in 2020, HFrEF of 43%, GERD, anxiety/depression, and left knee osteoarthritis who presented to [facility] following hospitalization at [facility] for left TKA Problem List: Aftercare - Discharged from [facility] on 05/06/22 following left TKA - Hospital course uncomplicated - At [facility] for rehab - Consult PT/OT - [...] reflux disease (more content not included)... [facility] 05-06-2022 Note HNO ID: [id number] Author: Bhumika Black RN Service: Nursing Author Type: Registered Nurse Type: Nursing Progress Note Filed: 05/06/2022 5:57 PM Note Text: Himanshu Jaeger APRN.CNP made aware of moderate risk on suicide assessment. [facility] 05-06-2022 Note HNO ID: [id number] Author: Pennie Jaeger APRN.CNP Service: Hospital Medicine Author Type: Nurse Practitioner Type: Plan of Care Filed: 05/06/2022 3:22 PM Note Text: DEPARTMENT OF HOSPITAL MEDICINE PLAN OF CARE NOTE SERVICE DATE: 05/06/2022 SERVICE TIME: 3:19 PM Hospital Medicine/Primary Attending: Kofi Batista, * NIGHT AND WEEKEND COVERAGE: Sounds physician after 1900 Transferred to [facility] from [facility] for aftercare following L TKA Full HANDP to follow Aftercare - Discharge facility: [facility] - Diagnosis: OA s/p L TKA - PT/OT consult - Nutrition consult - presentation manager for discharge disposition - Pain management - DVT prophylaxis SIGNATURE: Pennie Jaeger APRN.JANET PATIENT NAME: Nusrat Bain DATE: May 06, 2022 TIME: 3:19 PM [facility] 04-24-2022 Miscellaneous Notes Pharmacy requesting refills as follows: Last Office Visit 06/26/21. Last Refill 03/24/22. Requested Prescriptions Pending Prescriptions Disp Refills zolpidem (AMBIEN) 5 mg tablet [Pharmacy Med Name: zolpidem 5 mg tablet] 30 tablet 0 Sig: TAKE 1 TABLET BY MOUTH DAILY AT BEDTIME NEEDED Please review and advise. Serenity Doherty MA documented in this encounter [facility] 04-03-2022 Miscellaneous Notes Cardiac clearance form received from [facility]. Placed in Chelle Beasley APRN door box. Maria D Mcmillan RN documented in this encounter [facility] 03-24-2022 Miscellaneous Notes Pharmacy requesting refills: [...] Cui MA ph documented in this encounter [facility] 03-11-2022 Miscellaneous Notes Patient's request for medication is as follows: Requested Prescriptions Pending Prescriptions Disp Refills isosorbide mononitrate ER (IMDUR) 30 mg 24 hr tablet 90 tablet 3 Sig: Take 1 tablet by mouth once daily. Last seen 12/31/2021. Next visit 01/06/2023. Prescription(s) as above. Please process accordingly. Alana Avalos LPN documented in this encounter [facility] 02-23-2022 Miscellaneous Notes Pharmacy requesting refills as follows: Last Office Visit 06/26/21. Last Refill 01/20/22. Requested Prescriptions Pending Prescriptions Disp Refills zolpidem (AMBIEN) 5 mg tablet [Pharmacy Med Name: zolpidem 5 mg tablet] 30 tablet 0 Sig: TAKE 1 TABLET BY MOUTH DAILY AT BEDTIME NEEDED Please review and advise. Serenity Doherty MA documented in this encounter [facility] 02-16-2022 Miscellaneous Notes Received a form from [facility] to hold the brilinta. Placed in Chelle Gale's door box for completion. Maria D Mcmillan RN documented in this encounter [facility] 01-22-2022 Miscellaneous Notes pharm requesting refills: Last office visit 06/26/2021. Last refill 09/16/2021 nov none Requested Prescriptions Pending Prescriptions Disp Refills allopurinol (ZYLOPRIM) 100 mg tablet [Pharmacy Med Name: allopurinol 100 mg tablet] 60 tablet 1 Sig: Take 2 tablets by mouth once daily. Please review and advise. Kenna Cui MA documented in this encounter [facility] 01-20-2022 Miscellaneous Notes pharmacy electronically requesting [...] Arabella Michaud MA documented in this encounter [facility] 01-15-2022 Miscellaneous Notes pharmacy faxes requesting refills as follows: Last seen 06/26/21 . Last refill 08/05/21 . Requested Prescriptions Pending Prescriptions Disp Refills venlafaxine ER (EFFEXOR XR) 150 mg 24 hr capsule 30 capsule 1 Sig: Take 1 capsule by mouth once daily. Please review and advise. Arabella Michaud MA documented in this encounter [facility] 01-02-2022 Miscellaneous Notes Clearance form received from [facility], [facility]. Requesting patient stop Brilinta 5 days prior to pain management procedure. Form placed in Chelle Beasley APRN.MEDIA SPECIALIST door box, form also scanned in. Alana Avalos LPN documented in this encounter [facility] 12-31-2021 History of Presen t illness Narrative Images from the original note were not included. Brodie Guevara MD Interventional Cardiology [address] [place], [place] [id number] Chief Complaint Patient presents with: CARD Follow [...] LVD Patient had repeat cardiac catheterization shows [place] vessels both stents are open mild diffuse coronary artery disease She still experiencing few episodes of chest pain not exertional Cardiac Risk Factors age (male over 45, female over 55), hyperlipidemia, history of smoking, hypertension, family history of CAD PAST MEDICAL HISTORY Diagnosis Date Coronary artery disease Depression Gout HLD (hyperlipidemia) Insomnia Left ventricular systolic dysfunction ND (myocardial infarction) (HCC) PMH - PAST MEDICAL HISTORY OF [facility] S/P drug eluting coronary stent placement 02/08/2021 RCA STEMI (ST elevation myocardial infarction) ([facility]) PAST SURGICAL HISTORY Procedure Laterality Date ANKLE [...] injection (DEFINITY) INTRAVENOUS DIRECTED PRN Chelle Beasley APRN.MEDIA SPECIALIST sodium chloride 0.9 % (flush) 10 mL (BD POSIFLUSH) 10 mL INTRAVENOUS DIRECTED PRN Chelle Beasley APRN.MEDIA SPECIALIST perflutren lipid microspheres 1.3 mL in NaCl (PF) 0.9% 10 mL injection (DEFINITY) INTRAVENOUS DIRECTED PRN Kiley Jose MD sodium chloride 0.9 % (flush) 10 [...] correct any errors. documented in this encounter [facility] 12-31-2021 Nurse Note No cardiac concerns today documented in this encounter [facility] 12-23-2021 Miscellaneous Notes pharm requesting refills: Last office visit 06/26/2021. Last refill 11/24/2021 nov none Requested Prescriptions Pending Prescriptions Disp Refills zolpidem (AMBIEN) 5 mg tablet [Pharmacy Med Name: zolpidem 5 mg tablet] 30 tablet 0 Sig: TAKE 1 TABLET BY MOUTH ONCE DAILY AT BEDTIME NEEDED Please review and advise. Kenna Cui MA documented in this encounter [facility] 11-28-2021 Miscellaneous Notes Clearance form received from [facility]. Form placed in Chelle Beasley APRN.[facility] door box. Alana Avalos LPN documented in this encounter [facility] 11-24-2021 Miscellaneous Notes pharmacy electronically requesting refills as follows: Last seen 06/26/21 . Last refill 10/23/21 . Requested Prescriptions Pending Prescriptions Disp Refills zolpidem (AMBIEN) 5 mg tablet [Pharmacy Med Name: zolpidem 5 mg tablet] 30 tablet 0 Sig: TAKE 1 TABLET BY MOUTH ONCE DAILY AT BEDTIME NEEDED Please review and advise. Arabella Michaud MA documented in this encounter [facility] 10-28-2021 Miscellaneous Notes Clearance form received from [facility], [facility]. Form placed in Chelle Beasley APRN.MEDIA SPECIALIST door box. Alana Avalos LPN documented in this encounter [facility] 10-23-2021 Miscellaneous Notes pharmacy electronically requesting [...] Arabella Michaud MA documented in this encounter [facility] 10-15-2021 Miscellaneous Notes Images from the original note were not included. Spoke with patient, notified of Chelle's message and recommendations. Patient did confirm she is taking the aldactone as well. Will repeat labs in one week. CALRA Brasher APRN.MEDIA SPECIALIST You 8 minutes ago (10:19 AM) She [...] D Mcmillan RN documented in this encounter [facility] 10-10-2021 Miscellaneous Notes Pharmacy requesting refills: [...] CLEO: Yes Please review and advise. REMI Leos documented in this encounter [facility] 09-23-2021 Miscellaneous Notes pharmacy electronically requesting refills as follows: Last seen 06/26/21 . Last refill 08/22/21 . Pending Prescriptions Disp Refills ZOLPIDEM 5 MG TABLET 30 tablet 0 Sig: TAKE 1 TABLET BY MOUTH ONCE DAILY AT BEDTIME NEEDED JAMEY Class: C-IV CLEO: Yes Please review and advise. Arabella Michaud MA documented in this encounter [facility] 09-16-2021 Miscellaneous Notes Pharmacy requesting refills as follows: Last Office Visit 06/26/21. Last Refill 06/16/21. Pending Prescriptions Disp Refills ALLOPURINOL 100 MG TABLET 60 tablet 1 Sig: Take 2 tablets by mouth once daily. CLEO: Yes Please review and advise. Serenity Doherty MA documented in this encounter [facility] 09-08-2021 Miscellaneous Notes Clearance form received from [facility]. Form placed in Chelle Beasley's door box. Alana Avalos LPN documented in this encounter [facility] 09-03-2021 Miscellaneous Notes Pharmacy requesting refills: Last office visit 06/26/2021. Last refill 04/03/2021 nov none Pending Prescriptions Disp Refills TRAZODONE 150 MG TABLET 30 tablet 3 Sig: Take 1 tablet by mouth daily at bedtime. CLEO: Yes Please review and advise. Kenna Cui MA documented in this encounter [facility] 08-22-2021 Miscellaneous Notes pharmacy electronically requesting refills as follows: Last seen 06/26/21 . Last refill 07/25/21 . Pending Prescriptions Disp Refills ZOLPIDEM 5 MG TABLET 30 tablet 0 Sig: TAKE 1 TABLET BY MOUTH ONCE DAILY AT BEDTIME NEEDED. JAMEY Class: C-IV CLEO: Yes Please review and advise. Arabella Michaud MA documented in this encounter [facility] 08-05-2021 Miscellaneous Notes Pharmacy requesting refills as follows: Last Office Visit 06/26/21. Last Refill 04/03/21. Pending Prescriptions Disp Refills VENLAFAXINE ER 150 MG CAPSULE,EXTENDED RELEASE 24 HR 30 capsule 1 Sig: Take 1 capsule by mouth once daily. CLEO: Yes Please review and advise. Eryn Vallejo MA documented in this encounter [facility] 08-04-2021 Miscellaneous Notes Patient informed and transferred to schedule appointment. Arabella Michaud MA Images from the original note were not included. Kate Espinoza, DO You 6 days ago Pt will need office visit with one of the mother superior, since I will not be in for a while Kate Espinoza DO Message text [facility] Request for Surgery Clearance for left knee replacement placed in Dr. Alexis romero folder to be filled out. Last office visit 06/26/21. Placed in Dr. Espinoza green folder to be filled out. Please advise if patient needs an office visit for the surgery clearance. Arabella Michaud MA documented in this encounter [facility] 07-29-2021 Miscellaneous Notes Clearance form received from [facility]. Form placed in Dr. Guevara's door box. Micaela Veloz LPN documented in this encounter [facility] 07-25-2021 Miscellaneous Notes pharmacy requesting refills as follows: Last Office Visit 06/26/2021. Last Refill 06/26/21. Pending Prescriptions Disp Refills ZOLPIDEM 5 MG TABLET 30 tablet 0 Sig: TAKE 1 TABLET BY MOUTH ONCE DAILY AT BEDTIME NEEDED JAMEY Class: C-IV LCEO: Yes Please review and advise. Eryn Vallejo MA documented in this encounter [facility] 07-18-2021 Nurse Note Nursing Progress Note [...] by: Teresa Carney documented in this encounter [facility] 07-18-2021 Procedure note LEFT HEART CATHETERIZATION [...] the Wrist with 1% lidocaine. A pre-flushed 6-Portuguese sheath was inserted into the Right radial [...] TIME: 11:49 AM documented in this encounter [facility] 07-18-2021 History and physical note UPDATED [...] TIME: 10:57 AM documented in this encounter [facility] 07-04-2021 Miscellaneous Notes Clearance form received from [facility] [place]. Form placed in Chelle Beasley's door box. Alana Avalos LPN documented in this encounter [facility] 07-02-2021 Miscellaneous Notes Attempted to call [...] another number provided. Thank you! Chelle Beasley APRN.MEDIA SPECIALIST documented in this encounter [facility] 06-24-2021 Miscellaneous Notes Spoke with pt about test results and medication recommendations. Verbalizes understanding and is agreeable. Phone number for centralized scheduling provided to schedule echo. Alana Avalos LPN Left message on voicemail requesting return call regarding Chelle's recommendations. Office phone number provided. Maria D Mcmillan RN ----- Message from Chelle Beasley APRN.MEDIA SPECIALIST sent at 06/24/2021 10:34 AM EDT ----- [...] tomorrow. Thank you! documented in this encounter [facility] documented as of this encounter (statuses as of 06/24/2021) [facility] History of Past illness Narrative* Problem Noted Date Resolved Date Polysubstance overdose 08/18/2018 9 Altered mental status 08/18/2018 08/20/2018 Alcohol intoxication 08/18/2018 08/20/2018 documented as of this encounter (statuses as of 07/02/2021) [facility] History of Past illness Narrative* Problem Noted Date Resolved Date Polysubstance overdose 08/18/2018 9 Altered mental status 08/18/2018 08/20/2018 Alcohol intoxication 08/18/2018 08/20/2018 documented as of this encounter (statuses as of 07/02/2021) [facility] History of Past illness Narrative* Problem Noted Date Resolved Date Polysubstance overdose 08/18/2018 9 Altered mental status 08/18/2018 08/20/2018 Alcohol intoxication 08/18/2018 08/20/2018 documented as of this encounter (statuses as of 07/04/2021) [facility] History of Past illness Narrative* Problem Noted Date Resolved Date Polysubstance overdose 08/18/2018 9 Altered mental status 08/18/2018 08/20/2018 Alcohol intoxication 08/18/2018 08/20/2018 documented as of this encounter (statuses as of 07/19/2021) [facility] History of Past illness Narrative* Problem Noted Date Resolved Date Polysubstance overdose 08/18/2018 9 Altered mental status 08/18/2018 08/20/2018 Alcohol intoxication 08/18/2018 08/20/2018 documented as of this encounter (statuses as of 07/25/2021) [facility] History of Past illness Narrative* Problem Noted Date Resolved Date Polysubstance overdose 08/18/2018 9 Altered mental status 08/18/2018 08/20/2018 Alcohol intoxication 08/18/2018 08/20/2018 documented as of this encounter (statuses as of 07/29/2021) [facility] History of Past illness Narrative* Problem Noted Date Resolved Date Polysubstance overdose 08/18/2018 9 Altered mental status 08/18/2018 08/20/2018 Alcohol intoxication 08/18/2018 08/20/2018 documented as of this encounter (statuses as of 08/04/2021) [facility] History of Past illness Narrative* Problem Noted Date Resolved Date Polysubstance overdose 08/18/2018 9 Altered mental status 08/18/2018 08/20/2018 Alcohol intoxication 08/18/2018 08/20/2018 documented as of this encounter (statuses as of 08/05/2021) [facility] of Past illness Narrative* Problem Noted Date Resolved Date Polysubstance overdose 08/18/2018 9 Altered mental status 08/18/2018 08/20/2018 Alcohol intoxication 08/18/2018 08/20/2018 documented as of this encounter (statuses as of 08/20/2021) [facility] of Past illness Narrative* Problem Noted Date Resolved Date Polysubstance overdose 08/18/2018 9 Altered mental status 08/18/2018 08/20/2018 Alcohol intoxication 08/18/2018 08/20/2018 documented as of this encounter (statuses as of 08/22/2021) [facility] of Past illness Narrative* Problem Noted Date Resolved Date Polysubstance overdose 08/18/2018 9 Altered mental status 08/18/2018 08/20/2018 Alcohol intoxication 08/18/2018 08/20/2018 documented as of this encounter (statuses as of 09/03/2021) [facility] of Past illness Narrative* Problem Noted Date Resolved Date Polysubstance overdose 08/18/2018 9 Altered mental status 08/18/2018 08/20/2018 Alcohol intoxication 08/18/2018 08/20/2018 documented as of this encounter (statuses as of 09/08/2021) [facility] of Past illness Narrative* Problem Noted Date Resolved Date Polysubstance overdose 08/18/2018 9 Altered mental status 08/18/2018 08/20/2018 Alcohol intoxication 08/18/2018 08/20/2018 documented as of this encounter (statuses as of 09/16/2021) [facility] History of Past illness Narrative* Problem Noted Date Resolved Date Polysubstance overdose 08/18/2018 9 Altered mental status 08/18/2018 08/20/2018 Alcohol intoxication 08/18/2018 08/20/2018 documented as of this encounter (statuses as of 09/23/2021) [facility] History of Past illness Narrative* Problem Noted Date Resolved Date Polysubstance overdose 08/18/2018 9 Altered mental status 08/18/2018 08/20/2018 Alcohol intoxication 08/18/2018 08/20/2018 documented as of this encounter (statuses as of 10/10/2021) [facility] History of Past illness Narrative* Problem Noted Date Resolved Date Polysubstance overdose 08/18/2018 9 Altered mental status 08/18/2018 08/20/2018 Alcohol intoxication 08/18/2018 08/20/2018 documented as of this encounter (statuses as of 10/15/2021) [facility] History of Past illness Narrative* Problem Noted Date Resolved Date Polysubstance overdose 08/18/2018 9 Altered mental status 08/18/2018 08/20/2018 Alcohol intoxication 08/18/2018 08/20/2018 documented as of this encounter (statuses as of 10/23/2021) [facility] History of Past illness Narrative* Problem Noted Date Resolved Date Polysubstance overdose 08/18/2018 9 Altered mental status 08/18/2018 08/20/2018 Alcohol intoxication 08/18/2018 08/20/2018 documented as of this encounter (statuses as of 10/28/2021) [facility] History of Past illness Narrative* Problem Noted Date Resolved Date Polysubstance overdose 08/18/2018 9 Altered mental status 08/18/2018 08/20/2018 Alcohol intoxication 08/18/2018 08/20/2018 documented as of this encounter (statuses as of 11/24/2021) [facility] History of Past illness Narrative* Problem Noted Date Resolved Date Polysubstance overdose 08/18/2018 9 Altered mental status 08/18/2018 08/20/2018 Alcohol intoxication 08/18/2018 08/20/2018 documented as of this encounter (statuses as of 11/28/2021) [facility] History of Past illness Narrative* Problem Noted Date Resolved Date Polysubstance overdose 08/18/2018 9 Altered mental status 08/18/2018 08/20/2018 Alcohol intoxication 08/18/2018 08/20/2018 documented as of this encounter (statuses as of 12/24/2021) [facility] History of Past illness Narrative* Problem Noted Date Resolved Date Polysubstance overdose 08/18/2018 9 Altered mental status 08/18/2018 08/20/2018 Alcohol intoxication 08/18/2018 08/20/2018 documented as of this encounter (statuses as of 12/31/2021) [facility] History of Past illness Narrative* Problem Noted Date Resolved Date Polysubstance overdose 08/18/2018 9 Altered mental status 08/18/2018 08/20/2018 Alcohol intoxication 08/18/2018 08/20/2018 documented as of this encounter (statuses as of 01/02/2022) [facility] History of Past illness Narrative* Problem Noted Date Resolved Date Polysubstance overdose 08/18/2018 9 Altered mental status 08/18/2018 08/20/2018 Alcohol intoxication 08/18/2018 08/20/2018 documented as of this encounter (statuses as of 01/15/2022) [facility] History of Past illness Narrative* Problem Noted Date Resolved Date Polysubstance overdose 08/18/2018 9 Altered mental status 08/18/2018 08/20/2018 Alcohol intoxication 08/18/2018 08/20/2018 documented as of this encounter (statuses as of 01/20/2022) [facility] History of Past illness Narrative* Problem Noted Date Resolved Date Polysubstance overdose 08/18/2018 9 Altered mental status 08/18/2018 08/20/2018 Alcohol intoxication 08/18/2018 08/20/2018 documented as of this encounter (statuses as of 01/22/2022) [facility] History of Past illness Narrative* Problem Noted Date Resolved Date Polysubstance overdose 08/18/2018 9 Altered mental status 08/18/2018 08/20/2018 Alcohol intoxication 08/18/2018 08/20/2018 documented as of this encounter (statuses as of 02/16/2022) [facility] History of Past illness Narrative* Problem Noted Date Resolved Date Polysubstance overdose 08/18/2018 9 Altered mental status 08/18/2018 08/20/2018 Alcohol intoxication 08/18/2018 08/20/2018 documented as of this encounter (statuses as of 02/23/2022) [facility] History of Past illness Narrative* Problem Noted Date Resolved Date Polysubstance overdose 08/18/2018 9 Altered mental status 08/18/2018 08/20/2018 Alcohol intoxication 08/18/2018 08/20/2018 documented as of this encounter (statuses as of 03/16/2022) [facility] of Past illness Narrative* Problem Noted Date Resolved Date Polysubstance overdose 08/18/2018 9 Altered mental status 08/18/2018 08/20/2018 Alcohol intoxication 08/18/2018 08/20/2018 documented as of this encounter (statuses as of 03/30/2022) [facility] History of Past illness Narrative* Problem Noted Date Resolved Date Polysubstance overdose 08/18/2018 9 Altered mental status 08/18/2018 08/20/2018 Alcohol intoxication 08/18/2018 08/20/2018 documented as of this encounter (statuses as of 04/03/2022) [facility] History of Past illness Narrative* Problem Noted Date Resolved Date Polysubstance overdose 08/18/2018 9 Altered mental status 08/18/2018 08/20/2018 Alcohol intoxication 08/18/2018 08/20/2018 documented as of this encounter (statuses as of 04/24/2022) [facility] of Past illness Narrative* Problem Noted Date Resolved Date Polysubstance overdose 08/18/2018 9 Altered mental status 08/18/2018 08/20/2018 Alcohol intoxication 08/18/2018 08/20/2018 documented as of this encounter (statuses as of 05/15/2022) [facility] of Past illness Narrative* Problem Noted Date Resolved Date Polysubstance overdose 08/18/2018 9 Altered mental status 08/18/2018 08/20/2018 Alcohol intoxication 08/18/2018 08/20/2018 documented as of this encounter (statuses as of 05/18/2022) [facility] of Past illness Narrative* Problem Noted Date Resolved Date Polysubstance overdose 08/18/2018 9 Altered mental status 08/18/2018 08/20/2018 Alcohol intoxication 08/18/2018 08/20/2018 documented as of this encounter (statuses as of 05/18/2022) [facility] History of Past illness Narrative* Problem Noted Date Resolved Date Polysubstance overdose 08/18/2018 9 Altered mental status 08/18/2018 08/20/2018 Alcohol intoxication 08/18/2018 08/20/2018 documented as of this encounter (statuses as of 05/19/2022) [facility] of Past illness Narrative* Problem Noted Date Resolved Date Polysubstance overdose 08/18/2018 9 Altered mental status 08/18/2018 08/20/2018 Alcohol intoxication 08/18/2018 08/20/2018 documented as of this encounter (statuses as of 05/19/2022) [facility] History of Past illness Narrative* Problem Noted Date Resolved Date Polysubstance overdose 08/18/2018 9 Altered mental status 08/18/2018 08/20/2018 Alcohol intoxication 08/18/2018 08/20/2018 documented as of this encounter (statuses as of 05/19/2022) [facility] of Past illness Narrative* Problem Noted Date Resolved Date Polysubstance overdose 08/18/2018 9 Altered mental status 08/18/2018 08/20/2018 Alcohol intoxication 08/18/2018 08/20/2018 documented as of this encounter (statuses as of 05/21/2022) [facility] of Past illness Narrative* Problem Noted Date Resolved Date Polysubstance overdose 08/18/2018 9 Altered mental status 08/18/2018 08/20/2018 Alcohol intoxication 08/18/2018 08/20/2018 documented as of this encounter (statuses as of 05/22/2022) [facility] of Past illness Narrative* Problem Noted Date Resolved Date Polysubstance overdose 08/18/2018 9 Altered mental status 08/18/2018 08/20/2018 Alcohol intoxication 08/18/2018 08/20/2018 documented as of this encounter (statuses as of 05/25/2022) [facility] Past illness Narrative* Problem Noted Date Resolved Date Polysubstance overdose 08/18/2018 9 Altered mental status 08/18/2018 08/20/2018 Alcohol intoxication 08/18/2018 08/20/2018 documented as of this encounter (statuses as of 05/25/2022) [facility] of Past illness Narrative* Problem Noted Date Resolved Date Polysubstance overdose 08/18/2018 9 Altered mental status 08/18/2018 08/20/2018 Alcohol intoxication 08/18/2018 08/20/2018 documented as of this encounter (statuses as of 05/29/2022) [facility] of Past illness Narrative* Problem Noted Date Resolved Date Polysubstance overdose 08/18/2018 9 Altered mental status 08/18/2018 08/20/2018 Alcohol intoxication 08/18/2018 08/20/2018 documented as of this encounter (statuses as of 05/29/2022) [facility] of Past illness Narrative* Problem Noted Date Resolved Date Polysubstance overdose 08/18/2018 9 Altered mental status 08/18/2018 08/20/2018 Alcohol intoxication 08/18/2018 08/20/2018 documented as of this encounter (statuses as of 06/12/2022) [facility] History of Past illness Narrative* Problem Noted Date Resolved Date Polysubstance overdose 08/18/2018 9 Altered mental status 08/18/2018 08/20/2018 Alcohol intoxication 08/18/2018 08/20/2018 documented as of this encounter (statuses as of 06/17/2022) [facility] History of Past illness Narrative* Problem Noted Date Resolved Date Polysubstance overdose 08/18/2018 9 Altered mental status 08/18/2018 08/20/2018 Alcohol intoxication 08/18/2018 08/20/2018 documented as of this encounter (statuses as of 06/22/2022) [facility] History of Past illness Narrative* Problem Noted Date Resolved Date Polysubstance overdose 08/18/2018 9 Altered mental status 08/18/2018 08/20/2018 Alcohol intoxication 08/18/2018 08/20/2018 documented as of this encounter (statuses as of 06/24/2022) [facility] History of Past illness Narrative* Problem Noted Date Resolved Date Polysubstance overdose 08/18/2018 9 Altered mental status 08/18/2018 08/20/2018 Alcohol intoxication 08/18/2018 08/20/2018 documented as of this encounter (statuses as of 06/30/2022) [facility] History of Past illness Narrative* Problem Noted Date Resolved Date Polysubstance overdose 08/18/2018 9 Altered mental status 08/18/2018 08/20/2018 Alcohol intoxication 08/18/2018 08/20/2018 documented as of this encounter (statuses as of 07/09/2022) [facility] History of Past illness Narrative* Problem Noted Date Resolved Date Polysubstance overdose 08/18/2018 9 Altered mental status 08/18/2018 08/20/2018 Alcohol intoxication 08/18/2018 08/20/2018 documented as of this encounter (statuses as of 07/23/2022) [facility] of Past illness Narrative* Problem Noted Date Resolved Date Polysubstance overdose 08/18/2018 9 Altered mental status 08/18/2018 08/20/2018 Alcohol intoxication 08/18/2018 08/20/2018 documented as of this encounter (statuses as of 07/28/2022) [facility] of Past illness Narrative* Problem Noted Date Resolved Date Polysubstance overdose 08/18/2018 9 Altered mental status 08/18/2018 08/20/2018 Alcohol intoxication 08/18/2018 08/20/2018 documented as of this encounter (statuses as of 08/25/2022) [facility] of Past illness Narrative* Problem Noted Date Resolved Date Polysubstance overdose 08/18/2018 9 Altered mental status 08/18/2018 08/20/2018 Alcohol intoxication 08/18/2018 08/20/2018 documented as of this encounter (statuses as of 09/22/2022) [facility] of Past illness Narrative* Problem Noted Date Diagnosed Date Resolved Date Polysubstance overdose 08/18/201808/20 Altered mental status 08/18/20182018 Alcohol intoxication 08/18/2018 019 documented as of this encounter (statuses as of 11/18/2022) [facility] of Past illness Narrative* Problem Noted Date Diagnosed Date Resolved Date Polysubstance overdose 08/18/201808/20 Altered mental status 08/18/20182018 Alcohol intoxication 08/18/2018 019 documented as of this encounter (statuses as of 11/20/2022) [facility] of Past illness Narrative* Problem Noted Date Diagnosed Date Resolved Date Polysubstance overdose 08/18/201808/20 Altered mental status 08/18/20182018 Alcohol intoxication 08/18/2018 019 documented as of this encounter (statuses as of 11/27/2022) [facility] of Past illness Narrative* Problem Noted Date Diagnosed Date Resolved Date Polysubstance overdose 08/18/201808/20 Altered mental status 08/18/20182018 Alcohol intoxication 08/18/2018 019 documented as of this encounter (statuses as of 12/01/2022) [facility] Past illness Narrative* Problem Noted Date Diagnosed Date Resolved Date Polysubstance overdose 08/18/201808/20 Altered mental status 08/18/20182018 Alcohol intoxication 08/18/2018 019 documented as of this encounter (statuses as of 12/16/2022) [facility] Past illness Narrative* Problem Noted Date Diagnosed Date Resolved Date Polysubstance overdose 08/18/201808/20 Altered mental status 08/18/20182018 Alcohol intoxication 08/18/2018 019 documented as of this encounter (statuses as of 12/18/2022) [facility] Past [facility] Narrative* Problem Noted Date Diagnosed Date Resolved Date Polysubstance overdose 08/18/201808/20 Altered mental status 08/18/20182018 Alcohol intoxication 08/18/2018 019 documented as of this encounter (statuses as of 12/19/2022) [facility] Past illness Narrative* Problem Noted Date Diagnosed Date Resolved Date Polysubstance overdose 08/18/201808/20 Altered mental status 08/18/20182018 Alcohol intoxication 08/18/2018 019 documented as of this encounter (statuses as of 2023) [facility] Past illness Narrative* Problem Noted Date Diagnosed Date Resolved Date Polysubstance overdose 08/18/201808/20 Altered mental status 08/18/20182018 Alcohol intoxication 08/18/2018 019 documented as of this encounter (statuses as of 01/06/2023) [facility] [facility] Past illness Narrative* Problem Noted Date Diagnosed Date Resolved Date Polysubstance overdose 08/18/201808/20 Altered mental status 08/18/20182018 Alcohol intoxication 08/18/2018 019 documented as of this encounter (statuses as of 01/19/2023) [facility] History of Past illness Narrative* Problem Noted Date Diagnosed Date Resolved Date Polysubstance overdose 08/18/201808/20 Altered mental status 08/18/20182018 Alcohol intoxication 08/18/2018 019 documented as of this encounter (statuses as of 01/20/2023) [facility] History of Past illness Narrative* Problem Noted Date Diagnosed Date Resolved Date Polysubstance overdose 08/18/201808/20 Altered mental status 08/18/20182018 Alcohol intoxication 08/18/2018 019 documented as of this encounter (statuses as of 02/04/2023) [facility] History of Past illness Narrative* Problem Noted Date Diagnosed Date Resolved Date Polysubstance overdose 08/18/201808/20 Altered mental status 08/18/20182018 Alcohol intoxication 08/18/2018 019 documented as of this encounter (statuses as of 02/16/2023) [facility] History of Past illness Narrative* Problem Noted Date Diagnosed Date Resolved Date Polysubstance overdose 08/18/201808/20 Altered mental status 08/18/20182018 Alcohol intoxication 08/18/2018 019 documented as of this encounter (statuses as of 03/19/2023) [facility] Diagnosis Coronary artery disease involving chipewwa coronary artery of chipewwa heart without angina pectoris [facility] Diagnosis Acute systolic CHF (congestive heart failure) (HCC)- Primary Acute systolic heart failure Coronary artery disease involving chipewwa coronary artery of chipewwa heart, unspecified whether angina present Acute systolic CHF (congestive heart failure) (HCC) Acute systolic heart failure Coronary artery disease involving chipewwa coronary artery of chipewwa heart, unspecified whether angina present [facility] Dilated cardiomyopathy (HCC) Other primary cardiomyopathies [facility] Diagnosis Primary insomnia Persistent disorder of initiating or maintaining sleep [facility] Diagnosis Recurrent major depression in partial remission (HCC) Major depressive disorder, recurrent episode, in partial or unspecified remission [facility] Diagnosis Primary insomnia Persistent disorder of initiating or maintaining sleep [facility] Diagnosis Primary insomnia Persistent disorder of initiating or maintaining sleep [facility] Diagnosis History of gout Personal history of other endocrine, metabolic, and immunity disorders [facility] Primary insomnia Persistent disorder of initiating or maintaining sleep [facility] Diagnosis Gastroesophageal reflux disease without esophagitis Esophageal reflux Primary osteoarthritis involving multiple joints [facility] Diagnosis Chronic diastolic congestive heart failure (HCC)- Primary Chronic diastolic heart failure [facility] Diagnosis Major depressive disorder, recurrent, in partial remission (HCC) Major depressive disorder, recurrent episode, in partial or unspecified remission Primary insomnia Persistent disorder of initiating or maintaining sleep [facility] Diagnosis Primary insomnia Persistent disorder of initiating or maintaining sleep [facility] Diagnosis STEMI involving right coronary artery (HCC)- Primary History of ND (myocardial infarction) Old myocardial infarction Mixed hyperlipidemia Coronary artery disease involving chipewwa coronary artery of chipewwa heart without angina pectoris [facility] Diagnosis Recurrent major depression in partial remission (HCC) Major depressive disorder, recurrent episode, in partial or unspecified remission [facility] Diagnosis Primary insomnia Persistent disorder of initiating or maintaining sleep [facility] Diagnosis Primary insomnia Persistent disorder of initiating or maintaining sleep [facility] Diagnosis Primary insomnia Persistent disorder of initiating or maintaining sleep Gastroesophageal reflux disease without esophagitis Esophageal reflux [facility] Diagnosis Primary insomnia Persistent disorder of initiating or maintaining sleep documented in this encounter [facility]* Diagnosis Mixed hyperlipidemia- Primary Primary hypertension Unspecified essential hypertension documented in this encounter [facility]* Diagnosis Primary insomnia Persistent disorder of initiating or maintaining sleep documented in this encounter [facility]* Diagnosis S/P total knee arthroplasty, left- Primary Knee stiffness, left Abnormality of gait documented in this encounter [facility]* Diagnosis S/P total knee arthroplasty, left- Primary Abnormality of gait documented in this encounter [facility]* Diagnosis Primary insomnia Persistent disorder of initiating or maintaining sleep documented in this encounter [facility]* Diagnosis S/P total knee arthroplasty, left- Primary Knee stiffness, left documented in this encounter [facility]* Diagnosis S/P total knee arthroplasty, left- Primary Knee stiffness, left Abnormality of gait documented in this encounter [facility]* Diagnosis Primary insomnia Persistent disorder of initiating or maintaining sleep documented in this encounter [facility]* Diagnosis Total knee replacement status, left- Primary Difficulty walking Difficulty in walking documented in this encounter [facility]* Diagnosis Primary insomnia- Primary Persistent disorder [...] 30-34.9 Obesity, unspecified documented in this encounter [facility]* Diagnosis Primary insomnia Persistent disorder of initiating or maintaining sleep History of gout Personal history of other endocrine, metabolic, and immunity disorders documented in this encounter [facility]* Diagnosis Gastroesophageal reflux disease without esophagitis Esophageal reflux [facility] Diagnosis Diarrhea, unspecified type- Primary Vasovagal [...] Preoperative examination, unspecified [facility] Diagnosis Mixed hyperlipidemia [facility] Diagnosis Primary hypertension Unspecified essential hypertension documented in this encounter [facility] Plan of care note* Visit Details Visit Type -SN EVAL Discipline -Senior Care Problems Problem Description Start Date Status Goals [...] did tolerate well. documented in this encounter [facility] Plan of care note* Visit Details [...] use of RPE. documented in this encounter [facility] Plan of care note* Visit Details [...] of care note* Visit Details Visit Type -ASSET PROTECTION PROFESSIONAL ROUTINE Discipline -Physical Therapy Problems Problem Description [...] to call 911. [facility] Visit Details Visit Type -ASSET PROTECTION PROFESSIONAL ROUTINE Discipline -Physical Therapy Problems Problem Description [...] to call 911. documented in this encounter [facility] Plan of care note* Visit Details Visit Type -ASSET PROTECTION PROFESSIONAL ROUTINE Discipline -Physical Therapy Problems Problem Description [...] to call 911. [facility] Visit Details Visit Type -ASSET PROTECTION PROFESSIONAL ROUTINE Discipline -Physical Therapy Problems Problem Description [...] toe Gt pattern. documented in this encounter [facility] for referral (narrative)* Outpatient Procedure (Routine) - Closed Specialty Diagnoses / Procedures Referred By Steven davis Referred To Contact [facility] [place] Diagnoses Coronary artery disease involving chipewwa coronary artery of chipewwa heart without angina pectoris Procedures ECHO TTE W/DOPPLER, Chelle Sung APRN.CNP [address] [place] [address] Fax: [facility] [place] [address] [place] [address] Referral ID Status Reason Start Date Expiration Date V isits Requested Visits Authorized Closed Auto-Generate d Referral 05/10/2021 04/09/2022 1 1 [facility] for visit Narrative* Outpatient Procedure (Routine) - Closed Specialty Diagnoses / Procedures Referred By Contherson davis Referred To Contact [facility] [place] Diagnoses Coronary artery disease involving chipewwa coronary artery of chipewwa heart without angina pectoris Procedures ECHO TTE W/DOPPLER, Chelle Sung APRN.CNP [address] [place] [address] Fax: [facility] [place] [address] [place] [address] Referral ID Status Reason Start Date Expiration Date V isits Requested Visits Authorized [id number] Closed Auto-Generate d Referral 05/10/2021 04/09/2022 1 1 [facility]* Auth/Cert Specialty Diagnoses / Procedures Referred By Steven t Referred To Contact Diagnoses Acute systolic CHF (congestive heart failure) (HCC) Coronary artery disease involving chipewwa coronary artery of chipewwa heart, unspecified whether angina present Procedures R & L HRT CATH WINJX HRT ART& L VENTR IMG CORONARY CATH RIGHT/LEFT HEART ANGIO INTRAPROCEDURAL INJECT IMAGING SUPERVISIO/INTERPRETATION [address] [place] [address] Referral ID Status Reason Start Date Expiration Date Visits Re quested Visits Authorized [id number] 1 1 [facility] Summary Purpose Family History No Family History Records FoundNo Family History Records FoundNo Family History Records FoundNo Family History Records FoundNo Family History Records FoundNo Family History Records FoundNo Family History Records Found Advance Directives Documents on File Type Date Recorded 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 Advance Directive(s) 03/26/2021 9:50 AM Advance Directive(s) 02/08/2021 6:56 AM Advance Directive(s) 08/19/2018 12:33 PM Advance Directive(s) 08/18/2018 1:44 PM Advance Directive(s) 07/25/2018 12:36 PM Documents on File Type Date Recorded 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 Advance Directive(s) 03/26/2021 9:50 AM Advance Directive(s) 02/08/2021 6:56 AM Advance Directive(s) 08/19/2018 12:33 PM Advance Directive(s) 08/18/2018 1:44 PM Advance Directive(s) 07/25/2018 12:36 PM Documents on File Type Date Recorded 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 Advance Directive(s) 07/18/2021 7:51 AM Advance Directive(s) 03/26/2021 9:50 AM Advance Directive(s) 02/08/2021 6:56 AM Advance Directive(s) 08/19/2018 12:33 PM Advance Directive(s) 08/18/2018 1:44 PM Advance Directive(s) 07/25/2018 12:36 PM Documents on File Type Date Recorded 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 Advance Directive(s) 07/18/2021 7:51 AM [...] 07/19/21 at 0303, NOW (EMERGENT PROCEDURE) FOR WEB PROGRAMMER USE ONLY, Intraprocedure heparin 3,000 Units in NaCl 0.9% 500 mL irrigation 3,000 Units, IRRIGATION, ONE TIME, 1 dose, Starting on Wed07/18/21 at 0800, Until 07/19/21 at 0303, NOW (EMERGENT PROCEDURE) FOR WEB PROGRAMMER USE ONLY For Irrigation Use Only, Intraprocedure midazolam (PF) injection (VERSED) INTRAVENOUS, NEEDED, Starting on Wed07/18/21 at 1124, Until 07/19/21 at 0303 Given 07/18/2021 11:24 AM EDT 1 mg Additional Source Comments INFORMATION SOURCE (unrecogn ized section and content) DATE CREATED AUTHOR AUTHOR'S ORGANIZ ATION 12/01/2019 [facility] DATE CREATED AUTHOR AUTHOR'S ORGANIZ ATION 04/06/2020 [facility] DATE CREATED AUTHOR AUTHOR'S ORGANIZ ATION 09/04/2022 [facility] DATE CREATED AUTHOR AUTHOR'S ORGANIZ ATION 01/08/2023 [facility] DATE CREATED AUTHOR AUTHOR'S ORGANIZ ATION 01/10/2023 [facility] DATE CREATED AUTHOR AUTHOR'S ORGANIZ ATION 03/05/2023 [facility] Source Comments (unrecognize d section and content) In the event this informatio n is protected by the Federal Confidentiality of Alcohol and Drug Abuse Patient Records regulations: The Federal rules restrict any use of the information to criminally investigate or prosecute any alcohol or drug abuse patient.[facility] the event this information is protected by the Federal Confidentiality of Alcohol and Drug Abuse Patient Records regulations: The Federal rules restrict any use of the information to criminally investigate or prosecute any alcohol or drug abuse patient.[facility] the event this information is protected by the Federal Confidentiality of Alcohol and Drug Abuse Patient Records regulations: The Federal rules restrict any use of the information to criminally investigate or prosecute any alcohol or drug abuse patient.[facility] the event this information is protected by the Federal Confidentiality of Alcohol and Drug Abuse Patient Records regulations: The Federal rules restrict any use of the information to criminally investigate or prosecute any alcohol or drug abuse patient.[facility] the event this information is protected by the Federal Confidentiality of Alcohol and Drug Abuse Patient Records regulations: The Federal rules restrict any use of the information to criminally investigate or prosecute any alcohol or drug abuse patient.[facility] the event this information is protected by the Federal Confidentiality of Alcohol and Drug Abuse Patient Records regulations: The Federal rules restrict any use of the information to criminally investigate or prosecute any alcohol or drug abuse patient.[facility] the event this information is protected by the Federal Confidentiality of Alcohol and Drug Abuse Patient Records regulations: The Federal rules restrict any use of the information to criminally investigate or prosecute any alcohol or drug abuse patient.[facility] the event this information is protected by the Federal Confidentiality of Alcohol and Drug Abuse Patient Records regulations: The Federal rules restrict any use of the information to criminally investigate or prosecute any alcohol or drug abuse patient.[facility] the event this information is protected by the Federal Confidentiality of Alcohol and Drug Abuse Patient Records regulations: The Federal rules restrict any use of the information to criminally investigate or prosecute any alcohol or drug abuse patient.[facility] the event this information is protected by the Federal Confidentiality of Alcohol and Drug Abuse Patient Records regulations: The Federal rules restrict any use of the information to criminally investigate or prosecute any alcohol or drug abuse patient.[facility] the event this information is protected by the Federal Confidentiality of Alcohol and Drug Abuse Patient Records regulations: The Federal rules restrict any use of the information to criminally investigate or prosecute any alcohol or drug abuse patient.[facility] the event this information is protected by the Federal Confidentiality of Alcohol and Drug Abuse Patient Records regulations: The Federal rules restrict any use of the information to criminally investigate or prosecute any alcohol or drug abuse patient.[facility] the event this information is protected by the Federal Confidentiality of Alcohol and Drug Abuse Patient Records regulations: The Federal rules restrict any use of the information to criminally investigate or prosecute any alcohol or drug abuse patient.[facility] the event this information is protected by the Federal Confidentiality of Alcohol and Drug Abuse Patient Records regulations: The Federal rules restrict any use of the information to criminally investigate or prosecute any alcohol or drug abuse patient.[facility] the event this information is protected by the Federal Confidentiality of Alcohol and Drug Abuse Patient Records regulations: The Federal rules restrict any use of the information to criminally investigate or prosecute any alcohol or drug abuse patient.[facility] the event this information is protected by the Federal Confidentiality of Alcohol and Drug Abuse Patient Records regulations: The Federal rules restrict any use of the information to criminally investigate or prosecute any alcohol or drug abuse patient.[facility] the event this information is protected by the Federal Confidentiality of Alcohol and Drug Abuse Patient Records regulations: The Federal rules restrict any use of the information to criminally investigate or prosecute any alcohol or drug abuse patient.[facility] the event this information is protected by the Federal Confidentiality of Alcohol and Drug Abuse Patient Records regulations: The Federal rules restrict any use of the information to criminally investigate or prosecute any alcohol or drug abuse patient.[facility] the event this information is protected by the Federal Confidentiality of Alcohol and Drug Abuse Patient Records regulations: The Federal rules restrict any use of the information to criminally investigate or prosecute any alcohol or drug abuse patient.[facility] the event this information is protected by the Federal Confidentiality of Alcohol and Drug Abuse Patient Records regulations: The Federal rules restrict any use of the information to criminally investigate or prosecute any alcohol or drug abuse patient.[facility] the event this information is protected by the Federal Confidentiality of Alcohol and Drug Abuse Patient Records regulations: The Federal rules restrict any use of the information to criminally investigate or prosecute any alcohol or drug abuse patient.[facility] the event this information is protected by the Federal Confidentiality of Alcohol and Drug Abuse Patient Records regulations: The Federal rules restrict any use of the information to criminally investigate or prosecute any alcohol or drug abuse patient.[facility] the event this information is protected by the Federal Confidentiality of Alcohol and Drug Abuse Patient Records regulations: The Federal rules restrict any use of the information to criminally investigate or prosecute any alcohol or drug abuse patient.[facility] the event this information is protected by the Federal Confidentiality of Alcohol and Drug Abuse Patient Records regulations: The Federal rules restrict any use of the information to criminally investigate or prosecute any alcohol or drug abuse patient.[facility] the event this information is protected by the Federal Confidentiality of Alcohol and Drug Abuse Patient Records regulations: The Federal rules restrict any use of the information to criminally investigate or prosecute any alcohol or drug abuse patient.[facility] the event this information is protected by the Federal Confidentiality of Alcohol and Drug Abuse Patient Records regulations: The Federal rules restrict any use of the information to criminally investigate or prosecute any alcohol or drug abuse patient.[facility] the event this information is protected by the Federal Confidentiality of Alcohol and Drug Abuse Patient Records regulations: The Federal rules restrict any use of the information to criminally investigate or prosecute any alcohol or drug abuse patient.[facility]In the event this information is protected by the Federal Confidentiality of Alcohol and Drug Abuse Patient Records regulations: The Federal rules restrict any use of the information to criminally investigate or prosecute any alcohol or drug abuse patient.[facility] the event this information is protected by the Federal Confidentiality of Alcohol and Drug Abuse Patient Records regulations: The Federal rules restrict any use of the information to criminally investigate or prosecute any alcohol or drug abuse patient.[facility]In the event this information is protected by the Federal Confidentiality of Alcohol and Drug Abuse Patient Records regulations: The Federal rules restrict any use of the information to criminally investigate or prosecute any alcohol or drug abuse patient.[facility]In the event this information is protected by the Federal Confidentiality of Alcohol and Drug Abuse Patient Records regulations: The Federal rules restrict any use of the information to criminally investigate or prosecute any alcohol or drug abuse patient.[facility]In the event this information is protected by the Federal Confidentiality of Alcohol and Drug Abuse Patient Records regulations: The Federal rules restrict any use of the information to criminally investigate or prosecute any alcohol or drug abuse patient.[facility]In the event this information is protected by the Federal Confidentiality of Alcohol and Drug Abuse Patient Records regulations: The Federal rules restrict any use of the information to criminally investigate or prosecute any alcohol or drug abuse patient.[facility]In the event this information is protected by the Federal Confidentiality of Alcohol and Drug Abuse Patient Records regulations: The Federal rules restrict any use of the information to criminally investigate or prosecute any alcohol or drug abuse patient.[facility]In the event this information is protected by the Federal Confidentiality of Alcohol and Drug Abuse Patient Records regulations: The Federal rules restrict any use of the information to criminally investigate or prosecute any alcohol or drug abuse patient.[facility] HospitalIn the event this information is protected by the Federal Confidentiality of Alcohol and Drug Abuse Patient Records regulations: The Federal rules restrict any use of the information to criminally investigate or prosecute any alcohol or drug abuse patient.[facility] HospitalIn the event this information is protected by the Federal Confidentiality of Alcohol and Drug Abuse Patient Records regulations: The Federal rules restrict any use of the information to criminally investigate or prosecute any alcohol or drug abuse patient.[facility] HospitalIn the event this information is protected by the Federal Confidentiality of Alcohol and Drug Abuse Patient Records regulations: The Federal rules restrict any use of the information to criminally investigate or prosecute any alcohol or drug abuse patient.[facility] HospitalIn the event this information is protected by the Federal Confidentiality of Alcohol and Drug Abuse Patient Records regulations: The Federal rules restrict any use of the information to criminally investigate or prosecute any alcohol or drug abuse patient.[facility] HospitalIn the event this information is protected by the Federal Confidentiality of Alcohol and Drug Abuse Patient Records regulations: The Federal rules restrict any use of the information to criminally investigate or prosecute any alcohol or drug abuse patient.[facility] HospitalIn the event this information is protected by the Federal Confidentiality of Alcohol and Drug Abuse Patient Records regulations: The Federal rules restrict any use of the information to criminally investigate or prosecute any alcohol or drug abuse patient.[facility] HospitalIn the event this information is protected by the Federal Confidentiality of Alcohol and Drug Abuse Patient Records regulations: The Federal rules restrict any use of the information to criminally investigate or prosecute any alcohol or drug abuse patient.[facility] HospitalIn the event this information is protected by the Federal Confidentiality of Alcohol and Drug Abuse Patient Records regulations: The Federal rules restrict any use of the information to criminally investigate or prosecute any alcohol or drug abuse patient.[facility] HospitalIn the event this information is protected by the Federal Confidentiality of Alcohol and Drug Abuse Patient Records regulations: The Federal rules restrict any use of the information to criminally investigate or prosecute any alcohol or drug abuse patient.[facility] HospitalIn the event this information is protected by the Federal Confidentiality of Alcohol and Drug Abuse Patient Records regulations: The Federal rules restrict any use of the information to criminally investigate or prosecute any alcohol or drug abuse patient.[facility] HospitalIn the event this information is protected by the Federal Confidentiality of Alcohol and Drug Abuse Patient Records regulations: The Federal rules restrict any use of the information to criminally investigate or prosecute any alcohol or drug abuse patient.[facility] HospitalIn the event this information is protected by the Federal Confidentiality of Alcohol and Drug Abuse Patient Records regulations: The Federal rules restrict any use of the information to criminally investigate or prosecute any alcohol or drug abuse patient.[facility] HospitalIn the event this information is protected by the Federal Confidentiality of Alcohol and Drug Abuse Patient Records regulations: The Federal rules restrict any use of the information to criminally investigate or prosecute any alcohol or drug abuse patient.[facility] HospitalIn the event this information is protected by the Federal Confidentiality of Alcohol and Drug Abuse Patient Records regulations: The Federal rules restrict any use of the information to criminally investigate or prosecute any alcohol or drug abuse patient.[facility] HospitalIn the event this information is protected by the Federal Confidentiality of Alcohol and Drug Abuse Patient Records regulations: The Federal rules restrict any use of the information to criminally investigate or prosecute any alcohol or drug abuse patient.[facility] HospitalIn the event this information is protected by the Federal Confidentiality of Alcohol and Drug Abuse Patient Records regulations: The Federal rules restrict any use of the information to criminally investigate or prosecute any alcohol or drug abuse patient.[facility] HospitalIn the event this information is protected by the Federal Confidentiality of Alcohol and Drug Abuse Patient Records regulations: The Federal rules restrict any use of the information to criminally investigate or prosecute any alcohol or drug abuse patient.[facility] HospitalIn the event this information is protected by the Federal Confidentiality of Alcohol and Drug Abuse Patient Records regulations: The Federal rules restrict any use of the information to criminally investigate or prosecute any alcohol or drug abuse patient.[facility] HospitalIn the event this information is protected by the Federal Confidentiality of Alcohol and Drug Abuse Patient Records regulations: The Federal rules restrict any use of the information to criminally investigate or prosecute any alcohol or drug abuse patient.[facility] HospitalIn the event this information is protected by the Federal Confidentiality of Alcohol and Drug Abuse Patient Records regulations: The Federal rules restrict any use of the information to criminally investigate or prosecute any alcohol or drug abuse patient.[facility] HospitalIn the event this information is protected by the Federal Confidentiality of Alcohol and Drug Abuse Patient Records regulations: The Federal rules restrict any use of the information to criminally investigate or prosecute any alcohol or drug abuse patient.[facility] HospitalIn the event this information is protected by the Federal Confidentiality of Alcohol and Drug Abuse Patient Records regulations: The Federal rules restrict any use of the information to criminally investigate or prosecute any alcohol or drug abuse patient.[facility] HospitalIn the event this information is protected by the Federal Confidentiality of Alcohol and Drug Abuse Patient Records regulations: The Federal rules restrict any use of the information to criminally investigate or prosecute any alcohol or drug abuse patient.[facility] the event this information is protected by the Federal Confidentiality of Alcohol and Drug Abuse Patient Records regulations: The Federal rules restrict any use of the information to criminally investigate or prosecute any alcohol or drug abuse patient.[facility] HospitalIn the event this information is protected by the Federal Confidentiality of Alcohol and Drug Abuse Patient Records regulations: The Federal rules restrict any use of the information to criminally investigate or prosecute any alcohol or drug abuse patient.[facility] HospitalIn the event this information is protected by the Federal Confidentiality of Alcohol and Drug Abuse Patient Records regulations: The Federal rules restrict any use of the information to criminally investigate or prosecute any alcohol or drug abuse patient.[facility] HospitalIn the event this information is protected by the Federal Confidentiality of Alcohol and Drug Abuse Patient Records regulations: The Federal rules restrict any use of the information to criminally investigate or prosecute any alcohol or drug abuse patient.[facility] HospitalIn the event this information is protected by the Federal Confidentiality of Alcohol and Drug Abuse Patient Records regulations: The Federal rules restrict any use of the information to criminally investigate or prosecute any alcohol or drug abuse patient.[facility] HospitalIn the event this information is protected by the Federal Confidentiality of Alcohol and Drug Abuse Patient Records regulations: The Federal rules restrict any use of the information to criminally investigate or prosecute any alcohol or drug abuse patient.[facility] HospitalIn the event this information is protected by the Federal Confidentiality of Alcohol and Drug Abuse Patient Records regulations: The Federal rules restrict any use of the information to criminally investigate or prosecute any alcohol or drug abuse patient.[facility] HospitalIn the event this information is protected by the Federal Confidentiality of Alcohol and Drug Abuse Patient Records regulations: The Federal rules restrict any use of the information to criminally investigate or prosecute any alcohol or drug abuse patient.[facility] HospitalIn the event this information is protected by the Federal Confidentiality of Alcohol and Drug Abuse Patient Records regulations: The Federal rules restrict any use of the information to criminally investigate or prosecute any alcohol or drug abuse patient.[facility] HospitalIn the event this information is protected by the Federal Confidentiality of Alcohol and Drug Abuse Patient Records regulations: The Federal rules restrict any use of the information to criminally investigate or prosecute any alcohol or drug abuse patient.[facility] HospitalIn the event this information is protected by the Federal Confidentiality of Alcohol and Drug Abuse Patient Records regulations: The Federal rules restrict any use of the information to criminally investigate or prosecute any alcohol or drug abuse patient.[facility] HospitalIn the event this information is protected by the Federal Confidentiality of Alcohol and Drug Abuse Patient Records regulations: The Federal rules restrict any use of the information to criminally investigate or prosecute any alcohol or drug abuse patient.[facility] HospitalIn the event this information is protected by the Federal Confidentiality of Alcohol and Drug Abuse Patient Records regulations: The Federal rules restrict any use of the information to criminally investigate or prosecute any alcohol or drug abuse patient.[facility] Reason for Visit (unrecogniz ed section and content) Specialty Diagnoses / Procedures Referred By Steven davis Referred To Contact Physical Therapy / PHYSICAL THERAPY Diagnoses Lt TKR Procedures NEW RS PT ORTH Jenny Bangura [address] [facility] [address] [place] [address] Kelli Gomez, PT [address] [place] [address] Referral ID Status Reason Start Date Expiration Date V isits Requested Visits Authorized [id number] Authorized 06/12/2022 03/28/2023 40 Reason Comments Physical Therapy Reason Comments Results Reason Onset Date Comments Results 07/02/2021 Reason Comments Cardiac Clearance Reason Comments Refill Request Reason Comments Forms [facility] Request for Surgery Clearance for left knee replacement Reason Comments Patient Update Reason Comments CARD Follow Up 6 Month Chronic heart moon lure Reason Onset Date Comments Refill Request 01/15/2022 Reason Comments Applications Support Lead - Other Clearance form to hold the brilinta. Reason Onset Date Comments Refill Request 03/11/2022 Reason Comments Applications Support Lead - Other Cardiac clearan ce Reason Comments Home Care Confirmation call Reason Comments Home Care Reason Onset Date Comments Transition Of Care 05/18/2022 [facility] disc harge 05/15/2022 TCM encounter Reason [...] syncope ye sterday, was in ER in [place] and told her it was not a [...] Care Teams (unrecognized sec tion and content) Sanitary Landfill Operator Relationship Specialty Start Date End Date Kate Espinoza DO PCP - General 02/02/07 Sanitary Landfill Operator Relationship Specialty Start Date End Date Kate Espinoza DO PCP - General 02/02/07 Sanitary Landfill Operator Relationship Specialty Start Date End Date Kate Espinoza DO PCP - General 02/02/07 Sanitary Landfill Operator Relationship Specialty Start Date End Date Kate Espinoza DO PCP - General 02/02/07 Sanitary Landfill Operator Relationship Specialty Start Date End Date Kate Espinoza DO PCP - General 02/02/07 Sanitary Landfill Operator Relationship Specialty Start Date End Date Kate Espinoza DO PCP - General 02/02/07 Sanitary Landfill Operator Relationship Specialty Start Date End Date Sheets, Kate Mendez, DO PCP - General 02/02/07 Sanitary Landfill Operator Relationship Specialty Start Date End Date Sheets, Kate Mendez, DO PCP - General 02/02/07 Sanitary Landfill Operator Relationship Specialty Start Date End Date Sheets, Kate Mendez, DO PCP - General 02/02/07 Sanitary Landfill Operator Relationship Specialty Start Date End Date Sheets, Kate Mendez, DO PCP - General 02/02/07 Sanitary Landfill Operator Relationship Specialty Start Date End Date Sheets, Kate Mendez, DO PCP - General 02/02/07 Sanitary Landfill Operator Relationship Specialty Start Date End Date Sheets, Kate Mendez, DO PCP - General 02/02/07 Sanitary Landfill Operator Relationship Specialty Start Date End Date Sheets, Kate Mendez, DO PCP - General 02/02/07 Sanitary Landfill Operator Relationship Specialty Start Date End Date Sheets, Kate Mendez, DO PCP - General 02/02/07 Sanitary Landfill Operator Relationship Specialty Start Date End Date Sheets, Kate Mendez, DO PCP - General 02/02/07 Pennie Jaeger, EMERGENCY SERVICE RESTORER.MEDIA SPECIALIST [address] [place] [address] Referring Admitting 05/15/22 Sanitary Landfill Operator Relationship Specialty Start Date End Date Sheets, Kate Mendez DO PCP - General 02/02/07 Pennie Jaeger APRN.MEDIA SPECIALIST [address] [place] [address] Referring Admitting 05/15/22 Kate Espinoza, DO [address] [place] [address] Home Care Provider Family Medicine 05/15/22 Kush Newby, PT [address] [place] [address] [facility] 05/15/22 Sanitary Landfill Operator Relationship Specialty Start Date End Date Kate Espinoza DO PCP - General 02/02/07 Pennie Jaeger APRN.MEDIA SPECIALIST [address] [place] [address] Referring Admitting 05/15/22 Kate Espinoza DO [address] [place] [address] Home Care Provider Family Medicine 05/15/22 Kush Newby, PT [address] [place] [address] Program [facility] Acute [facility] 05/15/22 Sanitary Landfill Operator Relationship Specialty Start Date End Date Kate Espinoza DO PCP - General 02/02/07 Pennie Jaeger APRN.MEDIA SPECIALIST [address] [place] [address] Referring Admitting 05/15/22 Kate Espinoza, DO [address] [place] [address] Home Care Provider Family Medicine 05/15/22 Kush Newby, PT [address] [place] [address] Program [facility] Acute [facility] 05/15/22 Sanitary Landfill Operator Relationship Specialty Start Date End Date Kate Espinoza DO PCP - General 02/02/07 Pennie Jaeger APRN.MEDIA SPECIALIST [address] [place] [address] Referring Admitting 05/15/22 Kate Espinoza, DO [address] [place] [address] Home Care Provider Family Medicine 05/15/22 Kush Newby, PT [address] [place] [address] Program [facility] Acute [facility] 05/15/22 Sanitary Landfill Operator Relationship Specialty Start Date End Date Kate Espinoza DO PCP - General 02/02/07 Pennie Jaeger APRN.MEDIA SPECIALIST [address] [place] [address] Referring Admitting 05/15/22 Kate Espinoza DO [address] [place] [address] Home Care Provider Family Medicine 05/15/22 Kush Newby, PT [address] [place] [address] Program [facility] 05/15/22 Sanitary Landfill Operator Relationship Specialty Start Date End Date Kate Espinoza DO PCP - General 02/02/07 Pennie Jaeger, RUIZ.MEDIA SPECIALIST [address] [place] [address] Referring Admitting 05/15/22 Kate Espinoza, DO [address] [place] [address] Home Care Provider Family Medicine 05/15/22 Kush Newby, PT [address] [place] [address] Program [facility] Acute Care 05/15/22 Sanitary Landfill Operator Relationship Specialty Start Date End Date Kate Espinoza DO PCP - General 02/02/07 Pennie Jaeger, EMERGENCY SERVICE RESTORER.MEDIA SPECIALIST [address] [place] [address] Referring Admitting 05/15/22 Kate Espinoza DO [address] [place] [address] Home Care Provider Family Medicine 05/15/22 Kush Newby, PT [address] [place] [address] Program [facility] Acute [facility] 05/15/22 Sanitary Landfill Operator Relationship Specialty Start Date End Date Kate Espinoza DO PCP - General 02/02/07 Pennie Jaeger, EMERGENCY SERVICE RESTORER.MEDIA SPECIALIST [address] [place] [address] Referring Admitting 05/15/22 Kate Espinoza, DO [address] [place] [address] Home Care Provider Family Medicine 05/15/22 Kush Newby, PT [address] [place] [address] Program [facility] 05/15/22 Sanitary Landfill Operator Relationship Specialty Start Date End Date Kate Espinoza DO PCP - General 02/02/07 Pennie Jaeger, EMERGENCY SERVICE RESTORER.MEDIA SPECIALIST [address] [place] [address] Referring Admitting 05/15/22 Kate Espinoza, DO [address] [place] [address] Home Care Provider Family Medicine 05/15/22 Kush Newby, PT [address] [place] [address] Program [facility] Acute [facility] 05/15/22 Sanitary Landfill Operator Relationship Specialty Start Date End Date Kate Espinoza DO PCP - General 02/02/07 Pennie Jaeger, EMERGENCY SERVICE RESTORER.MEDIA SPECIALIST [address] [place] [address] Referring Admitting 05/15/22 Kate Espinoza, DO [address] [place] [address] Home Care Provider Family Medicine 05/15/22 Kush Newby, PT [address] [place] [address] Program [facility] 05/15/22 Sanitary Landfill Operator Relationship Specialty Start Date End Date Kate Espinoza DO PCP - General 02/02/07 Pennie Jaeger, EMERGENCY SERVICE RESTORER.MEDIA SPECIALIST [address] [place] [address] Referring Admitting 05/15/22 Kate Espinoza, DO [address] [place] [address] Home Care Provider Family Medicine 05/15/22 Kush Newby, PT [address] [place] [address] Program [facility] 05/15/22 Sanitary Landfill Operator Relationship Specialty Start Date End Date Kate Espinoza DO PCP - General 02/02/07 Pennie Jaeger APRN.MEDIA SPECIALIST [address] [place] [address] Referring Admitting 05/15/22 Kate Espinoza, DO [address] [place] [address] Home Care Provider Family Medicine 05/15/22 Kush Newby, PT [address] [place] [address] Program [facility] 05/15/22 Sanitary Landfill Operator Relationship Specialty Start Date End Date Kate Espinoza DO PCP - General 02/02/07 Pennie Jaeger APRN.MEDIA SPECIALIST [address] [place] [address] Referring Admitting 05/15/22 Kate Espinoza, DO [address] [place] [address] Home Care Provider Family Medicine 05/15/22 Kush Newby, PT [address] [place] [address] Program [facility] 05/15/22 Sanitary Landfill Operator Relationship Specialty Start Date End Date Kate Espinoza DO PCP - General 02/02/07 Pennie Jaeger APRN.MEDIA SPECIALIST [address] [place] [address] Referring Admitting 05/15/22 Kate Espinoza DO [address] [place] [address] Home Care Provider Family Medicine 05/15/22 Kush Newby, PT [address] [facility] [place] [address] Program [facility] 05/15/22 Sanitary Landfill Operator Relationship Specialty Start Date End Date Kate Espinoza DO PCP - General 02/02/07 Pennie Jaeger, EMERGENCY SERVICE RESTORER.MEDIA SPECIALIST [address] [place] [address] Referring Admitting 05/15/22 Kate Espinoza DO [address] [place] [address] Home Care Provider Family Medicine 05/15/22 Kush Newby, PT [address] [facility] [place] [place] [address] Program [facility] 05/15/22 Sanitary Landfill Operator Relationship Specialty Start Date End Date Kate Espinoza DO PCP - General 02/02/07 Pennie Jaeger, EMERGENCY SERVICE RESTORER.MEDIA SPECIALIST [address] [place] [address] Referring Admitting 05/15/22 Kate Espinoza DO [address] [place] [address] Home Care Provider Family Medicine 05/15/22 Kush Newby, PT [address] [place] [address] Program [facility] 05/15/22 Sanitary Landfill Operator Relationship Specialty Start Date End Date Kate Espinoza DO PCP - General 02/02/07 Pennie Jaeger APRN.MEDIA SPECIALIST [address] [place] [address] Referring Admitting 05/15/22 Kate Espinoza DO [address] [place] [address] Home Care Provider Family Medicine 05/15/22 Kush Newby, PT [address] [place] [address] Program [facility] 05/15/22 Sanitary Landfill Operator Relationship Specialty Start Date End Date Kate Espinoza DO PCP - General 02/02/07 Pennie Jaeger APRN.MEDIA SPECIALIST [address] [place] [address] Referring Admitting 05/15/22 Kate Espinoza DO [address] [place] [address] Home Care Provider Family Medicine 05/15/22 Kush Newby, PT [address] [place] [address] Program [facility] Acute [facility] 05/15/22 Sanitary Landfill Operator Relationship Specialty Start Date End Date Kate Espinoza DO PCP - General 02/02/07 Pennie Jaeger APRN.MEDIA SPECIALIST [address] [place] [address] Referring Admitting 05/15/22 Kate Espinoza DO [address] [place] [address] Home Care Provider Family Medicine 05/15/22 Kush Newby, PT [address] [place] [address] Program [facility] Acute [facility] 05/15/22 Sanitary Landfill Operator Relationship Specialty Start Date End Date Kate Espinoza DO PCP - General 02/02/07 Pennie Jaeger, RUIZ.MEDIA SPECIALIST [address] [place] [address] Referring Admitting 05/15/22 Kate Espinoza DO [address] [place] [address] Home Care Provider Family Medicine 05/15/22 Kush Newby, PT [address] [place] [address] Program [facility] 05/15/22 Sanitary Landfill Operator Relationship Specialty Start Date End Date Kate Espinoza DO PCP - General 02/02/07 Pennie Jaeger, EMERGENCY SERVICE RESTORER.MEDIA SPECIALIST [address] [place] [address] Referring Admitting 05/15/22 Kate Espinoza DO [address] [place] [address] Home Care Provider Family Medicine 05/15/22 Kush Newby, PT [address] [facility], [place] [id number] Program [facility] Acute Care 05/15/22 Sanitary Landfill Operator Relationship Specialty Start Date End Date Kate Espinoza DO PCP - General 02/02/07 Pennie Jaeger, EMERGENCY SERVICE RESTORER.MEDIA SPECIALIST [address] [place] [address] Referring Admitting 05/15/22 Kate Espinoza DO [address] [place] [address] Home Care Provider Family Medicine 05/15/22 Kush Newby, PT [address] [place] [address] Program Ar[facility] Acute Care 05/15/22 Sanitary Landfill Operator Relationship Specialty Start Date End Date Kate Espinoza DO PCP - General 02/02/07 Pennie Jaeger, EMERGENCY SERVICE RESTORER.MEDIA SPECIALIST [address] [place] [address] Referring Admitting 05/15/22 Kate Espinoza DO [address] [place] [address] Home Care Provider Family Medicine 05/15/22 Kush Newby, PT [address] [facility], [place] [id number] Program [facility] Acute Care 05/15/22 Scheduled Active and [...] BE BASED ON THE PRIMARY CLINICAL RECORDS. [employer] [facility]. provides no warranty or guarantee of the accuracy or completeness of information in this document.
[2023-04-26] MEDS: Aspirin 81 MG TAB.CHEW PO (21:03)
[2023-04-26] MEDS: Atorvastatin Calcium 80 MG Tablet PO (21:03)
[2023-04-26] MEDS: traZODone 50 MG Tablet 150 MG PO (21:03)
[2023-04-26] MEDS: Zolpidem Tartrate 5 MG Tablet PO (21:04)
[2023-04-26] MEDS: TICAGRELOR 90 MG TABLET PO (21:05)
[2023-04-27] VITALS (8 sets, daily range): BP systolic 116–146; BP diastolic 57–74; PULSE 61–95; RESP 16–20; TEMP 36.6–37.5; O2SAT 82–98
[2023-04-27] MEDS: 0.9% Saline Lock 10 ML Syringe IV (05:07)
[2023-04-27] MEDS: Acetaminophen 500 MG Tablet 1000 MG PO ×3 (05:07→21:37)
[2023-04-27] MEDS: oxyCODONE 5 MG Tablet PO ×4 (05:08→21:40)
[2023-04-27 06:37] LABS: Hematocrit 30.9 % (37-47); Hemoglobin 9.7 g/dL (12.0-15.0); Mean Corp Hgb Conc 31.4 g/dL (32-36); Mean Corpuscular Hgb 29.7 pg (27.0-32.0); Mean Corpuscular Volume 94.5 fL (81-99); Mean Platelet Vol. 9.9 fl (6.2-12.0); Platelet Count 159 K/mm3 (150-450); RBC Distribution Width CV 13.9 % (11.6-14.6); RBC Distribution Width SD 47.5 fl (35.1-43.9); Red Blood Count 3.27 M/mm3 (4.2-5.4)
[2023-04-27 07:07] LABS: Anion Gap 5 (5-15); BUN 11 mg/dL (7-18); BUN/Creat Ratio 15.7 RATIO (10-20); Calcium,Total 8.4 mg/dL (8.5-10.1); Chloride 105 mmol/L (98-107); EST Glomerular Filtration Rate 90 mL/min (>60); Est Glom Filt Rate - Afr Amer 109 mL/min (>60); Glucose 109 mg/dL (74-106); Potassium 3.1 mmol/L (3.5-5.1); Sodium Level 136 mmol/L (136-145)
[2023-04-27] MEDS: Venlafaxine XR 150 MG Capsule PO (07:41)
[2023-04-27] MEDS: Allopurinol 100 MG Tablet 200 MG PO (07:42)
[2023-04-27] MEDS: Lisinopril 2.5 MG Tablet PO (07:42)
[2023-04-27] MEDS: Pantoprazole Sodium 40 MG Tablet PO (07:42)
[2023-04-27] MEDS: Metoprolol Tartrate 25 MG Tablet PO (07:42)
[2023-04-27] MEDS: Senna/Docusate Sodium 1 Tablet 2 TABLET PO (07:43)
[2023-04-27] MEDS: Celecoxib 200 MG Capsule PO (07:43)
[2023-04-27] MEDS: Isosorbide Mononitrate 30 MG Tablet PO (07:43)
--- NOTE | 2023-04-27 07:43 | PCM.PN.ORT ---
Subjective Subjective Patient lying in bed talking on the telephone. Patient reports her pain is well-managed. Patient denies chest pain, shortness of breath, calf pain, nausea vomiting. Objective Data Objective Data Vital Signs: Vital Signs Temp Pulse Resp BP Pulse Ox O2 Del Method O2 Flow Rate 97.8 F 75 18 146/73 H 94 Room Air 4 04/27/23 07:35 04/27/23 07:35 04/27/23 07:35 04/27/23 07:35 04/27/23 07:35 04/27/23 07:35 04/26/23 13:15 Oxygen Flow Rate (L/min) 4 Oxygen Delivery Method Room Air Weight: 91 kg Body Mass Index (BMI) 34.6 Intake & Output: Intake and Output for Last 24 Hours 04/25/23 04/26/23 04/27/23 23:59 23:59 23:59 Intake Total 4910.33 / 5310.33 400 / 400 Output Total 100 / 100 Balance 4910.33 / 5310.33 300 / 300 Lab / Micro Data 04/27/23 06:28 04/27/23 06:28 Labs: Laboratory Results - last 24 hr 04/26/23 08:32: POC Glucose 105 04/27/23 06:28: WBC 5.0, RBC 3.27 L, Hgb 9.7 L, Hct 30.9 L, MCV 94.5, MCH 29.7, MCHC 31.4 L, RDW Std Deviation 47.5 H, RDW Coeff of Lory 13.9, Plt Count 159, MPV 9.9, Sodium 136, Potassium 3.1 L, Chloride 105, Carbon Dioxide 26.0, Anion Gap 5, BUN 11, Creatinine 0.70, Estim Creat Clear Calc 88.10, Est GFR (MDRD) Af Amer 109, Est GFR (MDRD) Non-Af 90, BUN/Creatinine Ratio 15.7, Glucose 109 H, Calcium 8.4 L Micro: Microbiology 04/06/23 14:52 Swab (Method) Nasal Screen MRSA/MSSA - Final Radiography Diagnostic Testing: Radiology Impression Knee X-Ray 04/26/23 12:50 IMPRESSION: Status post total knee replacement. Postoperative soft tissue changes. Electronically Signed: Serafin Manrique MD at 13:48 EST , Physical Exam Narrative Exam, patient lying in bed alert oriented. No respiratory distress. Speaking in full sentences. Good motion of the upper extremities. The dressing is clean dry intact. Patient has no calf pain. She has good plantarflexion dorsiflexion of the bilateral feet. Patient does have mild hypokalemia Const alert and oriented x3 General Appearance: cooperative HEENT normocephalic Eyes PERRL Resp normal respiratory effort Effort and Inspection: able to speak in complete sentences Extremity normal capillary refill Skin no rashes or lesions noted Neuro CN's II-XII intact bilaterally Motor Exam: strength 5/5 throughout Psych mental status grossly normal and affect normal Assessment & Plan Assessment/Plan (1) Status post total right knee replacement not using cement: PLAN: 1. Continue all pain medications as prescribed 2. Aspirin 81 mg 1 p.o. every 12 hours postop DVT prophylaxis 3. Encourage incentive spirometry 4. Encourage oral intake of high potassium food, and increase oral fluid intake 5. Ambulate weight-bear as tolerated with walker continue ice to right knee 6. Pending approval for TCU placement postoperatively
[2023-04-27] MEDS: TICAGRELOR 90 MG TABLET PO ×2 (07:44→21:37)
[2023-04-27] MEDS: Aspirin 81 MG TAB.CHEW PO ×2 (07:47→21:36)
--- NOTE | 2023-04-27 09:25 | CASEMGMT ---
Addendum entered by Fany Dominique 04/27/23 10:17: Pt refusing to see a list of local in network rehab units and states she wants to go to the [facility]. ADRIANNE updated. Original Note: CLARA SLOAN Assessment Face to Face with patient for initial transition planning/care coordination assessment. CLARA SLOAN introduced self and role at [facility], pt voices understanding. Pt is A&Ox4 and is resting comfortably in chair and is calm. Care providers, pharmacy, and demographics verified. Admitting dx: Rt Total knee LACE Strata: 1 PCP: Alexis Specialists: Pt states she sees a green coffee blender (Dr. Guevara) in [place] 1x/year Preferred Pharmacy: [facility] Insurance: [facility] Prescription Benefit: Yes LNOK: Jim Bain (H) Living Arrangements: Pt lives with her in a single story home with her . The home has a basement with handrails and 4 steps to enter the home with handrails. ADLs/IADLs: Normally Ind Transportation: Pt and pt drive DME: Pt states she has a walker,rollator, and cane at home but does not need to use normally. Shower chair with grab bars. Raised toilet with grab bars. Denies other DME. HHC/SNF:States she went to [facility] a year ago after her Lt total knee. Pt states she was there for around 8 days and was then seen by HHC after DC. Pt could not recall the HH agency and states they saw the pt for about a month. Plan: Pt states she is wanting to go to [facility] again after DC. ADRIANNE Hurtado updated and made aware. Ciara Dominique RN, CM
--- NOTE | 2023-04-27 10:32 | CASEMGMT ---
Addendum entered by Nusrat Gonzalez 04/27/23 12:25: [facility] accepted referral. Asked for precert to be started. SW updated. Nusrat Gonzalez, Discharge Planning Asst. Original Note: Discharge Planning Referral sent to [facility] via [facility]. Nusrat Gonzalez, Discharge Planning Asst.
--- NOTE | 2023-04-27 14:45 | CASEMGMT ---
Social Work SW let pt know that she was accepted in the [facility] and precert was started. Pt states understanding, is agreeable. SW will continue to follow. JONNY Turner
--- NOTE | 2023-04-27 21:28 | NURSING ---
pt pulled the call falcon in bathroom to go back to bed. By the time i came back the pt put herself to bed. Informed pt not to do that she could fall. Pt verbalized understanding. Pt then told me her remote was not working but she had her phone in her hand.
[2023-04-27] MEDS: Atorvastatin Calcium 80 MG Tablet PO (21:36)
[2023-04-27] MEDS: Zolpidem Tartrate 5 MG Tablet PO (21:36)
[2023-04-27] MEDS: traZODone 50 MG Tablet 150 MG PO (21:36)
[2023-04-28] MEDS: oxyCODONE 5 MG Tablet PO ×3 (02:49→10:56)
--- NOTE | 2023-04-28 02:54 | NURSING ---
PT found to have a vape pen in her bed. Reminded pt can't vape/smoke in hospital. Offered nicotine patch, but pt declined. Locked in drawer, pt aware it will be returned at tx.
[2023-04-28 02:56] VITALS: BP 122/75; PULSE 79; RESP 16; TEMP 36.4; O2SAT 96
[2023-04-28] MEDS: Acetaminophen 500 MG Tablet 1000 MG PO (04:42)
[2023-04-28 08:15] VITALS: BP 127/90; PULSE 76; RESP 18; TEMP 36.8; O2SAT 98
[2023-04-28] MEDS: Pantoprazole Sodium 40 MG Tablet PO (08:23)
[2023-04-28] MEDS: TICAGRELOR 90 MG TABLET PO (08:23)
[2023-04-28] MEDS: Venlafaxine XR 150 MG Capsule PO (08:23)
[2023-04-28] MEDS: Aspirin 81 MG TAB.CHEW PO (08:23)
[2023-04-28] MEDS: Celecoxib 200 MG Capsule PO (08:23)
[2023-04-28 08:24] VITALS: PULSE 76
[2023-04-28] MEDS: Lisinopril 2.5 MG Tablet PO (08:24)
[2023-04-28] MEDS: Isosorbide Mononitrate 30 MG Tablet PO (08:24)
[2023-04-28] MEDS: Allopurinol 100 MG Tablet 200 MG PO (08:24)
[2023-04-28] MEDS: Metoprolol Tartrate 25 MG Tablet PO (08:24)
--- NOTE | 2023-04-28 09:01 | CASEMGMT ---
Discharge Planning Nichol LEUNG has obtained auth. SW updated. Nusrat Arana, Discharg Planning Asst.
--- NOTE | 2023-04-28 12:27 | PN.ORTHO_ITS ---
Subjective Subjective Patient sitting at bedside in chair watching TV. Patient states her pain has been well-managed. Denies chest pain, shortness of breath, calf pain, nausea vomiting. No other complaints at this time. States she is ready for transfer to outpatient rehab TCU in [place]. Objective Data Objective Data Vital Signs: Vital Signs Temp Pulse Resp BP Pulse Ox O2 Del Method O2 Flow Rate 98.3 F 76 18 127/90 H 98 Room Air 4 04/28/23 08:15 04/28/23 08:24 04/28/23 08:15 04/28/23 08:15 04/28/23 08:15 04/28/23 08:15 04/26/23 13:15 Oxygen Flow Rate (L/min) 4 Oxygen Delivery Method Room Air Weight: 91 kg Body Mass Index (BMI) 34.6 Intake & Output: Intake and Output for Last 24 Hours 04/26/23 04/27/23 04/28/23 23:59 23:59 23:59 Intake Total 4910.33 / 5310.33 626.75 / 626.75 Output Total 100 / 100 Balance 4910.33 / 5310.33 526.75 / 526.75 Lab / Micro Data 04/27/23 06:28 04/27/23 06:28 Micro: Microbiology 04/06/23 14:52 Swab (Method) Nasal Screen MRSA/MSSA - Final Physical Exam Narrative Exam patient sitting comfortably in a chair at bedside. Patient appears to be very comfortable with no respiratory distress. Speaking full sentences. Moving upper extremities without limitations good muscle tone and strength. The right knee was cool to touch. Dressing clean dry intact. No calf tenderness. No pain with plantarflexion dorsiflexion of bilateral feet. Strong post cheerier and dorsalis pedis pulse in the right leg. Const alert, oriented x3, no apparent distress and well nourished General Appearance: cooperative and well developed HEENT normocephalic Eyes PERRL Resp normal respiratory effort Effort and Inspection: able to speak in complete sentences Extremity normal capillary refill Skin no rashes or lesions noted Neuro CN's II-XII intact bilaterally Motor Exam: strength 5/5 throughout Psych mental status grossly normal and affect normal Assessment & Plan Assessment/Plan (1) Status post total right knee replacement not using cement: PLAN: 1. Continue all pain medications as prescribed 2. Aspirin 81 mg 1 p.o. every 12 hours x 30 days for postop DVT prophylaxis 3. Encourage incentive spirometry 4. Weight-bear as tolerated with walker 5. Ice when sitting keep right leg elevated when sitting 6. Continue YOSELIN hose during the day off at night 7. Patient can shower 05-22 8. Follow-up as scheduled. 9. Staple removal to 05/10/2023
--- NOTE | 2023-04-28 12:31 | DCINST_ITS ---
Discharge Instructions Diet Discharge Diet: No restrictions Activity Discharge Activity: May Not Drive and May Shower May shower in (days): 2 May resume sexual activity in: No Restrictions Ice area for (Minutes): 30 Weight Bearing Status: Weight bearing as tolerated Keep extremity elevated above heart level: Operative Extremity Dressing / Incision Call your doctor if your incision/area has: Continuous Slow Oozing, Sudden Increased Bleeding, Increased Pain/ Swelling, Increased Redness, Foul Smelling Discharge and Swelling at the incision site Call your doctor if you observe: Fever of 101 or Higher and Coldness, Increased Pain Change Dressing in: leave in place till F/U Remove Dressing in: leave in place till F/U Follow Up Care Please Follow Up With: Robbie Saleh PA-C When: As scheduled in 2 weeks Test Results: Test results from this visit will be discussed in further detail at your follow- up appointment, if applicable. Discharge Plan Admission Admit Date/Time: 04/26/23 16:56 Primary Reason for Your Visit: Right total knee arthroplasty Attending Provider: Madhav Grace Primary Care Provider: Kate Espinoza Discharge Orders/Prescriptions Prescriptions: New oxycodone 5 mg Tablet 5 - 10 mg PO Q4H PRN PRN (Reason: Pain Score 4-10) 7 Days Qty: 84 0RF acetaminophen 500 mg Tablet 1,000 mg PO Q8 21 Days Qty: 126 0RF Continued celecoxib 200 mg capsule 200 mg PO DAILY Patient Comments: TAKE 1 CAPSULE BY MOUTH DAILY WITH FOOD atorvastatin 80 mg tablet 80 mg PO QHS Patient Comments: TAKE 1 TABLET BY MOUTH ONCE DAILY AT BEDTIME isosorbide mononitrate 30 mg tablet extended release 24 hr 30 mg PO DAILY Patient Comments: TAKE 1 TABLET BY MOUTH EVERY DAY venlafaxine 150 mg capsule,extended release 24hr 150 mg PO DAILY Patient Comments: TAKE 1 CAPSULE BY MOUTH DAILY allopurinol 100 mg tablet 200 mg PO DAILY Patient Comments: Take 2 tablets by mouth once daily. omeprazole 40 mg capsule,delayed release(DR/EC) 40 mg PO DAILY Patient Comments: TAKE 1 CAPSULE BY MOUTH ONCE DAILY trazodone 150 mg tablet 150 mg PO QHS Patient Comments: Take 1 tablet by mouth daily at bedtime. zolpidem [Ambien] 5 mg tablet 5 mg PO QHS Patient Comments: TAKE 1 TABLET BY MOUTH DAILY AT BEDTIME NEEDED lisinopril 2.5 mg tablet 2.5 mg PO DAILY Patient Comments: Take 1 tablet by mouth once daily. metoprolol tartrate 25 mg tablet 25 mg PO DAILY Patient Comments: Take 1 tablet by mouth twice daily. Brilinta 90 mg tablet 90 mg PO BID Patient Comments: TAKE 1 TABLET BY MOUTH TWICE DAILY, LAST DOSE 5 DAYS PRIOR TO OR, 04/29/2022 aspirin 81 mg Tablet,Chewable 81 mg PO Q12H 30 Days Qty: 60 0RF furosemide 20 mg tablet 20 mg PO DAILY PRN (Reason: edema) No Action oxycodone 5 mg Tablet 5 - 10 mg PO Q4H PRN PRN (Reason: Pain Score 4-10) 7 Days Qty: 84 0RF Other Ambulatory Orders: 12 Lead EKG (Routine) Timeframe: [id number] Location: None Selected Ordered By: Dr. Madhav Grace Referrals / Follow Up: Kate Espinoza DO [Primary Care Provider] - Disposition Disposition (needs filled in before D/C Order can be placed): Senior Living Facility
--- NOTE | 2023-04-28 12:49 | CASEMGMT ---
Social Work Precert has been obtained for pt to discharge to [facility]. ALYSA Ervin updated and pt is ready for discharge on this date. SKYLER production assistant updated and to complete discharge. Disposition: [facility], skilled level of care JAIR Zhou
--- NOTE | 2023-04-28 13:09 | CASEMGMT ---
Discharge Planning Discharge orders, signed med list, and transport time sent to [facility] via [facility]. Physicians will transport patient by wheelchair at 1:30p. Nursing, SW, and patient updated. Nusrat Gonzalez, Discharge Planning Asst.
[2023-04-28 13:15] VITALS: BP 135/69; PULSE 75; RESP 18; TEMP 36.8; O2SAT 97
--- NOTE | 2023-04-28 13:27 | NURSING ---
Tried 2 different number to call report on pt and no answer only voice mail. Will try again later.
--- NOTE | 2023-04-28 14:03 | NURSING ---
Tried to call report again to the 2 different numbers [phone] and [phone] and no answer. Pt has now left the building.
--- NOTE | 2023-04-28 15:08 | NURSING ---
Report called to [facility] at [phone].
== END 2023-04-28 14:00 | disposition skilled nursing facility (03) ==
LOC: SDC 17:21 → MS3 17:21
PROVIDERS: Anesthesiology; Admitting Provider Orthopaedic Surgery; PCP Family Medicine; Referring Provider Orthopaedic Surgery; Visit Provider Orthopaedic Surgery
PROC: 0SRC0JZ Replacement of Right Knee Joint with Synthetic Substitute, Open Approach (ICD-10-PCS; CPT 27447; principal; 2023-04-26 10:15)
DX: M17.11 Unilateral primary osteoarthritis, right knee (principal); J44.9 Chronic obstructive pulmonary disease, unspecified; Z79.899 Other long term (current) drug therapy; Z79.02 Long term (current) use of antithrombotics/antiplatelets; K21.9 Gastro-esophageal reflux disease without esophagitis; E78.00 Pure hypercholesterolemia, unspecified; F32.A Depression, unspecified; M10.9 Gout, unspecified; I25.2 Old myocardial infarction; I25.10 Atherosclerotic heart disease of native coronary artery without angina pectoris; I10 Essential (primary) hypertension; F17.210 Nicotine dependence, cigarettes, uncomplicated
CPT/HCPCS: 27447; 01402; S2900; 64447; 36415; 73560; 80048; 82962; 83036; 83735; 85025; 85027; 87081; 88305; 88311; 93005; 94668; 97110; 97116; 97162; 97166; 97535; 99221; C1776; J7120; A4216; G0378; J3475